=== PATIENT | female | born 1990 | race Caucasian/White ===

== ENCOUNTER 2023-03-16 21:38 | Outpatient (REF) | payer OTHER, SELFPAY ==
[2023-03-22 10:17] LABS: Age Gdln ACOG Testing Note (.); HPV Aptima Negative (Negative); IGP, Aptima HPV, rfx 16/18,45 Note (.)
== END 2023-03-16 21:39 | disposition home or self-care (01) ==
LOC: LAB 21:38
PROVIDERS: Visit Provider Obstetrics & Gynecology
DX: Z01.419 Encounter for gynecological examination (general) (routine) without abnormal findings (principal)
CPT/HCPCS: 87624; G0145

== ENCOUNTER 2023-10-06 14:14 | Outpatient (OUT) | payer OTHER, SELFPAY ==
--- NOTE | 2023-10-06 14:16 | US_ITS ---
[address] [address] Patient Name: SABINE SWAIN MRN: [id number] date: 1990 Sex: F Assigned Patient Location: [facility] Current Patient Location: [facility] Accession/Order Number: [id number] Exam Date: 10/06/2023 14:18 Report Date: 10/06/2023 14:55 At the request of: AGATA FIGUEROA Procedure: US OB transvaginal EXAMINATION: US OB transvaginal HISTORY: Missed menses COMPARISON: No relevant comparison available. FINDINGS: Transvaginal images Brown intrauterine gestation Gestational sac: 1.66 cm, 6 weeks 0 days CRL: 2.8 mm, 5 weeks 6 days Yolk sac: 1.8 mm Heart rate: 101 beats minute Cervix: 4.5 cm, closed Uterus is normal, anteverted The ovaries are normal Clinical age: 9 weeks 6 days Clinical MITCH: 05/04/2024 Ultrasound age: 5 weeks 6 days Ultrasound MITCH: 06/01/2024 US/US OB transvaginal IMPRESSION: Viable brown intrauterine gestation measuring 5 weeks 6 days Electronically authenticated by: BLAS OLIVEIRA Date: 10/06/2023 14:55
== END 2023-10-06 14:15 | disposition home or self-care (01) ==
LOC: NOMS 14:14
PROVIDERS: Visit Provider Obstetrics & Gynecology
DX: Z34.91 Encounter for supervision of normal pregnancy, unspecified, first trimester (principal); Z3A.01 Less than 8 weeks gestation of pregnancy
CPT/HCPCS: 76817

== ENCOUNTER 2023-10-06 15:20 | Outpatient (OUT) | payer OTHER, SELFPAY ==
[2023-10-06 15:56] LABS: Basophils Percent Auto 0.3 % (0.2-2.0); Eosinophils Percent Auto 0.4 % (0.9-7.0); Hematocrit 43.3 % (36.0-48.0); Hemoglobin 14.1 g/dL (12.0-16.0); Immature Granulocytes Abs Auto 0.03 10^3/uL (0.00-0.03); Immature Granulocytes Pct Auto 0.3 % (0.0-0.5); Lymphocytes Absolute Auto 1.2 10^3/uL (1.2-3.8); Lymphocytes Percent Auto 12.2 % (20.5-60.0); Mean Corpuscular HGB Conc 32.6 g/dL (29.9-35.2); Mean Corpuscular Hemoglobin 28.5 pg (26.7-34.0); Mean Corpuscular Volume 87.5 fL (81.0-99.0); Mean Platelet Volume 9.4 fL (9.5-13.5); Monocytes Absolute Auto 0.4 10^3/uL (0.3-0.8); Monocytes Percent Auto 4.2 % (1.7-12.0); Neutrophils Absolute Auto 8.2 10^3/uL (1.4-6.5); Neutrophils Percent Auto 82.6 % (43.0-75.0); Platelet Count 266 10^3/uL (150-450); Red Blood Count 4.95 10^6/uL (4.20-5.40); White Blood Count 9.9 10^3/uL (4.0-11.0)
[2023-10-06 16:05] LABS: Estimated Average Glucose 97 mg/dL
== END 2023-10-06 15:21 | disposition home or self-care (01) ==
LOC: LAB 15:24
PROVIDERS: Visit Provider Obstetrics & Gynecology
DX: Z34.91 Encounter for supervision of normal pregnancy, unspecified, first trimester (principal); Z3A.01 Less than 8 weeks gestation of pregnancy
CPT/HCPCS: 36415; 76817; 83036; 85025; 86592; 86762; 86803; 86850; 86900; 86901; 87086; 87340; 87389

== ENCOUNTER 2024-01-17 13:02 | Outpatient (OUT) | payer OTHER, SELFPAY ==
--- NOTE | 2024-01-17 13:05 | US_ITS ---
[address] [address] Patient Name: SABINE SWAIN MRN: [id number] date: 1990 Sex: F Assigned Patient Location: [facility] Current Patient Location: [facility] Accession/Order Number: [id number] Exam Date: 01/17/2024 13:06 Report Date: 01/17/2024 16:03 At the request of: AGATA FIGUEROA Procedure: US OB cervical length EXAMINATION: US OB anatomy, US OB cervical length HISTORY: ANATOMY COMPARISON: No relevant comparison available. TECHNIQUE: Transabdominal sonographic examination was performed for obstetrical and evaluation. FINDINGS: Number: 1 Heart Rate: 145 bpm H.B. /min Amniotic Fluid Volume: Subjectively normal Placental Location: ANTERIOR with lower margin 3.8 cm from os. Cervix Length: 4.49 cm ; closed. ANATOMY: Normal Structures -cerebellum, choroid plexus, cisterna magna, lateral cerebral ventricles, orbits, midline falx, hard palate, four-chamber heart, RVOT, LVOT, stomach, kidneys, bladder, umbilical cord insertion into abdomen, three-vessel cord, cervical spine, thoracic spine, lumbar spine, sacral spine, right upper extremity, left upper extremity, right lower extremity, left lower extremity. SUBOPTIMALLY SEEN: None ABNORMALITIES: None BIOMETRY: BPD: 4.94 cm; 21 weeks 0 days; 65.20 % HC: 18.33 cm; 20 weeks 5 days; 47.50 % AC: 15.49 cm; 20 weeks 5 days; 46.90 % FL: 3.61 cm; 21 weeks 3 days; 72 % EFW:380.98 g; 68.80 % FL/AC: 23.31 FL/BPD: 73.08 HC/AC: 1.18 GESTATIONAL AGE: Age by EDC: 20 weeks 4 days Age by current US: 21 weeks 0 days MITCH by current US: 2024-05-29 MITCH by EDC: 2024-06-01 US/US OB cervical length IMPRESSION: 1. Single live intrauterine with growth detailed above. Electronically authenticated by: MICKEY GUZMAN Date: 01/17/2024 16:03
--- NOTE | 2024-01-17 13:05 | US_ITS ---
[address] [address] Patient Name: SABINE SWAIN MRN: [id number] date: 1990 Sex: F Assigned Patient Location: [facility] Current Patient Location: [facility] Accession/Order Number: [id number] Exam Date: 01/17/2024 13:06 Report Date: 01/17/2024 16:03 At the request of: AGATA FIGUEROA Procedure: US OB anatomy EXAMINATION: US OB anatomy, US OB cervical length HISTORY: ANATOMY COMPARISON: No relevant comparison available. TECHNIQUE: Transabdominal sonographic examination was performed for obstetrical and evaluation. FINDINGS: Number: 1 Heart Rate: 145 bpm H.B. /min Amniotic Fluid Volume: Subjectively normal Placental Location: ANTERIOR with lower margin 3.8 cm from os. Cervix Length: 4.49 cm ; closed. ANATOMY: Normal Structures -cerebellum, choroid plexus, cisterna magna, lateral cerebral ventricles, orbits, midline falx, hard palate, four-chamber heart, RVOT, LVOT, stomach, kidneys, bladder, umbilical cord insertion into abdomen, three-vessel cord, cervical spine, thoracic spine, lumbar spine, sacral spine, right upper extremity, left upper extremity, right lower extremity, left lower extremity. SUBOPTIMALLY SEEN: None ABNORMALITIES: None BIOMETRY: BPD: 4.94 cm; 21 weeks 0 days; 65.20 % HC: 18.33 cm; 20 weeks 5 days; 47.50 % AC: 15.49 cm; 20 weeks 5 days; 46.90 % FL: 3.61 cm; 21 weeks 3 days; 72 % EFW:380.98 g; 68.80 % FL/AC: 23.31 FL/BPD: 73.08 HC/AC: 1.18 GESTATIONAL AGE: Age by EDC: 20 weeks 4 days Age by current US: 21 weeks 0 days MITCH by current US: 2024-05-29 MITCH by EDC: 2024-06-01 US/US OB anatomy IMPRESSION: 1. Single live intrauterine with growth detailed above. Electronically authenticated by: MICKEY GUZMAN Date: 01/17/2024 16:03
--- OUTSIDE RECORDS SUMMARY | 2024-01-17 13:07 | XMS_ITS | CCD ---
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 Name Role Phone PHYSICIAN, DEFAULT Unavailable Unavailable PHYSICIAN, DEFAULT Unavailable Unavailable MARICRUZ ., DR PARMAR Attending Unavailable MARICRUZ ., DR PARMAR Admitting Unavailable REQUEST, DR NONE LISTED Primary Care Unavaila ble MARICRUZ ., DR PARMAR Consulting Unavailable ZIEBER, DR MICKEY Bueno Consulting Unavailable MARICRUZ ., DR PARMAR Consulting Unavailable MARICRUZ ., DR PARMAR Attending Unavailable MARICRUZ ., DR PARMAR Admitting Unavailable REQUEST, DR NONE LISTED Primary Care Unavaila ble DELLA II, JASMINE Consulting Unavailable MARICRUZ ., DR PARMAR Procedure Practitioner Unavail able WEST, DR BLAS Winkler Consulting Unavailable MARICRUZ ., DR PARMAR Attending Unavailable MARICRUZ ., DR PARMAR Admitting Unavailable REQUEST, DR NONE LISTED Primary Care Unavaila ble MARICRUZ ., DR PARMAR Consulting Unavailable KARASIK ., DR GONZALES Attending Unavailabl e KARASIK ., DR GONZALES Admitting Unavailabl e REQUEST, DR NONE LISTED Primary Care Unavaila ble KARASIK ., DR GONZALES Consulting Unavailabl e MARICRUZ ., DR PARMAR Consulting Unavailable ZIEBER, DR MICKEY Bueno Consulting Unavailable MARICRUZ ., DR PARMAR Admitting Unavailable MARICRUZ ., DR PARMAR Attending Unavailable MARICRUZ ., DR PARMAR Consulting Unavailable JOHNSON ., MEHDI Primary Care Unavailable JOHNSON ., MEHDI Primary Care Unavailable MARICRUZ ., DR PARMAR Admitting Unavailable MARICRUZ ., DR PARMAR Attending Unavailable MARICRUZ ., DR PARMAR Consulting Unavailable MARICRUZ ., DR PARMAR Attending Unavailable MARICRUZ ., DR PARMAR Admitting Unavailable REQUEST, DR NONE LISTED Primary Care Unavaila ble MARICRUZ ., DR PARMAR Consulting Unavailable MARICRUZ ., DR PARMAR Consulting Unavailable MARICRUZ ., DR PARMAR Attending Unavailable MARICRUZ ., DR PARMAR Admitting Unavailable REQUEST, DR NONE LISTED Primary Care Unavaila ble MARICRUZ ., DR PARMAR Admitting Unavailable MARICRUZ ., DR PARMAR Attending Unavailable REQUEST, DR NONE LISTED Primary Care Unavaila ble MARICRUZ ., DR PARMAR Consulting Unavailable ZIEBER, DR MICKEY Bueno Consulting Unavailable MARICRUZ ., DR PARMAR Consulting Unavailable MARICRUZ ., DR PARMAR Attending Unavailable MARICRUZ ., DR PARMAR Admitting Unavailable REQUEST, DR NONE LISTED Primary Care Unavaila ble MARICRUZ ., DR PARMAR Attending Unavailable MARICRUZ ., DR PARMAR Admitting Unavailable REQUEST, NONE LISTED Primary Care Unavaila ble MARICRUZ ., DR PARMAR Consulting Unavailable REQUEST, DR NONE LISTED Primary Care Unavaila ble MARICRUZ ., DR PARMAR Attending Unavailable MARICRUZ ., DR PARMAR Admitting Unavailable WEST, DR BLAS Winkler Consulting Unavailable MARICRUZ ., DR PAMRAR Consulting Unavailable WEST, DR BLAS Winkler Consulting Unavailable MARICRUZ ., DR PARMAR Attending Unavailable MARICRUZ ., DR PARMAR Admitting Unavailable REQUEST, DR NONE LISTED Primary Care Unavaila ble MARICRUZ ., DR PARMAR Consulting Unavailable MARICRUZ ., DR PARMAR Attending Unavailable MARICRUZ ., DR PARMAR Admitting Unavailable REQUEST, DR NONE LISTED Primary Care Unavaila ble MARICRUZ ., DR PARMAR Consulting Unavailable MARICRUZ ., DR PARMAR Attending Unavailable MARICRUZ ., DR PARMAR Admitting Unavailable REQUEST, DR NONE LISTED Primary Care Unavaila ble JOHN CORONADO Attending Unavailable JOHN CORONADO Admitting Unavailable JOHN CORONADO Consulting Unavailable REQUEST, NONE LISTED Primary Care Unavaila ble Ileana Evans Primary Care Provider Agata Alcantara Attending Provider NO FAMILY, PHYSICIAN Primary Care Provider Unava ilable NO FAMILY, PHYSICIAN Primary Care Unavailable Agata Alcantara Attending Unavailable MaricruzAgata milner Admitting Unavailable MARICRUZAGATA MELVIN Attending Unavailable MARICRUZAGATA Milner Attending Unavailable QUENTIN ROGERS Attending Unavailable Problems Active Problems Problem Classification Problem Date Documented Date Episodic/Chronic Conditions associated with dizziness or vertigo (1 source) Dizziness; Translations: [Dizziness and giddiness] 10-19-2022 Episodic Menstrual disorders (4 sources) Irregular menstruation, unspecified; Translations: [IRREGULAR MENSTRUATION UNSPECIFIED] Onset: 02-05-2022 Chronic OB-related trauma to perineum and vulva (1 source) First degree perineal laceration during delivery; Translations: [FIRST DEG PERINEAL LAC DUR DELIV] Onset: 08-24-2022 Episodic Other complications of (4 sources) Supervision of with history of pre-term labor, third trimester; Translations: [SUP PREG W/HX PRE-TERM LABR 3RD TRI] Onset: 07-08-2022 Episodic Other lower respiratory disease (1 source) Dyspnea; Translations: [Shortness of breath] 10-19-2022 Episodic Other and delivery including normal (20 sources) Encounter for routine follow-up; Translations: [Encounter for full-term uncomplicated delivery] Onset: 01-18-2022 Episodic Polyhydramnios and other problems of amniotic cavity (1 source) Polyhydramnios, third trimester, not applicable or unspecified; Translations: [POLYHYDRAMNIOS THIRD TRI NA/UNS] Onset: 08-21-2022 Episodic Prolapse of female genital organs (1 source) Pelvic muscle wasting; Translations: [Pelvic muscle wasting] Onset: 12-16-2022 Chronic Prolonged (4 sources) Post-term ; Translations: [POST-TERM ] Onset: 08-17-2022 Episodic Residual codes; unclassified (1 source) 42 weeks gestation of ; Translations: [42 WEEKS GESTATION OF ] Onset: 08-24-2022 Episodic Residual codes; unclassified (1 source) 40 weeks gestation of ; Translations: [40 WEEKS GESTATION OF ] Onset: 08-21-2022 Episodic Residual codes; unclassified (1 source) 35 weeks gestation of ; Translations: [35 WEEKS GESTATION OF ] Onset: 07-12-2022 Episodic Syncope (1 source) Syncope; Translations: [Syncope and collapse] 10-19-2022 Episodic Past or Other Problems Problem Classification Problem Date Documented Date Episodic/Chronic Abdominal pain (1 source) Right lower quadrant pain; Translations: [RIGHT LOWER QUADRANT PAIN] Onset: 05-04-2022 Episodic Hemorrhage during ; abruptio placenta; placenta previa (1 source) Low lying placenta NOS or without hemorrhage, second trimester; Translations: [LOW LYING PL NOS W/O HEMORR 2ND TRI] Onset: 03-28-2022 Episodic Immunizations and screening for infectious disease (2 sources) Encounter for screening for human papillomavirus (HPV); Translations: [Contact with and (suspected) exposure to infections with a predominantly sexual mode of transmission] Onset: 02-20-2022 Episodic Other complications of (4 sources) Other specified related conditions, second trimester; Translations: [OTH SPEC PREG RELATED COND 2ND TRI] Onset: 04-30-2022 Episodic Other female genital disorders (1 source) Other specified noninflammatory disorders of vagina; Translations: [OTH SPEC NONINFLAMMATORY D/O VAGINA] Onset: 02-20-2022 Episodic Other screening for suspected conditions (not mental disorders or infectious disease) (5 sources) Encounter for screening for malignant neoplasm of cervix; Translations: [Encounter for screening for diabetes mellitus] Onset: 02-10-2022 Episodic Residual codes; unclassified (1 source) 24 weeks gestation of ; Translations: [24 WEEKS GESTATION OF ] Onset: 05-04-2022 Episodic Residual codes; unclassified (1 source) 20 weeks gestation of ; Translations: [20 WEEKS GESTATION OF ] Onset: 03-28-2022 Episodic Spontaneous (4 sources) Complete or unspecified spontaneous without complication; Translations: [COMPLETE/UNS SPONT AB W/O COMP] Onset: 09-03-2021 Episodic Results Test Name Value Interpretation Reference Range Facility [facility] 10-14-2022 BANNER Telephone (BEBETO) SABINE ROUSE ([id number]) 1990 F Date Time Provider Department 10/14/22 SEGUNDO ALBA During your visit today, we recorded the following information about you: Brenda Karimi ADM 10/14/2022 4:21 PM Signed Per Desk F14 from Carmencita Call Contact information: [address] [place] Diagnoses: Syncope, unspecified syncope type Shortness of breath Please schedule first available with Dr. Segundo Alba. Thank you. Carmencita I spoke w the patient Patient has [place] Medicaid. Referrals will have to be created and sent to [facility] Allergies As of Date: 10/14/2022 (Not on File) Date Reviewed: Never Reviewed Reason for Visit: Appointment [[id number]] Problem List As Of Date: 10/14/2022 (None) Encounter Status:Closed by BRENDA MARTINEZ on 10/14/22 Normal [facility] CNPNon 10-07-2022 CNPN Telephone (CARDMN) SABINE ROUSE ([id number]) 1990 F Date Time Provider Department 10/07/22 SEGUNDO ALBAWY During your visit today, we recorded the following information about you: Carmencita Mittal 10/07/2022 11:55 AM Signed Referral and outside medical records scanned into miiCard. Referral routed to scheduling for first available with Dr. Segundo Alba. Allergies As of Date: 10/07/2022 (Not on File) Date Reviewed: Never Reviewed Reason for Visit: Received Referral and Outside Medical Records [Other] Problem List As Of Date: 10/07/2022 (None) Encounter Status:Closed by CARMENCITA MITTAL on 10/07/22 [facility] CBC AUTO DIFFon 08-20-2022 BASO # 0.0 103/ul Normal 0.0-0.[address] [facility] Comment on above: Performed By: #### C BC #### [facility] [address] [address] [address] Alla Peterson Basophils/100 WBC (Bld) 0.2 % Normal 0.2-2.0 [facility] Comment on above: Performed By: #### C BC #### [facility] [address] [place] [address] Dr. Alla Peterson EO # 0.0 103/ul Normal 0.0-0.[address] [facility] Comment on above: Performed By: #### C BC #### [facility] [address] [place] [address] Dr. Alal Peterson Eosinophils/100 WBC (Bld) 0.2 % Critically low 0.9-7.[address] [facility] Comment on above: Performed By: #### C BC #### [facility] [address] [place] [address] Dr. Alla Peterson Erythrocyte distribution width (RBC) [Ratio] 13.2 % Normal 11.0-15.0 [facility] Comment on above: Performed By: #### C BC #### [facility] [address] [place] [address] Dr. Alla Peterson Hematocrit (Bld) [Volume fraction] 36.1 % Normal 36.0-48.0 [facility] Comment on above: Performed By: #### C BC #### [facility] [address] [place] [address] Dr. Alla Peterson Hemoglobin (Bld) [Mass/Vol] 12.4 g/dL Normal 12.0-16.0 [facility] Comment on above: Performed By: #### C BC #### [facility] [address] [place] [address] Dr. Alla Peterson IG # 0.05 10e3/ul Critically high 0.00-0.03 [facility] Comment on above: Performed By: #### C BC #### [facility] [address] [place] [address] Dr. Alla Peterson IG % 0.4 % Normal 0.0-0.[address] [facility] Comment on above: Performed By: #### C BC #### [facility] [address] [place] [address] Dr. Alla Peterson LYMPH # 1.4 103/ul Normal 1.2-3.[address] [facility] Comment on above: Performed By: #### C BC #### [facility] [address] [place] [address] Dr. Alla Peterson Lymphocytes/100 WBC (Bld) 10.9 % Critically low 20.5-60.[address] [facility] Comment on above: Performed By: #### C BC #### [facility] [address] [place] [address] Dr. Alla Peterson MANUAL DIFF REQ NO Normal [facility] Comment on above: Performed By: #### C BC #### [facility] [address] [place] [address] Dr. Alla Peterson MCH (RBC) [Entitic mass] 30.0 pg Normal 26.7-34.[address] [facility] Comment on above: Performed By: #### C BC #### [facility] [address] [place] [address] Dr. Alla Peterson MCHC (RBC) [Mass/Vol] 34.3 g/dL Normal 29.9-35.[address] [facility] Comment on above: Performed By: #### C BC #### [facility] [address] [place] [address] Dr. Alla Peterson MCV (RBC) [Entitic vol] 87.4 fL Normal 81.0-99.[address] [facility] Comment on above: Performed By: #### C BC #### [facility] [address] [place] [address] Dr. Alla Peterson MONO # 0.8 103/ul Normal 0.3-0.[address] [facility] Comment on above: Performed By: #### C BC #### [facility] [address] [place] [address] Dr. Alla Peterson Monocytes/100 WBC (Bld) 6.0 % Normal 1.7-12.[address] [facility] Comment on above: Performed By: #### C BC #### [facility] [address] [place] [address] Dr. Alla Peterson NEUT # 10.8 103/ul Critically high 1.4-6.5 [facility] Comment on above: Performed By: #### C BC #### [facility] [address] [place] [address] Dr. Alla Peterson Neutrophils/100 WBC (Bld) 82.3 % Critically high 43.0-75.0 [facility] Comment on above: Performed By: #### C BC #### [facility] [address] [place] [address] Dr. Alla Peterson Platelet mean volume (Bld) [Entitic vol] 10.2 fL Normal 9.5-13.5 [facility] Comment on above: Performed By: #### C BC #### [facility] [address] [place] [address] Dr. Alla Peterson PLT 177 103/ul Normal 150-[address] [facility] Comment on above: Performed By: #### C BC #### [facility] [address] [place] [address] Dr. Alla Peterson RBC 4.13 106/ul Critically low 4.20-5.40 [facility] Comment on above: Performed By: #### C BC #### [facility] [address] [place] [address] Dr. Alla Peterson WBC 13.1 103/ul Critically high 4.0-11.0 [facility] Comment on above: Performed By: #### C BC #### [facility] [address] [place] [address] Dr. Alla Peterson CBC AUTO DIFFon 08-19-2022 BASO # 0.0 103/ul Normal 0.0-0.1 [facility] Comment on above: Performed By: #### R UBIGG #### [facility] [address] [place] [address] Dr. Alla Peterson Basophils/100 WBC (Bld) 0.2 % Normal 0.2-2.[address] [facility] Comment on above: Performed By: #### R UBIGG #### [facility] [address] [place] [address] Dr. Alla Peterson EO # 0.0 103/ul Normal 0.0-0.[address] [facility] Comment on above: Performed By: #### R UBIGG #### [facility] [address] [place] [address] Dr. Alla Peterson Eosinophils/100 WBC (Bld) 0.4 % Critically low 0.9-7.0 [facility] Comment on above: Performed By: #### R UBIGG #### [facility] [address] [place] [address] Dr. Alla Peterson Erythrocyte distribution width (RBC) [Ratio] 12.9 % Normal 11.0-15.0 [facility] Comment on above: Performed By: #### R UBIGG #### [facility] [address] [place] [address] Dr. Alla Peterson Hematocrit (Bld) [Volume fraction] 38.1 % Normal 36.0-48.0 [facility] Comment on above: Performed By: #### R UBIGG #### [facility] [address] [place] [address] Dr. Alla Peterson Hemoglobin (Bld) [Mass/Vol] 13.3 g/dL Normal 12.0-16.0 [facility] Comment on above: Performed By: #### R UBIGG #### [facility] [address] [place] [address] Dr. Alla Peterson IG # 0.02 10e3/ul Normal 0.00-0.[address] [facility] Comment on above: Performed By: #### R UBIGG #### [facility] [address] [place] [address] Dr. Alla Peterson IG % 0.2 % Normal 0.0-0.[address] [facility] Comment on above: Performed By: #### R UBIGG #### [facility] [address] [place] [address] Dr. Alla Peterson LYMPH # 1.5 103/ul Normal 1.2-3.[address] [facility] Comment on above: Performed By: #### R UBIGG #### [facility] [address] [place] [address] Dr. Alla Peterson Lymphocytes/100 WBC (Bld) 17.6 % Critically low 20.5-60.0 [facility] Comment on above: Performed By: #### R UBIGG #### [facility] [address] [address] [address] Alla Peterson MANUAL DIFF REQ NO Normal [facility] Comment on above: Performed By: #### R UBIGG #### [facility] [address] [place] [address] Dr. Alla Peterson MCH (RBC) [Entitic mass] 30.0 pg Normal 26.7-34.0 [facility] Comment on above: Performed By: #### R UBIGG #### [facility] [address] [place] [address] Dr. Alla Peterson MCHC (RBC) [Mass/Vol] 34.9 g/dL Normal 29.9-35.[address] [facility] Comment on above: Performed By: #### R UBIGG #### [facility] [address] [place] [address] Dr. Alla Peterson MCV (RBC) [Entitic vol] 85.8 fL Normal 81.0-99.[address] [facility] Comment on above: Performed By: #### R UBIGG #### [facility] [address] [place] [address] Dr. Alla Peterson MONO # 0.4 103/ul Normal 0.3-0.[address] [facility] Comment on above: Performed By: #### R UBIGG #### [facility] [address] [place] [address] Dr. Alla Peterson Monocytes/100 WBC (Bld) 5.1 % Normal 1.7-12.[address] [facility] Comment on above: Performed By: #### R UBIGG #### [facility] [address] [place] [address] Dr. Alla Peterson NEUT # 6.5 103/ul Normal 1.4-6.[address] [facility] Comment on above: Performed By: #### R UBIGG #### [facility] [address] [place] [address] Dr. Alla Peterson Neutrophils/100 WBC (Bld) 76.5 % Critically high 43.0-75.[address] [facility] Comment on above: Performed By: #### R UBIGG #### [facility] [address] [address] [address] Alla Peterson Platelet mean volume (Bld) [Entitic vol] 10.2 fL Normal 9.5-13.5 [facility] Comment on above: Performed By: #### R UBIGG #### [facility] [address] [address] [address] Alla Peterson PLT 196 103/ul Normal 150-[address] [facility] Comment on above: Performed By: #### R UBIGG #### [facility] [address] [address] [address] Alla Peterson RBC 4.44 106/ul Normal 4.20-5.[address] [facility] Comment on above: Performed By: #### R UBIGG #### [facility] [address] [place] [address] Dr. Alla Peterson WBC 8.5 103/ul Normal 4.0-11.0 [facility] Comment on above: Performed By: #### R UBIGG #### [facility] [address] [place] [address] Dr. Alla Peterson DRUG SCREEN RAPID (URINE)on 08-19-2022 AMP Negative Normal NEGATIVE [facility] Comment on above: Performed By: #### R UBIGG #### [facility] [address] [place] [address] Dr. Alla Peterson BAR Negative Normal NEGATIVE [facility] Comment on above: Performed By: #### R UBIGG #### [facility] [address] [place] [address] Dr. Alla Peterson BUP Negative Normal NEGATIVE [facility] Comment on above: Performed By: #### R UBIGG #### [facility] [address] [address] [address] Alla Peterson BZO Negative Normal NEGATIVE [facility] Comment on above: Performed By: #### R UBIGG #### [facility] [address] [place] [address] Dr. Alla Peterson TK Negative Normal NEGATIVE [facility] Comment on above: Performed By: #### R UBIGG #### [facility] [address] [place] [address] Dr. Alla Peterson CUT-OFFS SEE BELOW Normal [facility] Comment on above: Result Comment: AMP (Amphetamine): 500ng/mL, BAR (Barbituates): 200 ng/mL, BZO (Benzodiazepines): 150 ng/mL, BUP (Buprenorphine): 10 ng/mL, TK (Cocaine): 150 ng/mL, mAMP (Methamphetamine): 500 ng/mL, MTD (Methadone): 200 ng/mL, OPI (Opiates): 100 ng/mL, OXY (Oxycodone): 100 ng/mL, PCP (Phencyclidine): 25 ng/mL, PPX (Propoxyphene): 300 ng/mL, THC (Cannabinoids): 50 ng/mL, TCA (Trycyclic Antidepressants): 300 ng/mL Performed By: #### R UBIGG #### [facility] [address] [place] [address] Dr. Alla Peterson DRUG CUT HEADER DRUG CLASS TEST SYSTEM CUT-OFF CONCENTRATIONS ARE FOLLOWS: Normal [facility] Comment on above: Performed By: #### R UBIGG #### [facility] [address] [place] [address] Dr. Alla Peterson mAMP Negative Normal NEGATIVE [facility] Comment on above: Performed By: #### R UBIGG #### [facility] [address] [place] [address] Dr. Alla Peterson MTD Negative Normal NEGATIVE [facility] Comment on above: Performed By: #### R UBIGG #### [facility] [address] [place] [address] Dr. Alla Peterson OPI Negative Normal NEGATIVE [facility] Comment on above: Performed By: #### R UBIGG #### [facility] [address] [place] [address] Dr. Alla Peterson OXY Negative Normal NEGATIVE [facility] Comment on above: Performed By: #### R UBIGG #### [facility] [address] [place] [address] Dr. Alla Peterson PCP Negative Normal NEGATIVE [facility] Comment on above: Performed By: #### R UBIGG #### [facility] [address] [address] [address] Alla Peterson PPX Negative Normal NEGATIVE [facility] Comment on above: Performed By: #### R UBIGG #### [facility] [address] [address] [address] Alla Peterson TCA Negative Normal NEGATIVE [facility] Comment on above: Performed By: #### R UBIGG #### [facility] [address] [address] [address] Alla Peterson THC Negative Normal NEGATIVE [facility] Comment on above: Performed By: #### R UBIGG #### [facility] [address] [place] [address] Dr. Alla Peterson TYPE AND SCREENon 08-19-2022 TYPE AND SCREEN Negative Normal [facility] Comment on above: Performed By: #### T NS #### [facility] [address] [address] [address] Alla Peterson US PREG BIOPHY W NON STRESSo n 08-17-2022 US PREG BIOPHY W NON STRESS EXAMINATION: US PREG BIOPHY W NON STRESS HISTORY: Post-term COMPARISON: Ultrasound biophysical 08/16/2022 FINDINGS: BREATHING MOVEMENTS: 2.0 GROSS BODY MOVEMENTS: 2.0 TONE: 2.0 QUALITATIVE AMNIOTIC FLUID VOLUME: 2.0 PRESENTATION: Cephalic HEART RATE: 138.5 bpm bpm. AMNIOTIC FLUID VOLUME: 29.2 cm (normal range 6.3-22.3 cm) GESTATIONAL AGE: 40 weeks 5 days CONCLUSION: 1. Total biophysical profile score 8.0. 2. Polyhydramnios; not significantly changed compared to 08/16/2022 Electronically authenticated by: MICKEY GUZMAN Date: 2022-08-17 15:[address] [facility] US PREG BIOPHY W NON STRESSo n 08-16-2022 US PREG BIOPHY W NON STRESS EXAMINATION: US PREG BIOPHY W NON STRESS HISTORY: Post-term COMPARISON: Ultrasound biophysical 08/12/2022 FINDINGS: BREATHING MOVEMENTS: 0.0 GROSS BODY MOVEMENTS: 2.0 TONE: 2.0 QUALITATIVE AMNIOTIC FLUID VOLUME: 2.0 PRESENTATION: Cephalic HEART RATE: 161.7 bpm bpm. AMNIOTIC FLUID VOLUME: 29.0 cm (95th percentile is 21.4 cm) GESTATIONAL AGE: 40 weeks 4 days CONCLUSION: 1. Total biophysical profile score 6.0. 2. Polyhydramnios, 29.0 cm; which is an increase since prior study (previously 27.0 cm). Findings provided to the [facility] nurse by the soaking pit operator at time of examination. Electronically authenticated by: MICKEY GUZMAN Date: 2022-08-16 15:45 Normal [facility] US PREG BIOPHY W NON STRESSo n 08-12-2022 US PREG BIOPHY W NON STRESS EXAMINATION: US PREG BIOPHY W NON STRESS HISTORY: Post-term COMPARISON: No relevant comparison available. TECHNIQUE: Ultrasound biophysical profile was performed in the radiology department. . FINDINGS: BREATHING MOVEMENTS: 2 GROSS BODY MOVEMENTS: 2 TONE: 2 QUALITATIVE AMNIOTIC FLUID VOLUME: 2 PRESENTATION: CEPHALIC HEART RATE: 154.3 bpm H.B./min AMNIOTIC FLUID VOLUME: 27.0 cm cm GESTATIONAL AGE: 40 weeks 0 days CONCLUSION: Total biophysical profile score: 8 Electronically authenticated by: BLAS OLIVEIRA Date: 2022-08-12 16:[address] [facility] GROUP B STREP CULTUREon S. agalactiae Ag Ql (Unsp spec) Culture Observations: NEGATIVE FOR GROUP B STREPTOCOCCUS. Normal [facility] Comment on above: Performed By: #### P REGQNT #### [facility] [address] [place] [address] Dr. Alla Peterson UA (CLEAN/CATCH) PERSONAL SECURITY SPECIALIST/MICRO I F IND.on 04-30-2022 Bilirubin Ql (U) Negative Normal NEGATIVE [facility] Comment on above: Performed By: #### R UBIGG #### [facility] [address] [place] [address] Dr. Alla Peterson Clarity (U) CLEAR Normal CLEAR [facility] Comment on above: Performed By: #### R UBIGG #### [facility] [address] [place] [address] Dr. Alla Peterson Color (U) LT. YELLOW Normal YELLOW [facility] Comment on above: Performed By: #### R UBIGG #### [facility] [address] [address] [address] Alla Peterson Glucose Ql (U) Negative Normal NEGATIVE [facility] Comment on above: Performed By: #### R UBIGG #### [facility] [address] [address] [address] Alla Peterson Hemoglobin Ql (U) Negative Normal NEGATIVE [facility] Comment on above: Performed By: #### R UBIGG #### [facility] [address] [address] [address] Alla Peterson Ketones Ql (U) Negative Normal NEGATIVE [facility] Comment on above: Performed By: #### R UBIGG #### [facility] [address] [place] [address] Dr. Alla Peterson LEUKOCYTES Negative Normal NEGATIVE [facility] Comment on above: Performed By: #### R UBIGG #### [facility] [address] [place] [address] Dr. Alla Peterson Nitrite Ql (U) Negative Normal NEGATIVE [facility] Comment on above: Performed By: #### R UBIGG #### [facility] [address] [address] [address] Alla Peterson pH (U) 7.0 [pH] Normal 5-9 [facility] Comment on above: Performed By: #### R UBIGG #### [facility] [address] [place] [address] Dr. Alla Peterson SPEC GRAVITY 1.005 Normal 1.005-<=1.025 [facility] Comment on above: Performed By: #### R UBIGG #### [facility] [address] [place] [address] Dr. Alla Peterson UA PROTEIN Negative Normal NEGATIVE/ TRACE [facility] Comment on above: Performed By: #### R UBIGG #### [facility] [address] [place] [address] Dr. Alla Peterson UR MICRO IND NOT INDICATED Normal [facility] Comment on above: Performed By: #### R UBIGG #### [facility] [address] [address] [address] Alla Peterson Urobilinogen Qn (U) 0.2 {José Miguel'U}/dL Normal 0.2 - 1. [address] [facility] Comment on above: Performed By: #### R UBIGG #### [facility] [address] [place] [address] Dr. Alla Peterson CBC AUTO DIFFon 04-29-2022 BASO # 0.0 103/ul Normal 0.0-0.1 [facility] Comment on above: Performed By: #### P REGQNT #### [facility] [address] [place] [address] Dr. Alla Peterson Basophils/100 WBC (Bld) 0.1 % Critically low 0.2-2.0 [facility] Comment on above: Performed By: #### P REGQNT #### [facility] [address] [place] [address] Dr. Alla Peterson EO # 0.0 103/ul Normal 0.0-0.[address] [facility] Comment on above: Performed By: #### P REGQNT #### [facility] [address] [place] [address] Dr. Alla Peterson Eosinophils/100 WBC (Bld) 0.4 % Critically low 0.9-7.0 [facility] Comment on above: Performed By: #### P REGQNT #### [facility] [address] [place] [address] Dr. Alla Peterson Erythrocyte distribution width (RBC) [Ratio] 13.2 % Normal 11.0-15.[address] [facility] Comment on above: Performed By: #### P REGQNT #### [facility] [address] [place] [address] Dr. Alla Peterson Hematocrit (Bld) [Volume fraction] 38.8 % Normal 36.0-48.0 [facility] Comment on above: Performed By: #### P REGQNT #### [facility] [address] [place] [address] Dr. Alla Peterson Hemoglobin (Bld) [Mass/Vol] 13.2 g/dL Normal 12.0-16.0 [facility] Comment on above: Performed By: #### P REGQNT #### [facility] [address] [place] [address] Dr. Alla Peterson IG # 0.05 10e3/ul Critically high 0.00-0.03 [facility] Comment on above: Performed By: #### P REGQNT #### [facility] [address] [place] [address] Dr. Alla Peterson IG % 0.6 % Critically high 0.0-0.5 [facility] Comment on above: Performed By: #### P REGQNT #### [facility] [address] [place] [address] Dr. Alla Peterson LYMPH # 1.2 103/ul Normal 1.2-3.8 [facility] Comment on above: Performed By: #### P REGQNT #### [facility] [address] [place] [address] Dr. Alla Peterson Lymphocytes/100 WBC (Bld) 14.7 % Critically low 20.5-60.0 [facility] Comment on above: Performed By: #### P REGQNT #### [facility] [address] [place] [address] Dr. Alla Peterson MANUAL DIFF REQ NO Normal [facility] Comment on above: Performed By: #### P REGQNT #### [facility] [address] [place] [address] Dr. Alla Peterson MCH (RBC) [Entitic mass] 29.6 pg Normal 26.7-34.0 [facility] Comment on above: Performed By: #### P REGQNT #### [facility] [address] [place] [address] Dr. Alla Peterson MCHC (RBC) [Mass/Vol] 34.0 g/dL Normal 29.9-35.2 [facility] Comment on above: Performed By: #### P REGQNT #### [facility] [address] [place] [address] Dr. Alla Peterson MCV (RBC) [Entitic vol] 87.0 fL Normal 81.0-99.0 [facility] Comment on above: Performed By: #### P REGQNT #### [facility] [address] [place] [address] Dr. Alla Peterson MONO # 0.4 103/ul Normal 0.3-0.8 [facility] Comment on above: Performed By: #### P REGQNT #### [facility] [address] [place] [address] Dr. Alla Peterson Monocytes/100 WBC (Bld) 4.3 % Normal 1.7-12.0 [facility] Comment on above: Performed By: #### P REGQNT #### [facility] [address] [place] [address] Dr. Alla Peterson NEUT # 6.7 103/ul Critically high 1.4-6.5 [facility] Comment on above: Performed By: #### P REGQNT #### [facility] [address] [place] [address] Dr. Alla Peterson Neutrophils/100 WBC (Bld) 79.9 % Critically high 43.0-75.0 [facility] Comment on above: Performed By: #### P REGQNT #### [facility] [address] [place] [address] Dr. Alla Peterson Platelet mean volume (Bld) [Entitic vol] 9.3 fL Critically low 9.5-13.5 [facility] Comment on above: Performed By: #### P REGQNT #### [facility] [address] [place] [address] Dr. Alla Peterson PLT 251 103/ul Normal 150-[address] [facility] Comment on above: Performed By: #### P REGQNT #### [facility] [address] [place] [address] Dr. Alla Peterson RBC 4.46 106/ul Normal 4.20-5.[address] [facility] Comment on above: Performed By: #### P REGQNT #### [facility] [address] [place] [address] Dr. Alla Peterson WBC 8.3 103/ul Normal 4.0-11.0 [facility] Comment on above: Performed By: #### P REGQNT #### [facility] [address] [address] [address] Alla Peterson GLUCOSE - 1HRon 04-29-2022 Glucose [Mass/Vol] 86 mg/dL Normal 74-106 [facility] Comment on above: Performed By: #### R UBIGG #### [facility] [address] [id number] Alla Peterson US PREG PLACENTAon 3 US PREG PLACENTA EXAMINATION: US PREG PLACENTA HISTORY: Low lying placenta COMPARISON: 03/25/2022 FINDINGS: Placenta: Posterior fundal. No intraplacental or retroplacental echogenic abnormality is observed The placental edge is 3.1 cm from the internal os Cervix: Closed, 4 cm Heart rate: 147 bpm IMPRESSION: Placental edge 3.1 cm from the internal os Electronically authenticated by: BLAS OLIVEIRA Date: 2022-04-27 16:[address] [facility] US PREG ANATOMY SINGLEon US PREG ANATOMY SINGLE EXAMINATION: US PREG ANATOMY SINGLE HISTORY: anatomy study COMPARISON: No relevant comparison available. TECHNIQUE: Transabdominal sonographic examination was performed for obstetrical and evaluation. FINDINGS: Number: 1 Heart Rate: 151.0 bpm H.B. /min Amniotic Fluid Volume: Subjectively normal position: Cephalic Placental Location: POSTERIOR , the placental edge is 2.2 cm from the Cervix Length: 5 cm Normally visualized anatomy: Cerebellum, choroid plexus, cisterna magna, lateral cerebral ventricles, orbits, midline falx, hard palate, four-chamber heart, RVOT, LVOT, stomach, kidneys, bladder, umbilical cord insertion into the abdomen, three-vessel cord, cervical spine, thoracic spine, lumbar spine, sacral spine, right upper extremity, left upper extremity, right lower extremity, left lower extremity Suboptimally visualized anatomy: None BIOMETRY: BPD: 4.4 cm 19 weeks 3 days , 24% HC: 16.5 cm 19 weeks 1 days, 12% AC: 14.1 cm 19 weeks 3 days, 20% FL: 3.1 cm 19 weeks 5 days, 32% EFW:299.1 grams; 11 ounces, 22% FL/AC: 22.2 FL/BPD: 70.8 HC/AC: 1.2 GESTATIONAL AGE: Age by EDC: 20 weeks 0 days MITCH by EDC: 08/12/2022 Age by current US: 19 weeks 3 days MITCH by current US: 08/16/2022 IMPRESSION: Low lying placenta, otherwise normal anatomy scan *Reference: [employer] Practice Guideline for the performance of Obstetric Ultrasound Examinations, January 09, 2007. Electronically authenticated by: BLAS OLIVEIRA Date: 2022-03-25 18:45 [facility] PAP ACOG PANEL 2: 21 to 29on 02-24-2022 . . Normal [facility] Comment on above: Performed By: #### R UBIGG #### [facility] [address] [place] [address] Dr. Alla Peterson Age Gdln ACOG Testing 23- [facility] Comment on above: Performed By: #### R UBIGG #### [facility] [address] [place] [address] Dr. Alla Peterson DIAGNOSIS: Comment [facility] Comment on above: Result Comment: NEGA TIVE FOR INTRAEPITHELIAL LESION OR MALIGNANCY. Performed By: #### R UBIGG #### [facility] [address] [place] [address] Dr. Alla Peterson Methodology: Comment [facility] Comment on above: Result Comment: This liquid based ThinPrep(R) pap test was screened with the use of an image guided system. Performed By: #### R UBIGG #### [facility] [address] [place] [address] Dr. Alla Peterson Note: Comment [facility] Comment on above: Result Comment: The Pap smear is a screening test designed to aid in the detection of premalignant and malignant conditions of the uterine cervix. It is not a diagnostic procedure and should not be used as the sole means of detecting cervical cancer. Both false-positive and false-negative reports do occur. . Performed By: #### R UBIGG #### [facility] [address] [place] [address] Dr. Alla Peterson Performed by: Comment Normal [facility] Comment on above: Result Comment: Edgar b Fredeking, Inward Toll Operator (ASCP) Performed By: #### R UBIGG #### [facility] [address] [place] [address] Dr. Alla Peterson Reflex Criteria: Comment Normal [facility] Comment on above: Result Comment: The HPV DNA reflex criteria were not met with this specimen result therefore, no HPV testing was performed. . Performed By: #### R UBIGG #### [facility] [address] [place] [address] Dr. Alla Peterson Specimen adequacy: Comment Normal [facility] Comment on above: Result Comment: Sati sfactory for evaluation. No endocervical component is identified. Performed By: #### R UBIGG #### [facility] [address] [place] [address] Dr. Alla Peterson CHLAMYDIA/GONOCOCCUS GONZÁLEZ (SW AB/URINE/PAPon 02-18-2022 Chlamydia trachomatis, GONZÁLEZ Negative Normal Negative [facility] Comment on above: Performed By: #### C T/NGNA #### [facility] [address] [place] [address] Dr. Alla Peterson Neisseria gonorrhoeae, GONZÁLEZ Negative Normal Negative [facility] Comment on above: Performed By: #### C T/NGNA #### [facility] [address] [place] [address] Dr. Alla Peterson VAGINITIS/VAGINOSIS DNA PROB Marko 02-18-2022 Hilda species Negative Normal Negative [facility] Comment on above: Performed By: #### R UBIGG #### [facility] [address] [place] [address] Dr. Alla Peterson Gardnerella vaginalis Negative Normal Negative [facility] Comment on above: Performed By: #### R UBIGG #### [facility] [address] [place] [address] Dr. Alla Peterson Trichomonas vaginalis Negative Normal Negative [facility] Comment on above: Performed By: #### R UBIGG #### [facility] [address] [place] [address] Dr. Alla Peterson HEP B SURFACE ANTIGEN SCREEN on 02-06-2022 HBsAg Screen Negative Normal Negative [facility] Comment on above: Performed By: #### H BSANS #### [facility] [address] [place] [address] Dr. Alla Peterson HEPATITIS C VIRUS AB W/ REFL EX QUANTon 02-06-2022 HCV AB 0.1 s/co ratio Normal 0.0-0.9 [facility] Comment on above: Performed By: #### H CVPCRR #### [facility] [address] [place] [address] Dr. Alla Peterson Interpretation: Comment Normal [facility] Comment on above: Result Comment: Nega tive Not infected with HCV, unless recent infection is suspected or other evidence exists to indicate HCV infection. Performed By: #### H CVPCRR #### [facility] [address] [place] [address] Dr. Alla Peterson HIV 1 AND 2 WITH REFLEXon HIV Screen 4th Generation wRfx Non-Reactive Normal Non Reactive [facility] Comment on above: Result Comment: HIV Negative HIV-1/HIV-2 antibodies and HIV-1 p24 antigen were NOT detected. There is no laboratory evidence of HIV infection. Performed By: #### H IV12 #### [facility] [address] [place] [address] Dr. Alla Peterson RPR QUANTon 02-06-2022 Rapid Plasma Reagin, Quant Non-Reactive Normal NonRea<1:[address] [facility] Comment on above: Result Comment: Plea se Note: This test does not meet current guidelines for screening and diagnosis of syphilis. This test is intended for following treatment response in patients being treated for syphilis infection. To screen for syphilis infection, a reflex cascade that includes both RPR and a treponema-specific assay should be utilized, such as Treponema pallidum (Syphilis) Screening [place] (810639) or Rapid Plasma Reagin (RPR) Test With Reflex to Quantitative RPR and Confirmatory Treponema pallidum Antibodies (842782). Performed By: #### R UBIGG #### [facility] [address] [place] [address] Dr. Alla Peterson RUBELLA AB IGGon 02-06-2022 Rubella Antibodies, IgG 3.77 index Normal Immune >0.99 [facility] Comment on above: Result Comment: Non- immune <0.90 Equivocal 0.90 - 0.99 Immune >0.99 Performed By: #### R UBIGG #### [facility] [address] [place] [address] Dr. Alla Peterson CBC AUTO DIFFon 02-05-2022 BASO # 0.0 103/ul Normal 0.0-0.1 [facility] Comment on above: Performed By: #### P REGQNT #### [facility] [address] [place] [address] Dr. Alla Peterson Basophils/100 WBC (Bld) 0.3 % Normal 0.2-2.0 [facility] Comment on above: Performed By: #### P REGQNT #### [facility] [address] [place] [address] Dr. Alla Peterson EO # 0.0 103/ul Normal 0.0-0.7 [facility] Comment on above: Performed By: #### P REGQNT #### [facility] [address] [place] [address] Dr. Alla Peterson Eosinophils/100 WBC (Bld) 0.2 % Critically low 0.9-7.0 [facility] Comment on above: Performed By: #### P REGQNT #### [facility] [address] [place] [address] Dr. Alla Peterson Erythrocyte distribution width (RBC) [Ratio] 12.3 % Normal 11.0-15.0 [facility] Comment on above: Performed By: #### P REGQNT #### [facility] [address] [place] [address] Dr. Alla Peterson Hematocrit (Bld) [Volume fraction] 40.1 % Normal 36.0-48.0 [facility] Comment on above: Performed By: #### P REGQNT #### [facility] [address] [place] [address] Dr. Alla Peterson Hemoglobin (Bld) [Mass/Vol] 13.9 g/dL Normal 12.0-16.0 [facility] Comment on above: Performed By: #### P REGQNT #### [facility] [address] [place] [address] Dr. Alla Peterson IG # 0.04 10e3/ul Critically high 0.00-0.03 [facility] Comment on above: Performed By: #### P REGQNT #### [facility] [address] [place] [address] Dr. Alla Peterson IG % 0.4 % Normal 0.0-0.5 [facility] Comment on above: Performed By: #### P REGQNT #### [facility] [address] [place] [address] Dr. Alla Peterson LYMPH # 1.3 103/ul Normal 1.2-3.8 [facility] Comment on above: Performed By: #### P REGQNT #### [facility] [address] [place] [address] Dr. Alla Peterson Lymphocytes/100 WBC (Bld) 13.4 % Critically low 20.5-60.0 [facility] Comment on above: Performed By: #### P REGQNT #### [facility] [address] [place] [address] Dr. Alla Peterson MANUAL DIFF REQ NO Normal [facility] Comment on above: Performed By: #### P REGQNT #### [facility] [address] [place] [address] Dr. Alla Peterson MCH (RBC) [Entitic mass] 29.2 pg Normal 26.7-34.0 [facility] Comment on above: Performed By: #### P REGQNT #### [facility] [address] [place] [address] Dr. Alla Peterson MCHC (RBC) [Mass/Vol] 34.7 g/dL Normal 29.9-35.2 [facility] Comment on above: Performed By: #### P REGQNT #### [facility] [address] [place] [address] Dr. Alla Peterson MCV (RBC) [Entitic vol] 84.2 fL Normal 81.0-99.[address] [facility] Comment on above: Performed By: #### P REGQNT #### [facility] [address] [place] [address] Dr. Alla Peterson MONO # 0.5 103/ul Normal 0.3-0.[address] [facility] Comment on above: Performed By: #### P REGQNT #### [facility] [address] [place] [address] Dr. Alla Peterson Monocytes/100 WBC (Bld) 5.1 % Normal 1.7-12.[address] [facility] Comment on above: Performed By: #### P REGQNT #### [facility] [address] [place] [address] Dr. Alla Peterson NEUT # 8.1 103/ul Critically high 1.4-6.5 [facility] Comment on above: Performed By: #### P REGQNT #### [facility] [address] [place] [address] Dr. Alla Peterson Neutrophils/100 WBC (Bld) 80.6 % Critically high 43.0-75.0 [facility] Comment on above: Performed By: #### P REGQNT #### [facility] [address] [place] [address] Dr. Alla Peterson Platelet mean volume (Bld) [Entitic vol] 9.3 fL Critically low 9.5-13.[address] [facility] Comment on above: Performed By: #### P REGQNT #### [facility] [address] [place] [address] Dr. Alla Peterson PLT 240 103/ul Normal 150-[address] [facility] Comment on above: Performed By: #### P REGQNT #### [facility] [address] [place] [address] Dr. Alla Peterson RBC 4.76 106/ul Normal 4.20-5.[address] [facility] Comment on above: Performed By: #### P REGQNT #### [facility] [address] [place] [address] Dr. Alla Peterson WBC 10.0 103/ul Normal 4.0-11.0 [facility] Comment on above: Performed By: #### P REGQNT #### [facility] [address] [place] [address] Dr. Alla Peterson CULTURE URINEon 02-05-2022 CULTURE URINE Culture Observations : LIGHT GROWTH OF MIXED GENITAL FRANCISCO. NO POTENTIAL PATHOGENS SEEN. Normal [facility] Comment on above: Performed By: #### U RCX #### [facility] [address] [address] [address] Alla Peterson GLYCOHEMOGLOBIN A1Con 2021 ADA RECOMMENDATION SEE BELOW Normal [facility] Comment on above: Result Comment: ADA RECOMMENDED LIMIT 4.0 - 6.0 ADA THERAPEUTIC TARGET < 7.0 ACTION SUGGESTED > 7.0 Performed By: #### A 1C #### [facility] [address] [place] [address] Dr. Alla Peterson Glucose [Mass/Vol] 97 mg/dL Normal [facility] Comment on above: Performed By: #### A 1C #### [facility] [address] [address] [address] Alla Peterson HbA1c (Bld) [Mass fraction] 5.0 % Normal 4.5-6.2 [facility] Comment on above: Performed By: #### A 1C #### [facility] [address] [place] [address] Dr. Alla Peterson TYPE AND SCREENon 02-05-2022 TYPE AND SCREEN Negative Normal [facility] Comment on above: Performed By: #### P REGQNT #### [facility] [address] [place] [address] Dr. Alla Peterson US PREG TVon 01-07-2022 US PREG TV EXAMINATION: US PREG TV HISTORY: Missed period COMPARISON: No relevant comparison available. FINDINGS: GESTATIONAL SAC: Present and normal appearing. POLE: Present and normal appearing. YOLK SAC: Present. CARDIAC: Present. UTERUS: Normal size and appearance. OVARIES: Right: Corpus lutein cysts versus collapsing cyst. Left: Normal. CERVIX: 4.9 cm in length and closed. CUL-DE-SAC: Normal. OTHER: None. AGE BY LMP: 9 weeks 0 days MITCH BY LMP: 08/12/2022 AGE BY US CRL: 8 weeks 3 days MITCH BY US CRL: 08/16/2022 IMPRESSION: 1. Single live intrauterine . Electronically authenticated by: MICKEY GUZMAN Date: 2022-01-07 16:[address] [facility] PREG QUANT HCGon 09-03-2021 HCG QUANT 1 mIU/mL Normal [facility] Comment on above: Performed By: #### P REGQNT #### [facility] [address] [address] [address] Alla Peterson HCG RANGE SEE BELOW Normal [facility] Comment on above: Result Comment: 5-50 0-1 WEEK 40-300 1-2 WEEKS 100-1,000 2-3 WEEKS 500-6,000 3-4 WEEKS 5,000-200,000 1-2 MONTHS 10,000-100,000 2-3 MONTHS 3,000-50,000 2ND TRIMESTER 1,000-50,000 3RD TRIMESTER Performed By: #### P REGQNT #### [facility] [address] [place] [address] Dr. Alla Peterson PREG QUANT HCGon 08-27-2021 HCG QUANT 9 mIU/mL Normal [facility] Comment on above: Performed By: #### R UBIGG #### [facility] [address] [place] [address] Dr. Alla Peterson HCG RANGE SEE BELOW Normal [facility] Comment on above: Result Comment: 5-50 0-1 WEEK 40-300 1-2 WEEKS 100-1,000 2-3 WEEKS 500-6,000 3-4 WEEKS 5,000-200,000 1-2 MONTHS 10,000-100,000 2-3 MONTHS 3,000-50,000 2ND TRIMESTER 1,000-50,000 3RD TRIMESTER Performed By: #### R UBIGG #### [facility] [address] [place] [address] Dr. Alla Peterson Physical Therapy Noteon 10- Physical Therapy Note [id number] .[id number] [facility] Coding Summaryon 09-04-2020 Coding Summary HTMLBase 64 HzbsyegdYBn9aKo+PGhlY WQ+PT6EJUKwO74hoMTnzI 1JB7yGTB2EZYXHYPGAHK0 FSE2lgXM9EMnwC9MnzrSo PvhpjIMnVX54TPo3JZF5i AejSZyesL6xnXKaA2x3Ah MoSA68bG21NVdwFRIcCjL 3LjZpbjsgbWFy R9stVhWagCCmNps+PHRhY mxlIHdpZHRoPScxMDAlJy ByfUabHQ2jVh8qDZUsGQR vbGxhcHNlOiBj v6gjEAYoCMibNI9sbQzpF 6YmfSD1QQXoq0l6Kt72zV I+ITJqJKF9tIcwDFika19 7QfNvw3uqLFS1 lVBwHAnoBOR6R06db6M4Y KXpMCPlUFW5nCM4hP5vpK stdnjeK4SenSFyIkL5YRG 0wQLfyC1idPgw rvvmwZ2yHtw+V25GQP1ZJ YTWSH0CVsk4Q7XeJuoauG I+BO28BWIwUA38dZWnfGC xk5bjbKk8SrDx RRWdSFO6cOlxCAgpz9ZiU WGmK58vxMOnt9M1AQDpbF ahqLJvDpHkdZJ6xL3sLEy kyjwtx0lexrgi Wtbln0xnfw25nK19X17rM XxuNPXaIGV9UKKlZWJwsP nsvq0lpE4tJt4+WCvnn3h ni0rugTt8OyPr KKEovdRzwTnoDDZ7l7EwQ j53F6CzeEylq5DzZeo9sl 24jTJoq5B3hED3QAprUOT vsB5rUDljPuQ7 VRTnXlZnjJ56zXBcWXfbW a3nzMkpdTwvGK3aFNYfpa mrYBKszC8gPRGivXNxfJs tPH0aAZYvqait c066GpAzVRE6LPSdkWYyO 5LmaJ3pZxCvEZCuNWTqC8 GuxJDjGRqvG629ZKcjKoX 4PHQpflIyG2Oq BUTqhQisNxZ4q9E3Vd4Up 5LdkzrwZJP8FXjiBJE8Ju D1SeHgExA5J3LjSqn4VWV zqRebQC5mR0Sg RGEbsbjarhzboON8WBZxV ETvqH92nGRdCQqiLc3ay2 I9d090JZDoLEKlkM40Ml9 udDogMTBwdCBU eX8aohfnj6onsmmoUrJhQ QBlLQw3SBi3CTSmhPhgZo CvLIA5HsQ1OHI0jVFzhZ7 esCmeagrdaI9i Oyc+D24uuR8gECF1TLZ1n fjwUIKfklWxDL85PG95H3 RyPjwvdGFibGU+PGRpdiB zcVfnNP0gPxTy s2omg4QwTRdcV7PlHFNaW PqqEzp8KIPwEMV0zHT9tW 5lRDJuKVvjg9V5sVL4O4V jhcCdwk7ck7cf EBGxGGezT78nsSIzs0V5H VSydKC2BCTnwAzwLcKbeF 93Oyc+RYYwcWbqk1UbOst bc6pwt1aiwYa1 VlJvOOTvsyGgwQpgEZI5i 3ObNs85R59xLNvpBFSsEO JhALJtXIWwlOboyn6vkV2 wIi8+PGNvbCB3 rOG1zW3qIOZlLyG2SOreN 849WcMjlNOeNcete0gds7 yxdMy1TkHjJWSkkzSpnRh xCDR0f6StJd27 B13oTXqsKLQbOHViRUGkA RAesYolps0oeX4gQt3+PC 2id0dskt16mS39jCT+PHR eDEH4hIwgEVam ZJZvfE7eQAhjPrL1ABVwW bSpeX36pDDmMOiiVa8odT luzGlhGJ9lJGSbneliq33 2XxFth7pfENZl pGQyXBciGYO8B58qi8W3S RVwTZUfGML3lUP1bQ2mpL lnbjogbGVmdDsgdmVydGl aMGfcZKngZ752 IHRvcDsnPlBhdGllbnQgT nGuVSl7Y1QaRgs4JYWumE dvGL2iaLNtKOoeOz0rmXf hnIdkWN4aQCVq xvzxa581HhEie8vuMEDdx MNlYYauQUB5X08sb9L6RR NsHGPzCTR8qAP8aJ7ivKr nbjogbGVmdDsg xcNezUqbTSirENhfK041J HRvcDsnPkJpcnRoIERhdG T1HW88PF77zOKjl8X3gIT 8V4JiHPAwkvdx uokuhHU9DREeORKtqO67R m2khCdkWt3aOXAtHXO0MP YhcDUiG2AqmG0qJqZsOBP cDWCsB1OhaUWb LPccW088KGugHcQ8XZQol uIrR9ZuXJAjiOrbRvP6m0 Z0Og3HY9X0UE94MI84yFA zx2Y8aEJ5D0Bg CODeopkstdogsWC0KVBhN IXxjJ05Oj4owFirWy5cHU BjGQH3DSAwuGQbN6SdbO9 yOiAjMDAwMDAw K3WxePFxPApgK630BGtpY iP2BWNulrRpG3KfNAAfpU waNcA9s0P5Gq3QUMk7KU6 9MF21xIEyf3R4 zVU0J9HcZRXznamoufvax UO4QPIsQLYjbR76Sj4egG edNt2rTELoZDW3YMRfkZG nL5PyvC3hVoNq IELdTAGzC0YenNAtDXoaR 022CIybCeA0IPSmiuLhM4 YtGHBrkGqkIiS5b2G0Ig1 GACSdDL20RES6 bPD6JJ73IR39U7MlStjbk GFibGU+PHRhYmxlIHdpZH RoPScxMDAlJyBzdHlsZT0 cLf1hGXCpKROc oGuucGLfOuXwt5ycVOPhF PluUW5ttUytO2WngDI1XA Wwd5a2Ve37Q67qK7UpkLM +IWNwrLJ1oDL1 pP7qGiLtRbD5IOsiL399B rJgkYKnHwhtv9pms3bcpL q1BeO2XNLrmjAfdKppSOH 0q1WkWw89G68o IHdpZHRoPSIxNSUiIHZhb Qetoa0eoT4pVc4+PGNvbC D9tJS2sY1aSaYoYkL0XRe vL001FlMqaKHl Qblgt4ovs0mhjEk6NdQsP TWdvaUukStcVVZ3x9MlAi 54T1ZpfJvxu7NsKoi6hg3 1rGQyz5Z3kEJ0 F6HkMUGpjcuraGNbfWuyK D6eQHJfivukBPDixP7tTW FtS8a4DmIsHfS6IGobU2P qbmC8IJCezOKj SVpvQMH8B35ka4N3JSEjP BDlCST8jDZ6jP0joCtavz ogbGVmdDsgdmVydGljYWw sCFdiX402RXKv aOzxNOMpbS2xWFKluNNbn TneVY5aLYQrraplGbbPFP 3MZ50jOY7VIozWMfPEAIl 8G9TzUfg9EFYh pBwlRI4ekXXeQDmfEw1lj TkzgDtqYG5aAYMhxzbpOJ UevP5iZTCuzALwiXnpPA6 zOUFvptkmw668 VkRfYKX5ZXAbeHSaF0Ybz Y3yPiZpVUDgURGvQ7GeuG FpXYpeK670VDhjQfJ8NBU dckOpI1BsXBLh cXhxNiC7x0C3Hb6rYR6zI X5uZIjaOF76AX32tUNtm9 P5oLC0M9EsGBJmqbwzeoh czTY4XEUfSCZr nQ02oEViNMgsTg0rd5M1b 049BEKbIUNmzO74Sy3nsH iaXNXzfUZLgD6ivxrwp1j vcjogIzAwMDAw KZa3FKu4PKAcjXdoUoFiB TX7YkB7AVX2dTFqbJ7yeC rgijxmcX3wRoz+MjggWWV lkdA6D2MpOcl3 KSMbpEatUV1fjTLeASxdB q5xzCtcjEcdWT1tTTHwvy ynSBKndJ4eZOLjeKHoqVh uMI2vWLQavaon l375OdWjDTR9EUEcsRUxQ 8AutK6eKbLrWSDgSPTuF1 QxxJGoZHpoS855EYltJqU 9FOBqzgObH2Tq CHXlgAhsUfR7u3T3Dm8ZE N5NRDI2U9OgQjg9SUBbmK xzRV9vnHOmRMqrTo2rgKk qwBsiZC9eASGs drwbFYSyfE1lCZGsaQYho JivSV1kSFShrqeqi348Fv GiMFI0DPBnbWIsD0LjoF6 yOiAjMDAwMDAw Z2SzuQPxATknQ283DFngR xU2VRSgbiYyL4UsNGXbdE fgFsC7b5N7Ui3BQAZ7mdF zmaneT9X8kDW3 aWVudDwvdGQ+VS94xp94C 4MeBzbgOkq8WWQoPLM7aQ L1gV4mBWOhMVjzd6S2mPT 8Q6YgcdDymu9t x4crPMMtVCqfM74cuZSht 1D7SMMtdSC7SGVjwBzfSm RnlG00Upr+YVTwnKglw8L cXiwed7lhd2ld bOp3CdEaWRXgsyUwjLlnM SI0v9SlYj13K30wOOabEL RoPSIzMCUiIHZhbGlnbj0 hrV6yNl8+PGNv cHI7tHJ1gF7vYpZyIsI5S MauK421IyKtmPYaKutqd6 hqo6mboAx9BbQiYZMlsgJ nfZhgCKT9n9Al Tf65H6YwuGveb1JwZdp1y q48fACex0W2oSU9U9UdYM AjcvyaoOBnyOrdBB8iFTY ojlbwUBHjmX5t IROpV5q4PhLqWqR2TPjsS 5MlhuG4OUNlwQYxNKMvgT TGtH5ycspcm6gzzdokPmR lXBSeHRo9FFc4 ZWHkxHjoLvWyFII4QdS8Q YZ6pNDwpB5asFqyzixfkG 9wOyc+WNk2q1yvmJPpHE1 uiKD3FT35OU95 nXAfs8S0yKP3L9RwPBHjq dvmwxrrtBH8WBAbAIHtkG 38Fn5vxEbgMk3cOIYhYJR 7PDIovCGcN1Un xQ7pHlYcIRUyRCPwJ1Heh QLuRYlqW780AUtsFkJ1ZU ObewMsV0XdKSLnlXumOfM 5f8V9Hs4UJC72 BR62DA42sKZcz5T2jOI6C 3JpBPKedlakdfazdKY6RM WdSEBlcQ69Kq9fnPjoKt8 lDGJcGBX8HPCp pHWdW4QzkN6dIvUiPXFrZ KNwY7GdvVFnMEreF175IC tfNjU0PWOcalXcT4NyRBK ozLnsVrX2d7U1 Oh1VHs19MD80QN13gYMfi 1Q6cWB6S7FrGRImxihybf ltiBS7USLqLEFtqK74Kd2 tzAchPt5qOSAt XOT6BIFtlIHzB2CjxT6jH qQaIORkZTLwA1RpzBNsOA qcK995UXxxXrA7XTRccaL jG5LiMSRcrGnx TkD1x7P7Qn5FYWrcsuo7U 3RkPjwvdHI+WY14OGOeOF 51bHGwpDXrs9wyqEa5IrU tQWBcBFQ7sKrr PSd (more content not included)... [facility] Consent Formson 09-02-2020 Consent Forms [id number] [facility] Provider Orders [id number] .[facility] Encounter Date Encounter Type Care Provider Facility Start: 12-19-2023 End: 12-19-2023 ambulatory QUENTIN ROGERS Not Available Start: 11-21-2023 End: 11-21-2023 ambulatory AGATA ALCANTARA Not Available Start: 10-06-2023 End: 10-06-2023 ambulatory AGATA ALCANTARA Not Available Start: 03-16-2023 End: 03-16-2023 ambulatory AGATA ALCANTARA Not Available Start: 12-16-2022 End: 12-17-2022 ambulatory PHYSICIAN NO [facility] Work Phone: Start: 12-16-2022 End: 12-16-2022 Discharged Recurring PHYSICIAN NO [facility]-Physical [facility] [address] Start: 10-19-2022 Orders Only Segundo sepulveda DO Work Phone: Cardiology Comment on above: Syncope, unspecified syncope type (Primary Dx); Dizziness; SOB (shortness of breath) Start: 10-14-2022 Telephone encounter Segundo Alba DO Work Phone: Cardiology Comment on above: Appointment Start: 10-07-2022 Telephone encounter Segundo Alba DO Work Phone: Cardiology Comment on above: Received Referral an d Outside Medical Records Start: 08-23-2022 End: 08-23-[address] AGATA ALCANTARA . Facility: Start: 08-19-2022 End: 08-20-2022 Evaluation and management of inpatient DR AGATA ALCANTARA . Facility:[facility] Start: 08-17-2022 End: 08-17-[address] AGATA ALCANTARA . Facility:[facility] Start: 08-16-2022 End: 08-16-[address] JANET BERMAN . Facility:[facility] Start: 08-12-2022 End: 08-12-[address] BLAS OLIVEIRA Facility:[facility] Start: 07-14-2022 End: 07-14-[address] AGATA ALCANTARA . Facility:[facility] Start: 07-08-2022 End: 07-09-[address] AGATA ALCANTARA . Facility:[facility] Start: 04-30-2022 End: 04-30-2022 ambulatory JOHN CORONADO Facility:[facility] Start: 04-29-2022 End: 04-30-[address] AGATA ALCANTARA . Facility:[facility] Start: 04-26-2022 End: 04-27-[address] BLAS OLIVEIRA Facility:[facility] Start: 03-25-2022 End: 03-26-2022 ambulatory NONE LISTED REQUEST Facility:[facility] Start: 02-16-2022 End: 02-16-[address] AGATA ALCANTARA . Facility:[facility] Start: 02-05-2022 End: 02-06-[address] AGATA ALCANTARA . Facility:[facility] Start: 01-07-2022 End: 01-08-[address] AGATA ALCANTARA . Facility:[facility] Start: 09-03-2021 End: 09-04-2021 ambulatory MEHDI JOHNSON . Facility:[facility] Start: 08-27-2021 End: 08-28-[address] AGATA ALCANTARA . Facility:[facility] Start: 07-18-2017 End: 07-19-2017 Ambulatory DEFAULT PHYSICIAN Facility:[facility] Procedures Date Procedure Procedure Detail Performing Clinician Start: 08-19-2022 Delivery of Products of Conception, External Approach DR AGATA ALCANTARA . Start: 08-19-2022 Drainage of Amniotic Fluid, Therapeutic from Products of Conception, Via Natural or Artificial Opening DR AGATA ALCANTARA . Start: 08-19-2022 Introduction of Othe r Hormone into Peripheral Vein, Percutaneous Approach DR AGATA ALCANTARA . Plan of Treatment Date Care Activity Detail Author Start: 10-19-2022 End: 10-20-2023 ECG COMPLETE ECG COMPLETE ECG Routine Syncope, unspecified syncope type Dizziness SOB (shortness of breath) Expected: 10/19/2022, Expires: 10/20/2023 [facility] Work Phone: Comment on above: Expected: 10/19/2022 , Expires: 10/20/2023 Cardiovascular funct ion eval w/tilt table w/mntr TILT TABLE EVALUATION Cardiology Routine Syncope, unspecified syncope type Ordered: 10/19/2022 [facility] Work Phone: Comment on above: Ordered: 10/19/2022 Payers Date Payer Category Payer Self-pay 2022 Medicaid MEDICAID [place] MEDICAID [facility] GENERIC [id number] 2022-Present [phone] [address] [facility] [address] Medicaid [id number] 1992 Unknown [id number] 2.16.840.1.463422.3.579.2.593 1992 Unknown [id number] 2.16.840.1.907054.3.579.2.593 1992 Unknown [id number] 2.16.840.1.529976.3.579.2.593 1992 Unknown [id number] 2.16.840.1.713141.3.579.2.593 1992 Unknown [id number] 2.16.840.1.109418.3.579.2.593 1992 Unknown [id number] 2.16.840.1.703614.3.579.2.593 1992 Unknown [id number] 2.16.840.1.169414.3.579.2.593 1992 Unknown [id number] 2.16.840.1.874274.3.579.2.593 1992 Unknown [id number] 2.16.840.1.101407.3.579.2.593 1992 Unknown [id number] 2.16.840.1.551181.3.579.2.593 1992 Unknown [id number] 2.16.840.1.272710.3.579.2.593 1992 Unknown [id number] 2.16.840.1.428518.3.579.2.593 1992 Unknown [id number] 2.16.840.1.781785.3.579.2.593 1992 Unknown [id number] 2.16.840.1.536695.3.579.2.593 1992 Unknown [id number] 2.16.840.1.433903.3.579.2.593 1992 Unknown [id number] 2.16.840.1.176420.3.579.2.593 1992 Unknown [id number] 2.16.840.1.220080.3.579.2.125 9 1992 Unknown [id number] 2.16.840.1.612336.3.579.2.125 9 1992 Unknown [id number] 2.16.840.1.817217.3.579.2.125 9 1992 Unknown [id number] 2.16.840.1.176557.3.579.2.125 9 1959 Unknown [id number] Unknown Unknown [id number] 2.16.840.1.277630.3.579.2.531 Social History Date Type Detail Facility Tobacco smoking status HIIS Tobacco smoking consumption unknown [facility] Start: 1990 Sex Assigned At Not on file [facility] Gender identity Not on file [facility] in Start: 1990 Sex Assigned At Female F [facility] Note 10-14-2022 Telephone Encounter - Brenda Karimi ADM - 10/14/2022 3:50 PM EDT Note Date & Type Note Facility 10-14-2022 Miscellaneous Notes Formattin g of this note might be different from the original. Per Desk F14 from Carmencita Call Contact information: Sabine Rouse Diagnoses: Syncope, unspecified syncope type Shortness of breath Please schedule first available with Dr. Segundo Alba. Thank you. Carmencita Cali spoke w the patient Patient has Out of State Medicaid. Referrals will have to be created and sent to Brenda documented in this encounter [facility] Note 10-07-2022 Telephone Encounter - Carmencita Mittal - 10/07/2022 11:54 AM EDT Note Date & Type Note Facility 10-07-2022 Miscellaneous Notes Formattin g of this note might be different from the original. Referral and outside medical records scanned into shared [address]. Referral routed to scheduling for first available with Dr. Segundo Alba. documented in this encounter [facility] Medication management note 09-02-2020 Note Date & Type Note Facility 09-02-2020 Note [id number] [facility] Evaluation note Note Date & Type Note Facility Evaluation note Diagnosis Syncope, unspecified syncope type- Primary Dizziness Dizziness and giddiness SOB (shortness of breath) Shortness of breath documented in this encounter [facility] Evaluation note Note Date & Type Note Facility Evaluation note No assessment information availa [facility] Work Phone: Reason for referral (narrative) Outpatient Procedure (Routine) - Pending Review Note Date & Type Note Facility Reason for referral (narrati ve) Specialty Diagnoses / Procedures Referred By Contcrista t Referred [facility] Diagnoses Syncope, unspecified syncope type Dizziness SOB (shortness of breath) Procedures ECG COMPLETE ECG ROUTINE ECG W/LEAST 12 LDS W/I&R Segundo Alba DO [address] [place] [address] [facility] [place] [address] [place] [address] Referral ID Status Reason Start Date Expiration Date Visits Requested Visits Authorized [id number] Pending Review Auto-Generate d Referral Financial Clearance Required - OON Payor 10/19/2022 10/19/2023 1 1 [facility] Summary Purpose Family History No Family History Records FoundNo Family History Records FoundNo Family History Records FoundNo Family History Records FoundNo Family History Records FoundNo Family History Records Found Advance Directives No Advanced Directives Records Found Advance Directive Response Recorded Date/ Time Advance Directives No October 26 7:42am Chief Complaint and Reason for Visit Chief Complaint Lizzette only - N81.84 Additional Source Comments INFORMATION SOURCE (unrecogn ized section and content) DATE CREATED AUTHOR 09/29/2017 [facility] DATE CREATED AUTHOR AUTHOR'S ORGANIZ ATION 01/28/2021 [facility] DATE CREATED AUTHOR AUTHOR'S ORGANIZ ATION 08/25/2022 [facility] DATE CREATED AUTHOR AUTHOR'S ORGANIZ ATION 10/15/2022 [facility] DATE CREATED AUTHOR AUTHOR'S ORGANIZ ATION 01/16/[address] [facility] DATE CREATED AUTHOR AUTHOR'S ORGANIZ ATION 12/20/2023 [facility] EPIC Source Comments (unrecognize d section and content) In the event this informatio n is protected by the Federal Confidentiality of Alcohol and Drug Abuse Patient Records regulations: The Federal rules restrict any use of the information to criminally investigate or prosecute any alcohol or drug abuse patient[facility] the event this information is protected by the Federal Confidentiality of Alcohol and Drug Abuse Patient Records regulations: The Federal rules restrict any use of the information to criminally investigate or prosecute any alcohol or drug abuse patient.[facility] the event this information is protected by the Federal Confidentiality of Alcohol and Drug Abuse Patient Records regulations: The Federal rules restrict any use of the information to criminally investigate or prosecute any alcohol or drug abuse patient.[facility] Reason for Visit (unrecogniz ed section and content) Reason Comments Received Referral and Outside Medical Re cords Reason Comments Appointment Care Teams (unrecognized sec tion and content) 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 Specialty Start Date End Date Ileana Evans [address] [place] [address] PCP - General 07/21/00 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 Specialty Start Date End Date Ileana Evans [address] [place] [address] PCP - General 07/21/00 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 Specialty Start Date End Date Ileana Evans [address] [place] [id number] PCP - General 07/21/00 Team Status: Active Member Role Status Dates PHYSICIAN NO FAMILY Primary Care Provider Active Team Status: Inactive Member Role Status Dates Agata Alcantara Attending Provider Active PHYSICIAN NO FAMILY Primary Care Provider Active Goals (unrecognized section and content) Goals may be documented in a n alternate section FOR RECORDS PERTAINING TO PATIENTS WHO ARE OR HAVE BEEN ENROLLED IN A CHEMICAL DEPENDENCY/SUBSTANCEABUSE PROGRAM, SOME INFORMATION MAY BE OMITTED. This clinical summary was aggregated from multiple sources. Caution should be exercised in using it in the provision of clinical care. This summary normalizes information from multiple sources, and as a consequence, information in this document may materially change the coding, format and clinical context of patient data. In addition, data may be omitted in some cases. CLINICAL DECISIONS SHOULD BE BASED ON THE PRIMARY CLINICAL RECORDS. [facility]. provides no warranty or guarantee of the accuracy or completeness of information in this document.
== END 2024-01-17 13:03 | disposition home or self-care (01) ==
LOC: NOMS 13:03
PROVIDERS: Visit Provider Obstetrics & Gynecology
DX: Z36.89 Encounter for other specified antenatal screening (principal); Z3A.20 20 weeks gestation of pregnancy
CPT/HCPCS: 76805; 76817

== ENCOUNTER 2024-02-17 09:47 | Outpatient (OUT) | payer OTHER, SELFPAY ==
[2024-02-17 11:19] LABS: Basophils Percent Auto 0.3 % (0.2-2.0); Eosinophils Absolute Auto 0.1 10^3/uL (0.0-0.7); Eosinophils Percent Auto 0.5 % (0.9-7.0); Hematocrit 38.6 % (36.0-48.0); Hemoglobin 13.3 g/dL (12.0-16.0); Immature Granulocytes Abs Auto 0.04 10^3/uL (0.00-0.03); Immature Granulocytes Pct Auto 0.4 % (0.0-0.5); Lymphocytes Percent Auto 10.3 % (20.5-60.0); Mean Corpuscular HGB Conc 34.5 g/dL (29.9-35.2); Mean Platelet Volume 9.8 fL (9.5-13.5); Monocytes Absolute Auto 0.5 10^3/uL (0.3-0.8); Neutrophils Absolute Auto 8.4 10^3/uL (1.4-6.5); Neutrophils Percent Auto 83.5 % (43.0-75.0); Platelet Count 228 10^3/uL (150-450); Red Blood Count 4.29 10^6/uL (4.20-5.40); Red Cell Distribution Width 13.4 % (11.0-15.0); White Blood Count 10.1 10^3/uL (4.0-11.0)
[2024-02-17 11:45] LABS: Glucose 1 Hour 82 mg/dL (<130)
== END 2024-02-17 09:48 | disposition home or self-care (01) ==
LOC: LAB 09:48
PROVIDERS: Visit Provider Obstetrics & Gynecology
DX: Z13.1 Encounter for screening for diabetes mellitus (principal)
CPT/HCPCS: 36415; 82950; 85025

== ENCOUNTER 2024-05-02 08:11 | Outpatient (REF) | payer OTHER, SELFPAY ==
--- OUTSIDE RECORDS SUMMARY | 2024-05-03 07:41 | XMS_ITS | CCD ---
Author Organization [facility] Care Team Providers Care Tube Room Supervisor Name Role Phone PHYSICIAN, DEFAULT Unavailable [...] [employer] Unavailable MARICRUZ ., DR PARMAR Consulting Unavailable WEST, DR BLAS [employer] [...] Admitting Unavailable JOHN CORONADO Consulting Unavailable REQUEST, DR NONE LISTED Primary Care Unavaila ble Ileana Evnas Primary Care Provider Agata Alcantara Attending Provider [phone] NO FAMILY, PHYSICIAN Primary Care Provider Unava ilable NO FAMILY, PHYSICIAN Primary Care Unavailable Agata Alcantara Attending Unavailable Agata Alcantara Admitting Unavailable Unavailable Primary Care Provider Unavailabl e AGATA ALCANTARA Attending Unavailable KEN, TIA Attending Unavailable KENTIA CANCHOLA Attending Unavailable AGATA ALCANTARA Attending Unavailable KEN, TIA Attending Unavailable AGATA ALCANTARA Attending Unavailable AGATA ALCANTARA Referring Unavailable KEN, TIA Attending Unavailable Medications Current Medications Medication Drug Class(es) Dates Sig (Normalized) Sig (Original) magnesium oxide 400 mg oral tablet (5 sources) Start: 03-14-2024 End: 04-13-2024 take 1 tablet by mouth once daily magnesium oxide (Mag-Ox) 400 MG tablet Indications: Muscle cramps Take 1 tablet (400 mg) by mouth Daily 30 tablet 3 03/14/2024 04/13/2024 Active MV-Min-Fe Fum-FA-DHA ( 1 PO) (20 sources) MV-Min- Fe Fum-FA-DHA ( 1 PO) Take 1 each by mouth Daily Active Completed/Discontinued Medications Medication Drug Class(es) Dates Sig (Normalized) Sig (Original) pyridoxine hydrochloride 25 mg oral tablet (6 sources) End: 01-17-2024 take 1 tablet by mouth once daily pyridoxine (Vitamin B-6) 25 MG tablet Take 25 mg by mouth Daily 01/17/2024 Discontinued Problems Active Problems Problem Classification Problem Date [...] LABR 3RD TRI] Onset: 07-08-2022 Episodic Other complications of (2 sources) size does not accord with dates; Translations: [Uterine size-date discrepancy, third trimester] 03-29-2024 Episodic Other connective tissue disease (2 sources) Cramp; Translations: [Cramp and spasm] 03-14-2024 Episodic Other lower respiratory disease (1 source) Dyspnea; Translations: [Shortness of breath] 10-19-2022 Episodic Other and delivery including normal (20 sources) Encounter for routine follow-up; Translations: [Encounter for full-term uncomplicated delivery] Onset: 01-18-2022 Episodic Other screening for suspected conditions (not mental disorders or infectious disease) (8 sources) Encounter for screening for malignant neoplasm of cervix; Translations: [Encounter for screening for diabetes mellitus] Onset: 02-10-2022 Episodic Polyhydramnios and other problems of amniotic [...] WEEKS GESTATION OF ] Onset: 07-12-2022 Episodic Residual codes; unclassified (2 sources) Gestation period, 20 weeks; Translations: [20 weeks gestation of ] 01-17-2024 Episodic Residual codes; unclassified (2 sources) Gestation period, 23 weeks; Translations: [23 weeks gestation of ] 02-14-2024 Episodic Residual codes; unclassified (2 sources) Gestation period, 28 weeks; Translations: [28 weeks gestation of ] 03-14-2024 Episodic Residual codes; unclassified (2 sources) Gestation period, 30 weeks; Translations: [30 weeks gestation of ] 03-29-2024 Episodic Residual codes; unclassified (2 sources) Gestation period, 33 weeks; Translations: [33 weeks gestation of ] 04-17-2024 Episodic Syncope (1 source) Syncope; Translations: [Syncope [...] Episodic Immunizations and screening for infectious disease (3 sources) Encounter for screening for human papillomavirus (HPV); Translations: [Contact with and (suspected) exposure to infections with a predominantly sexual mode of transmission] Onset: 02-20-2022 12-19-2023 Episodic Other complications of (4 sources) Other specified related conditions, second trimester; Translations: [OTH SPEC PREG RELATED COND 2ND TRI] Onset: 04-30-2022 Episodic Other female genital disorders (1 source) Other specified noninflammatory disorders of vagina; Translations: [OTH SPEC NONINFLAMMATORY D/O VAGINA] Onset: 02-20-2022 Episodic Other female genital disorders (1 source) Vaginal discharge; Translations: [Other specified noninflammatory disorders of vagina] 12-19-2023 Episodic Residual codes; unclassified (1 source) 24 weeks gestation of ; Translations: [24 WEEKS GESTATION OF ] Onset: 05-04-2022 Episodic Residual codes; unclassified (1 source) 20 weeks gestation of ; Translations: [20 WEEKS GESTATION OF ] Onset: 03-28-2022 Episodic Residual codes; unclassified (1 source) Gestation period, 16 weeks; Translations: [16 weeks gestation of ] 12-19-2023 Episodic Spontaneous (4 sources) Complete or unspecified spontaneous without complication; Translations: [COMPLETE/UNS SPONT AB W/O COMP] Onset: 09-03-2021 Episodic Results Test Name Value Interpretation Reference Range Facility Urinalysis macro (dipstick) panel (U)on 04-17-2024 Bilirubin, UA Negative Negative - 4(70) +++ mg/dL [facility] Blood, UA Negative Negative - 50 Heath/mcL [facility] Clarity, UA Clear [facility] Color, UA Yellow [facility] Glucose, UA Negative Negative - 1999(110) ++++ mg/dL [facility] Interpretation and review of laboratory results Normal [facility] Ketones, UA Negative Negative - 160(16) ++++ mg/dL [facility] Leukocytes, UA Negative Negative - 500+++ Ozzy/mcL [facility] Nitrite, UA Negative Negative - Positive [facility] pH, UA 7.5 5 - 9 [facility] Protein, UA Negative Negative - 1999(20) ++++ mg/dL [facility] Spec Grav, UA 1.015 1 - 1.03 [facility] Urobilinogen, UA 0.2 0.2 - 12 mg/dL [facility] US OB FOLLOW UP TRANSABDOMIN AL APPROACHon 04-12-2024 US OB FOLLOW UP TRANSABDOMINAL APPROACH TITLE OF EXAM: US OB FOLLOW UP TRANSABDOMINAL APPROACH REASON FOR EXAM: Inconsistent size TECHNIQUE: Grayscale, color, and M-mode Doppler evaluation of the pelvis/fetus COMPARISON: None. PATIENT : 1990 PREGNANCIES: : 4, Para: 2, Aborta: 1 LMP: Not provided MITCH by LMP: 06/01/2024 GA by LMP: 32 weeks, 6 days FINDINGS: AUA: 33 weeks, 5 days (+/-16 days) MITCH by US: 05/26/2024 Measurements: Biparietal diameter: 8.5 cm (34 weeks, 2 days, 82%) Head circumference: 32 cm (35 weeks, 6 days, 87%) Heart rate: 170 bpm Abdominal circumference: 28.4 cm (32 weeks, 3 days, 38%) Femur length: 6.3 cm (32 weeks, 3 days, 25%) Amniotic fluid volume 15.0 cm (quadrants 5.3 cm, 4.3 cm, 2.7 cm, and 2.7 cm) Single live intrauterine gestation. No appreciable or maternal abnormality on the few provided images. IMPRESSION: 1. Single live intrauterine gestation sonographically measuring 33 weeks, 5 days (gestational age by LMP 32 weeks, 6 days). 2. No appreciable abnormality of the observed or maternal structures. DICTATED ON: 04/12/2024 1:05 PM This report has been electronically signed and approved by the interpreting radiologist. Normal Not Available Urinalysis macro (dipstick) panel (U)on 03-14-2024 Bilirubin, UA Negative Negative - 4(70) +++ mg/dL [facility] Blood, UA Negative Negative - 50 Heath/mcL [facility] Clarity, UA Clear [facility] Color, UA Yellow [facility] Glucose, UA Negative Negative - 1999(110) ++++ mg/dL [facility] Interpretation and review of laboratory results Abnormal [facility] Ketones, UA Negative Negative - 160(16) ++++ mg/dL [facility] Leukocytes, UA Negative Negative - 500+++ Ozzy/mcL [facility] Nitrite, UA Negative Negative - Positive [facility] pH, UA 6 5 - 9 [facility] Protein, UA Negative Negative - 2000(20) ++++ mg/dL [facility] Spec Grav, UA 1.025 1 - 1.03 [facility] Urobilinogen, UA 1.0 0.2 - 12 mg/dL [facility] ALL CBC WITH AUTO DIFFon BASOPHILS ABSOLUTE AUTO 0 [facility] Basophils/100 WBC (Bld) 0.3 % 0.2 - 2.0 % [facility] Eosinophils/100 WBC (Bld) 0.5 % Low 0.9 - 7.0 % [facility] Erythrocyte distribution width (RBC) [Ratio] 13.4 % 11.0 - 15.0 % [facility] Hematocrit (Bld) [Volume fraction] 38.6 % 36.0 - 48.0 % [facility] Hemoglobin (Bld) [Mass/Vol] 13.3 g/dL 12.0 - 16.0 g/dL [facility] IMMATURE GRANULOCYTES ABS AUTO 0.04 High [facility] Immature granulocytes/100 WBC (Bld) 0.4 % 0.0 - 0.5 % [facility] Interpretation and review of laboratory results Abnormal [facility] LYMPHOCYTES ABSOLUTE AUTO 1 Low [facility] Lymphocytes/100 WBC (Bld) 10.3 % Low 20.5 - 60.0 % [facility] MCH (RBC) [Entitic mass] 31 pg 26.7 - 34.0 pg [facility] MCHC (RBC) [Mass/Vol] 34.5 g/dL 29.9 - 35.2 g/dL [facility] MCV (RBC) [Entitic vol] 90 fL 81.0 - 99.0 fL [facility] MONOCYTES ABSOLUTE AUTO 0.5 [facility] Monocytes/100 WBC (Bld) 5 % 1.7 - 12.0 % [facility] NEUTROPHILS ABSOLUTE AUTO 8.4 High [facility] Neutrophils/100 WBC (Bld) 83.5 % High 43.0 - 75.0 % [facility] Platelet mean volume (Bld) [Entitic vol] 9.8 fL 9.5 - 13.5 fL [facility] TB EO # 0.1 [facility] PLT 228 [facility] RBC 4.29 [facility] WBC 10.1 [facility] Urinalysis macro (dipstick) panel (U)on 02-14-2024 Bilirubin, UA Negative Negative - 4(70) +++ mg/dL [facility] Blood, UA Negative Negative - 50 Heath/mcL [facility] Clarity, UA Clear [facility] Color, UA Yellow [facility] Glucose, UA Negative Negative - 1999(110) ++++ mg/dL [facility] Interpretation and review of laboratory results Normal [facility] Ketones, UA Negative Negative - 160(16) ++++ mg/dL [facility] Leukocytes, UA Negative Negative - 500+++ Ozzy/mcL [facility] Nitrite, UA Negative Negative - Positive [facility] pH, UA 6 5 - 9 [facility] Protein, UA Negative Negative - 1999(20) ++++ mg/dL [facility] Spec Grav, UA 1.02 1 - 1.03 [facility] Urobilinogen, UA 0.2 0.2 - 12 mg/dL [facility] Urinalysis macro (dipstick) panel (U)on 01-17-2024 Bilirubin, UA Negative Negative - 4(70) +++ mg/dL [facility] Blood, UA Negative Negative - 50 Heath/mcL [facility] Clarity, UA Clear [facility] Color, UA Yellow [facility] Glucose, UA Negative Negative - 1999(110) ++++ mg/dL [facility] Interpretation and review of laboratory results Normal [facility] Ketones, UA Negative Negative - 160(16) ++++ mg/dL [facility] Leukocytes, UA Negative Negative - 500+++ Ozzy/mcL [facility] Nitrite, UA Negative Negative - Positive [facility] pH, UA 7.0 5 - 9 [facility] Protein, UA Negative Negative - 1999(20) ++++ mg/dL [facility] Spec Grav, UA 1.020 1 - 1.03 [facility] Urobilinogen, UA 0.2 0.2 - 12 mg/dL [facility] URETHRITIS/DISCHARGE PLUS VA GINITIS (HTRX)on 12-20-2023 ATOPOBIUM VAGINAE 25.657 Abnormal [facility] ATOPOBIUM VAGINAE Detected Abnormal [facility] BVAB 2,3 (BACTERIAL VAGINOSIS ASSOCIATED BACTERIA 2, 3); MOBILUNCUS SPP 24.613 Abnormal [facility] BVAB 2,3 (BACTERIAL VAGINOSIS ASSOCIATED BACTERIA 2, 3); MOBILUNCUS SPP Detected Abnormal [facility] HILDA ALBICANS, PARAPSILOSIS, TROPICALIS 0.000 [facility] HILDA ALBICANS, PARAPSILOSIS, TROPICALIS Not detected [facility] HILDA GLABRATA 0.000 [facility] HILDA GLABRATA Not detected [facility] HILDA KRUSEI 0.000 [facility] HILDA KRUSEI Not detected [facility] CHLAMYDIA TRACHOMATIS 0.000 [facility] CHLAMYDIA TRACHOMATIS Not detected [facility] GARDNERELLA VAGINALIS 26.686 Abnormal [facility] GARDNERELLA VAGINALIS Detected Abnormal [facility] Interpretation and review of laboratory results Abnormal [facility] MEGASPHAERA (TYPES 1, 2) 0.000 [facility] MEGASPHAERA (TYPES 1, 2) Not detected [facility] MYCOPLASMA GENITALIUM 0.000 [facility] MYCOPLASMA GENITALIUM Not detected [facility] NEISSERIA GONORRHOEAE 0.000 [facility] NEISSERIA GONORRHOEAE Not detected [facility] TET B, TET M 20.920 Abnormal [facility] TET B, TET M Detected Abnormal [facility] TRICHOMONAS VAGINALIS 0.000 [facility] TRICHOMONAS VAGINALIS Not detected [facility] Urinalysis macro (dipstick) panel (U)on 12-19-2023 Bilirubin, UA Negative Negative - 4(70) +++ mg/dL [facility] Blood, UA Negative Negative - 50 Heath/mcL [facility] Clarity, UA Clear [facility] Color, UA Yellow [facility] Glucose, UA Negative Negative - 1999(110) ++++ mg/dL [facility] Interpretation and review of laboratory results Abnormal [facility] Ketones, UA Negative Negative - 160(16) ++++ mg/dL [facility] Leukocytes, UA Trace Negative - 500+++ Ozzy/mcL [facility] Nitrite, UA Negative Negative - Positive [facility] pH, UA 7.0 5 - 9 [facility] Protein, UA Negative Negative - 1999(20) ++++ mg/dL [facility] Spec Grav, UA 1.020 1 - 1.03 [facility] Urobilinogen, UA 0.2 0.2 - 12 mg/dL [facility] CNPNon 10-14-2022 CNPN Telephone (CATHMN) SABINE ROUSE ([id number]) 1990 F Date Time Provider Department 10/14/22 SEGUNDO ALBA During your visit today, we recorded the following information about you: Brenda Trev GUARDADO 10/14/2022 4:21 PM Signed Per Desk F14 [...] Encounter Status:Closed by BRENDA MARTINEZ on 10/14/22 [facility] SABINE ROUES ([id number]) 1990 F Date Time Provider Department 10/07/22 SEGUNDO ALBA During your visit today, we recorded the following information about you: Carmencita Mittal 10/07/2022 11:55 AM Signed Referral and outside medical records scanned into [employer]. Referral routed to scheduling for first available with Dr. Segundo Alba. Allergies As of Date: 10/07/2022 (Not on File) Date Reviewed: Never Reviewed Reason for Visit: Received Referral and Outside Medical Records [Other] Problem List As Of Date: 10/07/2022 (None) Encounter Status:Closed by CARMENCITA MITTAL on 10/07/22 Normal [facility] CBC AUTO DIFFon 08-20-2022 BASO # 0.0 103/ul Normal 0.0-0.1 [facility] Comment on above: Performed By: #### C BC #### [facility] [address] [place] [address] Dr. Alla Peterson Basophils/100 WBC (Bld) 0.2 % Normal 0.2-2.0 [facility] Comment on above: Performed By: #### C BC #### [facility] [address] [place] [address] Dr. Alla Peterson EO # 0.0 103/ul Normal 0.0-0.7 [facility] Comment on above: Performed By: #### C BC #### [facility] [address] [place] [address] Dr. Alla Peterson Eosinophils/100 WBC (Bld) 0.2 % Critically low 0.9-7.0 [facility] Comment on above: Performed By: #### C BC #### [facility] [address] [place] [address] Dr. Alla Peterson Erythrocyte distribution width (RBC) [Ratio] 13.2 % Normal 11.0-15.0 [facility] Comment on above: Performed By: #### C BC #### [facility] [address] [place] [address] Dr. Alla Peterson Hematocrit (Bld) [Volume fraction] 36.1 % Normal 36.0-48.0 [facility] Comment on above: Performed By: #### C BC #### [facility] [address] [place] [address] Dr. Alla Peterson Hemoglobin (Bld) [Mass/Vol] 12.4 g/dL Normal 12.0-16.0 [facility] Comment on above: Performed By: #### C BC #### [facility] [address] [place] [address] Dr. Alla Peterson IG # 0.05 10e3/ul Critically high 0.00-0.03 [facility] Comment on above: Performed By: #### C BC #### [facility] [address] [place] [address] Dr. Alla Peterson IG % 0.4 % Normal 0.0-0.5 [facility] Comment on above: Performed By: #### C BC #### [facility] [address] [place] [address] Dr. Alla Peterson LYMPH # 1.4 103/ul Normal 1.2-3.8 [facility] Comment on above: Performed By: #### C BC #### [facility] [address] [place] [address] Dr. Alla Peterson Lymphocytes/100 WBC (Bld) 10.9 % Critically low 20.5-60.0 [facility] Comment on above: Performed By: #### C BC #### [facility] [address] [place] [address] Dr. Alla Peterson MANUAL DIFF REQ NO Normal [facility] Comment on above: Performed By: #### C BC #### [facility] [address] [place] [address] Dr. Alla Peterson MCH (RBC) [Entitic mass] 30.0 pg Normal 26.7-34.0 [facility] Comment on above: Performed By: #### C BC #### [facility] [address] [place] [address] Dr. Alla Peterson MCHC (RBC) [Mass/Vol] 34.3 g/dL Normal 29.9-35.2 [facility] Comment on above: Performed By: #### C BC #### [facility] [address] [place] [address] Dr. Alla Peterson MCV (RBC) [Entitic vol] 87.4 fL Normal 81.0-99.0 [facility] Comment on above: Performed By: #### C BC #### [facility] [address] [place] [address] Dr. Alla Peterson MONO # 0.8 103/ul Normal 0.3-0.8 [facility] Comment on above: Performed By: #### C BC #### [facility] [address] [place] [address] Dr. Alla Peterson Monocytes/100 WBC (Bld) 6.0 % Normal 1.7-12.0 [facility] Comment on above: Performed By: #### C BC #### [facility] [address] [place] [address] Dr. Alla Peterson NEUT # 10.8 103/ul Critically high 1.4-6.5 [facility] Comment on above: Performed By: #### C BC #### [facility] [address] [place] [address] Dr. Alla Peterson Neutrophils/100 WBC (Bld) 82.3 % Critically high 43.0-75.0 [facility] Comment on above: Performed By: #### C BC #### [facility] [address] [place] [address] Dr. Alla Peterson Platelet mean volume (Bld) [Entitic vol] 10.2 fL Normal 9.5-13.5 [facility] Comment on above: Performed By: #### C BC #### [facility] [address] [place] [address] Dr. Alla Peterson PLT 177 103/ul Normal 150-450 [facility] Comment on above: Performed By: #### C BC #### [facility] [address] [place] [address] Dr. Alla Peterson RBC 4.13 106/ul Critically low 4.20-5.40 [facility] Comment on above: Performed By: #### C BC #### [facility] [address] [place] [address] Dr. Alla Peterson WBC 13.1 103/ul Critically high 4.0-11.0 [facility] Comment on above: Performed By: #### C BC #### [facility] [address] [place] [address] Dr. Alla Peterson CBC AUTO DIFFon 05-11-2023 BASO # 0.0 103/ul Normal 0.0-0.1 [facility] Comment on above: Performed By: #### R UBIGG #### [facility] [address] [place] [address] Dr. Alla Peterson Basophils/100 WBC (Bld) 0.2 % Normal 0.2-2.0 [facility] Comment on above: Performed By: #### R UBIGG #### [facility] [address] [place] [address] Dr. Alla Peterson EO # 0.0 103/ul Normal 0.0-0.7 [facility] Comment on above: Performed By: #### R UBIGG #### [facility] [address] [place] [address] Dr. Alla Peterson Eosinophils/100 WBC (Bld) 0.4 % Critically low 0.9-7.0 [facility] Comment on above: Performed By: #### R UBIGG #### [facility] [address] [place] [address] Dr. Alla Peterson Erythrocyte distribution width (RBC) [Ratio] 12.9 % Normal 11.0-15.0 [facility] Comment on above: Performed By: #### R UBIGG #### [facility] [address] [place] [address] Dr. Alla Peterson Hematocrit (Bld) [Volume fraction] 38.1 % Normal 36.0-48.0 [facility] Comment on above: Performed By: #### R UBIGG #### [facility] [address] [place] [address] Dr. Alla Peterson Hemoglobin (Bld) [Mass/Vol] 13.3 g/dL Normal 12.0-16.0 [facility] Comment on above: Performed By: #### R UBIGG #### [facility] [address] [place] [address] Dr. Alla Peterson IG # 0.02 10e3/ul Normal 0.00-0.03 [facility] Comment on above: Performed By: #### R UBIGG #### [facility] [address] [address] [address] Alla Peterson IG % 0.2 % Normal 0.0-0.5 [facility] Comment on above: Performed By: #### R UBIGG #### [facility] [address] [address] [address] Alla Peterson LYMPH # 1.5 103/ul Normal 1.2-3.8 [facility] Comment on above: Performed By: #### R UBIGG #### [facility] [address] [address] [address] Alla Peterson Lymphocytes/100 WBC (Bld) 17.6 % Critically low 20.5-60.0 [facility] Comment on above: Performed By: #### R UBIGG #### [facility] [address] [place] [address] Dr. Alla Peterson MANUAL DIFF REQ NO Normal [facility] Comment on above: Performed By: #### R UBIGG #### [facility] [address] [place] [address] Dr. Alla Peterson MCH (RBC) [Entitic mass] 30.0 pg Normal 26.7-34.0 [facility] Comment on above: Performed By: #### R UBIGG #### [facility] [address] [place] [address] Dr. Alla Peterson MCHC (RBC) [Mass/Vol] 34.9 g/dL Normal 29.9-35.2 [facility] Comment on above: Performed By: #### R UBIGG #### [facility] [address] [place] [address] Dr. Alla Peterson MCV (RBC) [Entitic vol] 85.8 fL Normal 81.0-99.0 [facility] Comment on above: Performed By: #### R UBIGG #### [facility] [address] [place] [address] Dr. Alla Peterson MONO # 0.4 103/ul Normal 0.3-0.8 [facility] Comment on above: Performed By: #### R UBIGG #### [facility] [address] [place] [address] Dr. Alla Peterson Monocytes/100 WBC (Bld) 5.1 % Normal 1.7-12.0 [facility] Comment on above: Performed By: #### R UBIGG #### [facility] [address] [place] [address] Dr. Alla Peterson NEUT # 6.5 103/ul Normal 1.4-6.5 [facility] Comment on above: Performed By: #### R UBIGG #### [facility] [address] [place] [address] Dr. Alla Peterson Neutrophils/100 WBC (Bld) 76.5 % Critically high 43.0-75.0 [facility] [facility] Comment on above: Performed By: #### R UBIGG #### [facility] [address] [place] [address] Dr. Alla Peterson Platelet mean volume (Bld) [Entitic vol] 10.2 fL Normal 9.5-13.5 [facility] Comment on above: Performed By: #### R UBIGG #### [facility] [address] [place] [address] Dr. Alla Peterson PLT 196 103/ul Normal 150-450 [facility] Comment on above: Performed By: #### R UBIGG #### [facility] [address] [place] [address] Dr. Alla Peterson RBC 4.44 106/ul Normal 4.20-5.40 [facility] Comment on above: Performed By: #### R UBIGG #### [facility] [address] [place] [address] Dr. Alla Peterson WBC 8.5 103/ul Normal 4.0-11.0 [facility] Comment on above: Performed By: #### R UBIGG #### [facility] [address] [place] [address] Dr. Alla Peterson DRUG SCREEN RAPID (URINE)on 08-19-2022 AMP Negative Normal NEGATIVE [facility] Comment on above: Performed By: #### R UBIGG #### [facility] [address] [place] [address] Dr. Alla Peterson BAR Negative Normal NEGATIVE [facility] Comment on above: Performed By: #### R UBIGG #### [facility] [address] [address] [address] Alla Peterson BUP Negative Normal NEGATIVE [facility] Comment on above: Performed By: #### R UBIGG #### [facility] [address] [address] [address] Alla Peterson BZO Negative Normal NEGATIVE [facility] Comment on above: Performed By: #### R UBIGG #### [facility] [address] [address] [address] Alla Peterson TK Negative Normal NEGATIVE [facility] Comment on above: Performed By: #### R UBIGG #### [facility] [address] [place] [address] Dr. Alla Peterson CUT-OFFS SEE BELOW Normal [facility] Comment on above: Result Comment: AMP [...] ng/mL Performed By: #### R UBIGG #### [facility] [address] [place] [address] Dr. Alla Peterson DRUG CUT HEADER DRUG CLASS TEST SYSTEM CUT-OFF CONCENTRATIONS ARE FOLLOWS: Normal [facility] Comment on above: Performed By: #### R UBIGG #### [facility] [address] [address] [address] Alla Peterson mAMP Negative Normal NEGATIVE [facility] Comment on above: Performed By: #### R UBIGG #### [facility] [address] [address] [address] Alla Peterson MTD Negative Normal NEGATIVE [facility] Comment on above: Performed By: #### R UBIGG #### [facility] [address] [address] [address] Alla Peterson OPI Negative Normal NEGATIVE [facility] Comment on above: Performed By: #### R UBIGG #### [facility] [address] [place] [address] Dr. Alla Peterson OXY Negative Normal NEGATIVE [facility] Comment on above: Performed By: #### R UBIGG #### [facility] [address] [place] [address] Dr. Alla Peterson PCP Negative Normal NEGATIVE [facility] Comment on above: Performed By: #### R UBIGG #### [facility] [address] [place] [address] Dr. Alla Peterson PPX Negative Normal NEGATIVE [facility] Comment on above: Performed By: #### R UBIGG #### [facility] [address] [place] [address] Dr. Alla Petersno TCA Negative Normal NEGATIVE [facility] Comment on above: Performed By: #### R UBIGG #### [facility] [address] [place] [address] Dr. Alla Peterson THC Negative Normal NEGATIVE [facility] Comment on above: Performed By: #### R UBIGG #### [facility] [address] [place] [address] Dr. Alla Peterson TYPE AND SCREENon 08-19-2022 TYPE AND SCREEN Negative Normal [facility] Comment on above: Performed By: #### T NS #### [facility] [address] [place] [address] Dr. Alla Peterson US PREG BIOPHY W [...] by: MICKEY GUZMAN Date: 2022-08-17 15:35 Normal [facility] US PREG BIOPHY W NON STRESSo [...] (previously 27.0 cm). Findings provided to the [facility] nurse by the abrasive worker at time of examination. Electronically authenticated by: MICKEY GUZMAN Date: 2022-08-16 15:45 Normal [facility] US PREG BIOPHY W NON STRESSo [...] by: BLAS OLIVEIRA Date: 2022-08-12 16:51 Normal [facility] GROUP B STREP CULTUREon 04-0 S. agalactiae Ag Ql (Unsp spec) Culture Observations: NEGATIVE FOR GROUP B STREPTOCOCCUS. Normal [facility] Comment on above: Performed By: #### P REGQNT #### [facility] [address] [address] [address] Alla Peterson UA (CLEAN/CATCH) MANAGER PUBLISHING/MICRO I F IND.on 04-30-2022 Bilirubin Ql (U) Negative Normal NEGATIVE [facility] Comment on above: Performed By: #### R UBIGG #### [facility] [address] [place] [address] Dr. Alla Peterson Clarity (U) CLEAR Normal CLEAR [facility] Comment on above: Performed By: #### R UBIGG #### [facility] [address] [address] [address] Alla Peterson Color (U) LT. YELLOW Normal YELLOW [facility] Comment on above: Performed By: #### R UBIGG #### [facility] [address] [place] [address] Dr. Alla Peterson Glucose Ql (U) Negative Normal NEGATIVE [facility] Comment on above: Performed By: #### R UBIGG #### [facility] [address] [place] [address] Dr. Alla Peterson Hemoglobin Ql (U) Negative Normal NEGATIVE [facility] Comment on above: Performed By: #### R UBIGG #### [facility] [address] [place] [address] Dr. Alla Peterson Ketones Ql (U) Negative Normal NEGATIVE [facility] Comment on above: Performed By: #### R UBIGG #### [facility] [address] [place] [address] Dr. Alla Peterson LEUKOCYTES Negative Normal NEGATIVE [facility] Comment on above: Performed By: #### R UBIGG #### [facility] [address] [address] [address] Alla Peterson Nitrite Ql (U) Negative Normal NEGATIVE [facility] Comment on above: Performed By: #### R UBIGG #### [facility] [address] [place] [address] Dr. Alla Peterson pH (U) 7.0 [pH] Normal 5-9 [facility] Comment on above: Performed By: #### R UBIGG #### [facility] [address] [place] [address] Dr. Alla Peterson SPEC GRAVITY 1.005 Normal 1.005-<=1.025 [facility] Comment on above: Performed By: #### R UBIGG #### [facility] [address] [place] [address] Dr. Alla Peterson UA PROTEIN Negative Normal NEGATIVE/ TRACE [facility] Comment on above: Performed By: #### R UBIGG #### [facility] [address] [place] [address] Dr. Alla Peterson UR MICRO IND NOT INDICATED Normal [facility] Comment on above: Performed By: #### R UBIGG #### [facility] [address] [place] [address] Dr. Alla Peterson Urobilinogen Qn (U) 0.2 {José Miguel'U}/dL Normal 0.2 - 1. 0 [facility] Comment on above: Performed By: #### R UBIGG #### [facility] [address] [place] [address] Dr. Alla Peterson CBC AUTO DIFFon 04-29-2022 BASO # 0.0 103/ul Normal 0.0-0.1 [facility] Comment on above: Performed By: #### P REGQNT #### [facility] [address] [place] [address] Dr. Alla Peterson Basophils/100 WBC (Bld) 0.1 % Critically low 0.2-2.0 [facility] Comment on above: Performed By: #### P REGQNT #### [facility] [address] [place] [address] Dr. Alla Peterson EO # 0.0 103/ul Normal 0.0-0.7 [facility] Comment on above: Performed By: #### P REGQNT #### [facility] [address] [place] [address] Dr. Alla Peterson Eosinophils/100 WBC (Bld) 0.4 % Critically low 0.9-7.0 [facility] Comment on above: Performed By: #### P REGQNT #### [facility] [address] [address] [address] Alla Peterson Erythrocyte distribution width (RBC) [Ratio] 13.2 % Normal 11.0-15.0 [facility] Comment on above: Performed By: #### P REGQNT #### [facility] [address] [place] [address] Dr. Alla Peterson Hematocrit (Bld) [Volume fraction] 38.8 % Normal 36.0-48.0 [facility] Comment on above: Performed By: #### P REGQNT #### [facility] [address] [place] [address] Dr. Alla Peterson Hemoglobin (Bld) [Mass/Vol] 13.2 g/dL Normal 12.0-16.0 [facility] Comment on above: Performed By: #### P REGQNT #### [facility] [address] [place] [address] Dr. Alla Peterson IG # 0.05 10e3/ul Critically high 0.00-0.03 [facility] Comment on above: Performed By: #### P REGQNT #### [facility] [address] [place] [address] Dr. Alla Peterson IG % 0.6 % Critically high 0.0-0.5 [facility] Comment on above: Performed By: #### P REGQNT #### [facility] [address] [place] [address] Dr. Alla Peterson LYMPH # 1.2 103/ul Normal 1.2-3.8 [facility] Comment on above: Performed By: #### P REGQNT #### [facility] [address] [place] [address] Dr. Alla Peterson Lymphocytes/100 WBC (Bld) 14.7 % Critically low 20.5-60.0 [facility] Comment on above: Performed By: #### P REGQNT #### [facility] [address] [place] [address] Dr. Alla Peterson MANUAL DIFF REQ NO Normal [facility] Comment on above: Performed By: #### P REGQNT #### [facility] [address] [address] [address] Alla Peterson MCH (RBC) [Entitic mass] 29.6 pg Normal 26.7-34.0 [facility] Comment on above: Performed By: #### P REGQNT #### [facility] [address] [place] [address] Dr. Alla Peterson MCHC (RBC) [Mass/Vol] 34.0 g/dL Normal 29.9-35.2 [facility] Comment on above: Performed By: #### P REGQNT #### [facility] [address] [place] [address] Dr. Alla Peterson MCV (RBC) [Entitic vol] 87.0 fL Normal 81.0-99.0 [facility] Comment on above: Performed By: #### P REGQNT #### [facility] [address] [place] [address] Dr. Alla Peterson MONO # 0.4 103/ul Normal 0.3-0.8 [facility] Comment on above: Performed By: #### P REGQNT #### [facility] [address] [place] [address] Dr. Alla Peterson Monocytes/100 WBC (Bld) 4.3 % Normal 1.7-12.0 [facility] Comment on above: Performed By: #### P REGQNT #### [facility] [address] [place] [address] Dr. Alla Peterson NEUT # 6.7 103/ul Critically high 1.4-6.5 [facility] Comment on above: Performed By: #### P REGQNT #### [facility] [address] [place] [address] Dr. Alla Peterson Neutrophils/100 WBC (Bld) 79.9 % Critically high 43.0-75.0 [facility] Comment on above: Performed By: #### P REGQNT #### [facility] [address] [place] [address] Dr. Alla Peterson Platelet mean volume (Bld) [Entitic vol] 9.3 fL Critically low 9.5-13.5 [facility] Comment on above: Performed By: #### P REGQNT #### [facility] [address] [place] [address] Dr. Alla Peterson PLT 251 103/ul Normal 150-450 [facility] Comment on above: Performed By: #### P REGQNT #### [facility] [address] [place] [address] Dr. Alla Peterson RBC 4.46 106/ul Normal 4.20-5.40 [facility] Comment on above: Performed By: #### P REGQNT #### [facility] [address] [place] [address] Dr. Alla Peterson WBC 8.3 103/ul Normal 4.0-11.0 [facility] Comment on above: Performed By: #### P REGQNT #### [facility] [address] [place] [address] Dr. Alla Peterson GLUCOSE - 1HRon 04-29-2022 Glucose [Mass/Vol] 86 mg/dL Normal 74-[address] [facility] Comment on above: Performed By: #### R UBIGG #### [facility] [address] [place] [address] Dr. Alla Peterson US PREG PLACENTAon 3 [...] BLAS OLIVEIRA Date: 2022-04-27 16:04 Normal [facility] US PREG ANATOMY SINGLEon US PREG [...] authenticated by: BLAS OLIVEIRA Date: 2022-03-25 18:45 Normal [facility] PAP ACOG PANEL 2: 21 to 29on 02-24-2022 . . Normal [facility] Comment on above: Performed By: #### R UBIGG #### [facility] [address] [address] [address] Alla Peterson Age Gdln ACOG Testing 21-29 Normal [facility] Comment on above: Performed By: #### R UBIGG #### [facility] [address] [address] [address] Alla Peterson DIAGNOSIS: Comment [facility] Comment on above: Result Comment: NEGA TIVE FOR INTRAEPITHELIAL LESION OR MALIGNANCY. Performed By: #### R UBIGG #### [facility] [address] [address] [address] Alla Peterson Methodology: Comment [facility] Comment on above: Result Comment: This liquid based ThinPrep(R) pap test was screened with the use of an image guided system. Performed By: #### R UBIGG #### [facility] [address] [place] [address] Dr. Alla Peterson Note: Comment Normal [facility] Comment on above: Result Comment: The Pap smear is a screening test designed to aid in the detection of premalignant and malignant conditions of the uterine cervix. It is not a diagnostic procedure and should not be used as the sole means of detecting cervical cancer. Both false-positive and false-negative reports do occur. . Performed By: #### R UBIGG #### [facility] [address] [place] [address] Dr. Alla Peterson Performed by: Comment Normal [facility] Comment on above: Result Comment: Edgar Carrillo, Dean Of Student Services (ASCP) Performed By: #### R UBIGG #### [facility] [address] [place] [address] Dr. Alla Peterson Reflex Criteria: Comment Normal [facility] Comment on above: Result Comment: The HPV DNA reflex criteria were not met with this specimen result therefore, no HPV testing was performed. . Performed By: #### R UBIGG #### [facility] [address] [place] [address] Dr. Alla Peterson Specimen adequacy: Comment Normal [facility] Comment on above: Result Comment: Sati sfactory for evaluation. No endocervical component is identified. Performed By: #### R UBIGG #### [facility] [address] [place] [address] Dr. Alla Peterson CHLAMYDIA/GONOCOCCUS GONZÁLEZ (SW AB/URINE/PAPon 02-18-2022 Chlamydia trachomatis, GONZÁLEZ Negative Normal Negative [facility] Comment on above: Performed By: #### C T/NGNA #### [facility] [address] [place] [address] Dr. Alla Peterson Neisseria gonorrhoeae, GONZÁLEZ Negative Normal Negative [facility] Comment on above: Performed By: #### C T/NGNA #### [facility] [address] [place] [address] Dr. Alla Peterson VAGINITIS/VAGINOSIS DNA PROB Marko 02-18-2022 Hilda species Negative Normal Negative [facility] Comment on above: Performed By: #### R UBIGG #### [facility] [address] [place] [address] Dr. Alla Peterson Gardnerella vaginalis Negative Normal Negative [facility] Comment on above: Performed By: #### R UBIGG #### [facility] [address] [place] [address] Dr. Alla Peterson Trichomonas vaginalis Negative Normal Negative [facility] Comment on above: Performed By: #### R UBIGG #### [facility] [address] [place] [address] Dr. Alla Peterson HEP B SURFACE ANTIGEN SCREEN on 02-06-2022 HBsAg Screen Negative Normal Negative [facility] Comment on above: Performed By: #### H BSANS #### [facility] [address] [place] [address] Dr. Alla Peterson HEPATITIS C VIRUS AB W/ REFL EX QUANTon 02-06-2022 HCV AB 0.1 s/co ratio Normal 0.0-0.9 [facility] Comment on above: Performed By: #### H CVPCRR #### [facility] [address] [place] [address] Dr. Alla Peterson Interpretation: Comment Normal [facility] Comment on above: Result Comment: Nega tive Not infected with HCV, unless recent infection is suspected or other evidence exists to indicate HCV infection. Performed By: #### H CVPCRR #### [facility] [address] [place] [address] Dr. Alla Peterson HIV 1 AND 2 WITH REFLEXon HIV Screen 4th Generation wRfx Non-Reactive Normal Non Reactive [facility] Comment on above: Result Comment: HIV Negative HIV-1/HIV-2 antibodies and HIV-1 p24 antigen were NOT detected. There is no laboratory evidence of HIV infection. Performed By: #### H IV12 #### [facility] [address] [place] [address] Dr. Alla Peterson RPR QUANTon 02-06-2022 Rapid Plasma Reagin, Quant Non-Reactive Normal NonRea<1:1 [facility] Comment on above: Result Comment: Kenzie sawyer Note: This test does not meet current guidelines for screening and diagnosis of syphilis. This test is intended for following treatment response in patients being treated for syphilis infection. To screen for syphilis infection, a reflex cascade that includes both RPR and a treponema-specific assay should be utilized, such as Treponema pallidum (Syphilis) Screening [place] (961248) or Rapid Plasma Reagin (RPR) Test With Reflex to Quantitative RPR and Confirmatory Treponema pallidum Antibodies (874644). Performed By: #### R UBIGG #### [facility] [address] [place] [address] Dr. Alla Peterson RUBELLA AB IGGon 02-06-2022 Rubella Antibodies, IgG 3.77 index Normal Immune >0.99 [facility] Comment on above: Result Comment: Non- immune <0.90 Equivocal 0.90 - 0.99 Immune >0.99 Performed By: #### R UBIGG #### [facility] [address] [place] [address] Dr. Alla Peterson CBC AUTO DIFFon 02-05-2022 BASO # 0.0 103/ul Normal 0.0-0.1 [facility] Comment on above: Performed By: #### P REGQNT #### [facility] [address] [place] [address] Dr. Alla Peterson Basophils/100 WBC (Bld) 0.3 % Normal 0.2-2.0 [facility] Comment on above: Performed By: #### P REGQNT #### [facility] [address] [place] [address] Dr. Alla Peterson EO # 0.0 103/ul Normal 0.0-0.7 [facility] Comment on above: Performed By: #### P REGQNT #### [facility] [address] [place] [address] Dr. Alla Peterson Eosinophils/100 WBC (Bld) 0.2 % Critically low 0.9-7.0 [facility] Comment on above: Performed By: #### P REGQNT #### [facility] [address] [address] [address] Alla Peterson Erythrocyte distribution width (RBC) [Ratio] 12.3 % Normal 11.0-15.0 [facility] Comment on above: Performed By: #### P REGQNT #### [facility] [address] [place] [address] Dr. Alla Peterson Hematocrit (Bld) [Volume fraction] 40.1 % Normal 36.0-48.0 [facility] Comment on above: Performed By: #### P REGQNT #### [facility] [address] [place] [address] Dr. Alla Peterson Hemoglobin (Bld) [Mass/Vol] 13.9 g/dL Normal 12.0-16.0 [facility] Comment on above: Performed By: #### P REGQNT #### [facility] [address] [place] [address] Dr. Alla Peterson IG # 0.04 10e3/ul Critically high 0.00-0.03 [facility] Comment on above: Performed By: #### P REGQNT #### [facility] [address] [place] [address] Dr. Alla Peterson IG % 0.4 % Normal 0.0-0.5 [facility] Comment on above: Performed By: #### P REGQNT #### [facility] [address] [place] [address] Dr. Alla Peterson LYMPH # 1.3 103/ul Normal 1.2-3.8 [facility] Comment on above: Performed By: #### P REGQNT #### [facility] [address] [place] [address] Dr. Alla Peterson Lymphocytes/100 WBC (Bld) 13.4 % Critically low 20.5-60.0 [facility] Comment on above: Performed By: #### P REGQNT #### [facility] [address] [place] [address] Dr. Alal Peterson MANUAL DIFF REQ NO Normal [facility] Comment on above: Performed By: #### P REGQNT #### [facility] [address] [place] [address] Dr. Alla Peterson MCH (RBC) [Entitic mass] 29.2 pg Normal 26.7-34.0 [facility] Comment on above: Performed By: #### P REGQNT #### [facility] [address] [place] [address] Dr. Alla Peterson MCHC (RBC) [Mass/Vol] 34.7 g/dL Normal 29.9-35.2 [facility] Comment on above: Performed By: #### P REGQNT #### [facility] [address] [place] [address] Dr. Alla Peterson MCV (RBC) [Entitic vol] 84.2 fL Normal 81.0-99.0 [facility] Comment on above: Performed By: #### P REGQNT #### [facility] [address] [place] [address] Dr. Alla Peterson MONO # 0.5 103/ul Normal 0.3-0.8 [facility] Comment on above: Performed By: #### P REGQNT #### [facility] [address] [place] [address] Dr. Alla Peterson Monocytes/100 WBC (Bld) 5.1 % Normal 1.7-12.0 [facility] Comment on above: Performed By: #### P REGQNT #### [facility] [address] [place] [address] Dr. Alla Peterson NEUT # 8.1 103/ul Critically high 1.4-6.5 [facility] Comment on above: Performed By: #### P REGQNT #### [facility] [address] [place] [address] Dr. Alla Peterson Neutrophils/100 WBC (Bld) 80.6 % Critically high 43.0-75.0 [facility] Comment on above: Performed By: #### P REGQNT #### [facility] [address] [place] [address] Dr. Alla Peterson Platelet mean volume (Bld) [Entitic vol] 9.3 fL Critically low 9.5-13.5 [facility] Comment on above: Performed By: #### P REGQNT #### [facility] [facility] [address] [place] [address] Dr. Alla Peterson PLT 240 103/ul Normal 150-450 [facility] Comment on above: Performed By: #### P REGQNT #### [facility] [address] [place] [address] Dr. Alla Peterson RBC 4.76 106/ul Normal 4.20-5.40 [facility] Comment on above: Performed By: #### P REGQNT #### [facility] [address] [place] [address] Dr. Alla Peterson WBC 10.0 103/ul Normal 4.0-11.0 [facility] Comment on above: Performed By: #### P REGQNT #### [facility] [address] [place] [address] Dr. Alla Peterson CULTURE URINEon 02-05-2022 CULTURE URINE Culture Observations : LIGHT GROWTH OF MIXED GENITAL FRANCISCO. NO POTENTIAL PATHOGENS SEEN. Normal [facility] Comment on above: Performed By: #### U RCX #### [facility] [address] [place] [address] Dr. Alla Peterson GLYCOHEMOGLOBIN A1Con 2021 ADA RECOMMENDATION SEE BELOW Normal [facility] Comment on above: Result Comment: ADA RECOMMENDED LIMIT 4.0 - 6.0 ADA THERAPEUTIC TARGET < 7.0 ACTION SUGGESTED > 7.0 Performed By: #### A 1C #### [facility] [address] [place] [address] Dr. Alla Peterson Glucose [Mass/Vol] 97 mg/dL Normal [facility] Comment on above: Performed By: #### A 1C #### [facility] [address] [place] [address] Dr. Alla Peterson HbA1c (Bld) [Mass fraction] 5.0 % Normal 4.5-6.2 [facility] Comment on above: Performed By: #### A 1C #### [facility] [address] [address] [address] Alla Peterson TYPE AND SCREENon 02-05-2022 TYPE AND SCREEN Negative Normal [facility] Comment on above: Performed By: #### P REGQNT #### [facility] [address] [place] [address] Dr. Alla Peterson US PREG TVon 01-07-2022 [...] AGE BY LMP: 9 weeks 0 days MICTH BY LMP: 08/12/2022 AGE BY US CRL: 8 weeks 3 days MITCH BY US CRL: 08/16/2022 IMPRESSION: 1. Single live intrauterine . Electronically authenticated by: MICKEY GUZMAN Date: 2022-01-07 16:17 Normal [facility] PREG QUANT HCGon 09-03-2021 HCG QUANT 1 mIU/mL Normal [facility] Comment on above: Performed By: #### P REGQNT #### [facility] [address] [place] [address] Dr. Alla Peterson HCG RANGE SEE BELOW Normal [facility] Comment on above: Result Comment: 5-50 0-1 WEEK 40-300 1-2 WEEKS 100-1,000 2-3 WEEKS 500-6,000 3-4 WEEKS 5,000-200,000 1-2 MONTHS 10,000-100,000 2-3 MONTHS 3,000-50,000 2ND TRIMESTER 1,000-50,000 3RD TRIMESTER Performed By: #### P REGQNT #### [facility] [address] [place] [address] Dr. Alla Peterson PREG QUANT HCGon 08-27-2021 HCG QUANT 9 mIU/mL Normal [facility] Comment on above: Performed By: #### R UBIGG #### [facility] [id number] Alla Peterson HCG RANGE SEE BELOW [facility] Comment on above: Result Comment: 5-50 0-1 WEEK 40-300 1-2 WEEKS 100-1,000 2-3 WEEKS 500-6,000 3-4 WEEKS 5,000-200,000 1-2 MONTHS 10,000-100,000 2-3 MONTHS 3,000-50,000 2ND TRIMESTER 1,000-50,000 3RD TRIMESTER Performed By: #### R UBIGG #### [facility] [address] [address] [address] Alla Peterson Physical Therapy Noteon 01-09 Physical Therapy Note [id number] .00OTGTIFF [facility] Coding Summaryon 09-04-2020 Coding Summary HTMLBase 64 ClfrkrzvDOf6qUa+PGhlY WQ+UZ7QTJHoK21wiSQytX 7GR3qIHH4NGBEGROKXML6 NYU1ddVT8BNpfR2ItliYl PbssfPBsLZ44NZr4NMD0s WoiXDirbL2ruMEtJ2z8Gw MrTO32fJ02IMvcNGAlCgT 3LjZpbjsgbWFy B4ffWtAfrDBiWqx+PHRhY mxlIHdpZHRoPScxMDAlJy YrlVtbJC1mZo2wNSWxBOB vbGxhcHNlOiBj l3xyCVIeKBzhPY2toIhgR 7UnxVH3YSTqt8x2Xd13vX I+XYYgGKP1xTsgZEsjr44 4UhJto1oaHZV8 eOJoJAxjXDP0Y29sx5X3I FWdQMQjOQG8bMD4nH8wvX dqcbdcE7TkdFOsViH0HLP 1zGSbfK2xwOkd pwiioI6nQrm+E02NSL5TL FYGTX6SHed5S0VhPlareZ I+BS70LDAmKZ16uFDtzYJ lp0zqaDf5ApOk IZWqJIZ6dFflRCbdr0IhA UGnV29gbAKke7M0NOSnhO vfoDXlMfPauPX2bM5iNCm sgsgao9qiatit Ntkeh4vggq57cL51S11nI QwtMYIcNBV3XUZdTERowO mtrv1vyV7rVh1+UYlyw4b ut4vrmLw0MpIl QTYhtpDdhYwdIGF6c8ZnD p77F9NmrYflq5MmLij9kp 96nAFul6Z8dNV7IKbsFVX mvI4dOZsrAsY3 KITjSmHurA09sXBuYMplX o0oqNjmnUlzFZ5yYSUefj lnCEFxgE3zSPLliVHwlVn aIP2tKQVwfevm u423MzZiWKU3JKSlgDOzI 5ZqrF3aRiZzJVGwKBMlU0 FrcEJwBJlbV942HIwgMbE 3UOCjftGuA0Fd FPZtyDocUzR5c1H5Lc3Hk 1QgztqbOOW8FYffEZT1Bb M4CrXzVjP7T1HdHgz0LHZ rfMswPX2cZ6Pk HHIyzjdbiacetOT2BFNzD LGfiY17lAPdKFbzNe2dq4 V8f060FUWySBSbyF82Zc7 udDogMTBwdCBU wO3zsesau1bjqibgYwTiC HThVFs0TAe7NYCyvBfjLy NfBXX3ZwT5WUH4hYApmJ9 ifYcqainbmF7h Oyc+V47ywQ6lBNP1KSR7u xgkNDJevwLoHK25ZU05V3 RyPjwvdGFibGU+PGRpdiB hmBfaDD2iKtSl g0lcf8LkNZrhG7TeLBStY LtqBaz1JLHsOKZ2mAF3xN 7jSZHyAZksp8R8aBZ9A8H dblUgyv8yy6gu VIUlMTozH46gqNTvp5W1M WYzyQX5AFXxmAcnCfJpdD 93Oyc+BMLhyBywc9NtHzp rt0pud8rhcEd6 CaFmIXSqexJruRooIGQ3v 6CkUu35B30oAGmwCOWwSG JhLUGoTGEanHpdfs0sxW1 wIi8+PGNvbCB3 uMD8oG6xXQLhQxL3BYjqM 408FpKfuJWkCtjid4vhb8 treOc5BjNsPILnzyIxuVv tYPX6m3HtVa12 F22lAYktCPFeBEOjKRExN GFdgApyzy3frP5mCn4+PC 5cm8dujp21vY31jIF+PHR bNEM7gSfnNBhy VUZaaI9gNFgeDtS0FKRlN hPfqT71eYRmPEbdSv2igM drnLnuCB4uYDXscujin53 7FqKfh2diOFXf jZAzZDcjVKI3S02vt5W8L SQsASZlRUK6bHA8iY6cgM lnbjogbGVmdDsgdmVydGl hXFzrKZkyL404 IHRvcDsnPlBhdGllbnQgT vGcFKg0L0IoCty2GCRwjL xrRV7xdXVuPWriAg2foRr jaLulCV2oBYNv xdsoo296RsLmb5snVWPdi HDnZRhnERM2L18vc5H2UH KdBQPkDXW4vRF5uS1pwXt nbjogbGVmdDsg lkIssRspBPjgTHorZ040I HRvcDsnPkJpcnRoIERhdG X5CN70DN94tCVku4S4oIV 9D7PvHWGrnnkp qfsinDF3ADZwJYOfcR92I x9qmPyqBb5xQIKkHLN2VI GphEDbU7KotV2vOfHdUGE dRTHvE1PgwSTm OZedE758ORwcVxJ5AZQas qBsB0DyOVAtqSxcNrZ6s9 X8Tk3BO5S2JV33IZ60zZA ry6K6oIE0S3Mt PMLzgwtbplfziFH2HRZkU ZDugU81Eq0yxBziUi3zXI XsGCT2AJKliJIzB6ZckF8 yOiAjMDAwMDAw O3DhwTYaAZmfK124NOojA nX5QQHvdkTgZ6FcZEEapD wdGzE0p8J7Mr8SIFb5PV8 3SN62sMZnh7P4 qBO3J7AoBEQaexicjklda TA3QANwQWUbpH65Uh0dsO cbXl3rKGMaTSJ0DYCctYJ cH5XwiF7yNcSa SVCbYJDvO3ZyaHTxRGetV 113LUjlIpA4RFUrgkKnY7 RuPKSdiZvbAzD1h8X2Bx1 QASUaCG28YPT0 zMR7DC81DW02D5CxPfsti GFibGU+PHRhYmxlIHdpZH RoPScxMDAlJyBzdHlsZT0 xGb4tEYShYEJn lQmbtZNuFiUam7xvONGnG RefAV7ehPzoD8RxsEU6BZ Sgs7w9Gg81P24dD7KneGZ +GHIfcPF8gWS8 pD3lSsGdBsH7QCkbK556D iZjdCLwTdzss7acf6zhjR u3BwE2MRShwjYrwZbaNBD 9q5GbKg27C35j IHdpZHRoPSIxNSUiIHZhb Qsffj3itG3bWh3+PGNvbC M0wCX9bQ4hDfUlVxS1FNk jK535ZtIgaMVa Nfhax0msc9xbrKr0JcBkW YExgnDqtDgwODK1x7FaVx 54D4KpwXkso8ZzZzs6lc1 6yZFru0P9pYN6 P9KbYQBhkaxwwODpjRayB N4yMIZvttcfJGTxxY6eQV DeR9h7BkExYvX8PNrrY0L ibxF3KDWvrWJo HBwlIDA6T87il0D3SKQbB RRnASB9wFR1cE4jbDtqpb ogbGVmdDsgdmVydGljYWw rTSnyD671IYNi dQfdANUhxH4iQQVhgXDrc VrnMK0hRNPixynzAtqUJE 2JA45fLW5CDehIQnTQXQw 7Q1WlUfl9QANc yIjjJZ4uvHKcCGjgCf2yg NopcJjsGH1qYUGjtnupLD UiwJ9pJZOycHKkqJxoFA5 lWUWmaucdj748 HfFwKPS8VRHpyQZuT6Mpr M3rJdQsDRNaRGSxJ8HufO SzDPsgS834QAtdKyM9CVI udnEyJ7CoGEHj vCgkInH9s3G4Pd8wHF8tI U4tJKrlDO22XS57hPVfm9 V4uOW9C6SfNUJlilglivb juSO6ZOVjFFAd gZ91fXBaGGiuEk7hs1C6v 879WUVdBKDysT93Pg6wcW guLGYwhCVZjJ1vztpyh7w vcjogIzAwMDAw FIz3QRk8MLBdjLqyZuRvP EJ3MuE9OPK6yFJzyX9irD acxlptkB8aRbk+MjggWWV hhsI4H1RaGdw3 RBMvtVsyPS7xiQSdUBobK u4etHsyaUnyXB0yZZQncn byUTDljV1kHWHnuOAbcIr rCB3fWAIkreug m684WvOpQVO0CCKtsVHjA 4FghR8ePxHkMBTgFFGaH5 GviKLnKJrmB728QDitUnD 8PJJzucFmU1Ry CZKuyNybBhU0y0F7Zt3EC N1XFOG2V9AfSis1MOAgcQ fvPI2ygWPdRSafEz2byKs jhKypEU4uRDRl eyzyFVRchP6aDYGanTSvz OlpLG4rQRLtrqnkp261Fs YdXFR6AEBdaEKbK9YbwZ1 yOiAjMDAwMDAw P1EfiYRsUWlvL228SAraY yY1PAHaxsSdC8ElAYItlZ ipDmU0k7D1Ig5QBZL5zsY xpwzaX6P0bFT3 aWVudDwvdGQ+FI29ux92O 5PgGtywHjy7UXPsBGZ5xD V5kD0zTCHjVIxng4V5yIX 0Y0KndhTglt0w e0eaWULtJKenN04fwLGqg 6J1ZIFdqSO3ADKnfYogKm SvzK16Tfq+TYFdxOmvc0F hNeahs0cmd7yx wRf0PmDjNTTsaaRubNdpO OF3r7UdIq00C11qPCbcPP RoPSIzMCUiIHZhbGlnbj0 geD7dEk8+PGNv oKZ2cGL4rT9zSzImKnK1M ZwwH101IuTeyHPnUnrna9 wwx0ocmEi8TvBzXLAaqyL lvBxfOFZ2e9Gc Is17I9FekGpim8LrRjq4k o86cBGvx1K2jJA8Z4QpMT IfcuufqQJokJhqMT8xLXE hdqtrVQRnzL6j BLQnP5c5ZiAyXeJ4AYgkC 9JhryT5AHYrlRDxWQAzeI ZEzZ3ylnuvu7lglwboAfF nZLXnENc5CNh0 GUMweFqrGjRnDJC4TnR5K YB8yTPfmX5orKcxlfllzU 9wOyc+GPl3z7aptZQvFF3 vvKH2UA72HB59 uLHdv8U9qFY8I5RdLMBcf qtmzexenTS6GSAzOWPegI 96Me0kkThfKe8vCWVmGSR 3LPBbmLEkR2Fz wQ5oUvWnVMYoEVZjV8Pit KRyWWkrT625EOjcQsF1TZ CekxAxZ9NcNMCacKrtBlC 1j3L5Iq2EPO16 ZF44EN66tIGoz2J0yRS6U 4BpTMOftrcxmebcoAU7LI PuTIHkrO76Wt8cqLrlHq0 mOAZmQMH4XOEm jWWmI9XeeN0aDrBqOJAgC TKsR7ZnpMNlGNlmC325HH zuJzE8GCWsdoSnZ2SpQCV nmTmuHnS7z2H1 Nz5LCe02MV06ZY14tKXtw 2B7nCI8U8FhOZXopqxhti cdgFN3FJKdMERiyX71Oa3 ulDsrRf9lDEIl ZWN5PHAifFIgM4WhcT8vD vCvYCYjBMUhH3IimTLfBA seH864TNwtJfW7NUHhiuW bY6WsLQPieBui TpC9o5H5Jg3PLTgnjba9U 3RkPjwvdHI+RZ88NRRdPP 68oQIztYHxy7qvzZj6HlK qRBNjHNX9xIkm PSd (more content not included)... [facility] Consent Formson 09-02-2020 Consent Forms [id number] .[facility]2020 Provider Orders [id number] .[facility] Vital Signs Date Time Vital Sign Value Performing Clinician Guillei lity 04-17-2024 09:50-0500 Body mass index (BMI) [Ratio] 34.92 kg/m2 Tia SÁNCHEZ Work Phone: [facility] 04-17-2024 09:50-0500 Body weight 88 kg Tia SÁNCHEZ Work Phone: [facility] 04-17-2024 09:50-0500 Diastolic blood pressure 74 mm[Hg] Tia SÁNCHEZ Work Phone: [facility] 04-17-2024 09:50-0500 Systolic blood pressure 118 mm[Hg] Tia SÁNCHEZ Work Phone: [facility] 03-29-2024 10:32-0500 Body mass index (BMI) [Ratio] 34.4 kg/m2 Agata Maricruz DO Work Phone: [facility] 03-29-2024 10:32-0500 Body weight 86.68 kg Agata Maricruz DO Work Phone: [facility] 03-29-2024 10:32-0500 Diastolic blood pressure 72 mm[Hg] Agata Maricruz DO Work Phone: [facility] 03-29-2024 10:32-0500 Systolic blood pressure 112 mm[Hg] Agata Maricruz DO Work Phone: [facility] 03-14-2024 14:03-0500 Body mass index (BMI) [Ratio] 34.38 kg/m2 Tia SÁNCHEZ Work Phone: [facility] 03-14-2024 14:03-0500 Body weight 86.64 kg Tia SÁNCHEZ Work Phone: [facility] 03-14-2024 14:03-0500 Diastolic blood pressure 68 mm[Hg] Tia SÁNCHEZ Work Phone: [facility] 03-14-2024 14:03-0500 Systolic blood pressure 110 mm[Hg] Tia Rogers PA Work Phone: [facility] 02-14-2024 14:02-0500 Body mass index (BMI) [Ratio] 34.02 kg/m2 Agata Maricruz DO Work Phone: [facility] 02-14-2024 14:02-0500 Body weight 85.73 kg Agata Maricruz DO Work Phone: [facility] 02-14-2024 14:02-0500 Diastolic blood pressure 70 mm[Hg] Agata Maricruz DO Work Phone: [facility] 02-14-2024 14:02-0500 Systolic blood pressure 112 mm[Hg] Agata Maricruz DO Work Phone: [facility] 01-17-2024 14:24-0400 Body mass index (BMI) [Ratio] 32.94 kg/m2 Tia Ken PA Work Phone: [facility] 01-17-2024 14:24-0400 Body weight 83.01 kg Tia Silverthorne PA Work Phone: [facility] 01-17-2024 14:24-0400 Diastolic blood pressure 78 mm[Hg] Tia Silverthorne PA Work Phone: [facility] 01-17-2024 14:24-0400 Systolic blood pressure 118 mm[Hg] Tia Ken PA Work Phone: [facility] 12-19-2023 11:53-0400 Body mass index (BMI) [Ratio] 32.36 kg/m2 Tia Ken PA Work Phone: [facility] 12-19-2023 11:53-0400 Body weight 81.56 kg Tia Ken PA Work Phone: [facility] 12-19-2023 11:53-0400 Diastolic blood pressure 60 mm[Hg] Tia Silverthorne PA Work Phone: [facility] 12-19-2023 11:53-0400 Systolic blood pressure 100 mm[Hg] Tia Ken PA Work Phone: [facility] Healthcare Encounters Encounter Date Encounter Type Care Provider Facility Start: 05-02-2024 End: 05-02-2024 Bamboo flowsheet Agata Maricruz DO Work Phone: [facility] Start: 05-02-2024 End: 05-02-2024 Bamboo flowsheet Agata Maricruz DO Work Phone: [facility] Start: 04-17-2024 End: 04-17-2024 Bamboo flowsheet Tia Ken PA Work Phone: [facility] Start: 04-17-2024 End: 04-17-2024 Bamboo flowsheet Tia Ken PA Work Phone: [facility] Start: 04-17-2024 End: 04-17-2024 ambulatory TIA ROGERS Not Available Start: 04-17-2024 End: 04-17-2024 flow sheet Tia SÁNCHEZ Work Phone: [facility] Comment on above: Third trimester preg carmen; 33 weeks gestation of Start: 04-12-2024 End: 04-12-2024 ambulatory AGATA MARICRUZ Not Available Start: 03-29-2024 End: 03-29-2024 Bamboo flowsheet Agata Maricruz DO Work Phone: [facility] Start: 03-29-2024 End: 03-29-2024 Bamboo flowsheet Agata Maricruz DO Work Phone: [facility] Start: 03-29-2024 End: 03-29-2024 ambulatory AGATA MARICRUZ Not Available Start: 03-29-2024 End: 03-29-2024 flow sheet Agata Maricruz DO Work Phone: [facility] Comment on above: Third trimester preg carmen; 30 weeks gestation of ; Size of fetus inconsistent with dates in third trimester Start: 03-14-2024 End: 03-14-2024 Bamboo flowsheet Tia SÁNCHEZ Work Phone: [facility] Start: 03-14-2024 End: 03-14-2024 Bamboo flowsheet Tia SÁNCHEZ Work Phone: [facility] Start: 03-14-2024 End: 03-14-2024 ambulatory TIA ROGERS Not Available Start: 03-14-2024 End: 03-14-2024 flow sheet Tia SÁNCHEZ Work Phone: [facility] Comment on above: Muscle cramps (Prima ry Dx); Third trimester ; 28 weeks gestation of Start: 02-17-2024 End: 02-17-2024 Clinisync Result Encounter Agata Maricruz DO Work Phone: [facility] External Department Unsolicited Start: 02-17-2024 End: 02-17-2024 Clinisync Result Encounter Agata Maricruz DO Work Phone: [facility] External Department Unsolicited Start: 02-14-2024 End: 02-14-2024 Bamboo flowsheet Agata Maricruz DO Work Phone: [facility] Start: 02-14-2024 End: 02-14-2024 Bamboo flowsheet Agata Maricruz DO Work Phone: [facility] Start: 02-14-2024 End: 02-14-2024 ambulatory AGATA MARICRUZ Not Available Start: 02-14-2024 End: 02-14-2024 flow sheet Agata Maricruz DO Work Phone: [facility] Comment on above: Second trimester pre gnancy; 23 weeks gestation of ; Diabetes mellitus screening Start: 01-17-2024 End: 01-17-2024 flow sheet iTa SÁNCHEZ Work Phone: [facility] Comment on above: Second trimester pre gnancy; 20 weeks gestation of Start: 01-17-2024 End: 01-17-2024 ambulatory TIA ROGERS Not Available Start: 01-17-2024 End: 01-17-2024 Bamboo flowsheet Tia SÁNCHEZ Work Phone: [facility] Start: 01-17-2024 End: 01-17-2024 Bamboo flowsheet Tia SÁNCHEZ Work Phone: [facility] Start: 12-19-2023 End: 12-19-2023 Bamboo flowsheet Tia SÁNCHEZ Work Phone: [facility] Start: 12-19-2023 End: 12-20-2023 Bamboo flowsheet Tia SÁNCHEZ Work Phone: [facility] Start: 12-19-2023 End: 12-20-2023 External Result Encounter Tia SÁNCHEZ Work Phone: [facility] External Department Unsolicited Start: 12-19-2023 End: 12-19-2023 ambulatory TIA ROGERS Not Available Start: 12-19-2023 End: 12-19-2023 flow sheet Tia SÁNCHEZ Work Phone: [facility] Comment on above: 16 weeks gestation o f ; Screening, , for anatomic survey; Exposure to STD; Vaginal discharge Start: 11-21-2023 End: 11-21-2023 ambulatory AGATA ALCANTARA Not Available Start: 10-06-2023 End: 10-06-2023 ambulatory AGATA ALCANTARA Not Available Start: 12-16-2022 End: 12-17-2022 ambulatory PHYSICIAN NO [facility] Work Phone: Start: 12-16-2022 End: 12-16-2022 Discharged Recurring PHYSICIAN NO [facility]Physical [facility] Start: 10-19-2022 Orders Only Segundo sepulveda DO [...] AGATA ALCANTARA . Facility:[facility] Start: 04-30-2022 End: 01-20-2023 ambulatory JOHN CORONADO Facility:[facility] Start: 04-29-2022 End: [...] End: 08-28-[address] AGATA ALCANTARA . Facility: Start: 07-18-2017 End: 07-19-2017 Ambulatory DEFAULT PHYSICIAN Facility:[facility] Procedures Date Procedure Procedure Detail Performing Clinician Start: 04-17-2024 Urnls dip stick/tabl et rgnt non-auto w/o micrscp Tia SÁNCHEZ Work Phone: Start: 03-14-2024 Urnls dip stick/tabl et rgnt non-auto w/o micrscp Tia SÁNCHEZ Work Phone: Start: 02-17-2024 ALL CBC WITH AUTO DIFF Agata Maricruz DO Work Phone: Start: 02-14-2024 Urnls dip stick/tabl et rgnt non-auto w/o micrscp Agata Maricruz DO Work Phone: Start: 01-17-2024 Urnls dip stick/tabl et rgnt non-auto w/o micrscp Tia SÁNCHEZ Work Phone: Start: 12-19-2023 Urnls dip stick/tabl et rgnt non-auto w/o micrscp Tia SÁNCHEZ Work Phone: Start: 12-19-2023 URETHRITIS/DISCHARGE PLUS VAGINITIS (HTRX) Tia SÁNCHEZ Work Phone: Start: 08-19-2022 Delivery of Products of Conception, External Approach DR AGATA ALCANTARA . Start: 08-19-2022 Drainage of Amniotic Fluid, Therapeutic from Products of Conception, Via Natural or Artificial Opening DR AGATA ALCANTARA . Start: 08-19-2022 Introduction of Othe r Hormone into Peripheral Vein, Percutaneous Approach DR AGATA ALCANTARA . Plan of Treatment Date Care Activity Detail Author Start: 04-17-2024 End: 04-17-2024 Patient encounter procedure 04/17/2024 9:20 AM EST Routine [facility] [address] [place] [id number] Tia Rogers PA [address] [place] [address] [facility] Start: 03-29-2024 End: 03-29-2025 US for US OB SCAN FOR GROWTH Imaging Routine Size of fetus inconsistent with dates in third trimester Expected: 03/29/2024 (Approximate), Expires: 03/29/2025 [facility] Work Phone: Comment on above: Expected: 03/29/2024 (Approximate), Expires: 03/29/2025 Start: 03-29-2024 End: 03-29-2024 Patient encounter procedure 03/29/2024 10:00 AM EST Routine [facility] [address] [phone] Agata Alcantara DO [address] [place] [address] [facility] Start: 03-14-2024 End: 03-14-2024 Patient encounter procedure 03/14/2024 1:30 PM EST Routine [facility] [address] [place] [phone] Tia Rogers PA [address] [place], [place] [phone] [facility] Start: 02-14-2024 End: 02-13-2025 CBC panel - Blood by Automated count CBC Lab Routine Diabetes mellitus screening Expected: 02/14/2024 (Approximate), Expires: 02/13/2025 [facility] Work Phone: Comment on above: Expected: 02/14/2024 (Approximate), Expires: 02/13/2025 Start: 02-14-2024 End: 02-13-2025 Measurement of glucose 1 hour after glucose challenge for glucose tolerance test Glucose tolerance, 1 hour Lab Routine Diabetes mellitus screening Expected: 02/14/2024 (Approximate), Expires: 02/13/2025 [facility] Comment on above: Expected: 02/14/2024 (Approximate), Expires: 02/13/2025 Start: 02-14-2024 End: 02-14-2024 Patient encounter procedure 02/14/2024 1:20 PM EST Routine [facility] [address] [facility] [facility] [place] [phone] Agata Alcantara, DO [address] [place] [address] [facility] Start: 01-17-2024 End: 01-17-2024 Patient encounter procedure [facility] Comment on above: Arrived Start: 01-17-2024 End: 01-17-2024 Professional / ancillary services management 01/17/2024 1:00 PM EDT Ancillary Procedure [facility] [address] [facility] [place] [id number] [facility] Start: 12-19-2023 End: 02-18-2024 Alpha fetoprotein, maternal Alpha fetoprotein, maternal Lab Routine 16 weeks gestation of Expected: 12/19/2023 (Approximate), Expires: 02/18/2024 [facility] Comment on above: Expected: 12/19/2023 (Approximate), Expires: 02/18/2024 Start: 12-19-2023 End: 12-18-2024 US for US OB ANATOMY SINGLE W US OB CERVICAL LENGTH Imaging Routine Screening, , for anatomic survey Expected: 12/19/2023 (Approximate), Expires: 12/18/2024 [facility] Comment on above: Expected: 12/19/2023 (Approximate), Expires: 12/18/2024 Start: 10-19-2022 End: 10-20-2023 ECG COMPLETE ECG COMPLETE ECG Routine Syncope, unspecified syncope type Dizziness SOB (shortness of breath) Expected: 10/19/2022, Expires: 10/20/2023 [facility] Work Phone: Comment on above: Expected: 10/19/2022 , Expires: 10/20/2023 Cardiovascular funct ion eval w/tilt table w/mntr TILT TABLE EVALUATION Cardiology Routine Syncope, unspecified syncope type Ordered: 10/19/2022 [facility] Work Phone: Comment on above: Ordered: 10/19/2022 CHLAMYDIA TRACHOMATI S (GENITO/STI) CHLAMYDIA TRACHOMATIS (GENITO/STI) Lab Routine Exposure to STD Ordered: 12/19/2023 [facility] Comment on above: Ordered: 12/19/2023 Neisseria gonorrhoea e DNA [Presence] in Unspecified specimen by GONZÁLEZ with probe detection Neisseria gonorrhea DNA probe, direct Lab Routine Exposure to STD Ordered: 12/19/2023 [facility] Comment on above: Ordered: 12/19/2023 SURESWAB(R) ADVANCED VAGINITIS PLUS, TMA SURESWAB(R) ADVANCED VAGINITIS PLUS, TMA Pathology and Cytology Routine Vaginal discharge Ordered: 12/19/2023 [facility] Work Phone: Comment on above: Ordered: 12/19/2023 Payers Date Payer Category Payer Self-pay 2022 Private Health Insurance [employer] [id number] 2022 Unknown 2022 Medicaid MEDICAID MCP GEN [place] MEDICAID MCP GENERIC [id number] 2022-Present [phone] [address] [place] [address] Medicaid [id number] 1992 Unknown [id number] 2.16.840.1.801664.3.579 .2.593 1992 Unknown [id number] 2.16.840.1.932342.3.579 .2.593 1992 Unknown [id number] 2.16.840.1.336208.3.579 .2.593 1992 Unknown [id number] 2.16.840.1.264356.3.579 .2.593 1992 Unknown [id number] 2.16.840.1.317503.3.579 .2.593 1992 Unknown [id number] 2.16.840.1.665213.3.579 .2.593 1992 Unknown [id number] 2.16.840.1.400483.3.579 .2.593 1992 Unknown [id number] 2.16.840.1.761125.3.579 .2.593 1992 Unknown [id number] 2.16.840.1.640174.3.579 .2.593 1992 Unknown [id number] 2.16.840.1.483576.3.579 .2.593 1992 Unknown [id number] 2.16.840.1.024475.3.579 .2.593 1992 Unknown [id number] 2.16.840.1.213302.3.579 .2.593 1992 Unknown [id number] 2.16.840.1.001562.3.579 .2.593 1992 Unknown [id number] 2.16.840.1.417476.3.579 .2.593 1992 Unknown [id number] 2.16.840.1.388637.3.579 .2.593 1992 Unknown [id number] 2.16.840.1.154720.3.579 .2.593 1992 Unknown [id number] 2.16.840.1.606835.3.579 .2.1259 1992 Unknown [id number] 2.16.840.1.980596.3.579 .2.9 1992 Unknown [id number] 2.16840.1.961044.3.579 .2.1259 1992 Unknown [id number] 2.16840.1.706696.3.579 .2.1259 1992 Unknown [id number] 2.16840.1.391039.3.579 .2.9 1992 Unknown [id number] 2.16.840.1.410401.3.579 .2.9 1992 Unknown [id number] 2.16840.1.899781.3.579 .2.1258 1992 Unknown [id number] 2.16840.1.427669.3.579 .2.1258 1992 Unknown [id number] 2.16840.1.794540.3.579 .2.1259 1959 Unknown [id number] 2.16840.1.669368.3.579 .2.531 Social History Date Type [facility] Start: 1990 Sex Assigned At Not on file [facility] Start: 03-02-2023 End: 01-17-2024 Gender identity Not on file [facility] Start: 1990 Sex Assigned At Female F [facility] Start: 03-02-2023 End: 01-17-2024 Tobacco smoking status NHIS Never smoked tobacco [facility] Start: 11-21-2023 End: 12-19-2023 Alcoholic beverage intake Current drinker of alcohol (finding) [facility] Start: 03-02-2023 End: 01-17-2024 History of Social function [facility] How often to you hav e a drink containing alcohol? Monthly or less [facility] How many standard drinks containing alcohol do you have on a typical day? 1 or 2 [facility] How often do you hav e 6 or more drinks on 1 occasion? Never [facility] Start: 03-02-2023 Alcohol Comment Caffeine: none [facility] Start: 09-09-2023 [facility] Start: 09-29-2022 Gender identity Identifies as female gender (finding) [facility] Start: 01-17-2024 Tobacco use and exposure Smokeless tobacco non-user [facility] Start: 01-17-2024 End: 03-29-2024 Alcoholic beverage intake Ex-drinker (finding) [facility] Clinical Notes 09-02-2020 to 04-17-2024 PRINCESS Reddy - 04/17/2024 9:20 AM All Keating LPN - 03/29/2024 10:00 AM PRINCESS Quinonez - 03/14/2024 1:30 PM Devang Crystal LPN - 02/14/2024 1:20 PM PRINCESS Quinonez - 01/17/2024 2:20 PM EDT Note Date & Type Note Facility 04-17-2024 History of Presen t illness Narrative Reason for Appointment: Patient ID: Sabine Pardo is a 33 y.o. female who presents for Routine Visit Patient presents today for Return OB appointment. MEDICATIONS Current Outpatient Medications Medication Instructions MV-Min-Fe Fum-FA-DHA ( 1 PO) 1 each, Oral, Daily ALLERGIES No Known Allergies PROBLEMS Active Ambulatory Problems Diagnosis Date Noted No Active Ambulatory Problems Resolved Ambulatory Problems Diagnosis Date Noted No Resolved Ambulatory Problems Past Medical History: Diagnosis Date 35 weeks gestation of Asthma (CMS/HCC) Exercise-induced asthma (CMS/HCC) History of medical problems History of pre-term labor HISTORY PAST MEDICAL HISTORY SOCIAL HISTORY Past Medical History: Diagnosis Date 35 weeks gestation of Asthma (CMS/HCC) Exercise-induced asthma (CMS/HCC) History of medical problems Blocked Saliva Gland History of pre-term labor Social History Tobacco Use Smoking status: Never Smokeless tobacco: Never Substance Use Topics Alcohol use: Not Currently Comment: Caffeine: none Drug use: Never FAMILY HISTORY Family History Problem Relation Name Age of Onset Endometriosis Mother Hysterectomy Atrial fibrillation Father No Known Problems Sister Hypertension Maternal Grandfather Kem SURGICAL HISTORY Past Surgical History: Procedure Laterality Date SALIVARY GLAND SURGERY blocked saliva gland WISDOM TOOTH EXTRACTION wisdom teeth REVIEW OF SYSTEMS Review of Systems: Review of Systems Constitutional: Negative. HENT: Negative. Eyes: Negative. Respiratory: Negative. Cardiovascular: Negative. Gastrointestinal: Negative. Genitourinary: Negative. Musculoskeletal: Negative. Skin: Negative. Neurological: Negative. All other systems reviewed and are negative. Hematological: Negative. Endocrine: Negative. Allergic/Immunologic: Negative. OBJECTIVE Objective: Physical Exam Constitutional: Appearance: Normal appearance. She is normal weight. HENT: Head: Normocephalic. Cardiovascular: Rate and Rhythm: Normal rate. Pulses: Normal pulses. Pulmonary: Effort: Pulmonary effort is normal. Breath sounds: Normal breath sounds. Abdominal: Palpations: Abdomen is soft. Musculoskeletal: General: Normal range of motion. Neurological: General: No focal deficit present. Mental Status: She is alert and oriented to person, place, and time. Psychiatric: Mood and Affect: Mood normal. Behavior: Behavior normal. Thought Content: Thought content normal. Judgment: Judgment normal. Vitals and nursing note reviewed. Vitals: Estimated body mass index is 34.4 kg/m as calculated from the following: Height as of 09/30/22: 5' 2.5 . Weight as of 03/29/24: 191 lb 1.6 oz. BP: Patient's last menstrual period was 07/29/2023. ASSESSMENT & PLAN ICD-10-CM 1. Third trimester Z34.93 POCT urinalysis dipstick manually resulted 2. 33 weeks gestation of Z3A.33 Return OB: Patient presents today for a routine obstetrics appointment. Patient is currently 33w4d . Patient states she is doing well but has complaints of being tired due to current . Patient has verbalizes frequent movement. labor precautions was discussed/given and patient was instructed to perform kick counts three times a day. Orders Placed This Encounter Procedures POCT urinalysis dipstick manually resulted Follow Up: Patient is to return to office in 2 week for routine OB appointment. Documented by Mary Johnson MA on behalf of: PRINCESS Reddy documented in this encounter [facility] 03-29-2024 History of Presen t illness Narrative Reason for Appointment: Patient ID: Sabine Pardo is a 33 y.o. female who presents for Routine Visit Patient presents today for Return OB appointment. MEDICATIONS Current Outpatient Medications Medication Instructions magnesium oxide (MAG-OX) 400 mg, Oral, Daily MV-Min-Fe Fum-FA-DHA ( 1 PO) 1 each, Oral, Daily ALLERGIES No Known Allergies PROBLEMS Active Ambulatory Problems Diagnosis Date Noted No Active Ambulatory Problems Resolved Ambulatory Problems Diagnosis Date Noted No Resolved Ambulatory Problems Past Medical History: Diagnosis Date 35 weeks gestation of Asthma (CMS/HCC) Exercise-induced asthma (CMS/HCC) History of medical problems History of pre-term labor HISTORY PAST MEDICAL HISTORY SOCIAL HISTORY Past Medical History: Diagnosis Date 35 weeks gestation of Asthma (CMS/HCC) Exercise-induced asthma (CMS/HCC) History of medical problems Blocked Saliva Gland History of pre-term labor Social History Tobacco Use Smoking status: Never Smokeless tobacco: Never Substance Use Topics Alcohol use: Not Currently Comment: Caffeine: none Drug use: Never FAMILY HISTORY Family History Problem Relation Name Age of Onset Endometriosis Mother Hysterectomy Atrial fibrillation Father No Known Problems Sister Hypertension Maternal Grandfather Kem SURGICAL HISTORY Past Surgical History: Procedure Laterality Date SALIVARY GLAND SURGERY blocked saliva gland WISDOM TOOTH EXTRACTION wisdom teeth REVIEW OF SYSTEMS Review of Systems: Review of Systems All other systems reviewed and are negative. OBJECTIVE Objective: Physical Exam Constitutional: Appearance: Normal appearance. She is well-developed. Cardiovascular: Rate and Rhythm: Normal rate and regular rhythm. Pulmonary: Effort: Pulmonary effort is normal. Breath sounds: Normal breath sounds. Abdominal: General: Bowel sounds are normal. There is no distension. Palpations: Abdomen is soft. Tenderness: There is no abdominal tenderness. There is no guarding or rebound. Musculoskeletal: General: No swelling. Normal range of motion. Right lower leg: No edema. Left lower leg: No edema. Neurological: Mental Status: She is alert and oriented to person, place, and time. Skin: General: Skin is warm and dry. Psychiatric: Mood and Affect: Mood normal. Behavior: Behavior normal. Vitals and nursing note reviewed. Exam conducted with a ship scaler present. Vitals: Estimated body mass index is 34.4 kg/m as calculated from the following: Height as of 09/30/22: 5' 2.5 . Weight as of this encounter: 191 lb 1.6 oz. BP: 112/72 Patient's last menstrual period was 07/29/2023. ASSESSMENT & PLAN ICD-10-CM 1. Third trimester Z34.93 POCT urinalysis dipstick manually resulted 2. 30 weeks gestation of Z3A.30 POCT urinalysis dipstick manually resulted Patient presents today for a routine obstetrics appointment. Patient is currently 30w6d with a Estimated Date of Delivery: 06/01/24. Discussed magnesium and Tums with Calcium. Patient given order for growth scan as well. Documented by Katelyn Keating LPN on behalf of: Agata Alcantara DO documented in this encounter [facility] 03-14-2024 History of Presen t illness Narrative Reason for Appointment: Patient ID: Sabine Pardo is a 33 y.o. female who presents for Routine Visit Patient presents today for Return OB appointment. MEDICATIONS Current Outpatient Medications Medication Instructions MV-Min-Fe Fum-FA-DHA ( 1 PO) 1 each, Oral, Daily ALLERGIES No Known Allergies PROBLEMS Active Ambulatory Problems Diagnosis Date Noted No Active Ambulatory Problems Resolved Ambulatory Problems Diagnosis Date Noted No Resolved Ambulatory Problems Past Medical History: Diagnosis Date 35 weeks gestation of Asthma (CMS/HCC) Exercise-induced asthma (CMS/HCC) History of medical problems History of pre-term labor HISTORY PAST MEDICAL HISTORY SOCIAL HISTORY Past Medical History: Diagnosis Date 35 weeks gestation of Asthma (CMS/HCC) Exercise-induced asthma (CMS/HCC) History of medical problems Blocked Saliva Gland History of pre-term labor Social History Tobacco Use Smoking status: Never Smokeless tobacco: Never Substance Use Topics Alcohol use: Not Currently Comment: Caffeine: none Drug use: Never FAMILY HISTORY Family History Problem Relation Name Age of Onset Endometriosis Mother Hysterectomy Atrial fibrillation Father No Known Problems Sister Hypertension Maternal Grandfather Kem SURGICAL HISTORY Past Surgical History: Procedure Laterality Date SALIVARY GLAND SURGERY blocked saliva gland WISDOM TOOTH EXTRACTION wisdom teeth REVIEW OF SYSTEMS Review of Systems: Review of Systems Constitutional: Negative. HENT: Negative. Eyes: Negative. Respiratory: Negative. Cardiovascular: Negative. Gastrointestinal: Negative. Genitourinary: Negative. Musculoskeletal: Negative. Skin: Negative. Neurological: Negative. All other systems reviewed and are negative. Hematological: Negative. Endocrine: Negative. Allergic/Immunologic: Negative. OBJECTIVE Objective: Physical Exam Constitutional: Appearance: Normal appearance. She is normal weight. HENT: Head: Normocephalic. Cardiovascular: Rate and Rhythm: Normal rate. Pulses: Normal pulses. Pulmonary: Effort: Pulmonary effort is normal. Breath sounds: Normal breath sounds. Abdominal: Palpations: Abdomen is soft. Musculoskeletal: General: Normal range of motion. Neurological: General: No focal deficit present. Mental Status: She is alert and oriented to person, place, and time. Psychiatric: Mood and Affect: Mood normal. Behavior: Behavior normal. Thought Content: Thought content normal. Judgment: Judgment normal. Vitals and nursing note reviewed. Vitals: Estimated body mass index is 34.38 kg/m as calculated from the following: Height as of 09/30/22: 5' 2.5 . Weight as of this encounter: 191 lb. BP: 110/68 Patient's last menstrual period was 07/29/2023. ASSESSMENT & PLAN ICD-10-CM 1. Third trimester Z34.93 POCT urinalysis dipstick manually resulted 2. 28 weeks gestation of Z3A.28 POCT urinalysis dipstick manually resulted Return OB: Patient presents today for a routine obstetrics appointment. Patient is currently 28w5d . Patient states she is doing well but has complaints of being tired due to current . Patient has verbalizes frequent movement. labor precautions was discussed/given and patient was instructed to perform kick counts three times a day. Orders Placed This Encounter Procedures POCT urinalysis dipstick manually resulted Follow Up: Patient is to return to office in 2 week for routine OB appointment. Documented by PRINCESS Reddy on behalf of: PRINCESS Reddy documented in this encounter [facility] 02-14-2024 History of Presen t illness Narrative Reason for Appointment: Patient ID: Sabine Pardo is a 33 y.o. female who presents for Routine Visit Patient presents today for Return OB appointment. MEDICATIONS Current Outpatient Medications Medication Instructions MV-Min-Fe Fum-FA-DHA ( 1 PO) 1 each, Oral, Daily ALLERGIES No Known Allergies PROBLEMS Active Ambulatory Problems Diagnosis Date Noted No Active Ambulatory Problems Resolved Ambulatory Problems Diagnosis Date Noted No Resolved Ambulatory Problems Past Medical History: Diagnosis Date 35 weeks gestation of Asthma (CMS/HCC) Exercise-induced asthma (CMS/HCC) History of medical problems History of pre-term labor HISTORY PAST MEDICAL HISTORY SOCIAL HISTORY Past Medical History: Diagnosis Date 35 weeks gestation of Asthma (CMS/HCC) Exercise-induced asthma (CMS/HCC) History of medical problems Blocked Saliva Gland History of pre-term labor Social History Tobacco Use Smoking status: Never Smokeless tobacco: Never Substance Use Topics Alcohol use: Not Currently Comment: Caffeine: none Drug use: Never FAMILY HISTORY Family History Problem Relation Name Age of Onset Endometriosis Mother Hysterectomy Atrial fibrillation Father No Known Problems Sister Hypertension Maternal Grandfather Kem SURGICAL HISTORY Past Surgical History: Procedure Laterality Date SALIVARY GLAND SURGERY blocked saliva gland WISDOM TOOTH EXTRACTION wisdom teeth REVIEW OF SYSTEMS Review of Systems: Review of Systems Constitutional: Negative. HENT: Negative. Eyes: Negative. Respiratory: Negative. Cardiovascular: Negative. Gastrointestinal: Negative. Genitourinary: Negative. Musculoskeletal: Negative. Skin: Negative. Neurological: Negative. All other systems reviewed and are negative. Hematological: Negative. Endocrine: Negative. Allergic/Immunologic: Negative. OBJECTIVE Objective: Physical Exam Constitutional: Appearance: Normal appearance. She is well-developed. Cardiovascular: Rate and Rhythm: Normal rate and regular rhythm. Pulmonary: Effort: Pulmonary effort is normal. Breath sounds: Normal breath sounds. Abdominal: General: Bowel sounds are normal. There is no distension. Palpations: Abdomen is soft. Tenderness: There is no abdominal tenderness. There is no guarding or rebound. Musculoskeletal: General: No swelling. Normal range of motion. Right lower leg: No edema. Left lower leg: No edema. Neurological: Mental Status: She is alert and oriented to person, place, and time. Skin: General: Skin is warm and dry. Psychiatric: Mood and Affect: Mood normal. Behavior: Behavior normal. Vitals and nursing note reviewed. Exam conducted with a ship scaler present. Vitals: Estimated body mass index is 34.02 kg/m as calculated from the following: Height as of 09/30/22: 5' 2.5 . Weight as of this encounter: 189 lb. BP: 112/70 Patient's last menstrual period was 07/29/2023. ASSESSMENT & PLAN ICD-10-CM 1. Second trimester Z34.92 POCT urinalysis dipstick manually resulted 2. 23 weeks gestation of Z3A.23 3. Diabetes mellitus screening Z13.1 CBC Glucose tolerance, 1 hour Patient presents today for a routine obstetrics appointment. Patient is currently 24w4d with a Estimated Date of Delivery: 06/01/24. Pt given glucola order with instructions. Pt to return in 4 weeks for scheduled OB appt. Documented by Pennie Crystal LPN on behalf of: Agata Alcantara DO documented in this encounter [facility] 01-17-2024 History of Presen t illness Narrative Reason for Appointment: Patient ID: Sabine Pardo is a 33 y.o. female who presents for Routine Visit Patient presents today for Return OB appointment. MEDICATIONS Current Outpatient Medications Medication Instructions MV-Min-Fe Fum-FA-DHA ( 1 PO) 1 each, Oral, Daily ALLERGIES No Known Allergies PROBLEMS Active Ambulatory Problems Diagnosis Date Noted No Active Ambulatory Problems Resolved Ambulatory Problems Diagnosis Date Noted No Resolved Ambulatory Problems Past Medical History: Diagnosis Date 35 weeks gestation of Asthma (CMS/HCC) Exercise-induced asthma (CMS/HCC) History of medical problems History of pre-term labor HISTORY PAST MEDICAL HISTORY SOCIAL HISTORY Past Medical History: Diagnosis Date 35 weeks gestation of Asthma (CMS/HCC) Exercise-induced asthma (CMS/HCC) History of medical problems Blocked Saliva Gland History of pre-term labor Social History Tobacco Use Smoking status: Never Smokeless tobacco: Never Substance Use Topics Alcohol use: Not Currently Comment: Caffeine: none Drug use: Never FAMILY HISTORY Family History Problem Relation Name Age of Onset Endometriosis Mother Hysterectomy Atrial fibrillation Father No Known Problems Sister Hypertension Maternal Grandfather Kem SURGICAL HISTORY Past Surgical History: Procedure Laterality Date SALIVARY GLAND SURGERY blocked saliva gland WISDOM TOOTH EXTRACTION wisdom teeth REVIEW OF SYSTEMS Review of Systems: Review of Systems Constitutional: Negative. HENT: Negative. Eyes: Negative. Respiratory: Negative. Cardiovascular: Negative. Gastrointestinal: Negative. Genitourinary: Negative. Musculoskeletal: Negative. Skin: Negative. Neurological: Negative. All other systems reviewed and are negative. Hematological: Negative. Endocrine: Negative. Allergic/Immunologic: Negative. OBJECTIVE Objective: Physical Exam Constitutional: Appearance: Normal appearance. She is normal weight. HENT: Head: Normocephalic. Cardiovascular: Rate and Rhythm: Normal rate. Pulses: Normal pulses. Pulmonary: Effort: Pulmonary effort is normal. Breath sounds: Normal breath sounds. Abdominal: Palpations: Abdomen is soft. Musculoskeletal: General: Normal range of motion. Neurological: General: No focal deficit present. Mental Status: She is alert and oriented to person, place, and time. Psychiatric: Mood and Affect: Mood normal. Behavior: Behavior normal. Thought Content: Thought content normal. Judgment: Judgment normal. Vitals and nursing note reviewed. Vitals: Estimated body mass index is 32.94 kg/m as calculated from the following: Height as of 09/30/22: 5' 2.5 . Weight as of this encounter: 183 lb. BP: 118/78 Patient's last menstrual period was 07/29/2023. ASSESSMENT & PLAN ICD-10-CM 1. Second trimester Z34.92 POCT urinalysis dipstick manually resulted 2. 20 weeks gestation of Z3A.20 POCT urinalysis dipstick manually resulted Return OB: Patient presents today for a routine obstetrics appointment. Patient is currently 20w4d . Patient states she is doing well but has complaints of being tired due to current . Orders Placed This Encounter Procedures POCT urinalysis dipstick manually resulted Follow Up: Patient is to return to office in 4 weeks for routine OB appointment. Documented by Payal Ware on behalf of: PRINCESS Reddy documented in this encounter [facility] 12-19-2023 History of Presen t illness Narrative Reason for Appointment: Patient ID: Sabine Pardo is a 33 y.o. female who presents for Routine Visit Patient presents today for Return OB appointment. MEDICATIONS Current Outpatient Medications Medication Instructions MV-Min-Fe Fum-FA-DHA ( 1 PO) 1 each, Oral, Daily pyridoxine (VITAMIN B-6) 25 mg, Oral, Daily ALLERGIES No Known Allergies PROBLEMS Active Ambulatory Problems Diagnosis Date Noted No Active Ambulatory Problems Resolved Ambulatory Problems Diagnosis Date Noted No Resolved Ambulatory Problems Past Medical History: Diagnosis Date 35 weeks gestation of Asthma (CMS/HCC) Exercise-induced asthma (CMS/HCC) History of medical problems History of pre-term labor HISTORY PAST MEDICAL HISTORY SOCIAL HISTORY Past Medical History: Diagnosis Date 35 weeks gestation of Asthma (CMS/HCC) Exercise-induced asthma (CMS/HCC) History of medical problems Blocked Saliva Gland History of pre-term labor Social History Tobacco Use Smoking status: Never Smokeless tobacco: Not on file Substance Use Topics Alcohol use: Yes Comment: Caffeine: none Drug use: Never FAMILY HISTORY Family History Problem Relation Name Age of Onset Endometriosis Mother Hysterectomy Atrial fibrillation Father No Known Problems Sister Hypertension Maternal Grandfather SURGICAL HISTORY Past Surgical History: Procedure Laterality Date SALIVARY GLAND SURGERY blocked saliva gland WISDOM TOOTH EXTRACTION wisdom teeth REVIEW OF SYSTEMS Review of Systems: Review of Systems Constitutional: Negative. HENT: Negative. Eyes: Negative. Respiratory: Negative. Cardiovascular: Negative. Gastrointestinal: Negative. Genitourinary: Negative. Musculoskeletal: Negative. Skin: Negative. Neurological: Negative. All other systems reviewed and are negative. Hematological: Negative. Endocrine: Negative. Allergic/Immunologic: Negative. OBJECTIVE Objective: Physical Exam Constitutional: Appearance: Normal appearance. She is well-developed. Cardiovascular: Rate and Rhythm: Normal rate and regular rhythm. Pulmonary: Effort: Pulmonary effort is normal. Breath sounds: Normal breath sounds. Abdominal: General: Bowel sounds are normal. There is no distension. Palpations: Abdomen is soft. Tenderness: There is no abdominal tenderness. There is no guarding or rebound. Musculoskeletal: General: No swelling. Normal range of motion. Right lower leg: No edema. Left lower leg: No edema. Neurological: Mental Status: She is alert and oriented to person, place, and time. Skin: General: Skin is warm and dry. Psychiatric: Mood and Affect: Mood normal. Behavior: Behavior normal. Vitals and nursing note reviewed. Exam conducted with a ship scaler present. Vitals: Estimated body mass index is 32.36 kg/m as calculated from the following: Height as of 09/30/22: 5' 2.5 . Weight as of this encounter: 179 lb 12.8 oz. BP: 100/60 Patient's last menstrual period was 07/29/2023. ASSESSMENT & PLAN ICD-10-CM 1. 16 weeks gestation of Z3A.16 POCT urinalysis dipstick manually resulted Alpha fetoprotein, maternal Alpha fetoprotein, maternal 2. Screening, , for anatomic survey Z36.89 US OB ANATOMY SINGLE W US OB CERVICAL LENGTH 3. Exposure to STD Z20.2 CHLAMYDIA TRACHOMATIS (GENITO/STI) Neisseria gonorrhea DNA probe, direct 4. Vaginal discharge N89.8 SURESWAB(R) ADVANCED VAGINITIS PLUS, TMA Return OB: Patient presents today for a routine obstetrics appointment. Patient is currently 16w3d . Patient states she is doing well but has complaints of being tired due to current . Patient had cultures obtained today without difficulty and was given MSAFP and Anatomy scan order today. Orders Placed This Encounter Procedures US OB ANATOMY SINGLE W US OB CERVICAL LENGTH CHLAMYDIA TRACHOMATIS (GENITO/STI) Neisseria gonorrhea DNA probe, direct Alpha fetoprotein, maternal POCT urinalysis dipstick manually resulted Follow Up: Patient is to return to office in 4 week for routine OB appointment. Documented by Zully Vazquez LPN on behalf of: PRINCESS Reddy documented in this encounter [facility] 10-14-2022 Miscellaneous Notes Formattin g of this [...] be created and sent to CHAITANYA Woodruff documented in this encounter [facility] 10-07-2022 Miscellaneous Notes Formattin g of this note might be different from the original. Referral and outside medical records scanned into [employer]. Referral routed to scheduling for first available with Dr. Segundo Alba. documented in this encounter [facility] 09-02-2020 Note [id number] Evaluation note Diagnosis Syncope, unspecified syncope type- Primary Dizziness Dizziness and giddiness SOB (shortness of breath) Shortness of breath [facility]No [facility] Work Phone: Evaluation note* Diagnosis Second trimester state, incidental 20 weeks gestation of documented in this encounter [facility]* Diagnosis Second trimester state, incidental 23 weeks gestation of Diabetes mellitus screening Screening for diabetes mellitus documented in this encounter [facility]* Diagnosis Muscle cramps- Primary Third trimester state, incidental 28 weeks gestation of documented in this encounter [facility]* Diagnosis 16 weeks gestation of Screening, , for anatomic survey Encounter for anatomic survey Exposure to STD Vaginal discharge Leukorrhea, not specified as infective documented in this encounter [facility]* Diagnosis Third trimester state, incidental 30 weeks gestation of Size of fetus inconsistent with dates in third trimester documented in this encounter [facility]* Diagnosis Third trimester state, incidental 33 weeks gestation of documented [facility] HealthcareReason for referral (narrative)* Outpatient Procedure (Routine) - Pending Review Specialty Diagnoses / Procedures Referred By Robert t Referred To [facility] Diagnoses Syncope, unspecified syncope type Dizziness SOB (shortness of breath) Procedures ECG COMPLETE ECG ROUTINE ECG W/LEAST 12 LDS W/I&R Segundo Alba DO [address] [place] [address] [facility] [address] [place] [address] Referral ID Status Reason Start Date Expiration Date Visits Requested Visits Authorized [id number] Pending Review Auto-Generate d Referral Financial Clearance Required - [facility] 10/19/2022 10/19/2023 1 1 [facility] Summary Purpose Family History No Family History Records FoundNo Family History Records FoundNo Family History Records FoundNo Family History Records FoundNo Family History Records FoundNo Family History Records Found Advance Directives Advance Directive Response Recorded Date/ Time Advance Directives No October 26 7:42am Chief Complaint and Reason for Visit Chief Complaint Lizzette only - N81.84 Additional Source Comments INFORMATION SOURCE (unrecogn ized section and content) DATE CREATED AUTHOR 09/29/2017 [facility] DATE CREATED AUTHOR AUTHOR'S ORGANIZ ATION 01/28/2021 [facility] DATE CREATED AUTHOR AUTHOR'S ORGANIZ ATION 08/25/2022 [facility] DATE CREATED AUTHOR AUTHOR'S ORGANIZ ATION 10/15/2022 [facility] DATE CREATED AUTHOR AUTHOR'S ORGANIZ ATION 01/16/2023 [facility] DATE CREATED AUTHOR AUTHOR'S ORGANIZ ATION 04/19/2024 [facility] EPIC Source Comments (unrecognize d section and content) In the event this informatio n is protected by the Federal Confidentiality of Alcohol and Drug Abuse Patient Records regulations: The Federal rules restrict any use of the information to criminally investigate or prosecute any alcohol or drug abuse patient.[facility] Hospital[facility] the event this information is protected by the Federal Confidentiality of Alcohol and Drug Abuse Patient Records regulations: The Federal rules restrict any use of the information to criminally investigate or prosecute any alcohol or drug abuse patient.[facility] Hospital[facility] the event this information is protected by the Federal Confidentiality of Alcohol and Drug Abuse Patient Records regulations: The Federal rules restrict any use of the information to criminally investigate or prosecute any alcohol or drug abuse patient.[facility] Reason for Visit (unrecogniz ed section and content) Reason Comments Received Referral and Outside Medical Re cords Reason Comments Appointment Reason Comments Routine Visit Care Teams (unrecognized sec tion and content) Tube Room Supervisor Relationship Specialty Start Date End Date Ileana Evans [address] [place] [address] PCP - General 07/21/00 Tube Room Supervisor Relationship Specialty Start Date [place] [phone] PCP - General 07/21/00 Tube Room Supervisor Relationship Specialty Start Date End Date Ileana Evans [address] [place] [phone] PCP - General 07/21/00 Team Status: Active [...] BE BASED ON THE PRIMARY CLINICAL RECORDS. [facility] provides no warranty or guarantee of the accuracy or completeness of information in this document.
--- OUTSIDE RECORDS SUMMARY | 2024-05-03 08:24 | XMS_ITS | CCD ---
Author Organization [facility] Care Team Providers Care Script Supervisor Name Role Phone PHYSICIAN, DEFAULT Unavailable [...] Unavailable MARICRUZ ., DR PARMAR Attending Unavailable MARIRCUZ ., DR PARMAR Admitting Unavailable REQUEST, DR [...] Unavailabl e AGATA ALCANTARA Attending Unavailable KEN, TAI Attending Unavailable KENTIA CANCHOLA Attending Unavailable AGATA ALACNTARA Attending Unavailable KEN, TIA Attending Unavailable AGATA [...] UA Negative Negative - 4(70) +++ mg/dL [facility] Blood, UA Negative Negative - 50 Heath/mcL [facility] Clarity, UA Clear [facility] Color, UA Yellow [facility] Glucose, UA Negative Negative - 1999(110) ++++ mg/dL [facility] Interpretation and review of laboratory results Normal [facility] Ketones, UA Negative Negative - 160(16) ++++ mg/dL [facility] Leukocytes, UA Negative Negative - 500+++ Ozzy/mcL [facility] Nitrite, UA Negative Negative - Positive [facility] pH, UA 7.5 5 - 9 [facility] Protein, UA Negative Negative - 1999(20) ++++ mg/dL [facility] Spec Grav, UA 1.015 1 - 1.03 [facility] Urobilinogen, UA 0.2 0.2 - 12 mg/dL [facility] US OB FOLLOW UP TRANSABDOMIN AL APPROACHon [...] UA Negative Negative - 4(70) +++ mg/dL [facility] Blood, UA Negative Negative - 50 Heath/mcL [facility] Clarity, UA Clear [facility] Color, UA Yellow [facility] Glucose, UA Negative Negative - 1999(110) ++++ mg/dL [facility] Interpretation and review of laboratory results Abnormal [facility] Ketones, UA Negative Negative - 160(16) ++++ mg/dL [facility] Leukocytes, UA Negative Negative - 500+++ Ozzy/mcL [facility] Nitrite, UA Negative Negative - Positive [facility] pH, UA 6 5 - 9 [facility] Protein, UA Negative Negative - 2000(20) ++++ mg/dL [facility] Spec Grav, UA 1.025 1 - 1.03 [facility] Urobilinogen, UA 1.0 0.2 - 12 mg/dL [facility] ALL CBC WITH AUTO DIFFon BASOPHILS ABSOLUTE AUTO 0 [facility] Basophils/100 WBC (Bld) 0.3 % 0.2 - 2.0 % [facility] Eosinophils/100 WBC (Bld) 0.5 % Low 0.9 - 7.0 % [facility] Erythrocyte distribution width (RBC) [Ratio] 13.4 % 11.0 - 15.0 % [facility] Hematocrit (Bld) [Volume fraction] 38.6 % 36.0 - 48.0 % [facility] Hemoglobin (Bld) [Mass/Vol] 13.3 g/dL 12.0 - 16.0 g/dL [facility] IMMATURE GRANULOCYTES ABS AUTO 0.04 High [facility] Immature granulocytes/100 WBC (Bld) 0.4 % 0.0 - 0.5 % [facility] Interpretation and review of laboratory results Abnormal [facility] LYMPHOCYTES ABSOLUTE AUTO 1 Low [facility] Lymphocytes/100 WBC (Bld) 10.3 % Low 20.5 - 60.0 % [facility] MCH (RBC) [Entitic mass] 31 pg 26.7 - 34.0 pg [facility] MCHC (RBC) [Mass/Vol] 34.5 g/dL 29.9 - 35.2 g/dL [facility] MCV (RBC) [Entitic vol] 90 fL 81.0 - 99.0 fL [facility] MONOCYTES ABSOLUTE AUTO 0.5 [facility] Monocytes/100 WBC (Bld) 5 % 1.7 - 12.0 % [facility] NEUTROPHILS ABSOLUTE AUTO 8.4 High [facility] Neutrophils/100 WBC (Bld) 83.5 % High 43.0 - 75.0 % [facility] Platelet mean volume (Bld) [Entitic vol] 9.8 fL 9.5 - 13.5 fL [facility] TB EO # 0.1 [facility] PLT 228 [facility] RBC 4.29 [facility] WBC 10.1 [facility] Urinalysis macro (dipstick) panel (U)on 02-14-2024 Bilirubin, UA Negative Negative - 4(70) +++ mg/dL [facility] Blood, UA Negative Negative - 50 Heath/mcL [facility] Clarity, UA Clear [facility] Color, UA Yellow [facility] Glucose, UA Negative Negative - 1999(110) ++++ mg/dL [facility] Interpretation and review of laboratory results Normal [facility] Ketones, UA Negative Negative - 160(16) ++++ mg/dL [facility] Leukocytes, UA Negative Negative - 500+++ Ozzy/mcL [facility] Nitrite, UA Negative Negative - Positive [facility] pH, UA 6 5 - 9 [facility] Protein, UA Negative Negative - 1999(20) ++++ mg/dL [facility] Spec Grav, UA 1.02 1 - 1.03 [facility] Urobilinogen, UA 0.2 0.2 - 12 mg/dL [facility] Urinalysis macro (dipstick) panel (U)on 01-17-2024 Bilirubin, UA Negative Negative - 4(70) +++ mg/dL [facility] Blood, UA Negative Negative - 50 Heath/mcL [facility] Clarity, UA Clear [facility] Color, UA Yellow [facility] Glucose, UA Negative Negative - 1999(110) ++++ mg/dL [facility] Interpretation and review of laboratory results Normal [facility] Ketones, UA Negative Negative - 160(16) ++++ mg/dL [facility] Leukocytes, UA Negative Negative - 500+++ Ozzy/mcL [facility] Nitrite, UA Negative Negative - Positive [facility] pH, UA 7.0 5 - 9 [facility] Protein, UA Negative Negative - 1999(20) ++++ mg/dL [facility] Spec Grav, UA 1.020 1 - 1.03 [facility] Urobilinogen, UA 0.2 0.2 - 12 mg/dL [facility] URETHRITIS/DISCHARGE PLUS VA GINITIS (HTRX)on 12-20-2023 ATOPOBIUM VAGINAE 25.657 Abnormal [facility] ATOPOBIUM VAGINAE Detected Abnormal [facility] BVAB 2,3 (BACTERIAL VAGINOSIS ASSOCIATED BACTERIA 2, 3); MOBILUNCUS SPP 24.613 Abnormal [facility] BVAB 2,3 (BACTERIAL VAGINOSIS ASSOCIATED BACTERIA 2, 3); MOBILUNCUS SPP Detected Abnormal [facility] HILDA ALBICANS, PARAPSILOSIS, TROPICALIS 0.000 [facility] HILDA ALBICANS, PARAPSILOSIS, TROPICALIS Not detected [facility] HILDA GLABRATA 0.000 [facility] HILDA GLABRATA Not detected [facility] HILDA KRUSEI 0.000 [facility] HILDA KRUSEI Not detected [facility] CHLAMYDIA TRACHOMATIS 0.000 [facility] CHLAMYDIA TRACHOMATIS Not detected [facility] GARDNERELLA VAGINALIS 26.686 Abnormal [facility] GARDNERELLA VAGINALIS Detected Abnormal [facility] Interpretation and review of laboratory results Abnormal [facility] MEGASPHAERA (TYPES 1, 2) 0.000 [facility] MEGASPHAERA (TYPES 1, 2) Not detected [facility] MYCOPLASMA GENITALIUM 0.000 [facility] MYCOPLASMA GENITALIUM Not detected [facility] NEISSERIA GONORRHOEAE 0.000 [facility] NEISSERIA GONORRHOEAE Not detected [facility] TET B, TET M 20.920 Abnormal [facility] TET B, TET M Detected Abnormal [facility] TRICHOMONAS VAGINALIS 0.000 [facility] TRICHOMONAS VAGINALIS Not detected [facility] Urinalysis macro (dipstick) panel (U)on 12-19-2023 Bilirubin, UA Negative Negative - 4(70) +++ mg/dL [facility] Blood, UA Negative Negative - 50 Heath/mcL [facility] Clarity, UA Clear [facility] Color, UA Yellow [facility] Glucose, UA Negative Negative - 1999(110) ++++ mg/dL [facility] Interpretation and review of laboratory results Abnormal [facility] Ketones, UA Negative Negative - 160(16) ++++ mg/dL [facility] Leukocytes, UA Trace Negative - 500+++ Ozzy/mcL [facility] Nitrite, UA Negative Negative - Positive [facility] pH, UA 7.0 5 - 9 [facility] Protein, UA Negative Negative - 1999(20) ++++ mg/dL [facility] Spec Grav, UA 1.020 1 - 1.03 [facility] Urobilinogen, UA 0.2 0.2 - 12 mg/dL [facility] CNPNon 10-14-2022 CNPN Telephone (CATHMN) SABINE ROUSE ([id number]) 1990 F Date Time Provider Department 10/14/22 [...] Encounter Status:Closed by BRENDA MARTINEZ on 10/14/22 [facility] SABINE ROUSE ([id number]) 1990 F Date Time Provider Department 10/07/22 SEGUNDO ALBA During your visit today, we recorded the following information about you: Carmencita Mittal 10/07/2022 11:55 AM Signed Referral and outside medical records scanned into [employer]. Referral routed to scheduling for first available with Dr. Segundo Alba. Allergies As of Date: 10/07/2022 (Not on File) Date Reviewed: Never Reviewed Reason for Visit: Received Referral and Outside Medical Records [Other] Problem List As Of Date: 10/07/2022 (None) Encounter Status:Closed by CARMENCITA MITTAL on 10/07/22 Normal [facility] CBC AUTO DIFFon 08-20-2022 BASO # 0.0 103/ul Normal 0.0-0.1 [facility] Comment on above: Performed By: #### C BC #### [facility] [address] [place] [address] Dr. Alla Peterson Basophils/100 WBC (Bld) 0.2 % Normal 0.2-2.0 [facility] Comment on above: Performed By: #### C BC #### [facility] [address] [place] [address] Dr. Alla Pteerson EO # 0.0 103/ul Normal 0.0-0.7 [facility] Comment on above: Performed By: #### C BC #### [facility] [address] [place] [address] Dr. Alla Peterson Eosinophils/100 WBC (Bld) 0.2 % Critically low 0.9-7.0 [facility] Comment on above: Performed By: #### C BC #### [facility] [address] [place] [address] Dr. Alla Peterson Erythrocyte distribution width (RBC) [Ratio] 13.2 % Normal 11.0-15.0 [facility] Comment on above: Performed By: #### C BC #### [facility] [address] [place] [address] Dr. Alla Peterson Hematocrit (Bld) [Volume fraction] 36.1 % Normal 36.0-48.0 [facility] Comment on above: Performed By: #### C BC #### [facility] [address] [place] [address] Dr. Alla Peterson Hemoglobin (Bld) [Mass/Vol] 12.4 g/dL Normal 12.0-16.0 [facility] Comment on above: Performed By: #### C BC #### [facility] [address] [place] [address] Dr. Alla Peterson IG # 0.05 10e3/ul Critically high 0.00-0.03 [facility] Comment on above: Performed By: #### C BC #### [facility] [address] [place] [address] Dr. Alla Peterson IG % 0.4 % Normal 0.0-0.5 [facility] Comment on above: Performed By: #### C BC #### [facility] [address] [place] [address] Dr. Alla Peterson LYMPH # 1.4 103/ul Normal 1.2-3.8 [facility] Comment on above: Performed By: #### C BC #### [facility] [address] [place] [address] Dr. Alla Peterson Lymphocytes/100 WBC (Bld) 10.9 % Critically low 20.5-60.0 [facility] Comment on above: Performed By: #### C BC #### [facility] [address] [place] [address] Dr. Alla Peterson MANUAL DIFF REQ NO Normal [facility] Comment on above: Performed By: #### C BC #### [facility] [address] [place] [address] Dr. Alla Peterson MCH (RBC) [Entitic mass] 30.0 pg Normal 26.7-34.0 [facility] Comment on above: Performed By: #### C BC #### [facility] [address] [place] [address] Dr. Alla Peterson MCHC (RBC) [Mass/Vol] 34.3 g/dL Normal 29.9-35.2 [facility] Comment on above: Performed By: #### C BC #### [facility] [address] [place] [address] Dr. Alla Peterson MCV (RBC) [Entitic vol] 87.4 fL Normal 81.0-99.0 [facility] Comment on above: Performed By: #### C BC #### [facility] [address] [place] [address] Dr. Alla Peterson MONO # 0.8 103/ul Normal 0.3-0.8 [facility] Comment on above: Performed By: #### C BC #### [facility] [address] [place] [address] Dr. Alla Peterson Monocytes/100 WBC (Bld) 6.0 % Normal 1.7-12.0 [facility] Comment on above: Performed By: #### C BC #### [facility] [address] [place] [address] Dr. Alla Peterson NEUT # 10.8 103/ul Critically high 1.4-6.5 [facility] Comment on above: Performed By: #### C BC #### [facility] [address] [place] [address] Dr. Alla Peterson Neutrophils/100 WBC (Bld) 82.3 % Critically high 43.0-75.0 [facility] Comment on above: Performed By: #### C BC #### [facility] [address] [place] [address] Dr. Alla Peterson Platelet mean volume (Bld) [Entitic vol] 10.2 fL Normal 9.5-13.5 [facility] Comment on above: Performed By: #### C BC #### [facility] [address] [place] [address] Dr. Alla Peterson PLT 177 103/ul Normal 150-450 [facility] Comment on above: Performed By: #### C BC #### [facility] [address] [place] [address] Dr. Alla Peterson RBC 4.13 106/ul Critically low 4.20-5.40 [facility] Comment on above: Performed By: #### C BC #### [facility] [address] [place] [address] Dr. Alla Peterson WBC 13.1 103/ul Critically high 4.0-11.0 [facility] Comment on above: Performed By: #### C BC #### [facility] [address] [place] [address] Dr. Alla Peterson CBC AUTO DIFFon 05-11-2023 BASO # 0.0 103/ul Normal 0.0-0.1 [facility] Comment on above: Performed By: #### R UBIGG #### [facility] [address] [place] [address] Dr. Alla Peterson Basophils/100 WBC (Bld) 0.2 % Normal 0.2-2.0 [facility] Comment on above: Performed By: #### R UBIGG #### [facility] [address] [place] [address] Dr. Alla Peterson EO # 0.0 103/ul Normal 0.0-0.7 [facility] Comment on above: Performed By: #### R UBIGG #### [facility] [address] [place] [address] Dr. Alla Peterson Eosinophils/100 WBC (Bld) 0.4 % Critically low 0.9-7.0 [facility] Comment on above: Performed By: #### R UBIGG #### [facility] [address] [place] [address] Dr. Alla Peterson Erythrocyte distribution width (RBC) [Ratio] 12.9 % Normal 11.0-15.0 [facility] Comment on above: Performed By: #### R UBIGG #### [facility] [address] [place] [address] Dr. Alla Peterson Hematocrit (Bld) [Volume fraction] 38.1 % Normal 36.0-48.0 [facility] Comment on above: Performed By: #### R UBIGG #### [facility] [address] [place] [address] Dr. Alla Peterson Hemoglobin (Bld) [Mass/Vol] 13.3 g/dL Normal 12.0-16.0 [facility] Comment on above: Performed By: #### R UBIGG #### [facility] [address] [place] [address] Dr. Alla Peterson IG # 0.02 10e3/ul Normal 0.00-0.03 [facility] Comment on above: Performed By: #### R UBIGG #### [facility] [address] [address] [address] Alla Peterson IG % 0.2 % Normal 0.0-0.5 [facility] Comment on above: Performed By: #### R UBIGG #### [facility] [address] [address] [address] Alla Peterson LYMPH # 1.5 103/ul Normal 1.2-3.8 [facility] Comment on above: Performed By: #### R UBIGG #### [facility] [address] [address] [address] Alla Peterson Lymphocytes/100 WBC (Bld) 17.6 % Critically low 20.5-60.0 [facility] Comment on above: Performed By: #### R UBIGG #### [facility] [address] [place] [address] Dr. Alla Peterson MANUAL DIFF REQ NO Normal [facility] Comment on above: Performed By: #### R UBIGG #### [facility] [address] [place] [address] Dr. Alla Peterson MCH (RBC) [Entitic mass] 30.0 pg Normal 26.7-34.0 [facility] Comment on above: Performed By: #### R UBIGG #### [facility] [address] [place] [address] Dr. Alla Peterson MCHC (RBC) [Mass/Vol] 34.9 g/dL Normal 29.9-35.2 [facility] Comment on above: Performed By: #### R UBIGG #### [facility] [address] [place] [address] Dr. Alla Peterson MCV (RBC) [Entitic vol] 85.8 fL Normal 81.0-99.0 [facility] Comment on above: Performed By: #### R UBIGG #### [facility] [address] [place] [address] Dr. Alla Peterson MONO # 0.4 103/ul Normal 0.3-0.8 [facility] Comment on above: Performed By: #### R UBIGG #### [facility] [address] [place] [address] Dr. Alla Peterson Monocytes/100 WBC (Bld) 5.1 % Normal 1.7-12.0 [facility] Comment on above: Performed By: #### R UBIGG #### [facility] [address] [place] [address] Dr. Alla Peterson NEUT # 6.5 103/ul Normal 1.4-6.5 [facility] Comment on above: Performed By: #### R UBIGG #### [facility] [address] [place] [address] Dr. Alla Peterson Neutrophils/100 WBC (Bld) 76.5 % Critically high 43.0-75.0 [facility] Comment on above: Performed By: #### R UBIGG #### [facility] [address] [place] [address] Dr. Alla Peterson Platelet mean volume (Bld) [Entitic vol] 10.2 fL Normal 9.5-13.5 [facility] Comment on above: Performed By: #### R UBIGG #### [facility] [address] [place] [address] Dr. Alla Peterson PLT 196 103/ul Normal 150-450 [facility] Comment on above: Performed By: #### R UBIGG #### [facility] [address] [place] [address] Dr. Alla Peterson RBC 4.44 106/ul Normal 4.20-5.40 [facility] Comment on above: Performed By: #### R UBIGG #### [facility] [address] [place] [address] Dr. Alla Peterson WBC 8.5 103/ul Normal 4.0-11.0 [facility] Comment on above: Performed By: #### R UBIGG #### [facility] [address] [place] [address] Dr. Alla Peterson DRUG SCREEN RAPID (URINE)on 08-19-2022 AMP Negative Normal NEGATIVE [facility] Comment on above: Performed By: #### R UBIGG #### [facility] [address] [place] [address] Dr. Alla Peterson BAR Negative Normal NEGATIVE [facility] Comment on above: Performed By: #### R UBIGG #### [facility] [address] [address] [address] Alla Peterson BUP Negative Normal NEGATIVE [facility] Comment on above: Performed By: #### R UBIGG #### [facility] [address] [address] [address] Alla Peterson BZO Negative Normal NEGATIVE [facility] Comment on above: Performed By: #### R UBIGG #### [facility] [address] [address] [address] Alla Peterson TK Negative Normal NEGATIVE [facility] Comment on above: Performed By: #### R UBIGG #### [facility] [address] [place] [address] Dr. Alla Peterson CUT-OFFS SEE BELOW Normal [facility] Comment on above: Result Comment: AMP (Amphetamine): 500ng/mL, BAR (Barbituates): 200 ng/mL, BZO (Benzodiazepines): 150 ng/mL, BUP (Buprenorphine): 10 ng/mL, TK (Cocaine): 150 ng/mL, mAMP (Methamphetamine): 500 ng/mL, MTD (Methadone): 200 ng/mL, OPI (Opiates): 100 ng/mL, OXY (Oxycodone): 100 ng/mL, PCP (Phencyclidine): 25 ng/mL, PPX (Propoxyphene): 300 ng/mL, THC (Cannabinoids): 50 ng/mL, TCA (Trycyclic Antidepressants): 300 ng/mL Performed By: #### R UBIGG #### [facility] [address] [place] [address] Dr. Alla Peterson DRUG CUT HEADER DRUG CLASS TEST SYSTEM CUT-OFF CONCENTRATIONS ARE FOLLOWS: Normal [facility] Comment on above: Performed By: #### R UBIGG #### [facility] [address] [address] [address] Alla Peterson mAMP Negative Normal NEGATIVE [facility] Comment on above: Performed By: #### R UBIGG #### [facility] [address] [address] [address] Alla Peterson MTD Negative Normal NEGATIVE [facility] Comment on above: Performed By: #### R UBIGG #### [facility] [address] [address] [address] Alla Peterson OPI Negative Normal NEGATIVE [facility] Comment on above: Performed By: #### R UBIGG #### [facility] [address] [place] [address] Dr. Alla Peterson OXY Negative Normal NEGATIVE [facility] Comment on above: Performed By: #### R UBIGG #### [facility] [address] [place] [address] Dr. Alla Peterson PCP Negative Normal NEGATIVE [facility] Comment on above: Performed By: #### R UBIGG #### [facility] [address] [place] [address] Dr. Alla Peterson PPX Negative Normal NEGATIVE [facility] Comment on above: Performed By: #### R UBIGG #### [facility] [address] [place] [address] Dr. Alla Peterson TCA Negative Normal NEGATIVE [facility] Comment on above: Performed By: #### R UBIGG #### [facility] [address] [place] [address] Dr. Alla Peterson THC Negative Normal NEGATIVE [facility] Comment on above: Performed By: #### R UBIGG #### [facility] [address] [place] [address] Dr. Alla Peterson TYPE AND SCREENon 08-19-2022 TYPE AND SCREEN Negative Normal [facility] Comment on above: Performed By: #### T NS #### [facility] [address] [place] [address] Dr. Alla Peterson US PREG BIOPHY W [...] MICKEY GUZMAN Date: 2022-08-17 15:35 Normal [facility] US PREG BIOPHY W NON STRESSo n [...] (previously 27.0 cm). 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 Electronically authenticated by: MICKEY GUZMAN Date: 2022-08-16 15:45 Normal [facility] US PREG BIOPHY W NON STRESSo n [...] BLAS OLIVEIRA Date: 2022-08-12 16:51 Normal [facility] GROUP B STREP CULTUREon 04-0 S. agalactiae Ag Ql (Unsp spec) Culture Observations: NEGATIVE FOR GROUP B STREPTOCOCCUS. Normal [facility] Comment on above: Performed By: #### P REGQNT #### [facility] [address] [address] [address] Alla Peterson UA (CLEAN/CATCH) ONSHORE DIVER/MICRO I F IND.on 04-30-2022 Bilirubin Ql (U) Negative Normal NEGATIVE [facility] Comment on above: Performed By: #### R UBIGG #### [facility] [address] [place] [address] Dr. Alla Peterson Clarity (U) CLEAR Normal CLEAR [facility] Comment on above: Performed By: #### R UBIGG #### [facility] [address] [address] [address] Alla Peterson Color (U) LT. YELLOW Normal YELLOW [facility] Comment on above: Performed By: #### R UBIGG #### [facility] [address] [place] [address] Dr. Alla Peterson Glucose Ql (U) Negative Normal NEGATIVE [facility] Comment on above: Performed By: #### R UBIGG #### [facility] [address] [place] [address] Dr. Alla Peterson Hemoglobin Ql (U) Negative Normal NEGATIVE [facility] Comment on above: Performed By: #### R UBIGG #### [facility] [address] [place] [address] Dr. Alla Peterson Ketones Ql (U) Negative Normal NEGATIVE [facility] Comment on above: Performed By: #### R UBIGG #### [facility] [address] [place] [address] Dr. Alla Peterson LEUKOCYTES Negative Normal NEGATIVE [facility] Comment on above: Performed By: #### R UBIGG #### [facility] [address] [address] [address] Alla Peterson Nitrite Ql (U) Negative Normal NEGATIVE [facility] Comment on above: Performed By: #### R UBIGG #### [facility] [address] [place] [address] Dr. Alla Peterson pH (U) 7.0 [pH] Normal 5-9 [facility] Comment on above: Performed By: #### R UBIGG #### [facility] [address] [place] [address] Dr. Alla Peterson SPEC GRAVITY 1.005 Normal 1.005-<=1.025 [facility] Comment on above: Performed By: #### R UBIGG #### [facility] [address] [place] [address] Dr. Alla Peterson UA PROTEIN Negative Normal NEGATIVE/ TRACE [facility] Comment on above: Performed By: #### R UBIGG #### [facility] [address] [place] [address] Dr. Alla Peterson UR MICRO IND NOT INDICATED Normal [facility] Comment on above: Performed By: #### R UBIGG #### [facility] [address] [place] [address] Dr. Alla Peterson Urobilinogen Qn (U) 0.2 {José Miguel'U}/dL Normal 0.2 - 1. 0 [facility] Comment on above: Performed By: #### R UBIGG #### [facility] [address] [place] [address] Dr. Alla Peterson CBC AUTO DIFFon 04-29-2022 BASO # 0.0 103/ul Normal 0.0-0.1 [facility] Comment on above: Performed By: #### P REGQNT #### [facility] [address] [place] [address] Dr. Alla Peterson Basophils/100 WBC (Bld) 0.1 % Critically low 0.2-2.0 [facility] Comment on above: Performed By: #### P REGQNT #### [facility] [address] [place] [address] Dr. Alla Peterson EO # 0.0 103/ul Normal 0.0-0.7 [facility] Comment on above: Performed By: #### P REGQNT #### [facility] [address] [place] [address] Dr. Alla Peterson Eosinophils/100 WBC (Bld) 0.4 % Critically low 0.9-7.0 [facility] Comment on above: Performed By: #### P REGQNT #### [facility] [address] [address] [address] Alla Peterson Erythrocyte distribution width (RBC) [Ratio] 13.2 % Normal 11.0-15.0 [facility] Comment on above: Performed By: #### P REGQNT #### [facility] [address] [place] [address] Dr. Alla Peterson Hematocrit (Bld) [Volume fraction] 38.8 % Normal 36.0-48.0 [facility] Comment on above: Performed By: #### P REGQNT #### [facility] [address] [place] [address] Dr. Alla Peterson Hemoglobin (Bld) [Mass/Vol] 13.2 g/dL Normal 12.0-16.0 [facility] Comment on above: Performed By: #### P REGQNT #### [facility] [address] [place] [address] Dr. Alla Peterson IG # 0.05 10e3/ul Critically high 0.00-0.03 [facility] Comment on above: Performed By: #### P REGQNT #### [facility] [address] [place] [address] Dr. Alla Peterson IG % 0.6 % Critically high 0.0-0.5 [facility] Comment on above: Performed By: #### P REGQNT #### [facility] [address] [place] [address] Dr. Alla Peterson LYMPH # 1.2 103/ul Normal 1.2-3.8 [facility] Comment on above: Performed By: #### P REGQNT #### [facility] [address] [place] [address] Dr. Alla Peterson Lymphocytes/100 WBC (Bld) 14.7 % Critically low 20.5-60.0 [facility] Comment on above: Performed By: #### P REGQNT #### [facility] [address] [place] [address] Dr. Alla Peterson MANUAL DIFF REQ NO Normal [facility] Comment on above: Performed By: #### P REGQNT #### [facility] [address] [address] [address] Alla Peterson MCH (RBC) [Entitic mass] 29.6 pg Normal 26.7-34.0 [facility] Comment on above: Performed By: #### P REGQNT #### [facility] [address] [place] [address] Dr. Alla Peterson MCHC (RBC) [Mass/Vol] 34.0 g/dL Normal 29.9-35.2 [facility] Comment on above: Performed By: #### P REGQNT #### [facility] [address] [place] [address] Dr. Alla Peterson MCV (RBC) [Entitic vol] 87.0 fL Normal 81.0-99.0 [facility] Comment on above: Performed By: #### P REGQNT #### [facility] [address] [place] [address] Dr. Alla Peterson MONO # 0.4 103/ul Normal 0.3-0.8 [facility] Comment on above: Performed By: #### P REGQNT #### [facility] [address] [place] [address] Dr. Alla Peterson Monocytes/100 WBC (Bld) 4.3 % Normal 1.7-12.0 [facility] Comment on above: Performed By: #### P REGQNT #### [facility] [address] [place] [address] Dr. Alla Peterson NEUT # 6.7 103/ul Critically high 1.4-6.5 [facility] Comment on above: Performed By: #### P REGQNT #### [facility] [address] [place] [address] Dr. Alla Peterson Neutrophils/100 WBC (Bld) 79.9 % Critically high 43.0-75.0 [facility] Comment on above: Performed By: #### P REGQNT #### [facility] [address] [place] [address] Dr. Alla Peterson Platelet mean volume (Bld) [Entitic vol] 9.3 fL Critically low 9.5-13.5 [facility] Comment on above: Performed By: #### P REGQNT #### [facility] [address] [place] [address] Dr. Alla Peterson PLT 251 103/ul Normal 150-450 [facility] Comment on above: Performed By: #### P REGQNT #### [facility] [address] [place] [address] Dr. Alla Peterson RBC 4.46 106/ul Normal 4.20-5.40 [facility] Comment on above: Performed By: #### P REGQNT #### [facility] [address] [place] [address] Dr. Alla Peterson WBC 8.3 103/ul Normal 4.0-11.0 [facility] Comment on above: Performed By: #### P REGQNT #### [facility] [address] [place] [address] Dr. Alla Peterson GLUCOSE - 1HRon 04-29-2022 Glucose [Mass/Vol] 86 mg/dL Normal 74-106 [facility] Comment on above: Performed By: #### R UBIGG #### [facility] [address] [place] [address] Dr. Alla Peterson US PREG PLACENTAon 3 [...] BLAS OLIVEIRA Date: 2022-04-27 16:04 Normal [facility] US PREG ANATOMY SINGLEon US PREG ANATOMY [...] by: BLAS OLIVEIRA Date: 2022-03-25 18:45 Normal [facility] PAP ACOG PANEL 2: 21 to 29on 02-24-2022 . . Normal [facility] Comment on above: Performed By: #### R UBIGG #### [facility] [address] [address] [address] Alla Peterson Age Gdln ACOG Testing 21-29 Normal [facility] Comment on above: Performed By: #### R UBIGG #### [facility] [address] [address] [address] Alla Peterson DIAGNOSIS: Comment [facility] Comment on above: Result Comment: NEGA TIVE FOR INTRAEPITHELIAL LESION OR MALIGNANCY. Performed By: #### R UBIGG #### [facility] [address] [address] [address] Alla Peterson Methodology: Comment [facility] Comment on above: Result Comment: This liquid based ThinPrep(R) pap test was screened with the use of an image guided system. Performed By: #### R UBIGG #### [facility] [address] [place] [address] Dr. Alla Peterson Note: Comment Normal [facility] Comment on above: Result Comment: The Pap smear is a screening test designed to aid in the detection of premalignant and malignant conditions of the uterine cervix. It is not a diagnostic procedure and should not be used as the sole means of detecting cervical cancer. Both false-positive and false-negative reports do occur. . Performed By: #### R UBIGG #### [facility] [address] [place] [address] Dr. Alla Peterson Performed by: Comment Normal [facility] Comment on above: Result Comment: Edgar Carrillo, Adjunct Art History Instructor (ASCP) Performed By: #### R UBIGG #### [facility] [address] [place] [address] Dr. Alla Peterson Reflex Criteria: Comment Normal [facility] Comment on above: Result Comment: The HPV DNA reflex criteria were not met with this specimen result therefore, no HPV testing was performed. . Performed By: #### R UBIGG #### [facility] [address] [place] [address] Dr. Alla Peterson Specimen adequacy: Comment Normal [facility] Comment on above: Result Comment: Sati sfactory for evaluation. No endocervical component is identified. Performed By: #### R UBIGG #### [facility] [address] [place] [address] Dr. Alla Peterson CHLAMYDIA/GONOCOCCUS GONZÁLEZ (SW AB/URINE/PAPon 02-18-2022 Chlamydia trachomatis, GONZÁLEZ Negative Normal Negative [facility] Comment on above: Performed By: #### C T/NGNA #### [facility] [address] [place] [address] Dr. Alla Peterson Neisseria gonorrhoeae, GONZÁLEZ Negative Normal Negative [facility] Comment on above: Performed By: #### C T/NGNA #### [facility] [address] [place] [address] Dr. Alla Peterson VAGINITIS/VAGINOSIS DNA PROB Marko 02-18-2022 Hilda species Negative Normal Negative [facility] Comment on above: Performed By: #### R UBIGG #### [facility] [address] [place] [address] Dr. Alla Peterson Gardnerella vaginalis Negative Normal Negative [facility] Comment on above: Performed By: #### R UBIGG #### [facility] [address] [place] [address] Dr. Alla Peterson Trichomonas vaginalis Negative Normal Negative [facility] Comment on above: Performed By: #### R UBIGG #### [facility] [address] [place] [address] Dr. Alla Peterson HEP B SURFACE ANTIGEN SCREEN on 02-06-2022 HBsAg Screen Negative Normal Negative [facility] Comment on above: Performed By: #### H BSANS #### [facility] [address] [place] [address] Dr. Alla Peterson HEPATITIS C VIRUS AB W/ REFL EX QUANTon 02-06-2022 HCV AB 0.1 s/co ratio Normal 0.0-0.9 [facility] Comment on above: Performed By: #### H CVPCRR #### [facility] [address] [place] [address] Dr. Alla Peterson Interpretation: Comment Normal [facility] Comment on above: Result Comment: Nega tive Not infected with HCV, unless recent infection is suspected or other evidence exists to indicate HCV infection. Performed By: #### H CVPCRR #### [facility] [address] [place] [address] Dr. Alla Peterson HIV 1 AND 2 WITH REFLEXon HIV Screen 4th Generation wRfx Non-Reactive Normal Non Reactive [facility] Comment on above: Result Comment: HIV Negative HIV-1/HIV-2 antibodies and HIV-1 p24 antigen were NOT detected. There is no laboratory evidence of HIV infection. Performed By: #### H IV12 #### [facility] [address] [place] [address] Dr. Alla Peterson RPR QUANTon 02-06-2022 Rapid Plasma Reagin, Quant Non-Reactive Normal NonRea<1:1 [facility] Comment on above: Result Comment: Kenzie sawyer Note: This test does not meet current guidelines for screening and diagnosis of syphilis. This test is intended for following treatment response in patients being treated for syphilis infection. To screen for syphilis infection, a reflex cascade that includes both RPR and a treponema-specific assay should be utilized, such as Treponema pallidum (Syphilis) Screening [facility] (254154) or Rapid Plasma Reagin (RPR) Test With Reflex to Quantitative RPR and Confirmatory Treponema pallidum Antibodies (253400). Performed By: #### R UBIGG #### [facility] [address] [place] [address] Dr. Alla Peterson RUBELLA AB IGGon 02-06-2022 Rubella Antibodies, IgG 3.77 index Normal Immune >0.99 [facility] Comment on above: Result Comment: Non- immune <0.90 Equivocal 0.90 - 0.99 Immune >0.99 Performed By: #### R UBIGG #### [facility] [address] [place] [address] Dr. Alla Peterson CBC AUTO DIFFon 02-05-2022 BASO # 0.0 103/ul Normal 0.0-0.1 [facility] Comment on above: Performed By: #### P REGQNT #### [facility] [address] [place] [address] Dr. Alla Peterson Basophils/100 WBC (Bld) 0.3 % Normal 0.2-2.0 [facility] Comment on above: Performed By: #### P REGQNT #### [facility] [address] [place] [address] Dr. Alla Peterson EO # 0.0 103/ul Normal 0.0-0.7 [facility] Comment on above: Performed By: #### P REGQNT #### [facility] [address] [place] [address] Dr. Alla Peterson Eosinophils/100 WBC (Bld) 0.2 % Critically low 0.9-7.0 [facility] Comment on above: Performed By: #### P REGQNT #### [facility] [address] [address] [address] Alla Peterson Erythrocyte distribution width (RBC) [Ratio] 12.3 % Normal 11.0-15.0 [facility] Comment on above: Performed By: #### P REGQNT #### [facility] [address] [place] [address] Dr. Alla Peterson Hematocrit (Bld) [Volume fraction] 40.1 % Normal 36.0-48.0 [facility] Comment on above: Performed By: #### P REGQNT #### [facility] [address] [place] [address] Dr. Alla Peterson Hemoglobin (Bld) [Mass/Vol] 13.9 g/dL Normal 12.0-16.0 [facility] Comment on above: Performed By: #### P REGQNT #### [facility] [address] [place] [address] Dr. Alla Peterson IG # 0.04 10e3/ul Critically high 0.00-0.03 [facility] Comment on above: Performed By: #### P REGQNT #### [facility] [address] [place] [address] Dr. Alla Peterson IG % 0.4 % Normal 0.0-0.5 [facility] Comment on above: Performed By: #### P REGQNT #### [facility] [address] [place] [address] Dr. Alla Peterson LYMPH # 1.3 103/ul Normal 1.2-3.8 [facility] Comment on above: Performed By: #### P REGQNT #### [facility] [address] [place] [address] Dr. Alla Peterson Lymphocytes/100 WBC (Bld) 13.4 % Critically low 20.5-60.0 [facility] Comment on above: Performed By: #### P REGQNT #### [facility] [address] [place] [address] Dr. Alla Peterson MANUAL DIFF REQ NO Normal [facility] Comment on above: Performed By: #### P REGQNT #### [facility] [address] [place] [address] Dr. Alla Peterson MCH (RBC) [Entitic mass] 29.2 pg Normal 26.7-34.0 [facility] Comment on above: Performed By: #### P REGQNT #### [facility] [address] [place] [address] Dr. Alla Peterson MCHC (RBC) [Mass/Vol] 34.7 g/dL Normal 29.9-35.2 [facility] Comment on above: Performed By: #### P REGQNT #### [facility] [address] [place] [address] Dr. Alla Peterson MCV (RBC) [Entitic vol] 84.2 fL Normal 81.0-99.0 [facility] Comment on above: Performed By: #### P REGQNT #### [facility] [address] [place] [address] Dr. Alla Peterson MONO # 0.5 103/ul Normal 0.3-0.8 [facility] Comment on above: Performed By: #### P REGQNT #### [facility] [address] [place] [address] Dr. Alla Peterson Monocytes/100 WBC (Bld) 5.1 % Normal 1.7-12.0 [facility] Comment on above: Performed By: #### P REGQNT #### [facility] [address] [place] [address] Dr. Alla Peterson NEUT # 8.1 103/ul Critically high 1.4-6.5 [facility] Comment on above: Performed By: #### P REGQNT #### [facility] [address] [place] [address] Dr. Alla Peterson Neutrophils/100 WBC (Bld) 80.6 % Critically high 43.0-75.0 [facility] Comment on above: Performed By: #### P REGQNT #### [facility] [address] [place] [address] Dr. Alla Peterson Platelet mean volume (Bld) [Entitic vol] 9.3 fL Critically low 9.5-13.5 [facility] Comment on above: Performed By: #### P REGQNT #### [facility] [address] [place] [address] Dr. Alla Peterson PLT 240 103/ul Normal 150-450 [facility] Comment on above: Performed By: #### P REGQNT #### [facility] [address] [place] [address] Dr. Alla Peterson RBC 4.76 106/ul Normal 4.20-5.40 [facility] Comment on above: Performed By: #### P REGQNT #### [facility] [address] [place] [address] Dr. Alla Peterson WBC 10.0 103/ul Normal 4.0-11.0 [facility] Comment on above: Performed By: #### P REGQNT #### [facility] [address] [place] [address] Dr. Alla Peterson CULTURE URINEon 02-05-2022 CULTURE URINE Culture Observations : LIGHT GROWTH OF MIXED GENITAL FRANCISCO. NO POTENTIAL PATHOGENS SEEN. Normal [facility] Comment on above: Performed By: #### U RCX #### [facility] [address] [place] [address] Dr. Alla Peterson GLYCOHEMOGLOBIN A1Con 2021 ADA RECOMMENDATION SEE BELOW Normal [facility] Comment on above: Result Comment: ADA RECOMMENDED LIMIT 4.0 - 6.0 ADA THERAPEUTIC TARGET < 7.0 ACTION SUGGESTED > 7.0 Performed By: #### A 1C #### [facility] [address] [place] [address] Dr. Alla Peterson Glucose [Mass/Vol] 97 mg/dL Normal [facility] Comment on above: Performed By: #### A 1C #### [facility] [address] [place] [address] Dr. Alla Peterson HbA1c (Bld) [Mass fraction] 5.0 % Normal 4.5-6.2 [facility] Comment on above: Performed By: #### A 1C #### [facility] [address] [address] [address] Alla Peterson TYPE AND SCREENon 02-05-2022 TYPE AND SCREEN Negative Normal [facility] Comment on above: Performed By: #### P REGQNT #### [facility] [address] [place] [address] Dr. Alla Peterson US PREG TVon 01-07-2022 [...] MICKEY GUZMAN Date: 2022-01-07 16:17 Normal [facility] PREG QUANT HCGon 09-03-2021 HCG QUANT 1 mIU/mL Normal [facility] Comment on above: Performed By: #### P REGQNT #### [facility] [address] [place] [address] Dr. Alla Peterson HCG RANGE SEE BELOW Normal [facility] Comment on above: Result Comment: 5-50 0-1 WEEK 40-300 1-2 WEEKS 100-1,000 2-3 WEEKS 500-6,000 3-4 WEEKS 5,000-200,000 1-2 MONTHS 10,000-100,000 2-3 MONTHS 3,000-50,000 2ND TRIMESTER 1,000-50,000 3RD TRIMESTER Performed By: #### P REGQNT #### [facility] [address] [place] [address] Dr. Alla Peterson PREG QUANT HCGon 08-27-2021 HCG QUANT 9 mIU/mL Normal [facility] Comment on above: Performed By: #### R UBIGG #### [facility] [id number] Alla Peterson HCG RANGE SEE BELOW [facility] Comment on above: Result Comment: 5-50 0-1 WEEK 40-300 1-2 WEEKS 100-1,000 2-3 WEEKS 500-6,000 3-4 WEEKS 5,000-200,000 1-2 MONTHS 10,000-100,000 2-3 MONTHS 3,000-50,000 2ND TRIMESTER 1,000-50,000 3RD TRIMESTER Performed By: #### R UBIGG #### [facility] [address] [address] [address] Alla Peterson Physical Therapy Noteon 01-09 Physical Therapy Note [id number] .[id number] [facility] Coding Summaryon 09-04-2020 Coding Summary HTMLBase 64 NqclilhoNXa6yJc+PGhlY WQ+PS4XUMEiQ56xgIUnnV 9OZ9zXXB8XAJWYHTLYEC3 UEY4jkPK0SCunT6AzwzJq LvwywPJlVY55XTr6CXV4p TjoPOwfcJ7kbGZlC5v4Uu OcTE48aS55AZnmZLTaNwD 3LjZpbjsgbWFy M0iqVhJbqUGoBte+PHRhY mxlIHdpZHRoPScxMDAlJy CgbNyeEJ3pPn3aCHMrUXN vbGxhcHNlOiBj s4voXABwKNbnUH5cjVvlN 0UpcKV9ZGMwj3l5Er19gC I+TCUkWMQ5rDvjEKbli41 9ErWrj7nnWUR7 iERrANxxHDC3P09bn4S3M BDyAPWcVFM8kWT0mA0maK uvwldlW8CsfKHqIsE8ECL 1oVWviU8itVzh rsswvA0aKzs+V29QBS8HG BLDGN0DHgb1R8NmLcciqF I+LI19QZCiIT76hVUvsKF wy5uapSu0UlGd QDRgKMQ8pTroGJiok2KtP IWxZ18rfIBre6Z2TJTjaU oncXZtDrIofKT2zS5uDMx tuwyld0ofdtub Uubkf9lygj35nB60U30pW WsiQOUbATE5AVWsUADdoW puel9ajD8jDj0+TTfpa3b lf7igqWr9ByQf NYQytdLvaOxxONI2v6ZiK l52G0NnzBjbx7IsNta5qo 77fRKvr2D6pQL0JZrvMVE maX5jQXagZeW3 AGHaIfRvmK08wLVrHGyvQ m4mzYxbfAjfZO6sKLPwou wsFRWucC8mIOFvqTFntAy xPF6nMQLshmfr v474GpLcLUE4VODjiMOvB 7SltT9hQkEiPPZfJVJhC5 MtiRNnKHowI359ZXiuShH 0LEGhhkGcQ5Kg PMXkrEfxHkZ6e5I1Gt2Ck 2XwevanAZN4PUaeSNB5Dw Z5BmTqVxQ0J7AnNzb6WOO etNugYT3iE2Cq QFPrgsvykokjkZJ8YXNdF CHaqQ90oCGpLXrxHe1ai3 A7l048HCOfVYXfuZ91Mb8 udDogMTBwdCBU hU3ngvgnu1magkkcNkThZ DBhSRy7IGn5EUQdcPkuPk TsHPD4UaP3GQH3hGGazU8 bwLstxtlcvP7m Oyc+Z98exE1rXZO9HAZ5q oosHIFskjNyKP06DI44J0 RyPjwvdGFibGU+PGRpdiB oyZlkAA7yFuMj j9soi0PdTIomF6XhXKFsI SqaZyd8EKFwKSG6zJN0yP 0pYCKlYDlso7W3iPO8S7X iipKuze0mc7ki NHYqTNraV68bvEAbn9O3T OLabLQ7OUIhoHlvEvNcuM 93Oyc+GRJpbWlmn1YaDiq ed8rsr5fghZj1 JtYfLCLbhbYavYxqBNV4p 3NgCa98D31dCQluNRGrDC JsOZAqXXNatHjniv8weQ6 wIi8+PGNvbCB3 mQK6hY1pEOTaAkK4YJglW 283IkQexBTuQbtrn6qvb6 scfNw1DlTqIMDjvuSudJo pSCW1z1QnHp15 Z07jYFnjJQTuTUOcYZHfE UIwrIxwou1vmW3nPj0+PC 6fl1gtmd72mC05oOL+PHR vDLW3gAvqNBix LINacQ4yMHggIfB3VWXoR rTlsM16hWXcEPocHm2luI uniSgfVS0qSJSqfylqp44 5FhVnd5dtBFHh wVLdDBtlFVO8B53tg7Q9H YXoZMXgQCT9aDE9hX8rpI lnbjogbGVmdDsgdmVydGl dINblBRtmF412 IHRvcDsnPlBhdGllbnQgT bPyZTd4P9EuHaz8IFNivT ekPG9qvKIzZTawSz2xcOa tiWhcZY7nJADm gijff725TuOui2tcLSKis TNpPWhsGUA4G61th6I8GV IwFQGgPEI1oQG1fX1eqAt nbjogbGVmdDsg rkCxeQhjDTawNKnpN752N HRvcDsnPkJpcnRoIERhdG P8KW51RU67gLQej8R0kSF 7C1UlEJYzeyml yqkzsVP4CUFzQJLbcB64L h6nsMnkCx2uZDWjUWP7NJ NgwFNuZ0JquK6vWyQdTOD rAQVfT4KbdASx UPsrS166HMryNaF9CYHnc mZzM8YbSXRnmWpeFnA6e1 L2Fg7OP5L9AT00LY24aFZ yt3M1rBQ4T6Mc JYKtvlpkcvvgbKO2OBRqH LUiwI84Da8dqPhrLh8kPX BqEPA3TUDhyAQtC7GhbB7 yOiAjMDAwMDAw J0NsfKRrMZquB478IOgmR hF0SEZfmfPdV9PkPQXbdT pdHqX0v6J7Kg1FAPj1DA2 6DS44vWJmm2S0 qFH9X0IpNZPmebauqheda IL9MODtHXPnlE08Bb6hlN whBl6sXXHgSTI7XGCsyYN dK8OfjG8xMwYe ZHBuGESeT4DprDUkUJfrW 901SCldGhS9HUViegWqX7 MkFSThuIftHhY6g4W7Ci2 XUEChRF99NIL9 hWC3NE04TV72M1QdPkbos GFibGU+PHRhYmxlIHdpZH RoPScxMDAlJyBzdHlsZT0 gGb2zHJTeEFRw bQjapFNnEmQdk6ztBAIjN TuzEJ6taCweR6UanDQ6EY Awk7n7Fg91T39dY6HhiWT +XGKvzMZ3pFX8 uD9fEhYtDiX8HTisT170O hWtxNItYwxpr0ogz9pqeA h0YtE2DEUgeqKgqBpoIXR 6f5JhVz39C28q IHdpZHRoPSIxNSUiIHZhb Agmxa3puK8dYx7+PGNvbC H9sCW9uF9gOiEoUuQ4MSe vX805WtPzbANr Igovq9gyl0gtkFr4WxReZ QTlgfHasYqeLHG6b2PlCu 14Y0XhsQjdh0JkFxd9xa2 1zQQiz7J0fKA5 O4UqZWVuclfuuNDitCkeB K5sVVXhaggmHTDegX1uPI MaH0i8PfCiSaF2XIruU3S dheT5RHJqdEPa GYfbTLV3P19we4P3XJVdH ZQtVFS7lNP6tU4asVgsgr ogbGVmdDsgdmVydGljYWw rWXbnO627AQEu qJyeMITulQ3eIMBqvARbk TbsKV7rCSFwmjmnYwpIMO 6AV72pKE9YAexOPpSDLLt 6P8QwDqf6EYSo sZrfVM7oaDLxGRpeWt1mb UvnnAegGN4pIGBazhwgUT RqqI1vXPOcsNYswBobEA1 hQBYvwkcgy629 BkBpUHJ0CSKwuTNeT7Ahk B3pVeTaBIKhMPUkX7DmrD CtSPnfB800FMwkVnJ3TOQ lvyRxD0TfJBXd vSskBbB1k4V0Ot4hHI5nT Z3pMXwtZB93MI07cSVln8 T2hDI2X3EyUBOtebswxzx ozXX1HBJkCVFu tT01fYKdKJcyQh7og1X3d 771RDQtYMTvjA85Ed1otD ucGKRteVOQmX9iulrmo1b vcjogIzAwMDAw JWo3AWn4IEFvdTuoJoSgC XI9TdI5GFD1aTMphK0slM nmpcamnV3fAam+MjggWWV zzwP6I2LbSay5 DCGwtFxvBL5wvWLwVQhyV z7rtQqhqOoyWJ3eTARdrr hhXPMsdW5bJHSjnANomRk yTE5rMSLqovqm x534YcPoRRN4ACWldSRbQ 7LgkQ2zKhTnJJBhIALtV7 UhfOYcFVjvA586MOtuEpG 3IBGktxUtD8Mp UDOkkGqoBhX4w2Q6Jw0NP H0KWBS4A6SkKad3WRInlZ fhFL9yfBSxRXyjDc3xeKs hvTpkNI4lIUCa mlzlSASslA2kGZDugEIhx UsnZX7rVZUhwyanm479Xk CvFZF2XZTrvTUgH8LlmG4 yOiAjMDAwMDAw E6BykGVoDGcfV375CAhxM vO7WTHgccUbN9AkWILvrO nzVjE0u4N2Ho4XJES5lvW xyyduH8Z2rVI2 aWVudDwvdGQ+CN06hq92Q 3HtJmlgSdq0VZYtTVW7eE T8rR3cJWAuRLnhq8A1qSU 6V1SgszBdbh5b h9znHJFhDBswT00kdCEoq 4Z8ZZXjuZI1WIApeMgfDi PscE85Xlw+SMLecPvfj8A cIrogx7gce2dm wGk1ZzQuCLFgjmAudRyaZ UX6t8PfKk16B06jGZevGR RoPSIzMCUiIHZhbGlnbj0 noA6jDe8+PGNv zTP6wPS7kC5aEbQpPrS5W KhbS402QpHsvIHuAoewq3 mhh6aakWj2CsAeBUCgjsU qkUezQCQ4e3Au Ep52A2PnfPtrx0PvYfn2o o81aSQvy5P9gQV8H7OvVD NeacqobXZceKkcME9jLCG bmkypOAWnvX7l LAHoG1s5WmPsQaZ2BEidY 7AyysY5WLIwnXQvEDRrvN DQyT0akvqvz3gazkfkQvA gQXUmZMu8EEv3 ZSIygOsiNdOjSRW4GqQ3N CM0jUPiqL9tuPmsbkeypH 9wOyc+NUf0o0vpfWXmKY8 tpOV3UP35FU58 kZSgn7Z7zYY9C1HeILHtn wauissppDK7BPKhWCKqeK 45Pc3ouSnxEm6hCORhQHO 0LFKdaNMqX8Xz sX0iWuTgEHOiEROyR3Ych IEtJXayM941UTmdTpZ6SS VmriCaX4HpLCFgtCmjEeG 3s7S3Qh4GPM82 IX48OR88tKCkv8U5zFE2L 2KqHAGpzfxghfgwhYS9IS TmGSWqzV13He6poNpcNn2 aCRQcRWZ2JXKh aUVeG1HqgE3yBqBaCMLwY JFgD8UezSCxVWmzN866XM qiAcH0NVKrzuTbL4TyAFY kbTokHwA0k5V8 Ds7NNs60BI79BK74lBMym 3R5hNU6G2ObIDPvuxuebx nccHQ9IKXkSRJamX15Om1 ppFuhDl1hHZWi NPF5BEMcsPDzG5QevU6wG nQeCVFgOISoI4LtiKCoBR mxC914JXvlYxW0DGBaueV eK3KjURPcoJkb XgJ1u6F5Hf5WAPhmckj9Q 3RkPjwvdHI+KK76SKToMD 79dWOrwNLup8kcmYx9UpM aWSZaATH1vXqm PSd (more content not included)... [facility] Consent Formson 09-02-2020 Consent Forms [id number] [facility]2020 Provider Orders [id number] .[facility] Vital Signs Date Time Vital Sign Value Performing Clinician Guillei lity 04-17-2024 09:50-0500 Body mass index (BMI) [Ratio] 34.92 kg/m2 Tia SÁNCHEZ Work Phone: [facility] 04-17-2024 09:50-0500 Body weight 88 kg Tia SÁNCHEZ Work Phone: [facility] 04-17-2024 09:50-0500 Diastolic blood pressure 74 mm[Hg] Tia SÁNCHEZ Work Phone: [facility] 04-17-2024 09:50-0500 Systolic blood pressure 118 mm[Hg] Tia SÁNCHEZ Work Phone: [facility] 03-29-2024 10:32-0500 Body mass index (BMI) [Ratio] 34.4 kg/m2 Agata Maricruz DO Work Phone: [facility] 03-29-2024 10:32-0500 Body weight 86.68 kg Agata Maricruz DO Work Phone: [facility] 03-29-2024 10:32-0500 Diastolic blood pressure 72 mm[Hg] Agata Maricruz DO Work Phone: [facility] 03-29-2024 10:32-0500 Systolic blood pressure 112 mm[Hg] Agata Maricruz DO Work Phone: [facility] 03-14-2024 14:03-0500 Body mass index (BMI) [Ratio] 34.38 kg/m2 Tia SÁNCHEZ Work Phone: [facility] 03-14-2024 14:03-0500 Body weight 86.64 kg Tia SÁNCHEZ Work Phone: [facility] 03-14-2024 14:03-0500 Diastolic blood pressure 68 mm[Hg] Tia SÁNCHEZ Work Phone: [facility] 03-14-2024 14:03-0500 Systolic blood pressure 110 mm[Hg] Tia Rogers PA Work Phone: [facility] 02-14-2024 14:02-0500 Body mass index (BMI) [Ratio] 34.02 kg/m2 Agata Maricruz DO Work Phone: [facility] 02-14-2024 14:02-0500 Body weight 85.73 kg Agata Maricruz DO Work Phone: [facility] 02-14-2024 14:02-0500 Diastolic blood pressure 70 mm[Hg] Agata Maricruz DO Work Phone: [facility] 02-14-2024 14:02-0500 Systolic blood pressure 112 mm[Hg] Agata Maricruz DO Work Phone: [facility] 01-17-2024 14:24-0400 Body mass index (BMI) [Ratio] 32.94 kg/m2 Tia Ken PA Work Phone: [facility] 01-17-2024 14:24-0400 Body weight 83.01 kg Tia Flatgap PA Work Phone: [facility] 01-17-2024 14:24-0400 Diastolic blood pressure 78 mm[Hg] Tia Flatgap PA Work Phone: [facility] 01-17-2024 14:24-0400 Systolic blood pressure 118 mm[Hg] Tia Ken PA Work Phone: [facility] 12-19-2023 11:53-0400 Body mass index (BMI) [Ratio] 32.36 kg/m2 Tia Ken PA Work Phone: [facility] 12-19-2023 11:53-0400 Body weight 81.56 kg Tia Ken PA Work Phone: [facility] 12-19-2023 11:53-0400 Diastolic blood pressure 60 mm[Hg] Tia Flatgap PA Work Phone: [facility] 12-19-2023 11:53-0400 Systolic blood pressure 100 mm[Hg] Tia Ken PA Work Phone: [facility] Encounters Encounter Date Encounter Type Care Provider Facility Start: 05-02-2024 End: 05-02-2024 Bamboo flowsheet Agata Maricruz DO Work Phone: [facility] Start: 05-02-2024 End: 05-02-2024 Bamboo flowsheet Agata Maricruz DO Work Phone: [facility] Start: 04-17-2024 End: 04-17-2024 Bamboo flowsheet Tia Ken PA Work Phone: [facility] Start: 04-17-2024 End: 04-17-2024 Bamboo flowsheet Tia Ken PA Work Phone: [facility] Start: 04-17-2024 End: 04-17-2024 ambulatory TIA ROGERS Not Available Start: 04-17-2024 End: 04-17-2024 flow sheet Tia SÁNCHEZ Work Phone: [facility] Comment on above: Third trimester preg carmen; 33 weeks gestation of Start: 04-12-2024 End: 04-12-2024 ambulatory AGATA MARICRUZ Not Available Start: 03-29-2024 End: 03-29-2024 Bamboo flowsheet Agata Maricruz DO Work Phone: [facility] Start: 03-29-2024 End: 03-29-2024 Bamboo flowsheet Agata Maricruz DO Work Phone: [facility] Start: 03-29-2024 End: 03-29-2024 ambulatory AGATA MARICRUZ Not Available Start: 03-29-2024 End: 03-29-2024 flow sheet Agata Maricruz DO Work Phone: [facility] Comment on above: Third trimester preg carmen; 30 weeks gestation of ; Size of fetus inconsistent with dates in third trimester Start: 03-14-2024 End: 03-14-2024 Bamboo flowsheet Tia SÁNCHEZ Work Phone: [facility] Start: 03-14-2024 End: 03-14-2024 Bamboo flowsheet Tia SÁNCHEZ Work Phone: [facility] Start: 03-14-2024 End: 03-14-2024 ambulatory TIA ROGERS Not Available Start: 03-14-2024 End: 03-14-2024 flow sheet Tia SÁNCHEZ Work Phone: [facility] Comment on above: Muscle cramps (Prima ry Dx); Third trimester ; 28 weeks gestation of Start: 02-17-2024 End: 02-17-2024 Clinisync Result Encounter Agata Maricruz DO Work Phone: [facility] External Department Unsolicited Start: 02-17-2024 End: [...] screening Start: 01-17-2024 End: 01-17-2024 flow sheet Tia SÁNCHEZ Work Phone: [facility] [...] Start: 12-16-2022 End: 12-17-2022 ambulatory PHYSICIAN NO [facility] Work Phone: Start: 12-16-2022 End: 12-16-2022 Discharged Recurring PHYSICIAN NO [facility] Start: 10-19-2022 Orders Only Segundo sepulveda DO [...] 07-18-2017 End: 07-19-2017 Ambulatory DEFAULT PHYSICIAN Facility:[facility] Procedures Date Procedure Procedure Detail Performing Clinician [...] AM EST Routine [facility] [address] [place] [id number] Tia Rogers PA [address] [place] [address] [facility] Start: 03-29-2024 End: 03-29-2025 US for US OB SCAN FOR GROWTH Imaging Routine Size of fetus inconsistent with dates in third trimester Expected: 03/29/2024 (Approximate), Expires: 03/29/2025 [facility] Work Phone: Comment on above: Expected: 03/29/2024 (Approximate), Expires: 03/29/2025 Start: 03-29-2024 End: 03-29-2024 Patient encounter procedure 03/29/2024 10:00 AM EST Routine [facility] [address] [phone] Agata Alcantara DO [address] [place] [address] [facility] Start: 03-14-2024 End: 03-14-2024 Patient encounter procedure 03/14/2024 1:30 PM EST Routine [facility] [address] [place] [id number] Tia Rogers PA [address] [place], [place] [id number] [facility] Start: 02-14-2024 End: 02-13-2025 CBC panel - Blood by Automated count CBC Lab Routine Diabetes mellitus screening Expected: 02/14/2024 (Approximate), Expires: 02/13/2025 [facility] Work Phone: Comment on above: Expected: 02/14/2024 (Approximate), Expires: 02/13/2025 Start: 02-14-2024 End: 02-13-2025 Measurement of glucose 1 hour after glucose challenge for glucose tolerance test Glucose tolerance, 1 hour Lab Routine Diabetes mellitus screening Expected: 02/14/2024 (Approximate), Expires: 02/13/2025 [facility] Healthcare Comment on above: Expected: 02/14/2024 (Approximate), Expires: 02/13/2025 Start: 02-14-2024 End: 02-14-2024 Patient encounter procedure 02/14/2024 1:20 PM EST Routine [facility] [address] [place] [address] Agata Alcantara, DO [address] [place] [address] [facility] Start: 01-17-2024 End: 01-17-2024 Patient encounter procedure [facility] Comment on above: Arrived Start: 01-17-2024 End: 01-17-2024 Professional / ancillary services management 01/17/2024 1:00 PM EDT Ancillary Procedure [facility] [address] [place] [phone] [facility] Start: 12-19-2023 End: 02-18-2024 Alpha fetoprotein, maternal Alpha fetoprotein, maternal Lab Routine 16 weeks gestation of Expected: 12/19/2023 (Approximate), Expires: 02/18/2024 [facility] Healthcare Comment on above: Expected: 12/19/2023 (Approximate), Expires: 02/18/2024 Start: 12-19-2023 End: 12-18-2024 US for US OB ANATOMY SINGLE W US OB CERVICAL LENGTH Imaging Routine Screening, , for anatomic survey Expected: 12/19/2023 (Approximate), Expires: 12/18/2024 [facility] Comment on above: Expected: 12/19/2023 (Approximate), Expires: 12/18/2024 Start: 10-19-2022 End: 10-20-2023 ECG COMPLETE ECG COMPLETE ECG Routine Syncope, unspecified syncope type Dizziness SOB (shortness of breath) Expected: 10/19/2022, Expires: 10/20/2023 [facility] Work Phone: Comment on above: Expected: 10/19/2022 , Expires: 10/20/2023 Cardiovascular funct ion eval w/tilt table w/mntr TILT TABLE EVALUATION Cardiology Routine Syncope, unspecified syncope type Ordered: 10/19/2022 [facility] Work Phone: Comment on above: Ordered: 10/19/2022 CHLAMYDIA TRACHOMATI S (GENITO/STI) CHLAMYDIA TRACHOMATIS (GENITO/STI) Lab Routine Exposure to STD Ordered: 12/19/2023 [facility] Comment on above: Ordered: 12/19/2023 Neisseria gonorrhoea e DNA [Presence] in Unspecified specimen by GONZÁLEZ with probe detection Neisseria gonorrhea DNA probe, direct Lab Routine Exposure to STD Ordered: 12/19/2023 [facility] Comment on above: Ordered: 12/19/2023 SURESWAB(R) ADVANCED VAGINITIS PLUS, TMA SURESWAB(R) ADVANCED VAGINITIS PLUS, TMA Pathology and Cytology Routine Vaginal discharge Ordered: 12/19/2023 [facility] Work Phone: Comment on above: Ordered: 12/19/2023 Payers Date Payer Category Payer Self-pay 2022 Private Health Insurance [employer] [id number] 2022 Unknown 2022 Medicaid MEDICAID MCP GEN [place] MEDICAID MCP GENERIC [id number] 2022-Present [phone] [address] [place] [address] Medicaid [id number] 1992 Unknown [id number] 2.16.840.1.384647.3.579 .2.593 1992 Unknown [id number] 2.16.840.1.744544.3.579 .2.593 1992 Unknown [id number] 2.16.840.1.245829.3.579 .2.593 1992 Unknown [id number] 2.16.840.1.293117.3.579 .2.593 1992 Unknown [id number] 2.16.840.1.107946.3.579 .2.593 1992 Unknown [id number] 2.16.840.1.301315.3.579 .2.593 1992 Unknown [id number] 2.16.840.1.857286.3.579 .2.593 1992 Unknown [id number] 2.16.840.1.050049.3.579 .2.593 1992 Unknown [id number] 2.16.840.1.517182.3.579 .2.593 1992 Unknown [id number] 2.16.840.1.066533.3.579 .2.593 1992 Unknown [id number] 2.16.840.1.637505.3.579 .2.593 1992 Unknown [id number] 2.16.840.1.862746.3.579 .2.593 1992 Unknown [id number] 2.16.840.1.350298.3.579 .2.593 1992 Unknown [id number] 2.16.840.1.180319.3.579 .2.593 1992 Unknown [id number] 2.16.840.1.387498.3.579 .2.593 1992 Unknown [id number] 2.16.840.1.198627.3.579 .2.593 1992 Unknown [id number] 2.16.840.1.993119.3.579 .2.1259 1992 Unknown [id number] 2.16.840.1.384754.3.579 .2.9 1992 Unknown [id number] 2.16840.1.718819.3.579 .2.1259 1992 Unknown [id number] 2.16840.1.225124.3.579 .2.1259 1992 Unknown [id number] 2.16840.1.869104.3.579 .2.9 1992 Unknown [id number] 2.16.840.1.828829.3.579 .2.9 1992 Unknown [id number] 2.16840.1.378486.3.579 .2.1258 1992 Unknown [id number] 2.16840.1.083557.3.579 .2.1258 1992 Unknown [id number] 2.16840.1.263886.3.579 .2.1259 1959 Unknown [id number] Unknown [id number] 2.16840.1.281697.3.579 .2.531 Social History Date Type Detail [facility] Start: 1990 Sex Assigned At Not on file [facility] Start: 03-02-2023 End: 01-17-2024 Gender identity Not on file [facility] Start: 1990 Sex Assigned At Female F [facility] Start: 03-02-2023 End: 01-17-2024 Tobacco smoking status [...] of: PRINCESS Reddy documented in this encounter [facility] 03-29-2024 History of Presen t illness Narrative [...] nursing note reviewed. Exam conducted with a motor lodge clerk present. Vitals: Estimated body mass index is [...] Katelyn Keating LPN on behalf of: Agata Alacntara DO documented in this encounter [facility] 03-14-2024 History of Presen t illness Narrative [...] of: PRINCESS Reddy documented in this encounter [facility] 02-14-2024 History of Presen t illness Narrative [...] nursing note reviewed. Exam conducted with a motor lodge clerk present. Vitals: Estimated body mass index is [...] Agata Alcantara DO documented in this encounter [facility] 01-17-2024 History of Presen t illness Narrative [...] of: PRINCESS Reddy documented in this encounter [facility] 12-19-2023 History of Presen t illness Narrative [...] nursing note reviewed. Exam conducted with a motor lodge clerk present. Vitals: Estimated body mass index is [...] of: PRINCESS Reddy documented in this encounter [facility] 10-14-2022 Miscellaneous Notes Formattin g of this [...] to CHAITANYA Woodruff documented in this encounter [facility] 10-07-2022 Miscellaneous Notes Formattin g of this note might be different from the original. Referral and outside medical records scanned into [employer]. Referral routed to scheduling for first available with Dr. Segundo Alba. documented in this encounter [facility] 09-02-2020 Note [id number] Evaluation note Diagnosis Syncope, unspecified syncope type- Primary Dizziness Dizziness and giddiness SOB (shortness of breath) Shortness of breath [facility] noteNo assessment information availableAccess [facility] Work Phone: Evaluation note* Diagnosis Second trimester state, incidental 20 weeks gestation of documented in this encounter [facility]* Diagnosis Second trimester state, incidental 23 weeks gestation of Diabetes mellitus screening Screening for diabetes mellitus documented in this encounter [facility] note* Diagnosis Muscle cramps- Primary Third trimester state, incidental 28 weeks gestation of documented in this encounter [facility] note* Diagnosis 16 weeks gestation of Screening, , for anatomic survey Encounter for anatomic survey Exposure to STD Vaginal discharge Leukorrhea, not specified as infective documented in this encounter [facility] note* Diagnosis Third trimester state, incidental 30 weeks gestation of Size of fetus inconsistent with dates in third trimester documented in this encounter [facility] note* Diagnosis Third trimester state, incidental 33 weeks gestation of documented in this encounter [facility] HealthcareReason for referral (narrative)* Outpatient Procedure (Routine) - Pending Review Specialty Diagnoses / Procedures Referred By Robert t Referred To [facility] Diagnoses Syncope, unspecified syncope type Dizziness SOB (shortness of breath) Procedures ECG COMPLETE ECG ROUTINE ECG W/LEAST 12 LDS W/I&R Segundo Alba DO [address] [place] [address] [facility] [address] [place] [address] Referral ID Status Reason Start Date Expiration Date Visits Requested Visits Authorized [id number] Pending Review Auto-Generate d Referral Financial Clearance Required - [facility] 10/19/2022 10/19/2023 1 1 [facility] Summary Purpose Family History No Family [...] section and content) DATE CREATED AUTHOR 09/29/2017 [facility] DATE CREATED AUTHOR AUTHOR'S ORGANIZ ATION 01/28/2021 [facility] DATE CREATED AUTHOR AUTHOR'S ORGANIZ ATION 08/25/2022 [facility] DATE CREATED AUTHOR AUTHOR'S ORGANIZ ATION 10/15/2022 [facility] DATE CREATED AUTHOR AUTHOR'S ORGANIZ ATION 01/16/2023 [facility] DATE CREATED AUTHOR AUTHOR'S ORGANIZ ATION 04/19/2024 [facility] EPIC Source Comments (unrecognize d section and content) In the event this informatio n is protected by the Federal Confidentiality of Alcohol and Drug Abuse Patient Records regulations: The Federal rules restrict any use of the information to criminally investigate or prosecute any alcohol or drug abuse patient.[facility] the event this information is protected by the Federal Confidentiality of Alcohol and Drug Abuse Patient Records regulations: The Federal rules restrict any use of the information to criminally investigate or prosecute any alcohol or drug abuse patient.[facility] the event this information is protected by the Federal Confidentiality of Alcohol and Drug Abuse Patient Records regulations: The Federal rules restrict any use of the information to criminally investigate or prosecute any alcohol or drug abuse patient.[facility] Reason for Visit (unrecogniz ed section and content) Reason Comments Received Referral and Outside Medical Re cords Reason Comments Appointment Reason Comments Routine Visit Care Teams (unrecognized sec tion and content) Script Supervisor Relationship Specialty Start Date End Date Ileana Evans [address] [place] [address] PCP - General 07/21/00 Script Supervisor Relationship Specialty Start Date [place] [phone] PCP - General 07/21/00 Script Supervisor Relationship Specialty Start Date End Date Ileana Evans [address] [place] [phone] PCP - General 07/21/00 Team Status: Active [...] BE BASED ON THE PRIMARY CLINICAL RECORDS. [facility] [employer] [facility]. provides no warranty or guarantee of the accuracy or completeness of information in this document.
== END 2024-05-02 08:12 | disposition home or self-care (01) ==
LOC: LAB 08:11
PROVIDERS: Visit Provider Obstetrics & Gynecology
DX: Z34.93 Encounter for supervision of normal pregnancy, unspecified, third trimester (principal)
CPT/HCPCS: 36415; 87081

== ENCOUNTER 2024-05-31 23:07 | Inpatient (IN) | payer OTHER, SELFPAY ==
--- OUTSIDE RECORDS SUMMARY | 2024-05-31 23:11 | XMS_ITS | CCD ---
Author Organization [facility] Care Team Providers Care [facility] Author Name Role Phone PHYSICIAN, DEFAULT Unavailable Unavailable [...] Unavailable Unavailable Primary Care Provider Unavailabl e MARICRUZ, AGATA Attending Unavailable KEN, TIA Attending Unavailable MARICRUZ, AGATA Attending Unavailable MARICRUZ, AGATA Attending Unavailable MARICRUZ, AGATA Attending Unavailable KEN, TIA Attending Unavailable KEN, TIA Attending Unavailable MARICRUZ, AGATA Attending Unavailable KEN, TIA Attending Unavailable MARICRUZ, AGATA Attending Unavailable AGATA ALCANTARA Referring Unavailable TIA ROGERS Attending Unavailable Medications Current Medications Medication Drug Class(es) Dates Sig (Normalized) Sig (Original) azithromycin 250 mg oral tablet (2 sources) Macrolide Antimicrobial Start: 05-24-2024 azithromycin (Zithromax Z-Matt) 250 MG tablet Indications: Other chronic sinusitis As directed 6 tablet 05/24/2024 Active magnesium oxide 400 mg oral tablet (12 sources) Start: 04-18-2024 take 1 tablet by mouth once daily MAGnesium-Oxide 400 (240 Mg) MG tablet Take 400 mg by mouth Daily 04/18/2024 Active Start: 03-14-2024 End: 04-13-2024 take 1 tablet by mouth once daily magnesium oxide (Mag-Ox) 400 MG tablet Indications: Muscle cramps Take 1 tablet (400 mg) by mouth Daily 30 tablet 3 03/14/2024 04/13/2024 Active MV-Min-Fe Fum-FA-DH A ( 1 PO) (20 sources) MV-Min- Fe [...] screening for diabetes mellitus] Onset: 02-10-2022 Episodic Other upper respiratory infections (2 sources) Chronic sinusitis; Translations: [Other chronic sinusitis] 05-24-2024 Chronic Polyhydramnios and other problems of amniotic cavity [...] [33 weeks gestation of ] 04-17-2024 Episodic Residual codes; unclassified (2 sources) Gestation period, 35 weeks; Translations: [35 weeks gestation of ] 05-02-2024 Episodic Residual codes; unclassified (2 sources) Gestation period, 36 weeks; Translations: [36 weeks gestation of ] 05-09-2024 Episodic Residual codes; unclassified (2 sources) Gestation period, 37 weeks; Translations: [37 weeks gestation of ] 05-17-2024 Episodic Residual codes; unclassified (2 sources) Gestation period, 38 weeks; Translations: [38 weeks gestation of ] 05-24-2024 Episodic Syncope (1 source) Syncope; Translations: [Syncope [...] Range Facility Urinalysis macro (dipstick) panel (U)on 05-09-2024 Bilirubin, UA Negative Negative - 4(70) +++ mg/dL [facility] Blood, UA Negative Negative - 50 Heath/mcL [facility] Clarity, UA Clear [facility] Color, UA Yellow [facility] Glucose, UA Negative Negative - 1999(110) ++++ mg/dL [facility] Interpretation and review of laboratory results Abnormal [facility] Ketones, UA Negative Negative - 160(16) ++++ mg/dL [facility] Leukocytes, UA Negative Negative - 500+++ Ozzy/mcL [facility] Nitrite, UA Negative Negative - Positive [facility] pH, UA 7 5 - 9 [facility] Protein, UA Negative Negative - 2000(20) ++++ mg/dL [facility] Spec Grav, UA 1.02 1 - 1.03 [facility] Urobilinogen, UA 0.2 0.2 - 12 mg/dL Critical [facility] hospital ALL MISCELLANEOUS TESTon MISCELLANEOUS TEST COMMENT . [facility] Comment on above: Test Ordered: [id number] Strep Gp B Culture+Rflx Strep Gp B Culture+Rflx Negative CB Reference Range: Negative Centers for Disease Control and Prevention (CDC) and [place] [employer] Gynec[employer] (ACOG) guidelines for prevention of group B streptococcal (GBS) disease specify co-collection of a vaginal and rectal swab specimen to maximize sensitivity of GBS detection. Per the CDC and ACOG, swabbing both the lower vagina and rectum substantially increases the yield of detection compared with sampling the vagina alone. Penicillin G, ampicillin, or cefazolin are indicated for intrapartum prophylaxis of GBS colonization. Reflex susceptibility testing should be performed prior to use of clindamycin only on GBS isolates from penicillin- allergic women who are considered a high risk for anaphylaxis. Treatment with vancomycin without additional testing is warranted if resistance to clindamycin is noted. Performed at: [address] [id number] Edger Runner: Geraldo Le PhD, Phone: [phone] GROUP B STREP [id number] Group B Streptococcus Colonization Detection [facility] (dipstick) panel (U)on 04-17-2024 Bilirubin, UA Negative Negative - 4(70) +++ mg/dL [facility] Blood, UA Negative Negative - 50 Heath/mcL [facility] Clarity, UA Clear [facility] Color, UA Yellow [facility] Glucose, UA Negative Negative - 2000(110) ++++ mg/dL [facility] Interpretation and review of laboratory results Normal [facility] Ketones, UA Negative Negative - 160(16) ++++ mg/dL [facility] Leukocytes, UA Negative Negative - 500+++ Ozzy/mcL [facility] Nitrite, UA Negative Negative - Positive [facility] pH, UA 7.5 5 - 9 [facility] Protein, UA Negative Negative - 2000(20) ++++ mg/dL [facility] Spec Grav, UA 1.015 1 - 1.03 [facility] Urobilinogen, UA 0.2 0.2 - 12 mg/dL Critical [facility] hospital US OB FOLLOW UP TRANSABDOMIN AL APPROACHon [...] UA Negative Negative - 4(70) +++ mg/dL [facility] Blood, UA Negative Negative - 50 Heath/mcL [facility] Clarity, UA Clear [facility] Color, UA Yellow [facility] Glucose, UA Negative Negative - 2000(110) ++++ mg/dL [facility] Interpretation and review of laboratory results Abnormal [facility] Ketones, UA Negative Negative - 160(16) ++++ mg/dL [facility] Leukocytes, UA Negative Negative - 500+++ Ozzy/mcL [facility] Nitrite, UA Negative Negative - Positive [facility] pH, UA 6 5 - 9 [facility] Protein, UA Negative Negative - 2000(20) ++++ mg/dL [facility] Spec Grav, UA 1.025 1 - 1.03 [facility] Urobilinogen, UA 1.0 0.2 - 12 mg/dL Critical [facility] hospital ALL CBC WITH AUTO DIFFon BASOPHILS ABSOLUTE AUTO 0 [facility] Basophils/100 WBC (Bld) 0.3 % 0.2 - 2.0 % [facility] Eosinophils/100 WBC (Bld) 0.5 % Low 0.9 - 7.0 % [facility] Erythrocyte distribution width (RBC) [Ratio] 13.4 % 11.0 - 15.0 % [facility] Hematocrit (Bld) [Volume fraction] 38.6 % 36.0 - 48.0 % [facility] Hemoglobin (Bld) [Mass/Vol] 13.3 g/dL 12.0 - 16.0 g/dL [facility] IMMATURE GRANULOCYTES ABS AUTO 0.04 High [facility] Immature granulocytes/100 WBC (Bld) 0.4 % 0.0 - 0.5 % [facility] Interpretation and review of laboratory results Abnormal [facility] LYMPHOCYTES ABSOLUTE AUTO 1 Low [facility] Lymphocytes/100 WBC (Bld) 10.3 % Low 20.5 - 60.0 % [facility] MCH (RBC) [Entitic mass] 31 pg 26.7 - 34.0 pg [facility] MCHC (RBC) [Mass/Vol] 34.5 g/dL 29.9 - 35.2 g/dL [facility] MCV (RBC) [Entitic vol] 90 fL 81.0 - 99.0 fL [facility] MONOCYTES ABSOLUTE AUTO 0.5 [facility] Monocytes/100 WBC (Bld) 5 % 1.7 - 12.0 % [facility] NEUTROPHILS ABSOLUTE AUTO 8.4 High [facility] Neutrophils/100 WBC (Bld) 83.5 % High 43.0 - 75.0 % [facility] Platelet mean volume (Bld) [Entitic vol] 9.8 fL 9.5 - 13.5 fL [facility] TBH EO # 0.1 [facility] PLT 228 [facility] RBC 4.29 [facility] WBC 10.1 [facility] Urinalysis macro (dipstick) panel (U)on 02-14-2024 Bilirubin, UA Negative Negative - 4(70) +++ mg/dL [facility] Blood, UA Negative Negative - 50 Heath/mcL [facility] Clarity, UA Clear [facility] Color, UA Yellow [facility] Glucose, UA Negative Negative - 1999(110) ++++ mg/dL [facility] Interpretation and review of laboratory results Normal [facility] Ketones, UA Negative Negative - 160(16) ++++ mg/dL [facility] Leukocytes, UA Negative Negative - 500+++ Ozzy/mcL [facility] Nitrite, UA Negative Negative - Positive [facility] pH, UA 6 5 - 9 [facility] Protein, UA Negative Negative - 2000(20) ++++ mg/dL [facility] Spec Grav, UA 1.02 1 - 1.03 [facility] Urobilinogen, UA 0.2 0.2 - 12 mg/dL [facility] Urinalysis macro (dipstick) panel (U)on 01-17-2024 Bilirubin, UA Negative Negative - 4(70) +++ mg/dL [facility] Blood, UA Negative Negative - 50 Heath/mcL [facility] Clarity, UA Clear [facility] Color, UA Yellow [facility] Glucose, UA Negative Negative - 1999(110) ++++ mg/dL [facility] Interpretation and review of laboratory results Normal [facility] Ketones, UA Negative Negative - 160(16) ++++ mg/dL [facility] Leukocytes, UA Negative Negative - 500+++ Ozzy/mcL [facility] Nitrite, UA Negative Negative - Positive [facility] pH, UA 7.0 5 - 9 [facility] Protein, UA Negative Negative - 1999(20) ++++ mg/dL [facility] Spec Grav, UA 1.020 1 - 1.03 [facility] Urobilinogen, UA 0.2 0.2 - 12 mg/dL Critical [facility] hospital URETHRITIS/DISCHARGE PLUS VA GINITIS (HTRX)on 12-20-2023 ATOPOBIUM VAGINAE 25.657 Abnormal [facility] ATOPOBIUM VAGINAE Detected Abnormal [facility] BVAB 2,3 (BACTERIAL VAGINOSIS ASSOCIATED BACTERIA 2, 3); MOBILUNCUS SPP 24.613 Abnormal [facility] BVAB 2,3 (BACTERIAL VAGINOSIS ASSOCIATED BACTERIA 2, 3); MOBILUNCUS SPP Detected Abnormal [facility] HILDA ALBICANS, PARAPSILOSIS, TROPICALIS 0.000 [facility] HILDA ALBICANS, PARAPSILOSIS, TROPICALIS Not detected [facility] HILDA GLABRATA 0.000 [facility] HILDA GLABRATA Not detected [facility] HILDA KRUSEI 0.000 [facility] HILDA KRUSEI Not detected [facility] CHLAMYDIA TRACHOMATIS 0.000 [facility] CHLAMYDIA TRACHOMATIS Not detected [facility] GARDNERELLA VAGINALIS 26.686 Abnormal [facility] GARDNERELLA VAGINALIS Detected Abnormal [facility] Interpretation and review of laboratory results Abnormal [facility] MEGASPHAERA (TYPES 1, 2) 0.000 [facility] MEGASPHAERA (TYPES 1, 2) Not detected [facility] MYCOPLASMA GENITALIUM 0.000 [facility] MYCOPLASMA GENITALIUM Not detected [facility] NEISSERIA GONORRHOEAE 0.000 [facility] NEISSERIA GONORRHOEAE Not detected [facility] TET B, TET M 20.920 Abnormal [facility] TET B, TET M Detected Abnormal [facility] TRICHOMONAS VAGINALIS 0.000 [facility] TRICHOMONAS VAGINALIS Not detected [facility] Urinalysis macro (dipstick) panel (U)on 12-19-2023 Bilirubin, UA Negative Negative - 4(70) +++ mg/dL [facility] Blood, UA Negative Negative - 50 Heath/mcL [facility] Clarity, UA Clear [facility] Color, UA Yellow [facility] Glucose, UA Negative Negative - 1999(110) ++++ mg/dL [facility] Interpretation and review of laboratory results Abnormal [facility] Ketones, UA Negative Negative - 160(16) ++++ mg/dL [facility] Leukocytes, UA Trace Negative - 500+++ Ozzy/mcL [facility] Nitrite, UA Negative Negative - Positive [facility] pH, UA 7.0 5 - 9 [facility] Protein, UA Negative Negative - 1999(20) ++++ mg/dL [facility] Spec Grav, UA 1.020 1 - 1.03 [facility] Urobilinogen, UA 0.2 0.2 - 12 mg/dL Critical access hospital CNPNon 10-14-2022 [facility] Telephone (BEBETO) SABINE ROUSE ([id number]) 1990 F Date Time Provider Department 10/14/22 SEGUNDO ALBAOH During your visit today, we recorded the following information about you: Brenda Trev ADM 10/14/2022 4:21 PM Signed Per Desk F14 from [facility] Call Contact information: [place] Diagnoses: Syncope, unspecified syncope type Shortness of breath Please schedule first available with Dr. Sgeundo Alba. Thank you. [facility] Cali spoke w the patient Patient has Out of State Medicaid. Referrals will have to be created and sent to Brenda Pimentel As of Date: 10/14/2022 (Not on File) Date Reviewed: Never Reviewed Reason for Visit: Appointment [[id number]] Problem List As Of Date: 10/14/2022 (None) Encounter Status:Closed by BRENDA MARTINEZ on 10/14/22 [facility] Jose 10-07-2022 CNPN Telephone (CARDMN) SABINE ROUSE ([id number]) 1990 F Date Time Provider Department 10/07/22 SEGUNDO ALBA During your visit today, we recorded the following information about you: Carmencita Mittal 10/07/2022 11:55 AM Signed Referral and outside medical records scanned into [facility] drive. Referral routed to scheduling for first available with Dr. Segundo Alba. Allergies As of Date: 10/07/2022 (Not on File) Date Reviewed: Never Reviewed Reason for Visit: Received Referral and Outside Medical Records [Other] Problem List As Of Date: 10/07/2022 (None) Encounter Status:Closed by CARMENCITA MITTAL on 10/07/22 [facility] CBC AUTO DIFFon 08-20-2022 BASO # 0.0 103/ul Normal 0.0-0.1 [facility] Comment on above: Performed By: #### C BC #### [facility] [address] [place] [address] Dr. Alla Peterson Basophils/100 WBC (Bld) 0.2 % Normal 0.2-2.0 [facility] Comment on above: Performed By: #### C BC #### [facility] [address] [place] [address] Dr. Alla Peterson EO # 0.0 103/ul Normal 0.0-0.7 [facility] Comment on above: Performed By: #### C BC #### [facility] [address] [place] [address] Dr. Alla Peterson Eosinophils/100 WBC (Bld) 0.2 % Critically low 0.9-7.0 [facility] Comment on above: Performed By: #### C BC #### [facility] [address] [place] [address] Dr. Alla Peterson Erythrocyte distribution width (RBC) [Ratio] 13.2 % Normal 11.0-15.0 [facility] Comment on above: Performed By: #### C BC #### [facility] [address] [place] [address] Dr. Alla Peterson Hematocrit (Bld) [Volume fraction] 36.1 % Normal 36.0-48.0 [facility] Comment on above: Performed By: #### C BC #### [facility] [address] [place] [address] Dr. Alla Peterson Hemoglobin (Bld) [Mass/Vol] 12.4 g/dL Normal 12.0-16.0 [facility] Comment on above: Performed By: #### C BC #### [facility] [address] [place] [address] Dr. Alla Peterson IG # 0.05 10e3/ul Critically high 0.00-0.[address] [facility] Comment on above: Performed By: #### C BC #### [facility] [address] [place] [address] Dr. Alla Peterson IG % 0.4 % Normal 0.0-0.5 [facility] Comment on above: Performed By: #### C BC #### [facility] [address] [place] [address] Dr. Alla Peterson LYMPH # 1.4 103/ul Normal 1.2-3.8 [facility] Comment on above: Performed By: #### C BC #### [facility] [address] [place] [address] Dr. Alla Peterson Lymphocytes/100 WBC (Bld) 10.9 % Critically low 20.5-60.0 [facility] Comment on above: Performed By: #### C BC #### [facility] [address] [place] [address] Dr. Alla Peterson MANUAL DIFF REQ NO Normal [facility] Comment on above: Performed By: #### C BC #### [facility] [address] [place] [address] Dr. Alla Peterson MCH (RBC) [Entitic mass] 30.0 pg Normal 26.7-34.0 [facility] Comment on above: Performed By: #### C BC #### [facility] [address] [place] [address] Dr. Alla Peterson MCHC (RBC) [Mass/Vol] 34.3 g/dL Normal 29.9-35.2 [facility] Comment on above: Performed By: #### C BC #### [facility] [address] [place] [address] Dr. Alla Peterson MCV (RBC) [Entitic vol] 87.4 fL Normal 81.0-99.0 [facility] Comment on above: Performed By: #### C BC #### [facility] [address] [place] [address] Dr. Alla Peterson MONO # 0.8 103/ul Normal 0.3-0.8 [facility] Comment on above: Performed By: #### C BC #### [facility] [address] [place] [address] Dr. Alla Peterson Monocytes/100 WBC (Bld) 6.0 % Normal 1.7-12.0 [facility] Comment on above: Performed By: #### C BC #### [facility] [address] [place] [address] Dr. Alla Peterson NEUT # 10.8 103/ul Critically high 1.4-6.[address] [facility] Comment on above: Performed By: #### C BC #### [facility] [address] [place] [address] Dr. Alla Peterson Neutrophils/100 WBC (Bld) 82.3 % Critically high 43.0-75.0 [facility] Comment on above: Performed By: #### C BC #### [facility] [address] [place] [address] Dr. Alla Peterson Platelet mean volume (Bld) [Entitic vol] 10.2 fL Normal 9.5-13.5 [facility] Comment on above: Performed By: #### C BC #### [facility] [address] [place] [address] Dr. Alla Peterson PLT 177 103/ul Normal 150-450 [facility] Comment on above: Performed By: #### C BC #### [facility] [address] [place] [address] Dr. Alla Peterson RBC 4.13 106/ul Critically low 4.20-5.40 [facility] Comment on above: Performed By: #### C BC #### [facility] [address] [place] [address] Dr. Alla Peterson WBC 13.1 103/ul Critically high 4.0-11.0 [facility] Comment on above: Performed By: #### C BC #### [facility] [address] [place] [address] Dr. Alla Peterson CBC AUTO DIFFon 08-19-2022 BASO # 0.0 103/ul Normal 0.0-0.1 [facility] Comment on above: Performed By: #### R UBIGG #### [facility] [address] [place] [address] Dr. Alla Peterson Basophils/100 WBC (Bld) 0.2 % Normal 0.2-2.0 [facility] Comment on above: Performed By: #### R UBIGG #### [facility] [address] [place] [address] Dr. Alla Peterson EO # 0.0 103/ul Normal 0.0-0.7 [facility] Comment on above: Performed By: #### R UBIGG #### [facility] [address] [place] [address] Dr. Alla Peterson Eosinophils/100 WBC (Bld) 0.4 % Critically low 0.9-7.0 [facility] Comment on above: Performed By: #### R UBIGG #### [facility] [address] [place] [address] Dr. Alla Peterson Erythrocyte distribution width (RBC) [Ratio] 12.9 % Normal 11.0-15.0 [facility] Comment on above: Performed By: #### R UBIGG #### [facility] [address] [place] [address] Dr. Alla Peterson Hematocrit (Bld) [Volume fraction] 38.1 % Normal 36.0-48.0 [facility] Comment on above: Performed By: #### R UBIGG #### [facility] [address] [place] [address] Dr. Alla Peterson Hemoglobin (Bld) [Mass/Vol] 13.3 g/dL Normal 12.0-16.0 [facility] Comment on above: Performed By: #### R UBIGG #### [facility] [address] [place] [address] Dr. Alla Peterson IG # 0.02 10e3/ul Normal 0.00-0.03 [facility] Comment on above: Performed By: #### R UBIGG #### [facility] [address] [place] [address] Dr. Alla Peterson IG % 0.2 % Normal 0.0-0.5 [facility] Comment on above: Performed By: #### R UBIGG #### [facility] [address] [place] [address] Dr. Alla Peterson LYMPH # 1.5 103/ul Normal 1.2-3.8 [facility] Comment on above: Performed By: #### R UBIGG #### [facility] [address] [place] [address] Dr. Alla Peterson Lymphocytes/100 WBC (Bld) 17.6 % Critically low 20.5-60.0 [facility] Comment on above: Performed By: #### R UBIGG #### [facility] [address] [place] [address] Dr. Alla Peterson MANUAL DIFF REQ NO Normal [facility] Comment on above: Performed By: #### R UBIGG #### [facility] [address] [place] [address] Dr. Alla Peterson MCH (RBC) [Entitic mass] 30.0 pg Normal 26.7-34.0 [facility] Comment on above: Performed By: #### R UBIGG #### [facility] [address] [place] [address] Dr. Alla Peterson MCHC (RBC) [Mass/Vol] 34.9 g/dL Normal 29.9-35.2 [facility] Comment on above: Performed By: #### R UBIGG #### [facility] [address] [address] [address] Alla Peterson MCV (RBC) [Entitic vol] 85.8 fL Normal 81.0-99.0 [facility] Comment on above: Performed By: #### R UBIGG #### [facility] [address] [place] [address] Dr. Alla Peterson MONO # 0.4 103/ul Normal 0.3-0.8 [facility] Comment on above: Performed By: #### R UBIGG #### [facility] [address] [place] [address] Dr. Alla Peterson Monocytes/100 WBC (Bld) 5.1 % Normal 1.7-12.0 [facility] Comment on above: Performed By: #### R UBIGG #### [facility] [address] [place] [address] Dr. Alla Peterson NEUT # 6.5 103/ul Normal 1.4-6.5 [facility] Comment on above: Performed By: #### R UBIGG #### [facility] [address] [place] [address] Dr. Alla Peterson Neutrophils/100 WBC (Bld) 76.5 % Critically high 43.0-75.0 [facility] Comment on above: Performed By: #### R UBIGG #### [facility] [address] [place] [address] Dr. Alla Peterson Platelet mean volume (Bld) [Entitic vol] 10.2 fL Normal 9.5-13.5 [facility] Comment on above: Performed By: #### R UBIGG #### [facility] [address] [address] [address] Alla Peterson PLT 196 103/ul Normal 150-450 [facility] Comment on above: Performed By: #### R UBIGG #### [facility] [address] [place] [address] Dr. Alla Peterson RBC 4.44 106/ul Normal 4.20-5.40 [facility] Comment on above: Performed By: #### R UBIGG #### [facility] [address] [address] [address] Alla Peterson WBC 8.5 103/ul Normal 4.0-11.0 [facility] Comment on above: Performed By: #### R UBIGG #### [facility] [address] [place] [address] Dr. Alla Peterson DRUG SCREEN RAPID (URINE)on 08-19-2022 AMP Negative Normal NEGATIVE [facility] Comment on above: Performed By: #### R UBIGG #### [facility] [address] [place] [place] [address] Dr. Alla Peterson BAR Negative Normal NEGATIVE [facility] Comment on above: Performed By: #### R UBIGG #### [facility] [address] [place] [address] Dr. Alla Peterson BUP Negative Normal NEGATIVE [facility] Comment on above: Performed By: #### R UBIGG #### [facility] [address] [place] [address] Dr. Alla Peterson BZO Negative Normal NEGATIVE [facility] Comment on above: Performed By: #### R UBIGG #### [facility] [address] [place] [address] Dr. Alla Peterson TK Negative Normal NEGATIVE [facility] Comment on above: Performed By: #### R UBIGG #### [facility] [address] [place] [address] Dr. Alla Peterson CUT-OFFS SEE BELOW Normal [facility] Comment on above: Result Comment: AMP [...] ng/mL Performed By: #### R UBIGG #### [facility] [address] [place] [address] Dr. Alla Peterson DRUG CUT HEADER DRUG CLASS TEST SYSTEM CUT-OFF CONCENTRATIONS ARE FOLLOWS: Normal [facility] Comment on above: Performed By: #### R UBIGG #### [facility] [address] [place] [address] Dr. Alla Peterson mAMP Negative Normal NEGATIVE [facility] Comment on above: Performed By: #### R UBIGG #### [facility] [address] [place] [address] Dr. Alla Peterson MTD Negative Normal NEGATIVE [facility] Comment on above: Performed By: #### R UBIGG #### [facility] [address] [place] [address] Dr. Alla Peterson OPI Negative Normal NEGATIVE [facility] Comment on above: Performed By: #### R UBIGG #### [facility] [address] [place] [address] Dr. Alla Peterson OXY Negative Normal NEGATIVE [facility] Comment on above: Performed By: #### R UBIGG #### [facility] [address] [place] [address] Dr. Alla Peterson PCP Negative Normal NEGATIVE [facility] Comment on above: Performed By: #### R UBIGG #### [facility] [address] [place] [address] Dr. Alla Peterson PPX Negative Normal NEGATIVE [facility] Comment on above: Performed By: #### R UBIGG #### [facility] [address] [address] [address] Alla Peterson TCA Negative Normal NEGATIVE [facility] Comment on above: Performed By: #### R UBIGG #### [facility] [address] [address] [address] Alla Peterson THC Negative Normal NEGATIVE [facility] Comment on above: Performed By: #### R UBIGG #### [facility] [address] [address] [address] Alla Peterson TYPE AND SCREENon 08-19-2022 TYPE AND SCREEN Negative Normal [facility] Comment on above: Performed By: #### T NS #### [facility] [address] [address] [address] Alla Peterson US PREG BIOPHY W [...] MICKEY GUZMAN Date: 2022-08-17 15:35 Normal [facility] US PREG BIOPHY W NON STRESSo [...] (previously 27.0 cm). Findings provided to the [facility] nurse by the paper winder at time of examination. Electronically authenticated by: MICKEY GUZMAN Date: 2022-08-16 15:45 Normal [facility] US PREG BIOPHY W NON STRESSo [...] by: BLAS OLIVEIRA Date: 2022-08-12 16:51 Normal [facility] GROUP B STREP CULTUREon S. agalactiae Ag Ql (Unsp spec) Culture Observations: NEGATIVE FOR GROUP B STREPTOCOCCUS. Normal [facility] Comment on above: Performed By: #### P REGQNT #### [facility] [address] [place] [address] Dr. 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 Alla Peterson Clarity (U) CLEAR Normal CLEAR [facility] Comment on above: Performed By: #### R UBIGG #### [facility] [address] [place] [address] Dr. Alla Peterson Color (U) LT. YELLOW Normal YELLOW [facility] Comment on above: Performed By: #### R UBIGG #### [facility] [address] [place] [address] Dr. Alla Peterson Glucose Ql (U) Negative Normal NEGATIVE [facility] Comment on above: Performed By: #### R UBIGG #### [facility] [address] [place] [address] Dr. Alla Peterson Hemoglobin Ql (U) Negative Normal NEGATIVE [facility] Comment on above: Performed By: #### R UBIGG #### [facility] [address] [place] [address] Dr. Alla Peterson Ketones Ql (U) Negative Normal NEGATIVE [facility] Comment on above: Performed By: #### R UBIGG #### [facility] [address] [place] [address] Dr. Alla Peterson LEUKOCYTES Negative Normal NEGATIVE [facility] Comment on above: Performed By: #### R UBIGG #### [facility] [address] [place] [address] Dr. Alla Peterson Nitrite Ql (U) Negative Normal NEGATIVE [facility] Comment on above: Performed By: #### R UBIGG #### [facility] [address] [place] [address] Dr. Alla Peterson pH (U) 7.0 [pH] Normal 5-9 [facility] Comment on above: Performed By: #### R UBIGG #### [facility] [address] [place] [address] Dr. Alla Peterson SPEC GRAVITY 1.005 Normal 1.005-<=1.025 [facility] Comment on above: Performed By: #### R UBIGG #### [facility] [address] [place] [address] Dr. Alla Peterson UA PROTEIN Negative Normal NEGATIVE/ TRACE [facility] Comment on above: Performed By: #### R UBIGG #### [facility] [address] [place] [address] Dr. Alla Peterson UR MICRO IND NOT INDICATED Normal [facility] Comment on above: Performed By: #### R UBIGG #### [facility] [address] [place] [address] Dr. Alla Peterson Urobilinogen Qn (U) 0.2 {José Miguel'U}/dL Normal 0.2 - 1. 0 [facility] Comment on above: Performed By: #### R UBIGG #### [facility] [address] [address] [address] Alla Peterson CBC AUTO DIFFon 04-29-2022 BASO # 0.0 103/ul Normal 0.0-0.1 [facility] Comment on above: Performed By: #### P REGQNT #### [facility] [address] [place] [address] Dr. Alla Peterson Basophils/100 WBC (Bld) 0.1 % Critically low 0.2-2.0 [facility] Comment on above: Performed By: #### P REGQNT #### [facility] [address] [place] [address] Dr. Alla Peterson EO # 0.0 103/ul Normal 0.0-0.7 [facility] Comment on above: Performed By: #### P REGQNT #### [facility] [address] [place] [address] Dr. Alla Peterson Eosinophils/100 WBC (Bld) 0.4 % Critically low 0.9-7.0 [facility] Comment on above: Performed By: #### P REGQNT #### [facility] [address] [place] [address] Dr. Alla Peterson Erythrocyte distribution width (RBC) [Ratio] 13.2 % Normal 11.0-15.0 [facility] Comment on above: Performed By: #### P REGQNT #### [facility] [address] [place] [address] Dr. Alla Pteerson Hematocrit (Bld) [Volume fraction] 38.8 % Normal 36.0-48.0 [facility] Comment on above: Performed By: #### P REGQNT #### [facility] [address] [place] [address] Dr. Alla Peterson Hemoglobin (Bld) [Mass/Vol] 13.2 g/dL Normal 12.0-16.0 [facility] Comment on above: Performed By: #### P REGQNT #### [facility] [address] [place] [address] Dr. Alla Peterson IG # 0.05 10e3/ul Critically high 0.00-0.[address] [facility] Comment on above: Performed By: #### P REGQNT #### [facility] [address] [address] [address] Alla Peterson IG % 0.6 % Critically high 0.0-0.5 [facility] Comment on above: Performed By: #### P REGQNT #### [facility] [address] [address] [address] Alla Peterson LYMPH # 1.2 103/ul Normal 1.2-3.8 [facility] Comment on above: Performed By: #### P REGQNT #### [facility] [address] [address] [address] Alla Peterson Lymphocytes/100 WBC (Bld) 14.7 % Critically low 20.5-60.0 [facility] Comment on above: Performed By: #### P REGQNT #### [facility] [address] [address] [address] Alla Peterson MANUAL DIFF REQ NO Normal [facility] Comment on above: Performed By: #### P REGQNT #### [facility] [address] [address] [address] Alla Peterson MCH (RBC) [Entitic mass] 29.6 pg Normal 26.7-34.0 [facility] Comment on above: Performed By: #### P REGQNT #### [facility] [address] [address] [address] Alla Peterson MCHC (RBC) [Mass/Vol] 34.0 g/dL Normal 29.9-35.2 [facility] Comment on above: Performed By: #### P REGQNT #### [facility] [address] [address] [address] Alla Peterson MCV (RBC) [Entitic vol] 87.0 fL Normal 81.0-99.0 [facility] Comment on above: Performed By: #### P REGQNT #### [facility] [address] [address] [address] Alla Peterson MONO # 0.4 103/ul Normal 0.3-0.8 [facility] Comment on above: Performed By: #### P REGQNT #### [facility] [address] [address] [address] Alla Peterson Monocytes/100 WBC (Bld) 4.3 % Normal 1.7-12.0 [facility] Comment on above: Performed By: #### P REGQNT #### [facility] [address] [address] [address] Alla Peterson NEUT # 6.7 103/ul Critically high 1.4-6.5 [facility] Comment on above: Performed By: #### P REGQNT #### [facility] [address] [place] [address] Dr. Alla Peterson Neutrophils/100 WBC (Bld) 79.9 % Critically high 43.0-75.0 [facility] Comment on above: Performed By: #### P REGQNT #### [facility] [address] [place] [address] Dr. Alla Peterson Platelet mean volume (Bld) [Entitic vol] 9.3 fL Critically low 9.5-13.5 [facility] Comment on above: Performed By: #### P REGQNT #### [facility] [address] [place] [address] Dr. Alla Peterson PLT 251 103/ul Normal 150-450 [facility] Comment on above: Performed By: #### P REGQNT #### [facility] [address] [place] [address] Dr. Alla Peterson RBC 4.46 106/ul Normal 4.20-5.40 [facility] Comment on above: Performed By: #### P REGQNT #### [facility] [address] [address] [address] Alla Peterson WBC 8.3 103/ul Normal 4.0-11.0 [facility] Comment on above: Performed By: #### P REGQNT #### [facility] [address] [place] [address] Dr. Alla Peterson GLUCOSE - 1HRon 04-29-2022 Glucose [Mass/Vol] 86 mg/dL Normal 74-106 [facility] Comment on above: Performed By: #### R UBIGG #### [facility] [address] [place] [address] Dr. Alla Peterson US PREG PLACENTAon US PREG PLACENTA EXAMINATION: US PREG PLACENTA HISTORY: Low lying placenta COMPARISON: 03/25/2022 FINDINGS: Placenta: Posterior fundal. No intraplacental or retroplacental echogenic abnormality is observed The placental edge is 3.1 cm from the internal os Cervix: Closed, 4 cm Heart rate: 147 bpm IMPRESSION: Placental edge 3.1 cm from the internal os Electronically authenticated by: BLAS OLIVEIRA Date: 2022-04-27 16:04 Normal [facility] US PREG ANATOMY SINGLEon US PREG [...] by: BLAS OLIVEIRA Date: 2022-03-25 18:45 Normal [facility] PAP ACOG PANEL 2: 23 to 31on 02-24-2022 . . Normal [facility] Comment on above: Performed By: #### R UBIGG #### [facility] [address] [place] [address] Dr. Alla Peterson Age Gdln ACOG Testing 23- [facility] Comment on above: Performed By: #### R UBIGG #### [facility] [address] [address] [address] Alla Peterson DIAGNOSIS: Comment [facility] Comment on above: Result Comment: NEGA TIVE FOR INTRAEPITHELIAL LESION OR MALIGNANCY. Performed By: #### R UBIGG #### [facility] [address] [place] [address] Dr. Alla Peterson Methodology: Comment Normal [facility] Comment on above: Result Comment: This liquid based ThinPrep(R) pap test was screened with the use of an image guided system. Performed By: #### R UBIGG #### [facility] [address] [place] [address] Dr. Alla Peterson Note: Comment [facility] Comment on above: Result Comment: The Pap smear is a screening test designed to aid in the detection of premalignant and malignant conditions of the uterine cervix. It is not a diagnostic procedure and should not be used as the sole means of detecting cervical cancer. Both false-positive and false-negative reports do occur. . Performed By: #### R UBIGG #### [facility] [address] [address] [address] Alla Peterson Performed by: Comment Normal [facility] Comment on above: Result Comment: Edgar Carrillo, Dehairing Machine Tender (ASCP) Performed By: #### R UBIGG #### [facility] [address] [place] [address] Dr. Alla Peterson Reflex Criteria: Comment [facility] Comment on above: Result Comment: The HPV DNA reflex criteria were not met with this specimen result therefore, no HPV testing was performed. . Performed By: #### R UBIGG #### [facility] [address] [place] [address] Dr. Alla Peterson Specimen adequacy: Comment Normal [facility] Comment on above: Result Comment: Sati sfactory for evaluation. No endocervical component is identified. Performed By: #### R UBIGG #### [facility] [address] [place] [address] Dr. Alla Peterson CHLAMYDIA/GONOCOCCUS GONZÁLEZ (SW AB/URINE/PAPon 02-18-2022 Chlamydia trachomatis, GONZÁLEZ Negative Normal Negative [facility] Comment on above: Performed By: #### C T/NGNA #### [facility] [address] [place] [address] Dr. Alla Peterson Neisseria gonorrhoeae, GONZÁLEZ Negative Normal Negative [facility] Comment on above: Performed By: #### C T/NGNA #### [facility] [address] [place] [address] Dr. Alla Peterson VAGINITIS/VAGINOSIS DNA PROB Marko 02-18-2022 Hilda species Negative Normal Negative [facility] Comment on above: Performed By: #### R UBIGG #### [facility] [address] [place] [address] Dr. Alla Peterson Gardnerella vaginalis Negative Normal Negative [facility] Comment on above: Performed By: #### R UBIGG #### [facility] [address] [place] [address] Dr. Alla Peterson Trichomonas vaginalis Negative Normal Negative [facility] Comment on above: Performed By: #### R UBIGG #### [facility] [address] [place] [address] Dr. Alla Peterson HEP B SURFACE ANTIGEN SCREEN on 02-06-2022 HBsAg Screen Negative Normal Negative [facility] Comment on above: Performed By: #### H BSANS #### [facility] [address] [place] [address] Dr. Alla Peterson HEPATITIS C VIRUS AB W/ REFL EX QUANTon 02-06-2022 HCV AB 0.1 s/co ratio Normal 0.0-0.9 [facility] Comment on above: Performed By: #### H CVPCRR #### [facility] [address] [place] [address] Dr. Alla Peterson Interpretation: Comment Normal [facility] Comment on above: Result Comment: Nega tive Not infected with HCV, unless recent infection is suspected or other evidence exists to indicate HCV infection. Performed By: #### H CVPCRR #### [facility] [address] [place] [address] Dr. Alla Peterson HIV 1 AND 2 WITH REFLEXon HIV Screen 4th Generation wRfx Non-Reactive Normal Non Reactive [facility] Comment on above: Result Comment: HIV Negative HIV-1/HIV-2 antibodies and HIV-1 p24 antigen were NOT detected. There is no laboratory evidence of HIV infection. Performed By: #### H IV12 #### [facility] [address] [place] [address] Dr. Alla Peterson RPR QUANTon 02-06-2022 Rapid Plasma Reagin, Quant Non-Reactive Normal NonRea<1:1 [facility] Comment on above: Result Comment: Kenzie sawyer Note: This test does not meet current guidelines for screening and diagnosis of syphilis. This test is intended for following treatment response in patients being treated for syphilis infection. To screen for syphilis infection, a reflex cascade that includes both RPR and a treponema-specific assay should be utilized, such as Treponema pallidum (Syphilis) Screening [place] (705065) or Rapid Plasma Reagin (RPR) Test With Reflex to Quantitative RPR and Confirmatory Treponema pallidum Antibodies (244576). Performed By: #### R UBIGG #### [facility] [address] [place] [address] Dr. Alla Peterson RUBELLA AB IGGon 02-06-2022 Rubella Antibodies, IgG 3.77 index Normal Immune >0.99 [facility] Comment on above: Result Comment: Non- immune <0.90 Equivocal 0.90 - 0.99 Immune >0.99 Performed By: #### R UBIGG #### [facility] [address] [address] [address] Alla Peterson CBC AUTO DIFFon 02-05-2022 BASO # 0.0 103/ul Normal 0.0-0.1 [facility] Comment on above: Performed By: #### P REGQNT #### [facility] [address] [place] [address] Dr. Alla Peterson Basophils/100 WBC (Bld) 0.3 % Normal 0.2-2.0 [facility] Comment on above: Performed By: #### P REGQNT #### [facility] [address] [place] [address] Dr. Alla Peterson EO # 0.0 103/ul Normal 0.0-0.7 [facility] Comment on above: Performed By: #### P REGQNT #### [facility] [address] [place] [address] Dr. Alla Peterson Eosinophils/100 WBC (Bld) 0.2 % Critically low 0.9-7.0 [facility] Comment on above: Performed By: #### P REGQNT #### [facility] [address] [place] [address] Dr. Alla Peterson Erythrocyte distribution width (RBC) [Ratio] 12.3 % Normal 11.0-15.0 [facility] Comment on above: Performed By: #### P REGQNT #### [facility] [address] [place] [address] Dr. Alla Peterson Hematocrit (Bld) [Volume fraction] 40.1 % Normal 36.0-48.0 [facility] Comment on above: Performed By: #### P REGQNT #### [facility] [address] [place] [address] Dr. Alla Peterson Hemoglobin (Bld) [Mass/Vol] 13.9 g/dL Normal 12.0-16.0 [facility] Comment on above: Performed By: #### P REGQNT #### [facility] [address] [place] [address] Dr. Alla Peterson IG # 0.04 10e3/ul Critically high 0.00-0.[address] [facility] Comment on above: Performed By: #### P REGQNT #### [facility] [address] [place] [address] Dr. Alla Peterson IG % 0.4 % Normal 0.0-0.5 [facility] Comment on above: Performed By: #### P REGQNT #### [facility] [address] [address] [address] Alla Peterson LYMPH # 1.3 103/ul Normal 1.2-3.8 [facility] Comment on above: Performed By: #### P REGQNT #### [facility] [address] [place] [address] Dr. Alla Peterson Lymphocytes/100 WBC (Bld) 13.4 % Critically low 20.5-60.0 [facility] Comment on above: Performed By: #### P REGQNT #### [facility] [address] [place] [address] Dr. Alla Peterson MANUAL DIFF REQ NO Normal [facility] Comment on above: Performed By: #### P REGQNT #### [facility] [address] [place] [address] Dr. Alla Peterson MCH (RBC) [Entitic mass] 29.2 pg Normal 26.7-34.0 [facility] Comment on above: Performed By: #### P REGQNT #### [facility] [address] [place] [address] Dr. Alla Peterson MCHC (RBC) [Mass/Vol] 34.7 g/dL Normal 29.9-35.2 [facility] Comment on above: Performed By: #### P REGQNT #### [facility] [address] [place] [address] Dr. Alla Peterson MCV (RBC) [Entitic vol] 84.2 fL Normal 81.0-99.0 [facility] Comment on above: Performed By: #### P REGQNT #### [facility] [address] [place] [address] Dr. Alla Peterson MONO # 0.5 103/ul Normal 0.3-0.8 [facility] Comment on above: Performed By: #### P REGQNT #### [facility] [address] [place] [address] Dr. Alla Peterson Monocytes/100 WBC (Bld) 5.1 % Normal 1.7-12.0 [facility] Comment on above: Performed By: #### P REGQNT #### [facility] [address] [place] [address] Dr. Alla Peterson NEUT # 8.1 103/ul Critically high 1.4-6.5 [facility] Comment on above: Performed By: #### P REGQNT #### [facility] [address] [place] [address] Dr. Alla Peterson Neutrophils/100 WBC (Bld) 80.6 % Critically high 43.0-75.0 [facility] Comment on above: Performed By: #### P REGQNT #### [facility] [address] [place] [address] Dr. Alla Peterson Platelet mean volume (Bld) [Entitic vol] 9.3 fL Critically low 9.5-13.5 [facility] Comment on above: Performed By: #### P REGQNT #### [facility] [address] [place] [address] Dr. Alla Peterson PLT 240 103/ul Normal 150-450 [facility] Comment on above: Performed By: #### P REGQNT #### [facility] [address] [place] [address] Dr. Alla Peterson RBC 4.76 106/ul Normal 4.20-5.40 [facility] Comment on above: Performed By: #### P REGQNT #### [facility] [address] [place] [address] Dr. Alla Peterson WBC 10.0 103/ul Normal 4.0-11.0 [facility] Comment on above: Performed By: #### P REGQNT #### [facility] [address] [place] [address] Dr. Alla Peterson CULTURE URINEon 02-05-2022 CULTURE URINE Culture Observations : LIGHT GROWTH OF MIXED GENITAL FRANCISCO. NO POTENTIAL PATHOGENS SEEN. Normal [facility] Comment on above: Performed By: #### U RCX #### [facility] [address] [place], [place] [address] Dr. Alla Peterson GLYCOHEMOGLOBIN A1Con 2021 ADA RECOMMENDATION SEE BELOW Normal [facility] Comment on above: Result Comment: ADA RECOMMENDED LIMIT 4.0 - 6.0 ADA THERAPEUTIC TARGET < 7.0 ACTION SUGGESTED > 7.0 Performed By: #### A 1C #### [facility] [address] [place], [place] [address] Dr. Alla Peterson Glucose [Mass/Vol] 97 mg/dL Normal [facility] Comment on above: Performed By: #### A 1C #### [facility] [address] [place], [place] [address] Dr. Alla Peterson HbA1c (Bld) [Mass fraction] 5.0 % Normal 4.5-6.2 [facility] Comment on above: Performed By: #### A 1C #### [facility] [address] [place], [place] [address] Dr. Alla Peterson TYPE AND SCREENon 02-05-2022 TYPE AND SCREEN Negative Normal [facility] Comment on above: Performed By: #### P REGQNT #### [facility] [address] [place], [place] [address] Dr. Alla Peterson US PREG TVon 01-07-2022 [...] MICKEY GUZMAN Date: 2022-01-07 16:17 Normal [facility] PREG QUANT HCGon 09-03-2021 HCG QUANT 1 mIU/mL Normal [facility] Comment on above: Performed By: #### P REGQNT #### [facility] [address] [place] [address] Dr. Alla Peterson HCG RANGE SEE BELOW Normal [facility] Comment on above: Result Comment: 5-50 0-1 WEEK 40-300 1-2 WEEKS 100-1,000 2-3 WEEKS 500-6,000 3-4 WEEKS 5,000-200,000 1-2 MONTHS 10,000-100,000 2-3 MONTHS 3,000-50,000 2ND TRIMESTER 1,000-50,000 3RD TRIMESTER Performed By: #### P REGQNT #### [facility] Laboratory [address] [place] [address] Dr. Alla Peterson PREG QUANT HCGon 08-27-2021 HCG QUANT 9 mIU/mL Normal [facility] Comment on above: Performed By: #### R UBIGG #### [facility] [address] [place] [address] Dr. Alla Peterson HCG RANGE SEE BELOW Normal [facility] Comment on above: Result Comment: 5-50 0-1 WEEK 40-300 1-2 WEEKS 100-1,000 2-3 WEEKS 500-6,000 3-4 WEEKS 5,000-200,000 1-2 MONTHS 10,000-100,000 2-3 MONTHS 3,000-50,000 2ND TRIMESTER 1,000-50,000 3RD TRIMESTER Performed By: #### R UBIGG #### [facility] [address] [place] [address] Dr. Alla Peterson Physical Therapy Noteon 01-09 Physical Therapy Note [id number] Coding Summaryon 09-04-2020 [facility] UhrajthvLFt9fSk+PGhlY WQ+WT4PDDUoW42ljPSucW 6LO4uGMB8TCOGESCYGJZ2 ONZ7khIL6YXeqB4JdfaMg BsidyLLmEY99VIu7CWH7p CbuPDihvM4yuRJzU5v3Oh KvQX53gL64ENkaCJVxDgS 3LjZpbjsgbWFy X6dmEgGcsYPaXka+PHRhY mxlIHdpZHRoPScxMDAlJy SosHmnLH0nZz5dEATjNTK vbGxhcHNlOiBj t1poYXByBKzaJK5uxMfnO 1EpmZL9MMMuk3u5Oe85tV I+HRNyJXH7jSbiLNtol95 1CmPyg6jpBJU4 oIQiSRvaPCH4Z65vr7W7S MCkTZBqSKS6bUU3xA6apW hlresmW7XzpPVpGhD2UJU 4wKFhdQ6icGkj ubbkpV2bAqe+M94QJP9QP BZXKE2HYgj8X5VlNluliW I+BG82VEArIN85zBBcpHA qs1epuRs5GoUf AACjZFE1uYblXZodl2XoK ENkJ38ecZKrz9K3XJKrhY vqoKKxHvKisYU6uC6xOVo xgrvzo7rkiiiy Yoclj0brut78bE10G97cY EjzMBZbSKD3NONrBAFlgI djxo8zyC3lTu8+GPkeu8c qc3lurLl4UgLy YFBekqIrmTwaXGD9g1KnK n72E7AwoAror7DwVrt2uq 23cPHhx1W3qZL1NPspDYB xxO1kMAyjPjM4 UPOrJoPhrC68mHCsUHvpV k5jxHozySzsTC0tPWEydp sgFIYtsC3sTPTfkYAbhKm ePS6qUIDxqflb u191ObPiBIP4QSNjgUVdL 7LpkZ5xSdAaQCGfZCGxL7 TsmBVgWFwiE346WMopOtV 6QMDhbzXwP0Pv CLVcoMyjUsQ0u8T0Ng0Wx 7ZugdsyRMZ7JKciWZK8Ha E8IhFuWjD1I4NhSos2NUM inNffDO2aS5Zc QVAootophwartND9WICaH GMioD95aTNmQXafBv9bb5 P8n059XNHyGXMejM16Vr6 udDogMTBwdCBU xF0kyiymw7ptuygzKzNxE FKwJNg3JLw0BVNgvZprBg OeSTT7WlP8EAD1rSLtsC6 qyFaeraigeR1t Oyc+Z08grO4rGNQ3DGD1j beiHSYkruLeUI80TX29W9 RyPjwvdGFibGU+PGRpdiB wsJeoCQ4qZrWz b5xnj4KeKIatD5QcLSSaT PchLcw8EDZlKFP1vZN6cT 2vMAHmBFnop5K3kWV6Z9O bneQbcp0or1kh PWUxJXvbC88knQVmi3F6O OJdwHA4LXPewXntOiQixQ 93Oyc+BRDgdRkog9LdKhv vw7ufc0baiYf5 GaBdODSjghKuxTsnDPO6t 9XfCl08S85dQKbcIKErDF BtXOBiPCFyrFawcg5sfD0 wIi8+PGNvbCB3 oTY5xV3vOUHrBcU5VPpdZ 681OhWoqRUcWyusk7lmw5 azfYe0GqRgRPTlopWzzIs kJNN0a7VeWh05 W82nPZcrOMAjGPMjDIBsZ CMdmHqamo3avP5wXi8+PC 0kd0zngm89kU05tRP+PHR jCBH0bYfmECgl AGQozR5bTYsxSjY6QOMaY xZsfT07zDYcHJgnWy6dpJ fkwEeuSR0jCDJmxdtlh27 2DcDqi9vlUKPv ySAkJWnsMPA8S44tv5R5R BSmMMRyCTQ1kVZ7jA7nnT lnbjogbGVmdDsgdmVydGl dWShiIPfhC793 IHRvcDsnPlBhdGllbnQgT xSdOTg7Y4FlYfh5ZJXrmH ioEZ2gdUVhOYafSv9fsPf tkBmkFC5xDVJl zeuyj544KuQbz4qrTYFjr CTxIWnkAUG6Q22hi9L3BN McCHMgWSK9sAC6lJ0sdAn nbjogbGVmdDsg qxEdbPovEUcxHGtdP375F HRvcDsnPkJpcnRoIERhdG G9VC04QL60zLXui1G8xAR 4C9WvGDGsqhcx bdtztWW5XCTkQTRwdE73P n2gzMsiDj1oYPPoSYL6ED RvaESyM8ZdvO7bWyJkAVW mQKKwG8NryCFa BDlkF158WSgoLsW0CENis zUhE1MiBLVcjGnyRvD0w1 G4Ws7KF2J2SH08AK61nLG go9F3xPQ8C1Lc ZETnnllffhhmxLC9LGIkQ KMedO80Dr9qwMnuGb0vXC NcHKR6REJspRSgZ8DrnQ4 yOiAjMDAwMDAw S7EhcWSaUEltV156ZJbfX uJ2EMRdkrYlR4OnCOXyxT akKwO5y2V6Cf8ZWDn3NG2 9OD84jPMtp4A1 dHJ9O4ZdNTTmgtuyfkeve UI6KKUhIWPijV52Cw0xtW ykQe5zAFKjZGX7XOFszZT vU5GpkJ4sJbQf ITRdTQWkP6ZuzJSxSQsiX 194NToxKxG5EMWbnmNrX5 FmNXFthLbtSbW6u2Q3Aa6 AKGTlJH02GKB2 uQO6QO71FK19J6EiLfmuk GFibGU+PHRhYmxlIHdpZH RoPScxMDAlJyBzdHlsZT0 yYf0bAUGkMLMr sWszbOVxSfMjz9vySUZfQ CovOM6rfQefC9DntEB6RQ Gqj1i7Yi46A83uA7XvrVV +ROWvgVC9dPF0 gP9hJiUeEjC2JKbkR611P vZckPYjDcuuw1gsr3wrnL h3TnT9AJTkxvKqsYumPOP 1d8JvUw98X10v IHdpZHRoPSIxNSUiIHZhb Wmbup7lnR1iRo2+PGNvbC T4lDH3jQ5lEeLmXnE0JJh wT571JkYtgPPx Aatvd8iva4rqaHp1JuHxR CRkbkYpaLkjGHX1s9TtWv 35U8EkhBloc9XwNks1sb5 7wISzx7N4iMT8 N2BiGYHrgdzeiNGfiAadL W9sWIAefrqwKHKmqJ5dPO HuT5q3HnHuCcG1GOnnS1Q hjpX0HKTyrDHf XFugMSI1Y13oo5W6OQZnV FJaRKU2bHK5oN2muJqagc ogbGVmdDsgdmVydGljYWw nBXobB042QSFy qOwrXGTfiT2yZNIcbSHam TriCO0rTTIyquevUsoGKX 2YE81nTD1JHkaEWeMCJEk 7S8IdTsl1OJBo eBvlXL7jwBDrKGuwYp0at NvyfUcoLU7vQJWetohdQZ RymA5oLCFaaQUtmCjdOY9 dVNMguabbk417 EoBnJIT2HKNqnQUgU7Kmn A6hGzYtEXZqDMGyP2RzsZ VeKNdkA242SCbwZkJ6QJN ceeLjR8MdUQXf wWbyCtB1a9L4Wp8fYK3dV Y3sAZemCB98VU69rUEmb0 T4qVM0X4RxMLGmtggmeik crJX6UYChOIIf gX78hRYzOCzoSp3av9H9l 245WNQtDXDmcB87Hw8crM jtRMVmuSGTbP3ujrfza9y vcjogIzAwMDAw JMu7PEu7PYVxfZrvKnBqD TD3InE4WAK2dIYxaF4zyQ tfdorhfW6zHfg+MjggWWV ddxV1O8EwHwh6 UPBnoZnwZR1ejNJsRPguG v9dzJidvSodLO5mPGTurc fvXCYrsD5nCNNzkQRjuNj aAO9cBVHveudz q633AaTgKEQ2XUQurSKzZ 6NfnP1aLaAjKVDxLZKtS7 KsqJKwLLpfO483XFomOgK 4PATiueStX0Ji WJLjqDhyWnE7w4K0Lb5PL R3DYAC1B0GiKci3JFCynQ vmQE2ucSAeNYhyEt0fbCt chOanTR4aEGMu itlhNQEegX0sONNtyHMkv GzhQJ9tHKSzmsstn146Hm RqJNT8IKManVWzY1BmlT7 yOiAjMDAwMDAw R9OtaJRtKXkeS103RHxuL cG7KVUmwgUqZ0SsMXEgqH hiAeF7o6Y2Zp4IBAB5zgJ xrmnvL5Z4wLL5 aWVudDwvdGQ+FK96on82M 3WfQygqHfu6LQMrHQQ6pR G7iM0xBHYnMVsau1P3oOE 0C1OudnXglr0j d0vwCBNkUYgfM13puILyd 5S9CMShvTH6NOIaxRbeKs RciF54Wpj+AMQjuWmqc8I gSagyr1zmf9wk mGq4AzZkXMGvfrSbbKeqE OH5h5IoVh32H59lGAypJH RoPSIzMCUiIHZhbGlnbj0 dwH8rQk8+PGNv lOS3xJA1tH3aEaDsXyQ4P EkrC068FwGqwEOiLwqhx1 ger9lrwLh3WpNzFLXxsmG odFqnCTF9o5Ly Zm17Q3QrlSsfh0StDhq8o w24iKNok4J5qHN7K5BcWH NxqljxxUDigSnjWW8oVHS cuaieZFDhbS3d MEUwV0g3QrPzDjP2IEdpQ 3JyslY6UKUziHYfDXHdtA IZpO3drvcne3zmqcrpYjK fXZYyTTv3QFw2 RLItyDukQjOeMWD1YvP3I JI1vLYadG6fxGjyitukuX 9wOyc+EAg3d4gfnUCyEM0 dyNO0HI56LS71 iFBgy3X1cPR8L8GfIITxi bmtyqoidJK0UBMnZEZebR 70Kc4dlLimOr3sRZZfJTN 4WAWtsQHjN6Hy eL3nAvHrOLPkEGGnO2Dce PGyHLzwI814UPoyWpD3GO HgbuZnY9YbLUQmaEryBvQ 6d5D1Kk2ZJA73 ZX67YI76hEQxv9L5fNJ0U 8HgVVKwpbegplersNR6JH IkAEZzsN95Ot7vrFzoIj3 nIHXdWLU0ERXu iFIrD4AjhU7pVlRmWNHpJ OWzH2YdfZJqHRbqY902AN gzVnB7NODmxdUaK2OrCNP hyJxfDuF2c5T5 Pr4AGp70PI48SA46hUNgu 3W7wHP7O0NgVLFylnmlkr fjaNW8CMUsGESlbA18Yc8 plTihSr0wCNAc FLF2MTBkvUYaD0UgeJ6uY kDbWNLuWXWyM1QtzIAeFX qkG928OZodAyP9YQBjdoJ oP0KpTWZmkKzf JdV7k8X3Pt5IJPctrof5K 3RkPjwvdHI+HU24IBTuXG 74sJFueRXct3nmmDg5BvX qYWKkMUN6pRto PSd (more content not included)... Normal [facility] Consent Formson 09-02-2020 Consent Forms [id number] [facility]-2020 Provider Orders [id number] .[facility] Vital Signs Date Time Vital Sign Value Performing Clinician Faci lity 05-24-2024 14:03-0500 Body mass index (BMI) [Ratio] 35.48 kg/m2 Agata Maricruz DO Work Phone: [facility] 05-24-2024 14:03-0500 Body weight 89.41 kg Agata Maricruz DO Work Phone: [facility] 05-24-2024 14:03-0500 Diastolic blood pressure 72 mm[Hg] Agata Maricruz DO Work Phone: [facility] 05-24-2024 14:03-0500 Systolic blood pressure 116 mm[Hg] Agata Maricruz DO Work Phone: [facility] 05-17-2024 11:23-0500 Body mass index (BMI) [Ratio] 35.24 kg/m2 Agata Maricruz DO Work Phone: [facility] 05-17-2024 11:23-0500 Body weight 88.81 kg Agata Maricruz DO Work Phone: [facility] 05-17-2024 11:23-0500 Diastolic blood pressure 76 mm[Hg] Agata Maricruz DO Work Phone: [facility] 05-17-2024 11:23-0500 Systolic blood pressure 118 mm[Hg] Agata Maricruz DO Work Phone: [facility] 05-09-2024 13:53-0500 Body mass index (BMI) [Ratio] 35.42 kg/m2 Tia SÁNCHEZ Work Phone: [facility] 05-09-2024 13:53-0500 Body weight 89.27 kg Tia Ken PA Work Phone: [facility] 05-09-2024 13:53-0500 Diastolic blood pressure 68 mm[Hg] Tia Bowie PA Work Phone: [facility] 05-09-2024 13:53-0500 Systolic blood pressure 120 mm[Hg] Tia Ken PA Work Phone: [facility] 05-02-2024 12:00-0500 Body mass index (BMI) [Ratio] 34.92 kg/m2 Agata Maricruz DO Work Phone: [facility] 05-02-2024 12:00-0500 Body weight 88 kg Agata Maricruz DO Work Phone: [facility] 05-02-2024 12:00-0500 Diastolic blood pressure 70 mm[Hg] Agata Maricruz DO Work Phone: [facility] 05-02-2024 12:00-0500 Systolic blood pressure 116 mm[Hg] Agata Maricruz DO Work Phone: [facility] 04-17-2024 09:50-0500 Body mass index (BMI) [Ratio] 34.92 kg/m2 Tia Ken PA Work Phone: [facility] 04-17-2024 09:50-0500 Body weight 88 kg Tia Ken PA Work Phone: [facility] 04-17-2024 09:50-0500 Diastolic blood pressure 74 mm[Hg] Tia Bowie PA Work Phone: [facility] 04-17-2024 09:50-0500 Systolic blood pressure 118 mm[Hg] Tia Bowie PA Work Phone: [facility] 03-29-2024 10:32-0500 Body mass index (BMI) [Ratio] 34.4 kg/m2 Agata Maricruz DO Work Phone: [facility] 03-29-2024 10:32-0500 Body weight 86.68 kg Agata Maricruz DO Work Phone: [facility] 03-29-2024 10:32-0500 Diastolic blood pressure 72 mm[Hg] Agata Maricruz DO Work Phone: [facility] 03-29-2024 10:32-0500 Systolic blood pressure 112 mm[Hg] Agata Maricruz DO Work Phone: [facility] 03-14-2024 14:03-0500 Body mass index (BMI) [Ratio] 34.38 kg/m2 Tia Ken PA Work Phone: [facility] 03-14-2024 14:03-0500 Body weight 86.64 kg Tia Ken PA Work Phone: [facility] 03-14-2024 14:03-0500 Diastolic blood pressure 68 mm[Hg] Tia Ken PA Work Phone: [facility] 03-14-2024 14:03-0500 Systolic blood pressure 110 mm[Hg] Tia Rogers PA Work Phone: [facility] 02-14-2024 14:02-0500 Body mass index (BMI) [Ratio] 34.02 kg/m2 Agata Maricruz DO Work Phone: [facility] 02-14-2024 14:02-0500 Body weight 85.73 kg Agata Maricruz DO Work Phone: [facility] 02-14-2024 14:02-0500 Diastolic blood pressure 70 mm[Hg] Agata Maricruz DO Work Phone: [facility] 02-14-2024 14:02-0500 Systolic blood pressure 112 mm[Hg] Agata Maricruz DO Work Phone: [facility] 01-17-2024 14:24-0400 Body mass index (BMI) [Ratio] 32.94 kg/m2 Tia Ken PA Work Phone: [facility] 01-17-2024 14:24-0400 Body weight 83.01 kg Tia Ken PA Work Phone: [facility] 01-17-2024 14:24-0400 Diastolic blood pressure 78 mm[Hg] Tia SÁNCHEZ Work Phone: [facility] 01-17-2024 14:24-0400 Systolic blood pressure 118 mm[Hg] Tia SÁNCHEZ Work Phone: [facility] 12-19-2023 11:53-0400 Body mass index (BMI) [Ratio] 32.36 kg/m2 Tia SÁNCHEZ Work Phone: [facility] 12-19-2023 11:53-0400 Body weight 81.56 kg Tia SÁNCHEZ Work Phone: [facility] 12-19-2023 11:53-0400 Diastolic blood pressure 60 mm[Hg] Tia SÁNCHEZ Work Phone: [facility] 12-19-2023 11:53-0400 Systolic blood pressure 100 mm[Hg] Tia SÁNCHEZ Work Phone: [facility] Healthcare Encounters Encounter Date Encounter Type Care Provider Facility Start: 05-24-2024 End: 05-24-2024 flow sheet Agata Maricruz DO Work Phone: [facility] Comment on above: Third trimester preg carmen; 38 weeks gestation of ; Other chronic sinusitis Start: 05-24-2024 End: 05-24-2024 ambulatory AGATA MARICRUZ Not Available Start: 05-17-2024 End: 05-17-2024 Bamboo flowsheet Agata Maricruz DO Work Phone: [facility] Start: 05-17-2024 End: 05-17-2024 Bamboo flowsheet Agata Maricruz DO Work Phone: [facility] Start: 05-17-2024 End: 05-17-2024 ambulatory AGATA MARICRUZ Not Available Start: 05-17-2024 End: 05-17-2024 flow sheet Agata Maricruz DO Work Phone: [facility] Comment on above: Third trimester preg carmen; 37 weeks gestation of Start: 05-09-2024 End: 05-09-2024 Bamboo flowsheet Tia SÁNCHEZ Work Phone: [facility] Start: 05-09-2024 End: 05-09-2024 Bamboo flowsheet Tia SÁNCHEZ Work Phone: [facility] Start: 05-09-2024 End: 05-09-2024 ambulatory TIA ROGERS Not Available Start: 05-09-2024 End: 05-09-2024 flow sheet Tia SÁNCHEZ Work Phone: [facility] Comment on above: 36 weeks gestation o f ; Third trimester Start: 05-02-2024 End: 05-02-2024 Bamboo flowsheet Agata Maricruz DO Work Phone: [facility] Start: 05-02-2024 End: 05-07-2024 Bamboo flowsheet Agata Maricruz DO Work Phone: [facility] Start: 05-02-2024 End: 05-07-2024 Clinisync Result Encounter Agata Maricruz DO Work Phone: [facility] External Department Unsolicited Start: 05-02-2024 End: 05-02-2024 ambulatory AGATA MARICRUZ Not Available Start: 05-02-2024 End: 05-02-2024 flow sheet Agata Maricruz DO Work Phone: [facility] Comment on above: Third trimester preg cramen; 35 weeks gestation of Start: 04-17-2024 End: 04-17-2024 Bamboo flowsheet Tia SÁNCHEZ Work Phone: [facility] Start: 04-17-2024 End: 04-17-2024 Bamboo flowsheet Tia SÁNCHEZ Work Phone: [facility] Start: 04-17-2024 End: 04-17-2024 ambulatory TIA ROGERS Not Available Start: 04-17-2024 End: 04-17-2024 flow sheet Tia SÁNCHEZ Work Phone: [facility] Comment on above: Third trimester preg carmen; 33 weeks gestation of Start: 04-12-2024 End: 04-12-2024 ambulatory AGATA MARICRUZ Not Available Start: 03-29-2024 End: 03-29-2024 Bamboo flowsheet Agata Maricruz DO Work Phone: [facility] Start: 03-29-2024 End: 03-29-2024 Bamboo flowsheet Agata Maricruz DO Work Phone: [facility] Start: 03-29-2024 End: 03-29-2024 ambulatory AGATA MARICRUZ Not Available Start: 03-29-2024 End: 03-29-2024 flow sheet Agata Maricruz DO Work Phone: [facility] Comment on above: Third trimester preg carmen; 30 weeks gestation of ; Size of fetus inconsistent with dates in third trimester Start: 03-14-2024 End: 03-14-2024 Bamboo flowsheet Tia SÁNCHEZ Work Phone: [facility] Start: 03-14-2024 End: 03-14-2024 Bamboo flowsheet Tia SÁNCHEZ Work Phone: [facility] Start: 03-14-2024 End: 03-14-2024 ambulatory TIA ROGERS Not Available Start: 03-14-2024 End: 03-14-2024 flow sheet Tia SÁNCHEZ Work Phone: [facility] Comment on above: Muscle cramps (Prima ry Dx); Third trimester ; 28 weeks gestation of Start: 02-17-2024 End: 02-17-2024 Clinisync Result Encounter Agata Maricruz DO Work Phone: [facility] External Department Unsolicited Start: 02-17-2024 End: 02-17-2024 [...] flow sheet Agata Maricruz DO Work Phone: [facility] Comment on above: Second trimester pre gnancy; 23 weeks gestation of ; Diabetes mellitus screening Start: 01-17-2024 End: 01-17-2024 flow sheet Tia SÁNCHEZ Work Phone: [facility] Comment on above: Second trimester pre gnancy; 20 weeks gestation of Start: 01-17-2024 End: 01-17-2024 ambulatory TIA ROGERS Not Available Start: 01-17-2024 End: 01-17-2024 Bamboo flowsheet Tia SÁNCHEZ Work Phone: [facility] Start: 01-17-2024 End: 01-17-2024 Bamboo flowsheet Tia SÁNCHEZ Work Phone: [facility] Start: 12-19-2023 End: 12-19-2023 Bamboo flowsheet Tia SÁNCHEZ Work Phone: [facility] Start: 12-19-2023 End: 12-20-2023 Bamboo flowsheet Tia SÁNCHEZ Work Phone: [facility] Start: 12-19-2023 End: 12-20-2023 External Result Encounter Tia SÁNCHEZ Work Phone: [facility] External Department Unsolicited Start: 12-19-2023 End: 12-19-2023 ambulatory TIA ROGERS Not Available Start: 12-19-2023 End: 12-19-2023 flow sheet Tia SÁNCHEZ Work Phone: [facility] Comment on above: 16 weeks gestation o f ; Screening, , for anatomic survey; Exposure to STD; Vaginal discharge Start: 11-21-2023 End: 11-21-2023 ambulatory AGATA MARICRUZ Not Available Start: 10-06-2023 End: 10-06-2023 ambulatory AGATA ALCANTARA Not Available Start: 12-16-2022 End: 12-17-2022 ambulatory PHYSICIAN NO [facility] Work Phone: Start: 12-16-2022 End: 12-16-2022 Discharged Recurring PHYSICIAN NO [facility] [address] Start: 10-19-2022 Orders Only Segundo sepulveda DO Work Phone: Cardiology Comment on above: Syncope, unspecified syncope type (Primary Dx); Dizziness; SOB (shortness of breath) Start: 10-14-2022 Telephone encounter Segundo Alba DO Work Phone: Cardiology Comment on above: Appointment Start: 10-07-2022 Telephone encounter Segundo Hubbardcarol DO Work Phone: Cardiology Comment on above: Received Referral an d Outside Medical Records Start: 08-23-2022 End: 08-23-[address] AGATA ALCANTARA . Facility: Start: 08-19-2022 End: 08-20-2022 Evaluation and management of inpatient DR AGATA ALCANTARA . Facility:[facility] Start: 08-17-2022 End: 08-17-[address] AGATA ALCANTARA . Facility:[facility] Start: 08-16-2022 End: 08-16-[address] JANET BERMAN . Facility: Start: 08-12-2022 End: 08-12-[address] BLAS OLIVEIRA Facility:[facility] Start: 07-14-2022 End: 07-14-[address] AGATA ALCANTARA . Facility:[facility] Start: 07-08-2022 End: 07-09-[address] AGATA ALCANTARA . Facility:[facility] Start: 04-30-2022 End: 04-30-2022 ambulatory JOHN CORONADO Facility:[facility] Start: 04-29-2022 End: 04-30-[address] AGATA ALCANTARA . Facility:[facility] Start: 04-26-2022 End: 04-27-[address] BLAS OLIVEIRA Facility:[facility] Start: 03-25-2022 End: 03-26-[address] NONE LISTED REQUEST Facility:[facility] Start: 02-16-2022 End: 02-16-[address] AGATA ALCANTARA . Facility:[facility] Start: 02-05-2022 End: 02-06-[address] AGATA ALCANTARA . Facility:[facility] Start: 01-07-2022 End: 01-08-[address] AGATA ALCANTARA . Facility:[facility] Start: 09-03-2021 End: 09-04-2021 ambulatory MEHDI ALEX . Facility:[facility] Start: 08-27-2021 End: 08-28-[address] AGATA ALCANTARA . Facility:[facility] Start: 07-18-2017 End: 07-19-2017 Ambulatory DEFAULT PHYSICIAN Facility:[facility] Procedures Date Procedure Procedure Detail Performing Clinician Start: 05-09-2024 Urnls dip stick/tabl et rgnt non-auto w/o micrscp Tia SÁNCHEZ Work Phone: Start: 05-02-2024 ALL MISCELLANEOUS TEST Agata Maricruz DO Work Phone: Start: 04-17-2024 Urnls dip stick/tabl et rgnt [...] Treatment Date Care Activity Detail Author Start: 05-31-2024 End: 05-31-2024 Patient encounter procedure 05/31/2024 10:30 AM EST Routine [facility] [address] [facility] [place] [id number] Agata Alcantara, DO [address] [place] [address] [facility] Start: 05-24-2024 End: 05-24-2024 Patient encounter procedure 05/24/2024 11:00 AM EST Routine [facility] [address] [place] [id number] Agata Alcantara, DO [address] [place] [address] [facility] Start: 05-17-2024 End: 05-17-2024 Patient encounter procedure 05/17/2024 11:00 AM EST Routine [facility] [address] [facility] [place] [phone] Agata Alcantara DO [address] [place] [address] [facility] Start: 05-09-2024 End: 05-09-2024 Patient encounter procedure 05/09/2024 1:40 PM EST Routine [facility] [address] [facility] [place] [phone] Tia Rogers PA [address] [facility] [place] [address] [facility] Start: 05-02-2024 End: 05-02-2025 CULTURE, GROUP B STREP WITH SUSCEPTIBLITY CULTURE, GROUP B STREP WITH SUSCEPTIBLITY Lab Routine Third trimester Expected: 05/02/2024, Expires: 05/02/2025 [facility] Work Phone: Comment on above: Expected: 05/02/2024 , Expires: 05/02/2025 Start: 04-17-2024 End: 04-17-2024 Patient encounter procedure 04/17/2024 9:20 AM EST Routine [facility] [address] [facility] [place] [phone] Tia Rogers PA [address] [place] [address] [place] [address] [facility] Start: 03-29-2024 End: 03-29-2025 US for US OB SCAN FOR GROWTH Imaging Routine Size of fetus inconsistent with dates in third trimester Expected: 03/29/2024 (Approximate), Expires: 03/29/2025 [facility] Work Phone: Comment on above: Expected: 03/29/2024 (Approximate), Expires: 03/29/2025 Start: 03-29-2024 End: 03-29-2024 Patient encounter procedure 03/29/2024 10:00 AM EST Routine [facility] [address] [facility] [place] [phone] Agata Alcantara DO [address] [facility] [place] [place] [address] [facility] Start: 03-14-2024 End: 03-14-2024 Patient encounter procedure 03/14/2024 1:30 PM EST Routine [facility] [address] [facility] [place] [phone] Tia Rogers PA [address] [facility] [address] [place], [place] [id number] [facility] Start: 02-14-2024 End: 02-13-2025 CBC panel - Blood by Automated count CBC Lab Routine Diabetes mellitus screening Expected: 02/14/2024 (Approximate), Expires: 02/13/2025 [facility] Work Phone: Comment on above: Expected: 02/14/2024 (Approximate), Expires: 02/13/2025 Start: 02-14-2024 End: 02-13-2025 Measurement of glucose 1 hour after glucose challenge for glucose tolerance test Glucose tolerance, 1 hour Lab Routine Diabetes mellitus screening Expected: 02/14/2024 (Approximate), Expires: 02/13/2025 [facility] Comment on above: Expected: 02/14/2024 (Approximate), Expires: 02/13/2025 Start: 02-14-2024 End: 02-14-2024 Patient encounter procedure 02/14/2024 1:20 PM EST Routine [facility] [address] [facility] [place] [phone] Agata Alcantara, DO [address] [place] [address] [facility] Start: 01-17-2024 End: 01-17-2024 Patient encounter procedure [facility] Comment on above: Arrived Start: 01-17-2024 End: 01-17-2024 Professional / ancillary services management 01/17/2024 1:00 PM EDT Ancillary Procedure [facility] [address] [facility] [place] [phone] [facility] Start: 12-19-2023 End: 02-18-2024 Alpha fetoprotein, maternal Alpha fetoprotein, maternal Lab Routine 16 weeks gestation of Expected: 12/19/2023 (Approximate), Expires: 02/18/2024 [facility] Comment on above: Expected: 12/19/2023 (Approximate), Expires: 02/18/2024 Start: 12-19-2023 End: 09-09-2025 US for US OB ANATOMY SINGLE W US OB CERVICAL LENGTH Imaging Routine Screening, , for anatomic survey Expected: 12/19/2023 (Approximate), Expires: 12/18/2024 [facility] Comment on above: Expected: 12/19/2023 (Approximate), Expires: 12/18/2024 Start: 10-19-2022 End: 10-20-2023 ECG COMPLETE ECG COMPLETE ECG Routine Syncope, unspecified syncope type Dizziness SOB (shortness of breath) Expected: 10/19/2022, Expires: 10/20/2023 [facility] Work Phone: Comment on above: Expected: 10/19/2022 , Expires: 10/20/2023 Cardiovascular funct ion eval w/tilt table w/mntr TILT TABLE EVALUATION Cardiology Routine Syncope, unspecified syncope type Ordered: 10/19/2022 [facility] Work Phone: Comment on above: Ordered: 10/19/2022 CHLAMYDIA TRACHOMATI S (GENITO/STI) CHLAMYDIA TRACHOMATIS (GENITO/STI) Lab Routine Exposure to STD Ordered: 12/19/2023 [facility] Comment on above: Ordered: 12/19/2023 Neisseria gonorrhoea e DNA [Presence] in Unspecified specimen by GONZÁLEZ with probe detection Neisseria gonorrhea DNA probe, direct Lab Routine Exposure to STD Ordered: 12/19/2023 [facility] Comment on above: Ordered: 12/19/2023 SURESWAB(R) ADVANCED VAGINITIS PLUS, TMA SURESWAB(R) ADVANCED VAGINITIS PLUS, TMA Pathology and Cytology Routine Vaginal discharge Ordered: 12/19/2023 [facility] Work Phone: Comment on above: Ordered: 12/19/2023 Payers Date Payer Category Payer Self-pay 2022 Private Health Insurance [employer] [id number] 2022 Unknown 2022 Medicaid MEDICAID MCP GEN [place] MEDICAID MCP GENERIC [id number] 2022-Present [phone] [address] [place] [address] Medicaid [id number] 1992 Unknown [id number] 1992 Unknown [id number] .[id number] 1992 Unknown [id number] .[id number] 1992 Unknown [id number] .[id number] 1992 Unknown [id number] .[id number] 1992 Unknown [id number] .2.593 1992 Unknown [id number] .[id number] 1992 Unknown [id number] 2.16.840.1.073117.3.579 .2.593 1992 Unknown [id number] 2.16.840.1.178894.3.579 .2.593 1992 Unknown [id number] 2.16.840.1.924127.3.579 .2.593 1992 Unknown [id number] 2.16.840.1.398656.3.579 .2.593 1992 Unknown [id number] 2.16.840.1.185654.3.579 .2.59 1992 Unknown [id number] 2.16.840.1.876629.3.579 .2.59 1992 Unknown [id number] 2.16.840.1.762800.3.579 .2.59 1992 Unknown [id number] 2.16.840.1.463959.3.579 .2.59 1992 Unknown [id number] 2.16840.1.425691.3.579 .2.59 1992 Unknown [id number] 2.16840.1.085105.3.579 .2.1258 1992 Unknown [id number] 2.16840.1.858273.3.579 .2.1258 1992 Unknown [id number] 2.840.1.201294.3.579 .2.1258 1992 Unknown [id number] 2.840.1.972793.3.579 .2.1258 1992 Unknown [id number] 2.840.1.325548.3.579 .2.1258 1992 Unknown [id number] 2.16840.1.599825.3.579 .2.1258 1992 Unknown [id number] 2.840.1.477161.3.579 .2.1258 1992 Unknown [id number] 2.16840.1.666890.3.579 .2.1258 1992 Unknown [id number] 2.16840.1.548749.3.579 .2.1258 1992 Unknown [id number] 2.16840.1.378805.3.579 .2.1258 1992 Unknown [id number] 2.16840.1.995835.3.579 .2.1258 1992 Unknown [id number] 2.16840.1.688074.3.579 .2.1259 1992 Unknown [id number] 2.16.840.1.070675.3.579 .2.1259 1959 Unknown [id number] Unknown [id number] 2.16.840.1.443641.3.579 .2.531 Social History Date Type Detail [facility] Start: 1990 Sex Assigned At Not on file [facility] Start: 03-02-2023 End: 01-17-2024 Gender identity Not on file [facility] Start: 1990 Sex Assigned At Female F [facility] Start: 03-02-2023 End: 01-17-2024 Tobacco smoking status [facility] Never smoked tobacco [facility] Start: 11-21-2023 [...] tobacco non-user [facility] Start: 01-17-2024 End: 05-09-2024 Alcoholic beverage intake Ex-drinker (finding) [facility] Clinical Notes 09-02-2020 to 05-24-2024 Katelyn Keating LPN - 05/24/2024 1:50 PM All Keating LPN - 05/17/2024 11:00 AM PRINCESS Quinonez - 05/09/2024 1:40 PM Devang Crystal LPN - 05/02/2024 11:30 AM EST Note Date & Type Note Facility 05-24-2024 History of Presen t illness Narrative Reason for Appointment: Patient ID: Sabine Pardo is a 33 y.o. female who presents for Routine Visit Patient presents today for Return OB appointment. MEDICATIONS Current Outpatient Medications Medication Instructions azithromycin (Zithromax Z-Matt) 250 MG tablet As directed MAGnesium-Oxide 400 mg, Daily MV-Min-Fe Fum-FA-DHA ( 1 PO) 1 each, Daily ALLERGIES No Known Allergies PROBLEMS Active [...] Constitutional: Appearance: Normal appearance. She is well-developed. Genitourinary: Vulva normal. Cardiovascular: Rate and Rhythm: Normal rate and [...] nursing note reviewed. Exam conducted with a driller brake lining present. Vitals: Estimated body mass index is 35.48 kg/m as calculated from the following: Height as of 6/22/23: 5' 2.5 . Weight as of this encounter: 197 lb 1.9 oz. BP: 116/72 Patient's last menstrual period was 07/29/2023. ASSESSMENT & PLAN ICD-10-CM 1. Third trimester Z34.93 2. 38 weeks gestation of Z3A.38 3. Other chronic sinusitis J32.8 azithromycin (Zithromax Z-Matt) 250 MG tablet Patient presents today for a routine obstetrics appointment. Patient is currently 38w6d with a Estimated Date of Delivery: 06/01/24. Patient aware z-matt sent to pharmacy for sinus infection if needed. Patient to return to clinic in 1 week for routine OB appointment. Discussed what IOL would look like if/when patient decides. Documented by Katelyn Keating LPN on behalf of: Agata Alcantara DO documented in this encounter [facility] 05-17-2024 History of Presen t illness Narrative Reason for Appointment: Patient ID: Sabine Pardo is a 33 y.o. female who presents for Routine Visit Patient presents today for Return OB appointment. MEDICATIONS Current Outpatient Medications Medication Instructions MAGnesium-Oxide 400 mg, Daily MV-Min-Fe Fum-FA-DHA ( 1 PO) 1 each, Daily ALLERGIES No Known Allergies PROBLEMS Active [...] Constitutional: Appearance: Normal appearance. She is well-developed. Genitourinary: Vulva normal. Cardiovascular: Rate and Rhythm: Normal rate and [...] nursing note reviewed. Exam conducted with a driller brake lining present. Vitals: Estimated body mass index is 35.24 kg/m as calculated from the following: Height as of 09/30/22: 5' 2.5 . Weight as of this encounter: 195 lb 12.8 oz. BP: 118/76 Patient's last menstrual period was 07/29/2023. ASSESSMENT & PLAN ICD-10-CM 1. Third trimester Z34.93 2. 37 weeks gestation of Z3A.37 Patient presents today for a routine obstetrics appointment. Patient is currently 37w6d with a Estimated Date of Delivery: 06/01/24. Patient to have IOL on 06/08/24 unless she goes in to labor sooner. Pelvic exam performed and patient is currently 1-2cm and still 50%. Patient to return to clinic in 1 week for return OB appointment. Documented by Katelyn Keating LPN on behalf of: Agata Alcantara DO documented in this encounter [facility] 05-09-2024 History of Presen t illness Narrative Reason for Appointment: Patient ID: Sabine Pardo is a 33 y.o. female who presents for Routine Visit Patient presents today for Return OB appointment. MEDICATIONS Current Outpatient Medications Medication Instructions MAGnesium-Oxide 400 mg, Daily MV-Min-Fe Fum-FA-DHA ( 1 PO) 1 each, Daily ALLERGIES No Known Allergies PROBLEMS Active [...] reviewed. Vitals: Estimated body mass index is 35.42 kg/m as calculated from the following: Height as of 09/30/22: 5' 2.5 . Weight as of this encounter: 196 lb 12.8 oz. BP: 120/68 Patient's last menstrual period was 07/29/2023. ASSESSMENT & PLAN ICD-10-CM 1. 36 weeks gestation of Z3A.36 POCT urinalysis dipstick manually resulted 2. Third trimester Z34.93 POCT urinalysis dipstick manually resulted Return OB: Patient presents today for a routine obstetrics appointment. Patient is currently 36w5d . Patient states she is doing well but has complaints of being tired due to current . Patient has verbalizes frequent movement. labor precautions was discussed/given and patient was instructed to perform kick counts three times a day. Orders Placed This Encounter Procedures POCT urinalysis dipstick manually resulted Follow Up: Patient is to return to office in 1 week for routine OB appointment. Documented by PRINCESS Reddy on behalf of: PRINCESS Reddy documented in this encounter [facility] 05-02-2024 History of Presen t illness Narrative Reason [...] Constitutional: Appearance: Normal appearance. She is well-developed. Genitourinary: Vulva normal. Cardiovascular: Rate and Rhythm: Normal rate and [...] nursing note reviewed. Exam conducted with a driller brake lining present. Vitals: Estimated body mass index is 34.92 kg/m as calculated from the following: Height as of 09/30/22: 5' 2.5 . Weight as of this encounter: 194 lb. BP: 116/70 Patient's last menstrual period was 07/29/2023. ASSESSMENT & PLAN ICD-10-CM 1. Third trimester Z34.93 CULTURE, GROUP B STREP WITH SUSCEPTIBLITY CULTURE, GROUP B STREP WITH SUSCEPTIBLITY 2. 35 weeks gestation of Z3A.35 Patient is doing well but has complaints of being tired and having maternal discomfort due to . Patient verbalized frequent movement and was instructed to perform kick counts three times per day. labor precautions were given, LARC consent was signed/declined, and GBS was obtained. Cervical check was performed and patient is 1cm dilated. Orders Placed This Encounter Procedures CULTURE, GROUP B STREP WITH SUSCEPTIBLITY Follow Up: Patient is to return to office in 1 week for routine OB appointment Documented by Pennie Crystal LPN on behalf of: Agata Alcantara DO documented in this encounter [facility] 04-17-2024 History of Presen t illness Narrative [...] of: PRINCESS Reddy documented in this encounter [facility] 03-29-2024 History of Presen t illness Narrative [...] nursing note reviewed. Exam conducted with a driller brake lining present. Vitals: Estimated body mass index is [...] Agata Alcantara DO documented in this encounter [facility] 03-14-2024 History of Presen t illness Narrative [...] of: PRINCESS Reddy documented in this encounter [facility] 02-14-2024 History of Presen t illness Narrative [...] nursing note reviewed. Exam conducted with a driller brake lining present. Vitals: Estimated body mass index is [...] Agata Alcantara DO documented in this encounter [facility] 01-17-2024 History of Presen t illness Narrative [...] of: PRINCESS Reddy documented in this encounter [facility] 12-19-2023 History of Presen t illness Narrative [...] nursing note reviewed. Exam conducted with a driller brake lining present. Vitals: Estimated body mass index is [...] of: PRINCESS Reddy documented in this encounter [facility] 10-14-2022 Miscellaneous Notes Formattin g of this [...] to CHAITANYA Woodruff documented in this encounter [facility] 10-07-2022 Miscellaneous Notes Formattin g of this note might be different from the original. Referral and outside medical records scanned into shared [facility] drive. Referral routed to scheduling for first available with Dr. Segundo Alba. documented in this encounter [facility] 09-02-2020 Note [id number] Evaluation note Diagnosis Syncope, unspecified syncope type- Primary Dizziness Dizziness and giddiness SOB (shortness of breath) Shortness of breath documented [facility] noteNo assessment information [facility] Work Phone: Evaluation note* Diagnosis Second trimester state, incidental 20 weeks gestation of [facility] Diagnosis Second trimester state, incidental 23 weeks gestation of Diabetes mellitus screening Screening for diabetes mellitus [facility]* Diagnosis Muscle cramps- Primary Third trimester state, incidental 28 weeks gestation of [facility]* Diagnosis 16 weeks gestation of Screening, , for anatomic survey Encounter for anatomic survey Exposure to STD Vaginal discharge Leukorrhea, not specified as infective [facility]* Diagnosis Third trimester state, incidental 30 weeks gestation of Size of fetus inconsistent with dates in third trimester [facility] Diagnosis Third trimester state, incidental 33 weeks gestation of [facility]* Diagnosis Third trimester state, incidental 35 weeks gestation of [facility]* Diagnosis 36 weeks gestation of Third trimester state, incidental [facility]* Diagnosis Third trimester state, incidental 37 weeks gestation of [facility] Diagnosis Third trimester state, incidental 38 weeks gestation of Other chronic sinusitis [facility]ative)* Outpatient Procedure (Routine) - Pending Review Specialty Diagnoses / Procedures Referred By Contac t Referred To [facility] Diagnoses Syncope, unspecified syncope type Dizziness SOB (shortness of breath) Procedures ECG COMPLETE ECG ROUTINE ECG W/LEAST 12 LDS W/I&R Segundo Alba DO [address] [place] [address] [facility] [address] [place] [address] Referral ID Status Reason Start Date Expiration Date Visits Requested Visits Authorized [id number] Pending Review Auto-Generate d Referral Financial Clearance Required - OON Payor 10/19/2022 10/19/2023 1 1 [facility] Summary Purpose Family History No Family History [...] section and content) DATE CREATED AUTHOR 09/29/2017 [facility] DATE CREATED AUTHOR AUTHOR'S ORGANIZ ATION 01/28/2021 [facility] DATE CREATED AUTHOR AUTHOR'S ORGANIZ ATION 08/25/2022 [facility] DATE CREATED AUTHOR AUTHOR'S ORGANIZ ATION 10/15/2022 [facility] DATE CREATED AUTHOR AUTHOR'S ORGANIZ ATION 01/16/2023 [facility] DATE CREATED AUTHOR AUTHOR'S ORGANIZ ATION 05/26/2024 [facility] EPIC Source Comments (unrecognize d section and content) In the event this informatio n is protected by the Federal Confidentiality of Alcohol and Drug Abuse Patient Records regulations: The Federal rules restrict any use of the information to criminally investigate or prosecute any alcohol or drug abuse patient.[facility] System[facility] the event this information is protected by the [facility] Confidentiality of Alcohol and Drug Abuse Patient Records regulations: The Federal rules restrict any use of the information to criminally investigate or prosecute any alcohol or drug abuse patient.[facility] System[facility] the event this information is protected by the Federal Confidentiality of Alcohol and Drug Abuse Patient Records regulations: The Federal rules restrict any use of the information to criminally investigate or prosecute any alcohol or drug abuse patient.[facility] Reason for Visit (unrecogniz ed section and content) Reason Comments Received Referral and Outside Medical Re cords Reason Comments Appointment Reason Comments Routine Visit Care Teams (unrecognized sec tion and content) Children'S Book Author Relationship Specialty Start Date End Date Ileana Evans Burton [address] [place] [address] PCP - General 07/21/00 Children'S Book Author Relationship Specialty Start Date End Date Ileana Evans Burton [address] [place] [address] PCP - General 07/21/00 Children'S Book Author Relationship Specialty Start Date End Date Ileana Evans Burton [address] [place] [address] PCP - General 07/21/00 Team Status: Active [...] BE BASED ON THE PRIMARY CLINICAL RECORDS. [facility]. provides no warranty or guarantee of the accuracy or completeness of information in this document.
[2024-06-01] VITALS (16 sets, daily range): BP systolic 104–137; BP diastolic 50–80; PULSE 72–128; TEMP 35.7–37.1
[2024-06-01 00:47] LABS: Hematocrit 34.8 % (36.0-48.0); Hemoglobin 12.7 g/dL (12.0-16.0); Mean Corpuscular HGB Conc 36.5 g/dL (29.9-35.2); Mean Corpuscular Hemoglobin 31.3 pg (26.7-34.0); Mean Corpuscular Volume 85.7 fL (81.0-99.0); Mean Platelet Volume 10.7 fL (9.5-13.5); Platelet Count 153 10^3/uL (150-450); Red Blood Count 4.06 10^6/uL (4.20-5.40); Red Cell Distribution Width 12.7 % (11.0-15.0); White Blood Count 6.6 10^3/uL (4.0-11.0)
[2024-06-01 00:57] LABS: Amphetamine Screen Urine NEGATIVE (NEGATIVE); Barbiturates Screen Urine NEGATIVE (NEGATIVE); Benzodiazepines Screen Urine NEGATIVE (NEGATIVE); Buprenorphine Screen Urine NEGATIVE (NEGATIVE); Cannabinoid Screen Urine NEGATIVE (NEGATIVE); Cocaine Screen Urine NEGATIVE (NEGATIVE); Methadone Screen Urine NEGATIVE (NEGATIVE); Methamphetamines Screen Urine NEGATIVE (NEGATIVE); Opiate Screen Urine NEGATIVE (NEGATIVE); Oxycodone Screen Urine NEGATIVE (NEGATIVE); Phencyclidine Screen Urine NEGATIVE (NEGATIVE); Tricyclic Antidepressant Urine NEGATIVE (NEGATIVE)
[2024-06-01] MEDS: 0.9 % SODIUM CHLORIDE 1,000 ML 125 ML IV (03:00)
[2024-06-01] MEDS: OXYTOCIN/0.9 % SODIUM CHLORIDE 20 UNITS/1,000 ML PLAST..BAG 125 UNIT IV (06:02)
--- NOTE | 2024-06-01 06:09 | PM.OBPRCVD ---
Procedure Intrapartal events: None Induction method: none Delivery monitor: none Route of delivery: L&D Laceration Description: perineal - 1st degree Delivery repair: Vicryl Estimated blood loss (mL): 250 Anesthesia type: None Delivery date: 06/01/24 Gender: female presentation: vertex Placental delivery description: Spontaneous cord description: 3 Vessels
[2024-06-01] MEDS: IBUPROFEN 600 MG TABLET PO ×3 (06:41→20:39)
[2024-06-02 06:20] LABS: Basophils Percent Auto 0.2 % (0.2-2.0); Eosinophils Percent Auto 0.2 % (0.9-7.0); Hematocrit 33.3 % (36.0-48.0); Hemoglobin 11.6 g/dL (12.0-16.0); Immature Granulocytes Abs Auto 0.03 10^3/uL (0.00-0.03); Immature Granulocytes Pct Auto 0.3 % (0.0-0.5); Lymphocytes Absolute Auto 1.9 10^3/uL (1.2-3.8); Lymphocytes Percent Auto 20.1 % (20.5-60.0); Mean Corpuscular HGB Conc 34.8 g/dL (29.9-35.2); Mean Corpuscular Hemoglobin 30.8 pg (26.7-34.0); Mean Corpuscular Volume 88.3 fL (81.0-99.0); Mean Platelet Volume 10.1 fL (9.5-13.5); Monocytes Absolute Auto 0.7 10^3/uL (0.3-0.8); Monocytes Percent Auto 7.8 % (1.7-12.0); Neutrophils Absolute Auto 6.8 10^3/uL (1.4-6.5); Neutrophils Percent Auto 71.4 % (43.0-75.0); Platelet Count 146 10^3/uL (150-450); Red Blood Count 3.77 10^6/uL (4.20-5.40); White Blood Count 9.5 10^3/uL (4.0-11.0)
[2024-06-02 08:06] VITALS: BP 123/77; PULSE 77
[2024-06-02] MEDS: DOCUSATE SODIUM 100 MG CAPSULE PO (08:09)
[2024-06-02] MEDS: IBUPROFEN 600 MG TABLET PO (08:09)
[2024-06-02 08:18] VITALS: BP 123/77; PULSE 77; TEMP 36.8
--- NOTE | 2024-06-02 08:18 | PM.OBPN ---
OB - PN: Subj Subjective Patient comments: no complaints, pain well controlled and tolerating diet Exam Constitutional Vital Signs, click to edit/add: Last Vital Signs Temp 98.4 F 06/01/24 23:20 Pulse 77 06/02/24 08:06 Resp 16 06/01/24 23:20 BP 123/77 06/02/24 08:06 O2 Del Method Room Air 06/01/24 23:20 Common normals: no apparent distress and oriented x3 GI Common normals: soft to palpation Inspection: normal to inspection Other: Fundus - firm below umbilicus Other: perineum - minimal bleeding Neuro Common normals: oriented x3 Psych Common normals: mental status grossly normal Results Labs Labs: Short CBC 06/02/24 Range/Units 06:12 WBC 9.5 (4.0-11.0) 10^3/uL Hgb 11.6 L (12.0-16.0) g/dL Hct 33.3 L (36.0-48.0) % Plt Count 146 L (150-450) 10^3/uL OB - PN: A/P Assessment and Plan (1) Term : Plan OK for discharge follow up with Dr Alcantara in 6 weeks Plan - Vaginal Delivery day: 1 Plan: discharge home Time Spent with Patient Time: Total time spent is greater than 50% in coordination of care (as documented) at patient's floor/unit and/or counseling patient: Total time spent with greater than 50% in coordination of care (as documented) at patient's floor/unit and/or counseling patient: less than 15 minutes
--- NOTE | 2024-06-02 08:21 | P.DS_ITS ---
DS: Providers Provider Date of admission: 05/31/24 23:07 Primary care physician: Non-Staff Physician, Admitting clinician: Prince Alcantara Attending physician on admission: Prince Alcantara Attending physician on discharge: Prince Alcantara Discharging clinician: Roseanna Samuel Anticipated date of discharge: 06/02/24 DS: Diagnosis Discharge Diagnosis (1) Term : Plan Home OB - DS: Summary Hospital Course Hospital Course: Normal course Complications complications: none Infant Delivery method: spontaneous vaginal delivery Gender: female Status at Discharge Functional status at discharge: independent ambulation Overall status at discharge: patient is progressing back to baseline Time Spent with Patient Time attestation: Total time spent providing and/or coordinating discharge services: Time spent: less than 30 minutes Exam Constitutional Vital Signs, click to edit/add: Last Vital Signs Temp 98.4 F 06/01/24 23:20 Pulse 77 06/02/24 08:06 Resp 16 06/01/24 23:20 BP 123/77 06/02/24 08:06 O2 Del Method Room Air 06/01/24 23:20 DS: Data Data Completed and Pending Labs on day of discharge: Labs from last 24 hours 06/02/24 06:12 WBC 9.5 RBC 3.77 L Hgb 11.6 L Hct 33.3 L MCV 88.3 MCH 30.8 MCHC 34.8 RDW 13.0 Plt Count 146 L MPV 10.1 Neut % (Auto) 71.4 Lymph % (Auto) 20.1 L [place] % (Auto) 7.8 Eos % (Auto) 0.2 L Baso % (Auto) 0.2 Neut # (Auto) 6.8 H Lymph # (Auto) 1.9 [place] # (Auto) 0.7 Eos # (Auto) 0.0 Baso # (Auto) 0.0 Abs Immat Gran (auto) 0.03 Imm/Tot Granulo (auto) 0.3 Discharge Plan Discharge Disposition: Home, Self-Care Discharge Medications: Continued magnesium oxide 400 mg (241.3 mg magnesium) tablet 400 mg PO DAILY Print Language: Mohawk Forms: Portal Instructions Follow Up Appointments: 6 weeks
== END 2024-06-02 12:00 | disposition home or self-care (01) | DRG 807 ==
PROVIDERS: Admitting Provider Obstetrics & Gynecology; Visit Provider Obstetrics & Gynecology
DX: O70.0 First degree perineal laceration during delivery (principal); Z37.0 Single live birth; Z3A.40 40 weeks gestation of pregnancy
CPT/HCPCS: 36415; 59050; 59410; 80307; 85025; 85027; 86850; 86900; 86901

== ENCOUNTER 2024-06-06 08:07 | Outpatient (OUT) | payer OTHER, SELFPAY ==
[2024-06-06 17:24] VITALS: BP 127/87; PULSE 75; TEMP 36.5; O2SAT 96
== END 2024-06-06 17:31 | disposition home or self-care (01) ==
LOC: FBCO 08:08
PROVIDERS: Visit Provider Obstetrics & Gynecology
DX: Z39.2 Encounter for routine postpartum follow-up (principal)

== ENCOUNTER 2024-09-04 19:12 | Outpatient (REF) | payer OTHER, SELFPAY ==
--- OUTSIDE RECORDS SUMMARY | 2024-09-04 11:20 | XMS_ITS | Encounter Summary ---
Author Organization [facility] Address [address] [place] [address] Care Team Providers Care Surface Supervisor Name Role Phone Unavailable Primary Care Provider Unavailabl e Reason for Visit * Reason Comments Well Women Visit Encounter Details Date Type Department Care Team (Late st Contact Info) Description 09/04/2024 11:20 AM EDT Office Visit [facility] [address] [place] [address] Prince Alcantara, DO [address] [place] [address] Well woman exam with routine gynecological exam Social History Tobacco Use Types Packs/Day Years Used Date Smoking Tobacco: Never Smokeless Tobacco: Never Alcohol Use Standard Drinks/Week Comments Not Currently 0 (1 standard drink = 0.6 oz pur e alcohol) Caffeine: none AUDIT-C Answer Date Recorded Q1: How often do you have a drink containing alc ohol? Monthly or less 03/02/2023 Q2: How many drinks containi ng alcohol do you have on a typical day when you are drinking? 1 or 2 03/02/2023 Q3: How often do you have si x or more drinks on one occasion? Never 03/02/2023 Comments No Sex and Gender Information Value Date Recorded Sex Assigned at Not on file Legal Sex Female 8:00 PM EDT Gender Identity Female 09/29/2022 4:02 PM EDT Sexual Orientation Not on file documented as of this encounter Last Filed Vital Signs Vital Sign Reading Time Taken Comments Blood Pressure 116/76 09/04/2024 11:31 AM EDT Pulse - - Temperature - - Respiratory Rate - - Oxygen Saturation - - Inhaled Oxygen Concentration - - Weight 81.1 kg (178 lb 12.8 oz) 025 11:31 AM EDT Height - - Body Mass Index 32.18 09/30/2022 11:28 AM EDT documented in this encounter Progress Notes * Pennie Crystal, SUBEDITOR - 09/04/2024 11:20 AM EDT Reason for Appointment: Patient ID: Sonido Pardo is a 34 y.o. female who presents for Well Women Visit Patient presents today for Annual Exam. MEDICATIONS Current Outpatient Medications Medication Instructions MAGnesium-Oxide 400 mg, Daily MV-Min-Fe Fum-FA-DHA ( 1 PO) 1 each, Daily ALLERGIES No Known Allergies PROBLEMS Active Ambulatory Problems Diagnosis Date Noted No Active Ambulatory Problems Resolved Ambulatory Problems Diagnosis Date Noted No Resolved Ambulatory Problems Past Medical History: Diagnosis Date 35 weeks gestation of Asthma Exercise-induced asthma History of medical problems History of pre-term labor HISTORY PAST MEDICAL HISTORY SOCIAL HISTORY Past Medical History: Diagnosis Date 35 weeks gestation of Asthma Exercise-induced asthma History of medical problems Blocked Saliva Gland [...] nursing note reviewed. Exam conducted with a application manager present. Vitals: Estimated body mass index is 32.18 kg/m?? as calculated from the following: Height as of 09/30/22: 5' 2.5 . Weight as of this encounter: 178 lb 12.8 oz. BP: 116/76 No LMP recorded. ASSESSMENT & PLAN ICD-10-CM 1. Well woman exam with routine gynecological exam Z01.419 Pap Smear HPV DNA probe, amplified Annual Exam: Patient presents today for an annual exam. Patient states she is doing well and has no complaints. Pap was obtained without difficulty. Discussed tubal with pt in detail. Pt considering, will call toget on schedule. Orders Placed This Encounter Procedures HPV DNA probe, amplified Follow Up: Patient is to return in one year for annual unless needed otherwise. Documented by Pennie Crystal LPN on behalf of: Prince Alcantara DO documented in this encounter Plan of Treatment Upcoming Encounters Date Type Department Care Team (Late st Contact Info) Description 09/11/2025 4:00 PM EDT [facility] [address] [facility] [place] [place] [id number] Prince Alcantara DO [address] [place] [address] Scheduled Orders Name Type Priority Associated Diagnoses Orde r Schedule Pap Smear Pathology and Cytology Routine Well woman exam with routine gynecological exam Ordered: 09/04/2024 HPV DNA probe, amplified Microbiology Routine Well woman exam with routine gynecological exam Ordered: 09/04/2024 documented as of this encounter Visit Diagnoses Diagnosis Well woman exam with routine gynecological exam Routine gynecological examination documented in this encounter
--- OUTSIDE RECORDS SUMMARY | 2024-09-04 19:17 | XMS_ITS | Clinical Summary ---
Author Organization [facility] Address [id number] [place] [address] Care Team Providers Care Lime Kiln Operator Name Role Phone Unavailable Primary Care Provider Unavailabl e Social History Tobacco Use Types Packs/Day Years Used Date Smoking Tobacco: Never Assessed Childcare Answer Date Recorded Childcare Unknown 09/20/2018 Employment Answer Date Recorded Employment Unknown 09/20/2018 Comments Unknown Sex and Gender Information Value Date Recorded Sex Assigned at Not on file Legal Sex Female 11:47 AM EDT Gender Identity Not on file Sexual Orientation Not on file Plan of Treatment Health Maintenance Due Date Last Done Comments Depression Screening 2004 Tobacco Screening 2004 Adult BMI Screening 2010 DTaP,Tdap and Td Vaccines (1 - Tdap) 07/11/2011 Pap Smear 2013 Influenza Vaccine 12/10/2024 Medical Devices Not on file
--- OUTSIDE RECORDS SUMMARY | 2024-09-04 19:17 | XMS_ITS | Clinical Summary ---
Author Organization [facility] Address [address] [place] [address] Care Team Providers Care Production Manufacturing Worker Name Role Phone Unavailable Primary Care Provider Unavailabl e Allergies No known active allergies Medications MV-Min-Fe Fum-FA-DHA ( 1 PO) Take 1 each by mouth Daily Active MAGnesium-Oxide 400 (240 Mg) MG tablet Take 400 mg by mouth Daily 04/18/2024 Active Encounters Date Type Department Care Team Description 09/04/2024 11:20 AM EDT Office Visit [facility] [address] [place] [address] Prince Alcantara DO Well woman exam with routine gynecological exam 09/04/2024 Bamboo flowsheet [facility] [address] [place] [address] Prince Alcantara DO 09/01/2024 Travel 07/16/2024 11:30 AM EDT Visit [facility] [address] [place] [address] Prince Alcantara DO 6 weeks follow-up 07/09/2024 Travel 06/22/2024 Abstract [facility] [address] [place] [id number] Prince Alcantara DO from Last 3 Months Family History Medical History Relation Name Comments Atrial fibrillation Father Hypertension Maternal Grandfather Kem Endometriosis Mother Hysterectomy No Known Problems Sister Relation Name Status Comments Father Alive Maternal Grandfather Kem Mother Alive Sister Alive Social History Tobacco Use Types Packs/Day Years Used Date Smoking Tobacco: Never Smokeless Tobacco: Never Tobacco Cessation:Counseling Given: Not Answered Alcohol Use Standard Drinks/Week Comments Not Currently [...] PM EDT Sexual Orientation Not on file Last Filed Vital Signs Vital Sign Reading Time Taken Comments Blood Pressure 116/76 09/04/2024 11:31 AM EDT Pulse - - Temperature - - Respiratory Rate - - Oxygen Saturation - - Inhaled Oxygen Concentration - - Weight 81.1 kg (178 lb 12.8 oz) 025 11:31 AM EDT Height 158.8 cm (5' 2.5 ) 09/30/2022 11 :28 AM EDT Body Mass Index 32.18 09/30/2022 11:28 AM EDT Plan of Treatment Upcoming Encounters Date Type Department Care Team (Late st Contact Info) Description 09/11/2025 4:00 PM EDT Office Visit [facility] [address] [facility] [place] [address] Prince Alcantara DO [address] [place] [address] Insurance [employer]
--- OUTSIDE RECORDS SUMMARY | 2024-09-04 19:17 | XMS_ITS | Encounter Summary ---
Author Organization [facility] Address [address] [place] [address] Care Team Providers Care Wood Coater Name Role Phone Unavailable Primary Care Provider Unavailabl e Encounter Details Date Type Department Care Team (Late st Contact Info) Description 01/17/2024 Clinisync Result Encounter [facility] External Department Unsolicited Agata Alcantara, DO [address] [place] [address] Social History Tobacco Use Types Packs/Day Years [...] drinks on one occasion? Never 03/02/2023 Comments Yes Sex and Gender Information Value Date Recorded Sex Assigned at Not on file Legal Sex Female 8:00 PM EDT Gender Identity Female 09/29/2022 4:02 PM EDT Sexual Orientation Not on file documented as of this encounter Plan of Treatment Upcoming Encounters Date Type Department Care Team (Late st Contact Info) Description 09/11/2025 4:00 PM EDT Office Visit [facility] [address] [place] [address] Agata Alcantara DO [address] [place] [address] [place] [address] documented as of this encounter Procedures Procedure Name Priority Date/Time Associated Diagnosis Comments US OB ANATOMY 01/17/2024 4:03 PM EDT documented in this encounter Results * US OB ANATOMY (01/17/2024 4:03 PM EDT) Anatomical Region Laterality Modality Other 01/17/2024 4:03 PM EDT Narrative 01/17/2024 4:05 PM EDT [address] [address] Ultrasound Report Signed Patient: SABINE PARDO MR#: [id number] : 1990 Acct:[id number] Age/Sex: 33 / F ADM Date: 01/17/24 Loc: [facility] Attending Dr: Agata Alcantara D.O. Ordering Physician: Agata Alcantara D.O. Date of Service: 01/17/24 Procedure(s): US OB anatomy Accession Number(s): [id number] cc: Agata Alcantara D.O.; Physician,Non-Staff M.José Luis [address] [address] Patient Name: SABINE PARDO MRN: [id number] date: 1990 Sex: F Assigned [facility] Current [facility]: [facility] Accession/Order Number: [id number] Exam Date: 01/17/2024 13:06 Report Date: 01/17/2024 16:03 At the request of: AGATA ALCANTARA Procedure: US OB anatomy EXAMINATION: US OB anatomy, US OB cervical length HISTORY: ANATOMY COMPARISON: No relevant comparison available. TECHNIQUE: Transabdominal sonographic examination was performed for obstetrical and evaluation. FINDINGS: Number: 1 Heart Rate: 145 bpm H.B. /min Amniotic Fluid Volume: Subjectively normal Placental Location: ANTERIOR with lower margin 3.8 cm from os. Cervix Length: 4.49 cm ; closed. ANATOMY: Normal Structures -cerebellum, choroid plexus, cisterna magna, lateral cerebral ventricles, orbits, midline falx, hard palate, four-chamber heart, RVOT, LVOT, stomach, kidneys, bladder, umbilical cord insertion into abdomen, three-vessel cord, cervical spine, thoracic spine, lumbar spine, sacral spine, right upper extremity, left upper extremity, right lower extremity, left lower extremity. SUBOPTIMALLY SEEN: None ABNORMALITIES: None BIOMETRY: BPD: 4.94 cm; 21 weeks 0 days; 65.20 % HC: 18.33 cm; 20 weeks 5 days; 47.50 % AC: 15.49 cm; 20 weeks 5 days; 46.90 % FL: 3.61 cm; 21 weeks 3 days; 72 % EFW:380.98 g; 68.80 % FL/AC: 23.31 FL/BPD: 73.08 HC/AC: 1.18 GESTATIONAL AGE: Age by EDC: 20 weeks 4 days Age by current US: 21 weeks 0 days MITCH by current US: 2024-05-29 MITCH by EDC: 2024-06-01 US/US OB anatomy IMPRESSION: 1. Single live intrauterine with growth detailed above. Electronically authenticated by: AKHIL VERNON Date: 01/17/2024 16:03 Dictated By: Akhil Vernon M.D. Signed By: 01/17/24 1605 DD/ 02 TD/TT: Contract Technical Writer: Procedure Note Radiology, Radiologist, MD - 01/17/2024 [place] [address] Ultrasound Report Signed Patient: SABINE PARDO KMR#: [id number] : 1990Acct:[id number] Age/Sex: FAD Date: 01/17/24 Loc: [facility] Attending Dr: Agata Alcantara D.O. Ordering Physician: Agata Alcantara D.O. Date of Service: 01/17/24 Procedure(s): US OB anatomy Accession Number(s): [id number] cc: Agata Alcantara D.O.; Physician,Non-Staff Elaine [address] [place] [address] Patient Name: SABINE PARDO MRN: [id number] date: 1990 Sex: F Assigned Patient Location: [facility] Current Patient Location: [facility] Accession/Order Number: [id number] Exam Date: 01/17/2024 13:06 Report Date: 01/17/2024 16:03 At the request of: AGATA ALCANTARA Procedure: US OB anatomy EXAMINATION: US OB anatomy, US OB cervical length HISTORY: ANATOMY COMPARISON: No relevant comparison available. TECHNIQUE: Transabdominal sonographic examination was performed for obstetrical and evaluation. FINDINGS: Number: 1 Heart Rate: 145 bpm H.B. /min Amniotic Fluid Volume: Subjectively normal Placental Location: ANTERIOR with lower margin 3.8 cm from os. Cervix Length: 4.49 cm ; closed. ANATOMY: Normal Structures -cerebellum, choroid plexus, cisterna magna, lateral cerebral ventricles, orbits, midline falx, hard palate, four-chamberheart, RVOT, LVOT, stomach, kidneys, bladder, umbilical cord insertion intoabdomen, three-vessel cord, cervical spine, thoracic spine, lumbar spine, sacralspine, right upper extremity, left upper extremity, right lower extremity, leftlower extremity. SUBOPTIMALLY SEEN: None ABNORMALITIES: None BIOMETRY: BPD: 4.94 cm; 21 weeks 0 days; 65.20 % HC: 18.33 cm; 20 weeks 5 days; 47.50 % AC: 15.49 cm; 20 weeks 5 days; 46.90 % FL: 3.61 cm; 21 weeks 3 days; 72 % EFW:380.98 g; 68.80 % FL/AC: 23.31 FL/BPD: 73.08 HC/AC: 1.18 GESTATIONAL AGE: Age by EDC: 20 weeks 4 days Age by current US: 21 weeks 0 days MITCH by current US: 2024-05-29 MITCH by EDC: 2024-06-01 US/US OB anatomy IMPRESSION: 1. Single live intrauterine with growth detailed above. Electronically authenticated by: AKHIL VERNON Date: 01/17/2024 16:03 Dictated By: Akhil Vernon M.D. Signed By:01/17/24 1605 DD/ 1603 TD/TT: Contract Technical Writer: us Agata Alcantara DO [facility] Final Result documented in this encounter Visit Diagnoses Not on filedocumented in this encounter
--- OUTSIDE RECORDS SUMMARY | 2024-09-04 19:17 | XMS_ITS | Encounter Summary ---
Author Organization [facility] Address [address] [place] [address] Care Team Providers Care Maintenance Mechanic Technician Name Role Phone Unavailable Primary Care Provider Unavailabl e Encounter Details Date Type Department Care Team (Late Contact Info) Description 06/01/2024 Abstract [facility] [address] [place] [phone] Prince Alcantara, [address], [place] [address] Social History Tobacco Use Types Packs/Day Years [...] Encounters Date Type Department Care Team (Late Contact Info) Description 09/11/2025 4:00 PM EDT Office Visit [facility] [address] [place] [address] Prince Alcantara, [address] [place] [address] documented as of this encounter Visit Diagnoses Not on filedocumented in this encounter
--- OUTSIDE RECORDS SUMMARY | 2024-09-04 19:17 | XMS_ITS | Encounter Summary ---
Author Organization [facility] Address [address] [place] [address] Care Team Providers Care Implement Mechanic Name Role Phone Unavailable Primary Care Provider Unavailabl e Encounter Details Date Type Department Care Team (Late st Contact Info) Description 09/16/2022 Abstract [facility] [address] [place] [address] Prince Alcantara, [address], [facility] Social History Tobacco Use Types Packs/Day Years Used Date Smoking Tobacco: Never Assessed Comments Unknown Sex and Gender Information Value Date Recorded Sex Assigned at Not on file Legal Sex Female 8:00 PM EDT Gender Identity Female 09/29/2022 4:02 PM EDT Sexual Orientation Not on file documented as of this encounter Plan of Treatment Upcoming Encounters Date Type Department Care Team (Late st Contact Info) Description 09/11/2025 4:00 PM EDT Office Visit [facility] [address] [place] [address] Prince Alcantara DO [address], [facility] documented as of this encounter Visit Diagnoses Not on filedocumented in this encounter
--- OUTSIDE RECORDS SUMMARY | 2024-09-04 19:17 | XMS_ITS | Encounter Summary ---
Author Organization [facility] Address [address] [place] [address] Care Team Providers Care Reconciliation Coordinator Name Role Phone Unavailable Primary Care Provider Unavailabl e Encounter Details Date Type Department Care Team (Late st Contact Info) Description 01/17/2024 Clinisync Result Encounter [facility] External Department Unsolicited Agata Alcantara, DO [address] [place] [address] Social History Tobacco Use Types Packs/Day Years [...] Visit [facility] [address] [place] [phone] Agata Alcantara DO [address] [place] [address] [place] [address] documented as of this encounter Procedures Procedure Name Priority Date/Time Associated Diagnosis Comments US OB CERVICAL LENGTH 01/17/2024 4:03 PM EDT documented in this encounter Results * US OB CERVICAL LENGTH (01/17/2024 4:03 PM EDT) Anatomical Region Laterality Modality Other 01/17/2024 4:03 PM EDT Narrative 01/17/2024 4:05 [place] [address] Ultrasound Report Signed Patient: SABINE PARDO MR#: [id number] : 1990 Acct:[id number] Age/Sex: 33 / F ADM Date: 01/17/24 Loc: [facility] Attending Dr: Agata Alcantara D.O. Ordering Physician: Agata Alcantara D.O. Date of Service: 01/17/24 Procedure(s): US OB cervical length Accession Number(s): [id number] cc: Agata Alcantara D.O.; Physician,Non-Staff MLuis Angel [address] [address] Patient Name: SABINE PARDO MRN: [id number] date: 1990 Sex: F Assigned Patient [facility] Current [facility] Accession/Order Number: [id number] Exam Date: 01/17/2024 13:06 Report Date: 01/17/2024 16:03 At the request of: AGATA ALCANTARA Procedure: US OB cervical length EXAMINATION: US OB anatomy, US OB cervical [...] 2024-05-29 MITCH by EDC: 2024-06-01 US/US OB cervical length IMPRESSION: 1. Single live intrauterine with growth detailed above. Electronically authenticated by: AKHIL VERNON Date: 01/17/2024 16:03 Dictated By: Akhil Vernon M.D. Signed By: 01/17/24 1605 DD/ 1603 TD/TT: Dance Entertainer: Procedure Note Radiology, Radiologist, MD - 01/17/2024 [place] [address] Ultrasound Report Signed Patient: SABINE PARDO KMR#: [id number] : 1990Acct:[id number] Age/Sex: Date: 01/17/24 Loc: [facility] Attending Dr: Agata Alcantara D.O. Ordering Physician: Agata Alcantara D.O. Date of Service: 01/17/24 Procedure(s): US OB cervical length Accession Number(s): [id number] cc: Agata Alcantara D.O.; Physician,Non-Staff MLuis Angel [place] [id number] Patient Name: SABINE PARDO MRN: [id number] date: 1990 Sex: F Assigned Patient Location: [facility] Current Patient Location: [facility] Accession/Order Number: [id number] Exam Date: 01/17/2024 13:06 Report Date: 01/17/2024 16:03 At the request of: AGATA ALCANTARA Procedure: US OB cervical length EXAMINATION: US OB anatomy, US OB cervical [...] 2024-05-29 MITCH by EDC: 2024-06-01 US/US OB cervical length IMPRESSION: 1. Single live intrauterine with growth detailed above. Electronically authenticated by: AKHIL VERNON Date: 01/17/2024 16:03 Dictated By: Akhil Vernon M.D. Signed By:01/17/24 1605 DD/ 1603 TD/TT: Dance Entertainer: us Agata Alcantara DO [facility] Final Result documented in this encounter Visit Diagnoses Not on filedocumented in this encounter
--- OUTSIDE RECORDS SUMMARY | 2024-09-04 19:17 | XMS_ITS | Encounter Summary ---
Author Organization [facility] Address [address] [place] [address] Care Team Providers Care Lean Manufacturing Leader Name Role Phone Unavailable Primary Care Provider Unavailabl e Encounter Details Date Type Department Care Team (Late Contact Info) Description 06/22/2024 Abstract [facility] [address] [place] [phone] Prince Alcantara, [address], [place] [address] Social History Tobacco Use Types Packs/Day Years [...] 09/11/2025 4:00 PM EDT Office Visit [facility] [address] [place] [address] Prince Alcantara, [address] [place] [address] documented as of this encounter Visit Diagnoses Not on filedocumented in this encounter
--- OUTSIDE RECORDS SUMMARY | 2024-09-04 19:17 | XMS_ITS | Encounter Summary ---
Author Organization [facility] Address [address] [place] [address] Care Team Providers Care News Cameraman Name Role Phone Unavailable Primary Care Provider Unavailabl e Encounter Details Date Type Department Care Team (Late Contact Info) Description 10/06/2023 Abstract [facility] [address] [place] [address] Prince Alcantara, [address], [place] [address] Social History Tobacco Use Types Packs/Day Years Used Date Smoking Tobacco: Never Alcohol Use Standard Drinks/Week Comments Yes 0 (1 standard drink = 0.6 oz [...] 09/11/2025 4:00 PM EDT Office Visit [facility] [address] [place] [address] Prince Alcantara, [address] [place] [address] documented as of this encounter Visit Diagnoses Not on filedocumented in this encounter
--- OUTSIDE RECORDS SUMMARY | 2024-09-04 19:17 | XMS_ITS | Encounter Summary ---
Author Organization [facility] Address [address] [place] [address] Care Team Providers Care Tailings Dam Pumper Name Role Phone Unavailable Primary Care Provider Unavailabl e Encounter Details Date Type Department Care Team (Latest Contact Info) Description 09/01/2024 Travel Social History Tobacco Use Types Packs/Day Years [...] EDT Office Visit [facility] [address] [facility] [address] Prince Alcantara DO [address] [place] [address] documented as of this encounter Visit Diagnoses Not on filedocumented in this encounter
--- OUTSIDE RECORDS SUMMARY | 2024-09-04 19:17 | XMS_ITS | Encounter Summary ---
Author Organization [facility] Address [address] [place] [address] Care Team Providers Care Law Researcher Name Role Phone Unavailable Primary Care Provider Unavailabl e Encounter Details Date Type Department Care Team (Late Contact Info) Description 05/02/2024 Abstract [facility] [address] [place] [phone] Prince Alcantara, [address], [place] [address] Social History Tobacco Use Types Packs/Day Years [...] 09/11/2025 4:00 PM EDT Office Visit [facility] [address] [place] [address] Prince Alcantara, [address] [place] [address] documented as of this encounter Visit Diagnoses Not on filedocumented in this encounter
--- OUTSIDE RECORDS SUMMARY | 2024-09-04 19:17 | XMS_ITS | Encounter Summary ---
Author Organization [facility] Address [address] [place] [address] Care Team Providers Care Ceramic Chemist Name Role Phone Unavailable Primary Care Provider Unavailabl e Encounter Details Date Type Department Care Team (Late Contact Info) Description 12/19/2023 Abstract [facility] [address] [place] [address] Prince Alcantara, [address], [place] [address] Social History Tobacco Use Types Packs/Day Years [...] 09/11/2025 4:00 PM EDT Office Visit [facility] [address] [place] [address] Prince Alcantara, [address] [place] [address] documented as of this encounter Visit Diagnoses Not on filedocumented in this encounter
--- OUTSIDE RECORDS SUMMARY | 2024-09-04 19:17 | XMS_ITS | Encounter Summary ---
Author Organization [facility] Address [address] [place] [address] Care Team Providers Care Attendance Officer Name Role Phone Unavailable Primary Care Provider Unavailabl e Encounter Details Date Type Department Care Team (Late st Contact Info) Description 05/31/2024 Abstract [facility] [address] [place] [address] Katelyn Keating LPN Social History Tobacco Use Types Packs/Day Years [...] Visit [facility] [address] [place] [address] Prince Alcantara, DO [address] [place] [address] documented as of this encounter Visit Diagnoses Not on filedocumented in this encounter
--- OUTSIDE RECORDS SUMMARY | 2024-09-04 19:17 | XMS_ITS | Encounter Summary ---
Author Organization [facility] Address [address] [place] [address] Care Team Providers Care Motor Express Clerk Name Role Phone Unavailable Primary Care Provider Unavailabl e Encounter Details Date Type Department Care Team (Late Contact Info) Description 10/06/2023 Clinisync Result Encounter [facility] External Department Unsolicited Agata Alcantara DO [address] [place], [place] [id number] Social History Tobacco Use Types Packs/Day Years [...] Visit [facility] [address] [place] [address] Agata Alcantara DO [address] [place] [address] Dr Kahlil Jean Venkat, [facility]11 documented as of this encounter Procedures Procedure Name Priority Date/Time Associated Diagnosis Comments HBSAG SCREEN Routine 10/06/2023 3:45 PM EDT RAPID PLASMA REAGIN, QUANT Routine 10/06/2023 3:45 PM EDT HIV AB/P24 AG WITH REFLEX Routine 10/06/2023 3:45 PM EDT HCV ANTIBODY RFX TO QUANT PCR Routine 10/06/2023 3:45 PM EDT MLR HEMOGLOBIN A1C Routine 10/06/2023 3: 45 PM EDT ALL TYPE AND SCREEN Routine 10/06/2023 3 :45 PM EDT ALL RUBELLA IGG AB Routine 10/06/2023 3: 45 PM EDT ALL CBC WITH AUTO DIFF Routine 10/06/2023 3:45 PM EDT US OB TRANSVAGINAL 10/06/2023 2: 55 PM EDT documented in this encounter Results * HBSAG SCREEN (10/06/2023 3:45 PM EDT) HBSAG SCREEN Negative Negative [facility] Comment: Performed at: - Lab[address] [id number] Bed Worker: Geraldo Le PhD, Phone: [phone] 10/06/2023 3:45 PM EDT 10/06/2023 3:48 PM EDT Narrative [facility] - 10/08/2023 10:09 AM EDT us Agata Alcantara DO LAB BLOOD ORDERABLES Final Resul t [facility] * RAPID PLASMA REAGIN, QUANT (10/06/2023 3:45 PM EDT) Pathologist [facility] RAPID PLASMA REAGIN, QUANT Non Reactive NonRea<1: 1 titer [facility] Comment: Please Note: This test does not meet current guidelines for screening and diagnosis of syphilis. This test is intended for following treatment response in patients being treated for syphilis infection. To screen for syphilis infection, a reflex cascade that includes both RPR and a treponema-specific assay should be utilized, such as Treponema pallidum (Syphilis) Screening [place] (095226) or Rapid Plasma Reagin (RPR) Test With Reflex to Quantitative RPR and Confirmatory Treponema pallidum Antibodies (664568). Performed at: [address] [id number] Bed Worker: Geraldo Le PhD, Phone: [phone] 10/06/2023 3:45 PM EDT 10/06/2023 3:48 PM EDT Narrative [facility] - 10/08/2023 10:09 AM EDT [facility] LAB BLOOD ORDERABLES Final Resul t Performing Organization Address [facility] Co de Phone Number [facility] * HCV ANTIBODY RFX TO QUANT PCR (10/06/2023 3:45 PM EDT) [facility] HCV AB Non Reactive Non Reactive [facility] INTERPRETATION: Comment . [facility] Comment: Not infected with HCV unless early or acute infection is suspected (which may be delayed in an immunocompromised individual), or other evidence exists to indicate HCV infection. 10/06/2023 3:45 PM EDT 10/06/2023 3:48 PM EDT Narrative [facility] - 10/08/2023 7:11 AM EDT [facility] LAB BLOOD ORDERABLES Final Resul t Performing Organization Address City/[facility] Co de Phone Number [facility] * HIV AB/P24 AG WITH REFLEX (10/06/2023 3:45 PM EDT) HIV AB/P24 AG SCREEN Non Reactive Non Reactive [facility] Comment: HIV Negative HIV-1/HIV-2 antibodies and HIV-1 p24 antigen were NOT detected. There is no laboratory evidence of HIV infection. Performed at: [address] [id number] Bed Worker: Geraldo Le PhD, Phone: [phone] 10/06/2023 3:45 PM EDT 10/06/2023 3:48 PM EDT Narrative [facility] - 10/08/2023 7:11 AM EDT us Agata Maricruz DO LAB BLOOD ORDERABLES Final Resul t Performing Organization Address City/[facility]/ZIP Co de Phone Number [facility] * ALL RUBELLA IGG AB (10/06/2023 3:45 PM EDT) RUBELLA ANTIBODIES, IGG 3.62 Immune >0.99 index [facility] Comment: Non-immune <0.90 Equivocal 0.90 - 0.99 Immune >0.99 Performed at: [address] [id number] Bed Worker: Geraldo Le PhD, Phone: [phone] 10/06/2023 3:45 PM EDT 10/06/2023 3:48 PM EDT Narrative [facility] - 10/08/2023 7:11 AM EDT us Agata Maricruz DO [facility] Final Result [facility] * ALL TYPE AND SCREEN (10/06/2023 3:45 PM EDT) BLOOD TYPE O Positive [facility] ANTIBODY SCREEN NEGATIVE [facility] 10/06/2023 3:45 PM EDT 10/06/2023 3:48 PM EDT Narrative [facility] - 10/06/2023 4:41 PM EDT [facility] , us Agata Maricruz DO [facility] Final Result [facility] * (ABNORMAL) ALL CBC WITH AUTO DIFF (10/06/2023 3:45 PM EDT) [facility] WBC 9.9 4.0 - 11.0 10 3/uL [facility] RBC 4.95 4.20 - 5.40 10 6/uL [facility] HGB 14.1 12.0 - 16.0 g/dL [facility] HCT 43.3 36.0 - 48.0 % [facility] MCV 87.5 81.0 - 99.0 fL [facility] MCH 28.5 26.7 - 34.0 pg [facility] MCHC 32.6 29.9 - 35.2 g/dL [facility] RDW 12.0 11.0 - 15.0 % [facility] PLT 266 150 - 450 10 3/uL [facility] MPV 9.4(L) 9.5 - 13.5 fL [facility] NEUTROPHILS PERCENT AUTO 82.6(H) 43.0 - 75.0 % [facility] LYMPHOCYTES PERCENT AUTO 12.2(L) 20.5 - 60.0 % [facility] MONOCYTES PERCENT AUTO 4.2 1.7 - 12.0 % [facility] EO % 0.4(L) 0.9 - 7.0 % [facility] BASOPHILS PERCENT AUTO 0.3 0.2 - 2.0 % [facility] IMMATURE GRANULOCYTES PCT AUTO 0.3 0.0 - 0.5 % [facility] NEUTROPHILS ABSOLUTE AUTO 8.2(H) 1.4 - 6.5 10 3/uL [facility] LYMPHOCYTES ABSOLUTE AUTO 1.2 1.2 - 3.8 10 3/uL [facility] MONOCYTES ABSOLUTE AUTO 0.4 0.3 - 0.8 10 3/uL [facility] EO # 0.0 0.0 - 0.7 10 3/uL [facility] BASOPHILS ABSOLUTE AUTO 0.0 0.0 - 0.1 10 3/uL [facility] IMMATURE GRANULOCYTES ABS AUTO 0.03 0.00 - 0.03 10 3/uL [facility] 10/06/2023 3:45 PM EDT 10/06/2023 3:48 PM EDT Narrative [facility] - 10/06/2023 4:16 PM EDT us Agata Maricruz DO [facility] Final Result [facility] * MLR HEMOGLOBIN A1C (10/06/2023 3:45 PM EDT) GLYCOHEMOGLOBIN A1C 5.0 4.5 - 6.2 % [facility] Comment: ADA RECOMMENDED LIMIT 4.0 - 6.0 ADA THERAPEUTIC TARGET < 7.0 ACTION SUGGESTED > 7.0 ESTIMATED AVERAGE GLUCOSE 97 mg/dL [facility] 10/06/2023 3:45 PM EDT 10/06/2023 3:48 PM EDT Narrative [facility] - 10/06/2023 4:07 PM EDT Agata Maricruz DO [facility] Final Result Performing Organization Address [facility] Co de Phone Number [facility] * US OB TRANSVAGINAL (10/06/2023 2:55 PM EDT) Anatomical Region Laterality Modality Other 10/06/2023 2:55 PM EDT Narrative 10/06/2023 2:57 [place] [address] Ultrasound Report Signed Patient: SABINE PARDO MR#: [id number] : 1990 Acct:[id number] Age/Sex: 33 / F ADM Date: 10/06/23 Loc: [facility] Attending Dr: Agata Alcantara D.O. Ordering Physician: Agata Alcantara D.O. Date of Service: 10/06/23 Procedure(s): US OB transvaginal Accession Number(s): [id number] cc: Agata Alcantara D.O.; Physician,Non-Staff Elaine [address] [address] Patient Name: SABINE PARDO MRN: [id number] date: 1990 Sex: F Assigned Patient Location: [facility] Current Patient Location: [facility] Accession/Order Number: [id number] Exam Date: 10/06/2023 14:18 Report Date: 10/06/2023 14:55 At the request of: AGATA ALCANTARA Procedure: US OB transvaginal EXAMINATION: US OB transvaginal HISTORY: Missed menses COMPARISON: No relevant comparison available. FINDINGS: Transvaginal images Brown intrauterine gestation Gestational sac: 1.66 cm, 6 weeks 0 days CRL: 2.8 mm, 5 weeks 6 days Yolk sac: 1.8 mm Heart rate: 101 beats minute Cervix: 4.5 cm, closed Uterus is normal, anteverted The ovaries are normal Clinical age: 9 weeks 6 days Clinical MITCH: 05/04/2024 Ultrasound age: 5 weeks 6 days Ultrasound MITCH: 06/01/2024 US/US OB transvaginal IMPRESSION: Viable brown intrauterine gestation measuring 5 weeks 6 days Electronically authenticated by: BLAS OLIVEIRA Date: 10/06/2023 14:55 Dictated By: Blas Oliveira M.D. Signed By: 10/06/23 1457 DD/ 1455 TD/TT: Shoe Reconditioner: Procedure Note Radiology, Radiologist, MD - 10/06/2023 [place] [address] Ultrasound Report Signed Patient: SABINE PARDO KMR#: [id number] : 1990Acct:[id number] Age/Sex: 33 / FADM Date: 10/06/23 Loc: [facility] Attending Dr: Agata Alcantara D.O. Ordering Physician: Agata Alcantara D.O. Date of Service: 10/06/23 Procedure(s): US OB transvaginal Accession Number(s): [id number] cc: Agata Alcantara D.O.; Physician,Non-Staff Elaine [facility] [place] [id number] Patient Name: SABINE PARDO MRN: [id number] date: 1990 Sex: F Assigned Patient Location: [facility] Current Patient Location: [facility] Accession/Order Number: [id number] Exam Date: 10/06/2023 14:18 Report Date: 10/06/2023 14:55 At the request of: AGATA ALCANTARA Procedure: US OB transvaginal EXAMINATION: US OB transvaginal HISTORY: Missed menses COMPARISON: No relevant comparison available. FINDINGS: Transvaginal images Brown intrauterine gestation Gestational sac: 1.66 cm, 6 weeks 0 days CRL: 2.8 mm, 5 weeks 6 days Yolk sac: 1.8 mm Heart rate: 101 beats minute Cervix: 4.5 cm, closed Uterus is normal, anteverted The ovaries are normal Clinical age: 9 weeks 6 days Clinical MITCH: 05/04/2024 Ultrasound age: 5 weeks 6 days Ultrasound MITCH: 06/01/2024 US/US OB transvaginal IMPRESSION: Viable brown intrauterine gestation measuring 5 weeks 6 days Electronically authenticated by: BLAS OLIVEIRA Date: 10/06/2023 14:55 Dictated By: Blas Oliveira M.D. Signed By:10/06/23 1457 DD/ 1455 TD/TT: Shoe Reconditioner: us Agata Alcantara DO [facility] Final Result documented in this encounter Visit Diagnoses Not on filedocumented in this encounter
--- OUTSIDE RECORDS SUMMARY | 2024-09-04 19:17 | XMS_ITS | Encounter Summary ---
Author Organization [facility] Address [address] [place] [address] Care Team Providers Care Sleeper Cutter Name Role Phone Unavailable Primary Care Provider Unavailabl e Encounter Details Date Type Department Care Team (Late Contact Info) Description 05/02/2024 Abstract [facility] [address] [place] [phone] Prince Alcantara, [address] [place], [place] [address] Social History Tobacco Use Types Packs/Day Years [...] 09/11/2025 4:00 PM EDT Office Visit [facility] [address] [place] [phone] Prince Alcantara, [address] [place] [address] documented as of this encounter Visit Diagnoses Not on filedocumented in this encounter
--- OUTSIDE RECORDS SUMMARY | 2024-09-04 19:17 | XMS_ITS | Encounter Summary ---
Author Organization [facility] Address [address] [place] [address] Care Team Providers Care Kiln Puller Name Role Phone Unavailable Primary Care Provider Unavailabl e Encounter Details Date Type Department Care Team (Late st Contact Info) Description 09/04/2024 Bamboo flowsheet [facility] [address] [place] [address] Prince Alcantara, [address], [place] [address] Social History Tobacco Use Types Packs/Day Years [...] Visit [facility] [address] [place] [address] Prince Alcantara, [address] [facility] [place] [address] documented as of this encounter Visit Diagnoses Not on filedocumented in this encounter
--- OUTSIDE RECORDS SUMMARY | 2024-09-04 19:37 | XMS_ITS | CCD ---
Author Organization [facility] Care Team Providers Care [employer] Name Role Phone PHYSICIAN, DEFAULT Unavailable Unavailable [...] ALCANTARA Attending Unavailable KEN, TIA Attending Unavailable KEN, TIA Attending Unavailable MARICRUZAGATA Attending Unavailable KEN, TIA Attending Unavailable AGATA ALCANTARA Attending Unavailable AGATA ALCANTARA Referring Unavailable KEN, TIA Attending Unavailable MARICRUZAGATA Attending Unavailable KEN, TIA Attending Unavailable MARICRUZ, AGATA Attending Unavailable AGATA ALCANTARA Attending Unavailable AGATA ALCANTARA Attending Unavailable AGATA ALCANTARA Attending Unavailable Medications Current Medications Medication Drug Class(es) Dates Sig (Normalized) Sig (Original) magnesium oxide 400 mg oral tablet (20 sources) Start: 04-18-2024 take 1 tablet by [...] Sig (Original) azithromycin 250 mg oral tablet (9 sources) Macrolide Antimicrobial Start: 05-24-2024 End: 07-16-2024 azithromycin (Zithromax Z-Matt) 250 MG tablet Indications: Other chronic sinusitis As directed 6 tablet 05/24/2024 07/16/2024 Discontinued pyridoxine hydrochloride 25 mg oral tablet (6 [...] [38 weeks gestation of ] 05-24-2024 Episodic Residual codes; unclassified (2 sources) Gestation period, 39 weeks; Translations: [39 weeks gestation of ] 05-31-2024 Episodic Syncope (1 source) Syncope; Translations: [Syncope [...] Test Name Value Interpretation Reference Range Facility ALL CBC WITH AUTO DIFFon BASOPHILS ABSOLUTE AUTO 0 [facility] Basophils/100 WBC (Bld) 0.2 % 0.2 - 2.0 % [facility] Eosinophils/100 WBC (Bld) 0.2 % Low 0.9 - 7.0 % [facility] Erythrocyte distribution width (RBC) [Ratio] 13 % 11.0 - 15.0 % [facility] Hematocrit (Bld) [Volume fraction] 33.3 % Low 36.0 - 48.0 % [facility] Hemoglobin (Bld) [Mass/Vol] 11.6 g/dL Low 12.0 - 16.0 g/dL [facility] IMMATURE GRANULOCYTES ABS AUTO 0.03 [facility] Immature granulocytes/100 WBC (Bld) 0.3 % 0.0 - 0.5 % [facility] Interpretation and review of laboratory results Abnormal [facility] LYMPHOCYTES ABSOLUTE AUTO 1.9 [facility] Lymphocytes/100 WBC (Bld) 20.1 % Low 20.5 - 60.0 % [facility] MCH (RBC) [Entitic mass] 30.8 pg 26.7 - 34.0 pg [facility] MCHC (RBC) [Mass/Vol] 34.8 g/dL 29.9 - 35.2 g/dL [facility] MCV (RBC) [Entitic vol] 88.3 fL 81.0 - 99.0 fL [facility] MONOCYTES ABSOLUTE AUTO 0.7 [facility] Monocytes/100 WBC (Bld) 7.8 % 1.7 - 12.0 % [facility] NEUTROPHILS ABSOLUTE AUTO 6.8 High [facility] Neutrophils/100 WBC (Bld) 71.4 % 43.0 - 75.0 % [facility] Platelet mean volume (Bld) [Entitic vol] 10.1 fL 9.5 - 13.5 fL [facility] TB EO # 0 [facility] TB PLT 146 Low [facility] RBC 3.77 Low [facility] WBC 9.5 [facility] HMHP CBC WITH PLATELET NO DI FFERENTIALon 06-01-2024 Erythrocyte distribution width (RBC) [Ratio] 12.7 % 11.0 - 15.0 % [facility] Hematocrit (Bld) [Volume fraction] 34.8 % Low 36.0 - 48.0 % [facility] Hemoglobin (Bld) [Mass/Vol] 12.7 g/dL 12.0 - 16.0 g/dL [facility] Interpretation and review of laboratory results Abnormal [facility] MCH (RBC) [Entitic mass] 31.3 pg 26.7 - 34.0 pg [facility] MCHC (RBC) [Mass/Vol] 36.5 g/dL High 29.9 - 35.2 g/dL [facility] MCV (RBC) [Entitic vol] 85.7 fL 81.0 - 99.0 fL [facility] Platelet mean volume (Bld) [Entitic vol] 10.7 fL 9.5 - 13.5 fL [facility] PLT 153 [facility] RBC 4.06 Low [facility] WBC 6.6 [facility] Urinalysis macro (dipstick) panel (U)on 05-09-2024 Bilirubin, UA Negative Negative - 4(70) +++ mg/dL [facility] Blood, UA Negative Negative - 50 Heath/mcL [facility] Clarity, UA Clear [facility] Color, UA Yellow [facility] Glucose, UA Negative Negative - 2000(110) ++++ mg/dL [facility] Interpretation and review of laboratory results Abnormal [facility] Ketones, UA Negative Negative - 160(16) ++++ mg/dL [facility] Leukocytes, UA Negative Negative - 500+++ Ozzy/mcL [facility] Nitrite, UA Negative Negative - Positive [facility] pH, UA 7 5 - 9 [facility] Protein, UA Negative Negative - 1999(20) ++++ mg/dL [facility] Spec Grav, UA 1.02 1 - 1.03 [facility] Urobilinogen, UA 0.2 0.2 - 12 mg/dL [facility] ALL MISCELLANEOUS TESTon MISCELLANEOUS TEST COMMENT . [facility] Comment on above: Test Ordered: [id number] Strep Gp B Culture+Rflx Strep Gp B Culture+Rflx Negative CB Reference Range: Negative Centers for Disease Control and Prevention (CDC) and [place] [employer]stetricians and Gynecologists (ACOG) guidelines [...] resistance to clindamycin is noted. Performed at: [facility] [id number] [employer]: Geraldo Le PhD, Phone: [phone] GROUP B STREP [id number] Group B Streptococcus Colonization Detection Culture [facility] Urinalysis macro (dipstick) panel (U)on 04-17-2024 Bilirubin, UA Negative Negative - 4(70) +++ mg/dL [facility] Blood, UA Negative Negative - 50 Heath/mcL [facility] Clarity, UA Clear [facility] Color, UA Yellow [facility] Glucose, UA Negative Negative - 1999(110) ++++ mg/dL [facility] Interpretation and review of laboratory results Normal [facility] Ketones, UA Negative Negative - 160(16) ++++ mg/dL [facility] Leukocytes, UA Negative Negative - 500+++ Ozzy/mcL [facility] Nitrite, UA Negative Negative - Positive [facility] pH, UA 7.5 5 - 9 [facility] Protein, UA Negative Negative - 1999(20) ++++ mg/dL [facility] Spec Grav, UA 1.015 1 - 1.03 [facility] Urobilinogen, UA 0.2 0.2 - 12 mg/dL [facility] US OB FOLLOW UP TRANSABDOMIN AL APPROACHon [...] UA Negative Negative - 4(70) +++ mg/dL [facility] Blood, UA Negative Negative - 50 Heath/mcL [facility] Clarity, UA Clear [facility] Color, UA Yellow [facility] Glucose, UA Negative Negative - 2000(110) ++++ mg/dL [facility] Interpretation and review of laboratory results Abnormal [facility] Ketones, UA Negative Negative - 160(16) ++++ mg/dL [facility] Leukocytes, UA Negative Negative - 500+++ Ozzy/mcL [facility] Nitrite, UA Negative Negative - Positive [facility] pH, UA 6 5 - 9 [facility] Protein, UA Negative Negative - 2000(20) ++++ mg/dL [facility] Spec Grav, UA 1.025 1 - 1.03 [facility] Urobilinogen, UA 1.0 0.2 - 12 mg/dL [facility] ALL CBC WITH AUTO DIFFon BASOPHILS ABSOLUTE AUTO 0 [facility] Basophils/100 WBC (Bld) 0.3 % 0.2 - 2.0 % [facility] Eosinophils/100 WBC (Bld) 0.5 % Low 0.9 - 7.0 % [facility] Erythrocyte distribution width (RBC) [Ratio] 13.4 % 11.0 - 15.0 % [facility] Hematocrit (Bld) [Volume fraction] 38.6 % 36.0 - 48.0 % [facility] Hemoglobin (Bld) [Mass/Vol] 13.3 g/dL 12.0 - 16.0 g/dL [facility] IMMATURE GRANULOCYTES ABS AUTO 0.04 High [facility] Immature granulocytes/100 WBC (Bld) 0.4 % 0.0 - 0.5 % [facility] Interpretation and review of laboratory results Abnormal [facility] LYMPHOCYTES ABSOLUTE AUTO 1 Low [facility] Lymphocytes/100 WBC (Bld) 10.3 % Low 20.5 - 60.0 % [facility] MCH (RBC) [Entitic mass] 31 pg 26.7 - 34.0 pg [facility] MCHC (RBC) [Mass/Vol] 34.5 g/dL 29.9 - 35.2 g/dL [facility] MCV (RBC) [Entitic vol] 90 fL 81.0 - 99.0 fL [facility] MONOCYTES ABSOLUTE AUTO 0.5 [facility] Monocytes/100 WBC (Bld) 5 % 1.7 - 12.0 % [facility] NEUTROPHILS ABSOLUTE AUTO 8.4 High [facility] Neutrophils/100 WBC (Bld) 83.5 % High 43.0 - 75.0 % [facility] Platelet mean volume (Bld) [Entitic vol] 9.8 fL 9.5 - 13.5 fL [facility] TBH EO # 0.1 [facility] TB PLT 228 [facility] RBC 4.29 [facility] WBC 10.1 [facility] Urinalysis macro (dipstick) panel (U)on 02-14-2024 Bilirubin, UA Negative Negative - 4(70) +++ mg/dL [facility] Blood, UA Negative Negative - 50 Heath/mcL [facility] Clarity, UA Clear [facility] Color, UA Yellow [facility] Glucose, UA Negative Negative - 1999(110) ++++ mg/dL [facility] Interpretation and review of laboratory results Normal [facility] Ketones, UA Negative Negative - 160(16) ++++ mg/dL [facility] Leukocytes, UA Negative Negative - 500+++ Ozzy/mcL [facility] Nitrite, UA Negative Negative - Positive [facility] pH, UA 6 5 - 9 [facility] Protein, UA Negative Negative - 1999(20) ++++ mg/dL [facility] Spec Grav, UA 1.02 1 - 1.03 [facility] Urobilinogen, UA 0.2 0.2 - 12 mg/dL [facility] Urinalysis macro (dipstick) panel (U)on 01-17-2024 Bilirubin, UA Negative Negative - 4(70) +++ mg/dL [facility] Blood, UA Negative Negative - 50 Heath/mcL [facility] Clarity, UA Clear [facility] Color, UA Yellow [facility] Glucose, UA Negative Negative - 1999(110) ++++ mg/dL [facility] Interpretation and review of laboratory results Normal [facility] Ketones, UA Negative Negative - 160(16) ++++ mg/dL [facility] Leukocytes, UA Negative Negative - 500+++ Ozzy/mcL [facility] Nitrite, UA Negative Negative - Positive [facility] pH, UA 7.0 5 - 9 [facility] Protein, UA Negative Negative - 1999(20) ++++ mg/dL [facility] Spec Grav, UA 1.020 1 - 1.03 [facility] Urobilinogen, UA 0.2 0.2 - 12 mg/dL [facility] URETHRITIS/DISCHARGE PLUS VA GINITIS (HTRX)on 12-20-2023 ATOPOBIUM VAGINAE 25.657 Abnormal [facility] ATOPOBIUM VAGINAE Detected Abnormal [facility] BVAB 2,3 (BACTERIAL VAGINOSIS ASSOCIATED BACTERIA 2, 3); MOBILUNCUS SPP 24.613 Abnormal [facility] BVAB 2,3 (BACTERIAL VAGINOSIS ASSOCIATED BACTERIA 2, 3); MOBILUNCUS SPP Detected Abnormal [facility] HILDA ALBICANS, PARAPSILOSIS, TROPICALIS 0.000 [facility] HILDA ALBICANS, PARAPSILOSIS, TROPICALIS Not detected [facility] HILDA GLABRATA 0.000 [facility] HILDA GLABRATA Not detected [facility] HILDA KRUSEI 0.000 [facility] HILDA KRUSEI Not detected [facility] CHLAMYDIA TRACHOMATIS 0.000 [facility] CHLAMYDIA TRACHOMATIS Not detected [facility] GARDNERELLA VAGINALIS 26.686 Abnormal [facility] GARDNERELLA VAGINALIS Detected Abnormal [facility] Interpretation and review of laboratory results Abnormal [facility] MEGASPHAERA (TYPES 1, 2) 0.000 [facility] MEGASPHAERA (TYPES 1, 2) Not detected [facility] MYCOPLASMA GENITALIUM 0.000 [facility] MYCOPLASMA GENITALIUM Not detected [facility] NEISSERIA GONORRHOEAE 0.000 [facility] NEISSERIA GONORRHOEAE Not detected [facility] TET B, TET M 20.920 Abnormal [facility] TET B, TET M Detected Abnormal [facility] TRICHOMONAS VAGINALIS 0.000 [facility] TRICHOMONAS VAGINALIS Not detected [facility] Urinalysis macro (dipstick) panel (U)on 12-19-2023 Bilirubin, UA Negative Negative - 4(70) +++ mg/dL [facility] Blood, UA Negative Negative - 50 Heath/mcL [facility] Clarity, UA Clear [facility] Color, UA Yellow [facility] Glucose, UA Negative Negative - 1999(110) ++++ mg/dL [facility] Interpretation and review of laboratory results Abnormal [facility] Ketones, UA Negative Negative - 160(16) ++++ mg/dL [facility] Leukocytes, UA Trace Negative - 500+++ Ozzy/mcL [facility] Nitrite, UA Negative Negative - Positive [facility] pH, UA 7.0 5 - 9 [facility] Protein, UA Negative Negative - 1999(20) ++++ mg/dL [facility] Spec Grav, UA 1.020 1 - 1.03 [facility] Urobilinogen, UA 0.2 0.2 - 12 mg/dL [facility] CNPNon 10-14-2022 CNPN Telephone (CATHMN) SABINE ROUSE ([id number]) 1990 F Date Time Provider Department 10/14/22 SEGUNDO ALBA During your visit today, we recorded the following information about you: Brenda Gomezlisa GUARDADO 10/14/2022 4:21 PM Signed Per Desk F14 from [facility] Call Contact information: [place] [place] Diagnoses: Syncope, unspecified syncope type Shortness of breath Please schedule first available with Dr. Segundo Alba. Thank you. [facility] Cali spoke w the patient Patient has Out [place] Medicaid. Referrals will have to be created and sent to [facility] Allergies As of Date: 10/14/2022 (Not on File) Date Reviewed: Never Reviewed Reason for Visit: Appointment [[id number]] Problem List As Of Date: 10/14/2022 (None) Encounter Status:Closed by BRENDA MARTINEZ on 10/14/22 [facility] 10-07-2022 CNPN Telephone (CARDMN) SABINE ROUSE ([id number]) 1990 F Date Time Provider Department 10/07/22 SEGUNDO ALBA During your visit today, we recorded the following information about you: Carmencita Mittal 10/07/2022 11:55 AM Signed Referral and outside medical records scanned into [employer]. Referral routed to scheduling for first available with Dr. Segundo Alba. Allergies As of Date: 10/07/2022 (Not on File) Date Reviewed: Never Reviewed Reason for Visit: Received Referral and Outside Medical Records [Other] Problem List As Of Date: 10/07/2022 (None) Encounter Status:Closed by CARMENCITA MITTAL on 10/07/22 Normal [facility] CBC AUTO DIFFon 08-20-2022 BASO # 0.0 103/ul Normal 0.0-0.1 [facility] Comment on above: Performed By: #### C BC #### [facility] [address] [place] [address] Dr. Alla Peterson Basophils/100 WBC (Bld) 0.2 % Normal 0.2-2.0 [facility] Comment on above: Performed By: #### C BC #### [facility] [address] [place] [address] Dr. Alla Peterson EO # 0.0 103/ul Normal 0.0-0.7 [facility] Comment on above: Performed By: #### C BC #### [facility] [address] [place] [address] Dr. Alla Peterson Eosinophils/100 WBC (Bld) 0.2 % Critically low 0.9-7.0 [facility] Comment on above: Performed By: #### C BC #### [facility] [address] [place] [address] Dr. Alla Peterson Erythrocyte distribution width (RBC) [Ratio] 13.2 % Normal 11.0-15.0 [facility] Comment on above: Performed By: #### C BC #### [facility] [address] [place] [address] Dr. Alla Peterson Hematocrit (Bld) [Volume fraction] 36.1 % Normal 36.0-48.0 [facility] Comment on above: Performed By: #### C BC #### [facility] [address] [place] [address] Dr. Alla Peterson Hemoglobin (Bld) [Mass/Vol] 12.4 g/dL Normal 12.0-16.0 [facility] Comment on above: Performed By: #### C BC #### [facility] [address] [place] [address] Dr. Alla Peterson IG # 0.05 10e3/ul Critically high 0.00-0.03 [facility] Comment on above: Performed By: #### C BC #### [facility] [address] [place] [address] Dr. Alla Peterson IG % 0.4 % Normal 0.0-0.5 [facility] Comment on above: Performed By: #### C BC #### [facility] [address] [place] [address] Dr. Alla Peterson LYMPH # 1.4 103/ul Normal 1.2-3.8 [facility] Comment on above: Performed By: #### C BC #### [facility] [address] [place] [address] Dr. Alla Peterson Lymphocytes/100 WBC (Bld) 10.9 % Critically low 20.5-60.0 [facility] Comment on above: Performed By: #### C BC #### [facility] [address] [place] [address] Dr. Alla Peterson MANUAL DIFF REQ NO Normal [facility] Comment on above: Performed By: #### C BC #### [facility] [address] [place] [address] Dr. Alla Peterson MCH (RBC) [Entitic mass] 30.0 pg Normal 26.7-34.0 [facility] Comment on above: Performed By: #### C BC #### [facility] [address] [place] [address] Dr. Alla Peterson MCHC (RBC) [Mass/Vol] 34.3 g/dL Normal 29.9-35.2 [facility] Comment on above: Performed By: #### C BC #### [facility] [address] [place] [address] Dr. Alla Peterson MCV (RBC) [Entitic vol] 87.4 fL Normal 81.0-99.0 [facility] Comment on above: Performed By: #### C BC #### [facility] [address] [place] [address] Dr. Alla Peterson MONO # 0.8 103/ul Normal 0.3-0.8 [facility] Comment on above: Performed By: #### C BC #### [facility] [address] [address] [address] Alla Peterson Monocytes/100 WBC (Bld) 6.0 % Normal 1.7-12.0 [facility] Comment on above: Performed By: #### C BC #### [facility] [address] [address] [address] Alla Peterson NEUT # 10.8 103/ul Critically high 1.4-6.5 [facility] Comment on above: Performed By: #### C BC #### [facility] [address] [place] [address] Dr. Alla Peterson Neutrophils/100 WBC (Bld) 82.3 % Critically high 43.0-75.0 [facility] Comment on above: Performed By: #### C BC #### [facility] [address] [place] [address] Dr. Alla Peterson Platelet mean volume (Bld) [Entitic vol] 10.2 fL Normal 9.5-13.5 [facility] Comment on above: Performed By: #### C BC #### [facility] [address] [place] [address] Dr. Alla Peterson PLT 177 103/ul Normal 150-450 [facility] Comment on above: Performed By: #### C BC #### [facility] [address] [place] [address] Dr. Alla Peterson RBC 4.13 106/ul Critically low 4.20-5.40 [facility] Comment on above: Performed By: #### C BC #### [facility] [address] [place] [address] Dr. Alla Peterson WBC 13.1 103/ul Critically high 4.0-11.0 [facility] Comment on above: Performed By: #### C BC #### [facility] [address] [place] [address] Dr. lAla Peterson CBC AUTO DIFFon 08-19-2022 BASO # 0.0 103/ul Normal 0.0-0.1 [facility] Comment on above: Performed By: #### R UBIGG #### [facility] [address] [place] [address] Dr. Alla Peterson Basophils/100 WBC (Bld) 0.2 % Normal 0.2-2.0 [facility] Comment on above: Performed By: #### R UBIGG #### [facility] [address] [place] [address] Dr. Alla Peterson EO # 0.0 103/ul Normal 0.0-0.7 [facility] Comment on above: Performed By: #### R UBIGG #### [facility] [address] [place] [address] Dr. Alla Peterson Eosinophils/100 WBC (Bld) 0.4 % Critically low 0.9-7.0 [facility] Comment on above: Performed By: #### R UBIGG #### [facility] [address] [place] [address] Dr. Alla Peterson Erythrocyte distribution width (RBC) [Ratio] 12.9 % Normal 11.0-15.0 [facility] Comment on above: Performed By: #### R UBIGG #### [facility] [address] [place] [address] Dr. Alla Peterson Hematocrit (Bld) [Volume fraction] 38.1 % Normal 36.0-48.0 [facility] Comment on above: Performed By: #### R UBIGG #### [facility] [address] [place] [address] Dr. Alla Peterson Hemoglobin (Bld) [Mass/Vol] 13.3 g/dL Normal 12.0-16.0 [facility] Comment on above: Performed By: #### R UBIGG #### [facility] [address] [place] [address] Dr. Alla Peterson IG # 0.02 10e3/ul Normal 0.00-0.03 [facility] Comment on above: Performed By: #### R UBIGG #### [facility] [address] [place] [address] Dr. Alla Peterson IG % 0.2 % Normal 0.0-0.5 [facility] Comment on above: Performed By: #### R UBIGG #### [facility] [address] [place] [address] Dr. Alla Peterson LYMPH # 1.5 103/ul Normal 1.2-3.8 [facility] Comment on above: Performed By: #### R UBIGG #### [facility] [address] [place] [address] Dr. Alla Peterson Lymphocytes/100 WBC (Bld) 17.6 % Critically low 20.5-60.0 [facility] Comment on above: Performed By: #### R UBIGG #### [facility] [address] [place] [address] Dr. Alla Peterson MANUAL DIFF REQ NO Normal [facility] Comment on above: Performed By: #### R UBIGG #### [facility] [address] [place] [address] Dr. Alla Peterson MCH (RBC) [Entitic mass] 30.0 pg Normal 26.7-34.0 [facility] Comment on above: Performed By: #### R UBIGG #### [facility] [address] [place] [address] Dr. Alla Peterson MCHC (RBC) [Mass/Vol] 34.9 g/dL Normal 29.9-35.2 [facility] Comment on above: Performed By: #### R UBIGG #### [facility] [address] [place] [address] Dr. Alla Peterson MCV (RBC) [Entitic vol] 85.8 fL Normal 81.0-99.0 [facility] Comment on above: Performed By: #### R UBIGG #### [facility] [address] [place] [address] Dr. Alla Peterson MONO # 0.4 103/ul Normal 0.3-0.8 [facility] Comment on above: Performed By: #### R UBIGG #### [facility] [address] [place] [address] Dr. Alla Peterson Monocytes/100 WBC (Bld) 5.1 % Normal 1.7-12.0 [facility] Comment on above: Performed By: #### R UBIGG #### [facility] [address] [place] [address] Dr. Alla Peterson NEUT # 6.5 103/ul Normal 1.4-6.5 [facility] Comment on above: Performed By: #### R UBIGG #### [facility] [address] [place] [address] Dr. Alla Peterson Neutrophils/100 WBC (Bld) 76.5 % Critically high 43.0-75.0 [facility] Comment on above: Performed By: #### R UBIGG #### [facility] [address] [place] [address] Dr. Alla Peterson Platelet mean volume (Bld) [Entitic vol] 10.2 fL Normal 9.5-13.5 [facility] Comment on above: Performed By: #### R UBIGG #### [facility] [address] [place] [address] Dr. Alla Peterson PLT 196 103/ul Normal 150-450 [facility] Comment on above: Performed By: #### R UBIGG #### [facility] [address] [place] [address] Dr. Alla Peterson RBC 4.44 106/ul Normal 4.20-5.40 [facility] Comment on above: Performed By: #### R UBIGG #### [facility] [address] [place] [address] Dr. Alla Peterson WBC 8.5 103/ul Normal 4.0-11.0 [facility] Comment on above: Performed By: #### R UBIGG #### [facility] [address] [place] [address] Dr. Alla Peterson DRUG SCREEN RAPID (URINE)on 08-19-2022 AMP Negative Normal NEGATIVE [facility] Comment on above: Performed By: #### R UBIGG #### [facility] [address] [place] [address] Dr. Alla Peterson BAR Negative Normal NEGATIVE [facility] Comment on above: Performed By: #### R UBIGG #### [facility] [address] [place] [address] Dr. Alla Peterson BUP Negative Normal NEGATIVE [facility] Comment on above: Performed By: #### R UBIGG #### [facility] [address] [place] [address] Dr. Alla Peterson BZO Negative Normal NEGATIVE [facility] Comment on above: Performed By: #### R UBIGG #### [facility] [facility] [address] [place] [address] Dr. Alla Peterson TK Negative Normal NEGATIVE [facility] Comment on above: Performed By: #### R UBIGG #### [facility] [address] [place] [address] Dr. Alla Peterson CUT-OFFS SEE BELOW Normal [facility] Comment on above: Result Comment: AMP [...] ng/mL Performed By: #### R UBIGG #### [facility] [address] [place] [address] Dr. Alla Peterson DRUG CUT HEADER DRUG CLASS TEST SYSTEM CUT-OFF CONCENTRATIONS ARE FOLLOWS: Normal [facility] Comment on above: Performed By: #### R UBIGG #### [facility] [address] [place] [address] Dr. Alla Peterson mAMP Negative Normal NEGATIVE [facility] Comment on above: Performed By: #### R UBIGG #### [facility] [address] [place] [address] Dr. Alla Peterson MTD Negative Normal NEGATIVE [facility] Comment on above: Performed By: #### R UBIGG #### [facility] [address] [address] [address] Alla Peterson OPI Negative Normal NEGATIVE [facility] Comment on above: Performed By: #### R UBIGG #### [facility] [address] [place] [address] Dr. Alla Peterson OXY Negative Normal NEGATIVE [facility] Comment on above: Performed By: #### R UBIGG #### [facility] [address] [address] [address] Alla Peterson PCP Negative Normal NEGATIVE [facility] Comment on above: Performed By: #### R UBIGG #### [facility] [address] [place] [address] Dr. Alla Peterson PPX Negative Normal NEGATIVE [facility] Comment on above: Performed By: #### R UBIGG #### [facility] [address] [address] [address] Alla Peterson TCA Negative Normal NEGATIVE [facility] Comment on above: Performed By: #### R UBIGG #### [facility] [address] [address] [address] Alla Peterson THC Negative Normal NEGATIVE [facility] Comment on above: Performed By: #### R UBIGG #### [facility] [address] [place] [address] Dr. Alla Peterson TYPE AND SCREENon 08-19-2022 TYPE AND SCREEN Negative Normal [facility] Comment on above: Performed By: #### T NS #### [facility] [address] [place] [address] Dr. Alla Peterson US PREG BIOPHY W [...] by: MICKEY GUZMAN Date: 2022-08-17 15:35 Normal [facility] US PREG BIOPHY W NON STRESSo [...] (previously 27.0 cm). Findings provided to the [facility] nurse by the entry level mechanical engineer at time of examination. Electronically authenticated by: MICKEY GUZMAN Date: 2022-08-16 15:45 Normal [facility] US PREG BIOPHY W NON STRESSo [...] BLAS OLIVEIRA Date: 2022-08-12 16:51 Normal [facility] GROUP B STREP CULTUREon 04-0 S. agalactiae Ag Ql (Unsp spec) Culture Observations: NEGATIVE FOR GROUP B STREPTOCOCCUS. Normal [facility] Comment on above: Performed By: #### P REGQNT #### [facility] [address] [place] [address] Dr. Alla Peterson UA (CLEAN/CATCH) CLOUD ENGAGEMENT PARTNER/MICRO I F IND.on 04-30-2022 Bilirubin Ql (U) Negative Normal NEGATIVE [facility] Comment on above: Performed By: #### R UBIGG #### [facility] [address] [place] [address] Dr. Alla Peterson Clarity (U) CLEAR Normal CLEAR [facility] Comment on above: Performed By: #### R UBIGG #### [facility] [address] [address] [address] Alla Peterson Color (U) LT. YELLOW Normal YELLOW [facility] Comment on above: Performed By: #### R UBIGG #### [facility] [address] [place] [address] Dr. Alla Peterson Glucose Ql (U) Negative Normal NEGATIVE [facility] Comment on above: Performed By: #### R UBIGG #### [facility] [address] [place] [address] Dr. Alla Peterson Hemoglobin Ql (U) Negative Normal NEGATIVE [facility] Comment on above: Performed By: #### R UBIGG #### [facility] [address] [place] [address] Dr. Alla Peterson Ketones Ql (U) Negative Normal NEGATIVE [facility] Comment on above: Performed By: #### R UBIGG #### [facility] [address] [place] [address] Dr. Alla Peterson LEUKOCYTES Negative Normal NEGATIVE [facility] Comment on above: Performed By: #### R UBIGG #### [facility] [address] [place] [address] Dr. Alla Peterson Nitrite Ql (U) Negative Normal NEGATIVE [facility] Comment on above: Performed By: #### R UBIGG #### [facility] [address] [place] [address] Dr. Alla Peterson pH (U) 7.0 [pH] Normal 5-9 [facility] Comment on above: Performed By: #### R UBIGG #### [facility] [address] [place] [address] Dr. Alla Peterson SPEC GRAVITY 1.005 Normal 1.005-<=1.025 [facility] Comment on above: Performed By: #### R UBIGG #### [facility] [address] [place] [address] Dr. Alla Peterson UA PROTEIN Negative Normal NEGATIVE/ TRACE [facility] Comment on above: Performed By: #### R UBIGG #### [facility] [address] [place] [address] Dr. Alla Peterson UR MICRO IND NOT INDICATED Normal [facility] Comment on above: Performed By: #### R UBIGG #### [facility] [address] [place] [address] Dr. Alla Peterson Urobilinogen Qn (U) 0.2 {José Miguel'U}/dL Normal 0.2 - 1. 0 [facility] Comment on above: Performed By: #### R UBIGG #### [facility] [address] [place] [address] Dr. Alla Peterson CBC AUTO DIFFon 04-29-2022 BASO # 0.0 103/ul Normal 0.0-0.1 [facility] Comment on above: Performed By: #### P REGQNT #### [facility] [address] [place] [address] Dr. Alla Peterson Basophils/100 WBC (Bld) 0.1 % Critically low 0.2-2.0 [facility] Comment on above: Performed By: #### P REGQNT #### [facility] [address] [place] [address] Dr. Alla Peterson EO # 0.0 103/ul Normal 0.0-0.7 [facility] Comment on above: Performed By: #### P REGQNT #### [facility] [address] [place] [address] Dr. Alla Peterson Eosinophils/100 WBC (Bld) 0.4 % Critically low 0.9-7.0 [facility] Comment on above: Performed By: #### P REGQNT #### [facility] [address] [place] [address] Dr. Alla Peterson Erythrocyte distribution width (RBC) [Ratio] 13.2 % Normal 11.0-15.0 [facility] Comment on above: Performed By: #### P REGQNT #### [facility] [address] [place] [address] Dr. Alla Peterson Hematocrit (Bld) [Volume fraction] 38.8 % Normal 36.0-48.0 [facility] Comment on above: Performed By: #### P REGQNT #### [facility] [address] [place] [address] Dr. Alla Peterson Hemoglobin (Bld) [Mass/Vol] 13.2 g/dL Normal 12.0-16.0 [facility] Comment on above: Performed By: #### P REGQNT #### [facility] [address] [place] [address] Dr. Alla Peterson IG # 0.05 10e3/ul Critically high 0.00-0.03 [facility] Comment on above: Performed By: #### P REGQNT #### [facility] [address] [place] [address] Dr. Alla Peterson IG % 0.6 % Critically high 0.0-0.5 [facility] Comment on above: Performed By: #### P REGQNT #### [facility] [address] [place] [address] Dr. Alla Peterson LYMPH # 1.2 103/ul Normal 1.2-3.8 [facility] Comment on above: Performed By: #### P REGQNT #### [facility] [address] [place] [address] Dr. Alla Peterson Lymphocytes/100 WBC (Bld) 14.7 % Critically low 20.5-60.0 [facility] Comment on above: Performed By: #### P REGQNT #### [facility] [address] [place] [address] Dr. Alla Peterson MANUAL DIFF REQ NO Normal [facility] Comment on above: Performed By: #### P REGQNT #### [facility] [address] [address] [address] Alla Peterson MCH (RBC) [Entitic mass] 29.6 pg Normal 26.7-34.0 [facility] Comment on above: Performed By: #### P REGQNT #### [facility] [address] [place] [address] Dr. Alla Peterson MCHC (RBC) [Mass/Vol] 34.0 g/dL Normal 29.9-35.2 [facility] Comment on above: Performed By: #### P REGQNT #### [facility] [address] [place] [address] Dr. Alla Peterson MCV (RBC) [Entitic vol] 87.0 fL Normal 81.0-99.0 [facility] Comment on above: Performed By: #### P REGQNT #### [facility] [address] [place] [address] Dr. Alla Peterson MONO # 0.4 103/ul Normal 0.3-0.8 [facility] Comment on above: Performed By: #### P REGQNT #### [facility] [address] [place] [address] Dr. Alla Peterson Monocytes/100 WBC (Bld) 4.3 % Normal 1.7-12.0 [facility] Comment on above: Performed By: #### P REGQNT #### [facility] [address] [place] [address] Dr. Alla Peterson NEUT # 6.7 103/ul Critically high 1.4-6.5 [facility] Comment on above: Performed By: #### P REGQNT #### [facility] [address] [place] [address] Dr. Alla Peterson Neutrophils/100 WBC (Bld) 79.9 % Critically high 43.0-75.0 [facility] Comment on above: Performed By: #### P REGQNT #### [facility] [address] [place] [address] Dr. Alla Peterson Platelet mean volume (Bld) [Entitic vol] 9.3 fL Critically low 9.5-13.5 [facility] Comment on above: Performed By: #### P REGQNT #### [facility] [address] [place], [place] [address] Dr. Alla Peterson PLT 251 103/ul Normal 150-450 [facility] Comment on above: Performed By: #### P REGQNT #### [facility] [address] [place], [place] [address] Dr. Alla Peterson RBC 4.46 106/ul Normal 4.20-5.40 [facility] Comment on above: Performed By: #### P REGQNT #### [facility] [address] [place], [place] [address] Dr. Alla Peterson WBC 8.3 103/ul Normal 4.0-11.0 [facility] Comment on above: Performed By: #### P REGQNT #### [facility] [address] [place] [address] Dr. Alla Peterson GLUCOSE - 1HRon 04-29-2022 Glucose [Mass/Vol] 86 mg/dL Normal 74-106 [facility] Comment on above: Performed By: #### R UBIGG #### [facility] [address] [place] [address] [id number] [address] Alla Peterson US PREG PLACENTAon US [...] BLAS OLIVEIRA Date: 2022-04-27 16:04 Normal [facility] US PREG ANATOMY SINGLEon US PREG [...] by: BLAS OLIVEIRA Date: 2022-03-25 18:45 Normal [facility] PAP ACOG PANEL 2: 21 to 29on 02-24-2022 . . Normal [facility] Comment on above: Performed By: #### R UBIGG #### [facility] [address] [address] [address] Alla Peterson Age Gdln ACOG Testing 21-29 Normal [facility] Comment on above: Performed By: #### R UBIGG #### [facility] [address] [address] [address] Alla Peterson DIAGNOSIS: Comment Normal [facility] Comment on above: Result Comment: NEGA TIVE FOR INTRAEPITHELIAL LESION OR MALIGNANCY. Performed By: #### R UBIGG #### [facility] [address] [address] [address] Alla Peterson Methodology: Comment Normal [facility] Comment on above: Result Comment: This liquid based ThinPrep(R) pap test was screened with the use of an image guided system. Performed By: #### R UBIGG #### [facility] [address] [place] [address] Dr. Alla Peterson Note: Comment Normal [facility] Comment on above: Result Comment: The Pap smear is a screening test designed to aid in the detection of premalignant and malignant conditions of the uterine cervix. It is not a diagnostic procedure and should not be used as the sole means of detecting cervical cancer. Both false-positive and false-negative reports do occur. . Performed By: #### R UBIGG #### [facility] [address] [place] [address] Dr. Alla Peterson Performed by: Comment Normal [facility] Comment on above: Result Comment: Edgar Carrillo Help Desk Supervisor (ASCP) Performed By: #### R UBIGG #### [facility] [address] [place] [address] Dr. Alla Peterson Reflex Criteria: Comment Normal [facility] Comment on above: Result Comment: The HPV DNA reflex criteria were not met with this specimen result therefore, no HPV testing was performed. . Performed By: #### R UBIGG #### [facility] [address] [place] [address] Dr. Alla Peterson Specimen adequacy: Comment Normal [facility] Comment on above: Result Comment: Sati sfactory for evaluation. No endocervical component is identified. Performed By: #### R UBIGG #### [facility] [address] [place] [address] Dr. Alla Peterson CHLAMYDIA/GONOCOCCUS GONZÁLEZ (SW AB/URINE/PAPon 02-18-2022 Chlamydia trachomatis, GONZÁLEZ Negative Normal Negative [facility] Comment on above: Performed By: #### C T/NGNA #### [facility] [address] [place] [address] Dr. Alla Peterson Neisseria gonorrhoeae, GONZÁLEZ Negative Normal Negative [facility] Comment on above: Performed By: #### C T/NGNA #### [facility] [address] [place] [address] Dr. Alla Peterson VAGINITIS/VAGINOSIS DNA PROB Marko 02-18-2022 Hilda species Negative Normal Negative [facility] Comment on above: Performed By: #### R UBIGG #### [facility] [address] [place] [address] Dr. Alla Peterson Gardnerella vaginalis Negative Normal Negative [facility] Comment on above: Performed By: #### R UBIGG #### [facility] [address] [place] [address] Dr. Alla Peterson Trichomonas vaginalis Negative Normal Negative [facility] Comment on above: Performed By: #### R UBIGG #### [facility] [address] [place] [address] Dr. Alla Peterson HEP B SURFACE ANTIGEN SCREEN on 02-06-2022 HBsAg Screen Negative Normal Negative [facility] Comment on above: Performed By: #### H BSANS #### [facility] [address] [place] [address] Dr. Alla Peterson HEPATITIS C VIRUS AB W/ REFL EX QUANTon 02-06-2022 HCV AB 0.1 s/co ratio Normal 0.0-0.9 [facility] Comment on above: Performed By: #### H CVPCRR #### [facility] [address] [place] [address] Dr. Alla Peterson Interpretation: Comment Normal [facility] Comment on above: Result Comment: Nega tive Not infected with HCV, unless recent infection is suspected or other evidence exists to indicate HCV infection. Performed By: #### H CVPCRR #### [facility] [address] [place] [address] Dr. Alla Peterson HIV 1 AND 2 WITH REFLEXon HIV Screen 4th Generation wRfx Non-Reactive Normal Non Reactive [facility] Comment on above: Result Comment: HIV Negative HIV-1/HIV-2 antibodies and HIV-1 p24 antigen were NOT detected. There is no laboratory evidence of HIV infection. Performed By: #### H IV12 #### [facility] [address] [place] [address] Dr. Alla Peterson RPR QUANTon 02-06-2022 Rapid Plasma Reagin, Quant Non-Reactive Normal NonRea<1:1 [facility] Comment on above: Result Comment: Plea Note: This test does not meet current guidelines for screening and diagnosis of syphilis. This test is intended for following treatment response in patients being treated for syphilis infection. To screen for syphilis infection, a reflex cascade that includes both RPR and a treponema-specific assay should be utilized, such as Treponema pallidum (Syphilis) Screening [place] (616110) or Rapid Plasma Reagin (RPR) Test With Reflex to Quantitative RPR and Confirmatory Treponema pallidum Antibodies (295484). Performed By: #### R UBIGG #### [facility] [address] [place] [address] Dr. Alla Peterson RUBELLA AB IGGon 02-06-2022 Rubella Antibodies, IgG 3.77 index Normal Immune >0.99 [facility] Comment on above: Result Comment: Non- immune <0.90 Equivocal 0.90 - 0.99 Immune >0.99 Performed By: #### R UBIGG #### [facility] [address] [place] [address] Dr. Alla Peterson CBC AUTO DIFFon 02-05-2022 BASO # 0.0 103/ul Normal 0.0-0.1 [facility] Comment on above: Performed By: #### P REGQNT #### [facility] [address] [place] [address] Dr. Alla Peterson Basophils/100 WBC (Bld) 0.3 % Normal 0.2-2.0 [facility] Comment on above: Performed By: #### P REGQNT #### [facility] [address] [place] [address] Dr. Alla Peterson EO # 0.0 103/ul Normal 0.0-0.7 [facility] Comment on above: Performed By: #### P REGQNT #### [facility] [address] [place] [address] Dr. Alla Peterson Eosinophils/100 WBC (Bld) 0.2 % Critically low 0.9-7.0 [facility] Comment on above: Performed By: #### P REGQNT #### [facility] [address] [address] [address] Alla Peterson Erythrocyte distribution width (RBC) [Ratio] 12.3 % Normal 11.0-15.0 [facility] Comment on above: Performed By: #### P REGQNT #### [facility] [address] [place] [address] Dr. Alla Peterson Hematocrit (Bld) [Volume fraction] 40.1 % Normal 36.0-48.0 [facility] Comment on above: Performed By: #### P REGQNT #### [facility] [address] [place] [address] Dr. Alla Peterson Hemoglobin (Bld) [Mass/Vol] 13.9 g/dL Normal 12.0-16.0 [facility] Comment on above: Performed By: #### P REGQNT #### [facility] [address] [place] [address] Dr. Alla Peterson IG # 0.04 10e3/ul Critically high 0.00-0.03 [facility] Comment on above: Performed By: #### P REGQNT #### [facility] [address] [address] [address] Alla Peterson IG % 0.4 % Normal 0.0-0.5 [facility] Comment on above: Performed By: #### P REGQNT #### [facility] [address] [place] [address] Dr. Alla Peterson LYMPH # 1.3 103/ul Normal 1.2-3.8 [facility] Comment on above: Performed By: #### P REGQNT #### [facility] [address] [place] [address] Dr. Alla Peterson Lymphocytes/100 WBC (Bld) 13.4 % Critically low 20.5-60.0 [facility] Comment on above: Performed By: #### P REGQNT #### [facility] [address] [place] [address] Dr. Alla Peterson MANUAL DIFF REQ NO Normal [facility] Comment on above: Performed By: #### P REGQNT #### [facility] [address] [address] [address] Alla Peterson MCH (RBC) [Entitic mass] 29.2 pg Normal 26.7-34.0 [facility] Comment on above: Performed By: #### P REGQNT #### [facility] [address] [address] [address] Alla Peterson MCHC (RBC) [Mass/Vol] 34.7 g/dL Normal 29.9-35.2 [facility] Comment on above: Performed By: #### P REGQNT #### [facility] [address] [address] [address] Alla Peterson MCV (RBC) [Entitic vol] 84.2 fL Normal 81.0-99.0 [facility] Comment on above: Performed By: #### P REGQNT #### [facility] [address] [place] [address] Dr. Alla Peterson MONO # 0.5 103/ul Normal 0.3-0.8 [facility] Comment on above: Performed By: #### P REGQNT #### [facility] [address] [address] [address] Alla Peterson Monocytes/100 WBC (Bld) 5.1 % Normal 1.7-12.0 [facility] Comment on above: Performed By: #### P REGQNT #### [facility] [address] [address] [address] Alla Peterson NEUT # 8.1 103/ul Critically high 1.4-6.5 [facility] Comment on above: Performed By: #### P REGQNT #### [facility] [address] [address] [address] Alla Peterson Neutrophils/100 WBC (Bld) 80.6 % Critically high 43.0-75.0 [facility] Comment on above: Performed By: #### P REGQNT #### [facility] [address] [address] [address] Alla Peterson Platelet mean volume (Bld) [Entitic vol] 9.3 fL Critically low 9.5-13.5 [facility] Comment on above: Performed By: #### P REGQNT #### [facility] [address] [address] [address] Alla Peterson PLT 240 103/ul Normal 150-450 [facility] Comment on above: Performed By: #### P REGQNT #### [facility] [address] [address] [address] Alla Peterson RBC 4.76 106/ul Normal 4.20-5.40 [facility] Comment on above: Performed By: #### P REGQNT #### [facility] [address] [address] [address] Alla Peterson WBC 10.0 103/ul Normal 4.0-11.0 [facility] Comment on above: Performed By: #### P REGQNT #### [facility] [address] [place] [address] Dr. Alla Peterson CULTURE URINEon 02-05-2022 CULTURE URINE Culture Observations : LIGHT GROWTH OF MIXED GENITAL FRANCISCO. NO POTENTIAL PATHOGENS SEEN. Normal [facility] Comment on above: Performed By: #### U RCX #### [facility] [address] [place] [address] Dr. Alla Peterson GLYCOHEMOGLOBIN A1Con 2021 ADA RECOMMENDATION SEE BELOW Normal [facility] Comment on above: Result Comment: ADA RECOMMENDED LIMIT 4.0 - 6.0 ADA THERAPEUTIC TARGET < 7.0 ACTION SUGGESTED > 7.0 Performed By: #### A 1C #### [facility] [address] [place] [address] Dr. Alla Peterson Glucose [Mass/Vol] 97 mg/dL Normal [facility] Comment on above: Performed By: #### A 1C #### [facility] [address] [place] [address] Dr. Alla Peterson HbA1c (Bld) [Mass fraction] 5.0 % Normal 4.5-6.2 [facility] Comment on above: Performed By: #### A 1C #### [facility] [address] [place] [address] Dr. Alla Peterson TYPE AND SCREENon 02-05-2022 TYPE AND SCREEN Negative Normal [facility] Comment on above: Performed By: #### P REGQNT #### [facility] [address] [place], [place] [id number] Dr. Alla Peterson US PREG TVon 01-07-2022 [...] MICKEY GUZMAN Date: 2022-01-07 16:17 Normal [facility] PREG QUANT HCGon 09-03-2021 HCG QUANT 1 mIU/mL Normal [facility] Comment on above: Performed By: #### P REGQNT #### [facility] [address] [place] [address] Dr. Alla Peterson HCG RANGE SEE BELOW Normal [facility] Comment on above: Result Comment: 5-50 0-1 WEEK 40-300 1-2 WEEKS 100-1,000 2-3 WEEKS 500-6,000 3-4 WEEKS 5,000-200,000 1-2 MONTHS 10,000-100,000 2-3 MONTHS 3,000-50,000 2ND TRIMESTER 1,000-50,000 3RD TRIMESTER Performed By: #### P REGQNT #### [facility] [address] [id number] [address] Alla Peterson PREG QUANT HCGon 08-27-2021 HCG QUANT 9 mIU/mL Normal [facility] Comment on above: Performed By: #### R UBIGG #### [facility] [address] [place], [place] [id number] Dr. Alla Peterson HCG RANGE SEE BELOW Normal [facility] Comment on above: Result Comment: 5-50 0-1 WEEK 40-300 1-2 WEEKS 100-1,000 2-3 WEEKS 500-6,000 3-4 WEEKS 5,000-200,000 1-2 MONTHS 10,000-100,000 2-3 MONTHS 3,000-50,000 2ND TRIMESTER 1,000-50,000 3RD TRIMESTER Performed By: #### R UBIGG #### [facility] [address] [place] [address] Dr. Alla Peterson Physical Therapy Noteon 01-09 Physical Therapy Note [id number] [facility] Coding Summaryon 09-04-2020 Coding Summary HTMLBase 64 XwaihboaJUb3nTf+PGhlY WQ+FG8DGJNuU92xlDAncJ 9QE7iFWT8HAFAHXUMGPK4 TKN9ogAF3ZRwbE9UdqhHj OaxwlVYjAI81ZCa4YCA3t FqfNOzyhZ9njKEmK8p2Lo SiCO06lO33HTbuGUDfIbH 3LjZpbjsgbWFy A5lfHoSseWRsNsz+PHRhY mxlIHdpZHRoPScxMDAlJy OlmEtvUI5yHa1pMQUlVGW vbGxhcHNlOiBj k8jbYTDqJWdvXV7eyLpqI 1FkjGJ8RPAuy8d2Ci09aY I+QUCuXGT5dAzlPKvgr34 7UfFvl2aaXCG6 vOZcRCsvYVU1N24pe1L4A SBzDGHeDEM4xJM1pP2rlG tjlhacE3SgcXEpVvM1KVF 7cNDwxF9wnNjs hecaxV6lMqz+Y87SEM7NQ BPEFF9IUqa6A1AwXsvoqF I+OJ44ATFpCT95uOYibFZ gg5tmhJo5ZjLl NPMhSPS9zRofPJxup0WhX EIuO51khNOvr1O0CECnqI nekMZbRyBvyAF0rL6fORn wctfeo9bphivh Hhfzi8hbsm05bF04D04aU RtmLXToJOP4DUWeBRSocT wyxw0bgW8bEq8+HHqvg5q af6pwlNm7DrAh INVlzaPmiCxxXWY8q6YzD l69O7OakHgvi9PwUir4wa 51uSFpp3V8kUA5LJhfNWJ exT2nPBjpNjA8 AOVeHvPymH56jWNzSBxvQ i0vfJkbgVcxLD2tTRDqmy vuAWCnyX2cSLNxlUVdcUr nDH3uQULpzhgr q324KeZsSRA5OILfuQTmO 0QexQ2zQpExBCIkSHGmU9 NnwGKjXUzrB214KMftAuO 6LAYirqQuJ2Me EFBnzTpgOoM4i0E7Ec8Ed 1KbnqltCBB4XShgVGW0Eb L0OwKyMeC4A8ZyTts2UXT idZcxEJ5wT7Up TKKvjylvggesnMB0OZUmX UOhwW69tSSsMHhlLm6ea6 X5q825FWNyVFQqgV77Zu9 udDogMTBwdCBU aE7rolhnn5oqkdexAqLuP DBuPKn1WYl9FIIhzGlqSl RtNTA4AnC0BBB0qPMfhX5 doIunqukthZ6y Oyc+N52hzX1rEPT2UXY0u lpxFRXvseLhOU37CK89F9 RyPjwvdGFibGU+PGRpdiB tbEmwSP7xRaKm g9usj0YfGFokN1JzMPEiL BlhVmn2EFDxJPI0nBJ1dY 7nYIItNZlyo9S2cQR8H2F nhlUlpl5pv6xs QHKlYFudX48onSWjs6J0Z LGdiKS9BOMjxQxhAtHycB 93Oyc+UYExvVcvy6GeZzq ep7ryj5razUl5 DoUpQGFoocYjaHumJPI0v 5BnYs82Q18sIXusDJFoGM SuUCYuZMObvKwssw1hpU1 wIi8+PGNvbCB3 wIW9pB8uXWVnHnH9MZdjX 425PoSqiZVxEzchu4vtq3 mqcRj6VaQyCDLkmzQecJk eALV0j3IlTo72 Q86aDMjjQKNyCDKhVZSzV FNncQcnvj2ldQ2yRi1+PC 9iv4tysi08vK32kLW+PHR cENM7nFjeAQbr NPLbuR8nJTodUdM3UKDzR yRkjQ97hCNfCIytCs3crD wokNuhNL7tOQEgcgufa62 1LaBuh0tfJBNt zZWrONsaRJB2X28wo9Y1J WAsVPRyEWT9sTQ7cJ4poS lnbjogbGVmdDsgdmVydGl oHYsmFZkhB334 IHRvcDsnPlBhdGllbnQgT wNdNAh1G9HnIfy2RMSvbO igNU1crNSfGAvuEc7vfEw wgSaiSE9eZYYg tezep732BlNnq4evGUZyp DCxVVmfBXW6S50js1C1SD UpROBaDGV1wDH2bS6fhHm nbjogbGVmdDsg hgOqjHlkSWebLLfdD426Y HRvcDsnPkJpcnRoIERhdG X7LE13IU50bDUsm3N2eLR 4W3KzIJEknsot xapphVE4RBPtVGKruL53U b4scUadEc3tNWCyXXY6RH RxbKAnJ1UauU8nVrHfAZQ nUOYaD9LxgDFq SKdsM541QDtrFeM3WYApf eXnU1QnUMEcbWfiWtT3m3 O8Nx4GA7Z4KE10SV86dMF ir8V8jUO9R0Rk OBNqogjvmpkrvBE2EXRhA HShdY44Jx0xiTmfRr0iER RlSZY2FWOpbUVhV4SarD0 yOiAjMDAwMDAw K8WkwMIuKXkhF640RVbeC aB4YGOaotGgG5DtYEIpfM gsKzP5l6K4Fq1STKp3IX1 0MJ43cKQgd3D6 eGN8V0RqDFBnlqunthwbe KK9PNInRVMhqW35Df0ofX rrSh4qFZEpRNH1ZFBddCA dR6KvcI1wNeKs GXMhHYLkF7WjzYImXPjfO 422ZZmnSrS9NSZzykKuC4 OoNVUowHrfMeB3x3W9Li9 GCAEaVZ51WZI8 cXA7KJ27QP36L9HkAladi GFibGU+PHRhYmxlIHdpZH RoPScxMDAlJyBzdHlsZT0 lDl0uEORsNYPq dWibpTLzPsVto1kiEYRxR XuuKF9rxVcaA0ZniHG8KT Fik4f4Ve88M37cD7YwrKW +SVJctFJ9yTZ0 iI0hTaImStH8WQhnA320G yKjhYExQizzk8onk3wogA v1WcH1SBEwwjQfjRdxNFG 2q3VoPt71J16r IHdpZHRoPSIxNSUiIHZhb Jbuyj7ioV7qWg1+PGNvbC B3qMC1oV3iGlVlMyD8XMn qQ646UwNalNWg Bjkee1vjk2gmiXq0JdKvU HBglfWtbXbhWCG6f5GtSm 52Y4XioVvlo7HhNtb6sw9 3cOHbs8H8yQJ7 W0ItRSEjrgmrtOKrxAqzL C9vKKGcjtmoXDKrpO4dEI DzF8u8UyQrBhG9GAofV4I jsnJ4LLHgfQYv XSxuFZK1Q20pn8Y9MPInB IXpPCY6uRL1fD5ljUucld ogbGVmdDsgdmVydGljYWw pVYzbS732FGNs cFtcFEJdwO4hBKDnuQMxl GiyXL3eWHEabyzaEuqPBX 0YQ52bCA2BCoyNLyTDKXr 1J9VjUhv5BEOq mOjvSS1veKRlNBohLs6mw EgayHqwXB4nYZNypcjhGG GvcW6hMZQskKJefCrjPW8 cTBScxpnen327 SeTiLAA2PQUlmLPlJ0Mve O1qFqBvDTXmCUPrA4FtiS XpTRfaF646LCfoNaS6PON nhnEsP9ToSBNy uBnwOyL6g1A6Mv3kHM4tE P2qOBrnCM01YA71tZLsw3 G1bVT8K0ZdARLpihufiqs pmNL9TVEmBMKv oP87eEThNGjxBs3xq8F4x 777ZKPtBLNosA67Kw0sdH wiOBGunSLVsE4oqclax3a vcjogIzAwMDAw WIv4XGj3RDXmlIamUlAnT QM6XoI9XSS9lCTycP1utM okibaslY5oPbg+MjggWWV dtdE9V5HlSxj5 XDSdaQdbHX9vpURtXCmiD e5caOkwqUmwVR3aMUEdkk bzVOEkcK4cRBQcgRAacLe pPV5bRCObsmao p839ErLeLYE6TLItpIKgG 6MjoD3bKoYyMPUcUGIiG6 IiuLLcXJvoO914TPtmDtW 3QCNdiqQjA8Jt XHYqyVidFfE2a3P2Ao2RD I1ZUVF8S6PdQkb1ITPuhH atAZ8ziWKvCXysQm0lyJo paQntPI8wELAq mfyiLELmeG3bJLAneYOcv MsgNM3nYFDubgazs389Yw EuHUA0DEActBKcQ9FggR6 yOiAjMDAwMDAw F3JktNCyRGasD548FCcpN dY3ADEutpUwH6MuNGZifA ohRyT9i4M5Va0JLPW9rdI fltcfJ6X0dLO4 aWVudDwvdGQ+LV81ql61A 0OmIiuyKwf2WQRuSLD7mV K5mW7hQNVdIWhrx4D6yXR 0M8UswiBnlo0v t5ugRPZzSLuqB70doEUsm 3G1PNTwgPG1TBZjlStwIm IvqT46Hus+TFGqsHemw2L cJrhch3fgw3pm oJm2CaLlRSYddaGbqWgnQ ZT4r1UmAj92V24nUYzcFY RoPSIzMCUiIHZhbGlnbj0 kpR6wPb2+PGNv yZP3xKU5sP0fUxWbHyV1T VzzZ136JaAzeHQhSsnfu3 fbb8wfxEh9BpVcLNPedpS blIthTOO3t3Ve Rp21N5IhnRjwy6YmGkm2z h36sVKpn8Z2kGA6S4SkDQ OawjgxjRHeiUhlJD9mXZL benjaBCQibJ0h ZTGqG0r0KiWhImM0ZKkkW 7AtbyW8FOJohJBgXJKymL FEkC0bzrakt5vyiraqUpM iBLOdOKe8HVe3 JOXlaYxzDhXnBPB5GtV1J OW0eUAhwC1eaPjlbjjyrF 9wOyc+ZUi6q0pzxCTqPV8 feFM3FM94AV09 vRHfq6V8xNK5N9HbFRTtk hhmnviojNT5KKSxWDVomV 14Gn0pfVrmDv7iJQUbLGT 4UVLqsJZtZ9Na qR9nGtUvHGGtDEZnP4Jxx EWwQVlfL950KNjeRdP6UY BzniIkR1FgULPjxGvwPeQ 3f0R1Rt7JCY79 HX08NC29pGWqw2P5cOX0N 0AgSGWjrtkxibjztVS2QK MxDHNkqV30Ph1hfNagWt4 tWWPuFKG6NHYy kJFjJ1HzhM4iYtSiYDDmO PSlF1ElqJKrKFwzY634AZ qjGpF8ILUvxcAfG1QwFOM fqOxkVpD2u4Z2 Qf7GKw72HA10MJ57qZUvv 8N2iAS2L8BoFSFxghdwog qiwJD7DFQgTKEdpD69Er9 gcRkxIl3qGBQr GDA6PTTbiRMzZ8DgbW2dL cHvZTBeCBQrG6YdzAOdJN piO616WZzdFcQ5ECWbycQ gD7UpQXCmmWve LyQ8k8R1Tt7WHVhmpvd4S 3RkPjwvdHI+EB21GIHaOD 47yGPjaFQxk8pntEn6ApD wHJAiZUO8iNzc PSd (more content not included)... [facility] Consent Formson 09-02-2020 Consent Forms [id number]-2020 Provider Orders [id number] [facility] Vital Sign[facility] Date Time Vital Sign Value Performing Clinician Dayana lity 07-16-2024 11:51-0400 Body mass index (BMI) [Ratio] 31.54 kg/m2 [employer] Work Phone: [facility] 07-16-2024 11:51-0400 Body weight 79.49 kg [employer] Work Phone: [facility] 07-16-2024 11:51-0400 Diastolic blood pressure 80 mm[Hg] [employer] Work Phone: [facility] 07-16-2024 11:51-0400 Systolic blood pressure 132 mm[Hg] [employer] Work Phone: [facility] 05-31-2024 11:07-0500 Body mass index (BMI) [Ratio] 35.35 kg/m2 Agata Maricruz DO Work Phone: [facility] 05-31-2024 11:07-0500 Body weight 89.09 kg Agata Maricruz DO Work Phone: [facility] 05-31-2024 11:07-0500 Diastolic blood pressure 76 mm[Hg] Agata Maricruz DO Work Phone: [facility] 05-31-2024 11:07-0500 Systolic blood pressure 122 mm[Hg] Agata Maricruz DO Work Phone: [facility] 05-24-2024 14:03-0500 Body mass index (BMI) [Ratio] 35.48 kg/m2 Agata Maricruz DO Work Phone: [facility] 05-24-2024 14:03-0500 Body weight 89.41 kg Agata Maricruz DO Work Phone: [facility] 05-24-2024 14:03-0500 Diastolic blood pressure 72 mm[Hg] Agata Maricruz DO Work Phone: [facility] 05-24-2024 14:03-0500 Systolic blood pressure 116 mm[Hg] Agata Maricruz DO Work Phone: [facility] 05-17-2024 11:23-0500 Body mass index (BMI) [Ratio] 35.24 kg/m2 Agata Maricruz DO Work Phone: [facility] 05-17-2024 11:23-0500 Body weight 88.81 kg Agata Maricruz DO Work Phone: [facility] 05-17-2024 11:23-0500 Diastolic blood pressure 76 mm[Hg] Agata Maricruz DO Work Phone: [facility] 05-17-2024 11:23-0500 Systolic blood pressure 118 mm[Hg] Agata Maricruz DO Work Phone: [facility] 05-09-2024 13:53-0500 Body mass index (BMI) [Ratio] 35.42 kg/m2 Tia Ken PA Work Phone: [facility] 05-09-2024 13:53-0500 Body weight 89.27 kg Tia Orlando PA Work Phone: [facility] 05-09-2024 13:53-0500 Diastolic blood pressure 68 mm[Hg] Tia Ken PA Work Phone: [facility] 05-09-2024 13:53-0500 Systolic blood pressure 120 mm[Hg] Tia Orlando PA Work Phone: [facility] 05-02-2024 12:00-0500 Body mass index (BMI) [Ratio] 34.92 kg/m2 Agata Maricruz DO Work Phone: [facility] 05-02-2024 12:00-0500 Body weight 88 kg Agata Maricruz DO Work Phone: [facility] 05-02-2024 12:00-0500 Diastolic blood pressure 70 mm[Hg] Agata Maricruz DO Work Phone: [facility] 05-02-2024 12:00-0500 Systolic blood pressure 116 mm[Hg] Agata Maricruz DO Work Phone: [facility] 04-17-2024 09:50-0500 Body mass index (BMI) [Ratio] 34.92 kg/m2 Tia Orlando PA Work Phone: [facility] 04-17-2024 09:50-0500 Body weight 88 kg Tia Orlando PA Work Phone: [facility] 04-17-2024 09:50-0500 Diastolic blood pressure 74 mm[Hg] Tia Ken PA Work Phone: [facility] 04-17-2024 09:50-0500 Systolic blood pressure 118 mm[Hg] Tia Ken PA Work Phone: [facility] 03-29-2024 10:32-0500 Body mass index (BMI) [Ratio] 34.4 kg/m2 Agata Maricruz DO Work Phone: [facility] 03-29-2024 10:32-0500 Body weight 86.68 kg Agata Maricruz DO Work Phone: [facility] 03-29-2024 10:32-0500 Diastolic blood pressure 72 mm[Hg] Agata Maricruz DO Work Phone: [facility] 03-29-2024 10:32-0500 Systolic blood pressure 112 mm[Hg] Agata Maricruz DO Work Phone: [facility] 03-14-2024 14:03-0500 Body mass index (BMI) [Ratio] 34.38 kg/m2 Tia SÁNCHEZ Work Phone: [facility] 03-14-2024 14:03-0500 Body weight 86.64 kg Tia SÁNCHEZ Work Phone: [facility] 03-14-2024 14:03-0500 Diastolic blood pressure 68 mm[Hg] Tia SÁNCHEZ Work Phone: [facility] 03-14-2024 14:03-0500 Systolic blood pressure 110 mm[Hg] Tia SÁNCHEZ Work Phone: [facility] 02-14-2024 14:02-0500 Body mass index (BMI) [Ratio] 34.02 kg/m2 Agata Maricruz DO Work Phone: [facility] 02-14-2024 14:02-0500 Body weight 85.73 kg Agata Maricruz DO Work Phone: [facility] 02-14-2024 14:02-0500 Diastolic blood pressure 70 mm[Hg] Agata Maricruz DO Work Phone: [facility] 02-14-2024 14:02-0500 Systolic blood pressure 112 mm[Hg] Agata Maricruz DO Work Phone: [facility] 01-17-2024 14:24-0400 Body mass index (BMI) [Ratio] 32.94 kg/m2 Tia SÁNCHEZ Work Phone: [facility] 01-17-2024 14:24-0400 Body weight 83.01 kg Tia SÁNCHEZ Work Phone: [facility] 01-17-2024 14:24-0400 Diastolic blood pressure 78 mm[Hg] Tia Ken PA Work Phone: [facility] 01-17-2024 14:24-0400 Systolic blood pressure 118 mm[Hg] Tia Rogers PA Work Phone: [facility] 12-19-2023 11:53-0400 Body mass index (BMI) [Ratio] 32.36 kg/m2 Tia Ken PA Work Phone: [facility] 12-19-2023 11:53-0400 Body weight 81.56 kg Tia Ken PA Work Phone: [facility] 12-19-2023 11:53-0400 Diastolic blood pressure 60 mm[Hg] Tia Rogers PA Work Phone: [facility] 12-19-2023 11:53-0400 Systolic blood pressure 100 mm[Hg] Tia Rogers PA Work Phone: [facility] Healthcare Encounters Encounter Date Encounter Type Care Provider Facility Start: 09-04-2024 End: 09-04-2024 Bamboo flowsheet Agata Maricruz DO Work Phone: [facility] Start: 09-04-2024 End: 09-04-2024 Bamboo flowsheet Agata Maricruz DO Work Phone: [facility] Start: 07-16-2024 End: 07-16-2024 ambulatory AGATA MARICRUZ Not Available Start: 07-16-2024 End: 07-16-2024 care visit Agata Maricruz DO Work Phone: [facility] Comment on above: 6 weeks f ollow-up Start: 06-02-2024 End: 06-02-2024 Clinisync Result Encounter Agata Maricruz DO Work Phone: [facility] External Department Unsolicited Start: 06-02-2024 End: 06-02-2024 Clinisync Result Encounter Agata Maricruz DO Work Phone: [facility] External Department Unsolicited Start: 06-01-2024 End: 06-01-2024 Clinisync Result Encounter Agata Maricruz DO Work Phone: [facility] External Department Unsolicited Start: 06-01-2024 End: 06-01-2024 Clinisync Result Encounter Agata Maricruz DO Work Phone: [facility] External Department Unsolicited Start: 05-31-2024 End: 05-31-2024 Bamboo flowsheet Agata Maricruz DO Work Phone: [facility] Start: 05-31-2024 End: 05-31-2024 Bamboo flowsheet Agata Maricruz DO Work Phone: [facility] Start: 05-31-2024 End: 05-31-2024 ambulatory AGATA MARICRUZ Not Available Start: 05-31-2024 End: 05-31-2024 flow sheet Agata Maricruz DO Work Phone: [facility] Comment on above: Third trimester preg carmen; 39 weeks gestation of Start: 05-24-2024 End: 05-24-2024 flow sheet Agata Maricruz DO Work Phone: [facility] Comment on above: Third trimester preg carmen; 38 weeks gestation of ; Other chronic sinusitis Start: 05-24-2024 End: 05-24-2024 ambulatory AGATA MARICRUZ Not Available Start: 05-17-2024 End: 05-17-2024 Bamboo flowsheet Agata Maricruz DO Work Phone: [facility] Start: 05-17-2024 End: 05-17-2024 Bamboo flowsheet Agata Maricruz DO Work Phone: [facility] Start: 05-17-2024 End: 05-17-2024 ambulatory AGATA MARICRUZ Not Available Start: 05-17-2024 End: 05-17-2024 flow sheet Agata Maricruz DO Work Phone: [facility] Comment on above: Third trimester preg carmen; 37 weeks gestation of Start: 05-09-2024 End: 05-09-2024 Bamboo flowsheet Tia Rogers PA Work Phone: [facility] Start: 05-09-2024 [...] Work Phone: [facility] External Department Unsolicited Start: 05-02-2024 End: 05-02-2024 ambulatory AGATA MARICRUZ Not Available Start: 05-02-2024 End: 05-02-2024 flow sheet Agata Maricruz DO Work Phone: [facility] Comment on above: Third trimester preg carmen; 35 weeks gestation of Start: 04-17-2024 End: 04-17-2024 Bamboo flowsheet Tia SÁNCHEZ Work Phone: [facility] Start: 04-17-2024 End: 04-17-2024 Bamboo flowsheet Tia SÁNCHEZ Work Phone: [facility] Start: 04-17-2024 End: 04-17-2024 ambulatory TIA ROGERS Not Available Start: 04-17-2024 End: 04-17-2024 flow sheet Tia SÁNCHEZ Work Phone: [facility] Comment on above: Third trimester preg carmen; 33 weeks gestation of Start: 04-12-2024 End: 04-12-2024 ambulatory AGATA MARICRUZ Not Available Start: 03-29-2024 End: 03-29-2024 Bamboo flowsheet Agata Maricruz DO Work Phone: [facility] Start: 03-29-2024 End: 03-29-2024 Bamboo flowsheet Agata Maricruz DO Work Phone: [facility] Start: 03-29-2024 End: 03-29-2024 ambulatory AGATA MARICRUZ Not Available Start: 03-29-2024 End: 03-29-2024 flow sheet Agata Maricruz DO Work Phone: [facility] Comment on above: Third trimester preg carmen; 30 weeks gestation of ; Size of fetus inconsistent with dates in third trimester Start: 03-14-2024 End: 03-14-2024 Bamboo flowsheet Tia SÁNCHEZ Work Phone: [facility] Start: 03-14-2024 End: 03-14-2024 Bamboo flowsheet Tia SÁNCHEZ Work Phone: [facility] Start: 03-14-2024 End: 03-14-2024 ambulatory TIA ROGERS Not Available Start: 03-14-2024 End: 03-14-2024 flow sheet Tia SÁNCHEZ Work Phone: [facility] Comment on above: Muscle cramps (Prima ry Dx); Third trimester ; 28 weeks gestation of Start: 02-17-2024 End: 02-17-2024 Clinisync Result Encounter Agata Maricruz DO Work Phone: [facility] External Department Unsolicited Start: 02-17-2024 End: 02-17-2024 [...] 01-17-2024 Bamboo flowsheet Tia SÁNCHEZ Work Phone: [facility] Start: 12-19-2023 End: 12-19-2023 Bamboo flowsheet Tia SÁNCHEZ Work Phone: [facility] Start: 12-19-2023 End: 12-20-2023 Bamboo flowsheet Tia Rogers PA Work Phone: [facility] Start: 12-19-2023 End: 12-20-2023 External Result Encounter Tia SÁNCHEZ Work Phone: [facility] External Department Unsolicited Start: 12-19-2023 End: 12-19-2023 [...] Start: 12-16-2022 End: 12-17-2022 ambulatory PHYSICIAN NO [facility] Work Phone: Start: 12-16-2022 End: 12-16-2022 Discharged Recurring PHYSICIAN NO [facility] [address] Start: 10-19-2022 Orders Only Segundo sepulveda DO Work Phone: Cardiology Comment on above: Syncope, unspecified syncope type (Primary Dx); Dizziness; SOB (shortness of breath) Start: 10-14-2022 Telephone encounter Segundo Alba DO Work Phone: Cardiology Comment on above: Appointment Start: 10-07-2022 Telephone encounter Sgeundo Alba DO Work Phone: Cardiology Comment on above: Received Referral an d Outside Medical Records Start: 08-23-2022 End: 08-23-[address] AGATA ALCANTARA . Facility:[facility] Start: 08-19-2022 End: 08-20-2022 Evaluation and management of inpatient DR AGATA ALCANTARA . Facility:[facility] Start: 08-17-2022 End: 08-17-[address] AGATA ALCANTARA . Facility:[facility] Start: 08-16-2022 End: 08-16-[address] JANTE BERMAN . Facility:[facility] Start: 08-12-2022 End: 08-12-[address] BLAS OLIVEIRA Facility:[facility] Start: 07-14-2022 End: 07-14-[address] AGATA ALCANTARA . Facility:[facility] Start: 07-08-2022 End: 07-09-[address] AGATA ALCANTARA . Facility:[facility] Start: 04-30-2022 End: 04-30-2022 ambulatory JOHN CORONAOD Facility:[facility] Start: 04-29-2022 End: 04-30-[address] [...] Start: 07-18-2017 End: 07-19-2017 Ambulatory DEFAULT PHYSICIAN Facility:[facility] Procedures Date Procedure Procedure Detail Performing Clinician Start: 06-02-2024 ALL CBC WITH AUTO DIFF Agata Maricruz DO Work Phone: Start: 06-01-2024 [facility] CBC WITH PLATEL ET NO DIFFERENTIAL Agata Maricruz DO Work Phone: Start: 05-09-2024 Urnls dip stick/tabl et rgnt [...] stick/tabl et rgnt non-auto w/o micrscp Agata Alcantara DO Work Phone: Start: 01-17-2024 Urnls dip [...] Treatment Date Care Activity Detail Author Start: 09-04-2024 End: 09-04-2024 Patient encounter procedure [facility] Comment on above: Arrived Start: 05-31-2024 End: 05-31-2025 Nonstress test nonstress test Procedures Routine 39 weeks gestation of Expected: 05/31/2024 (Approximate), Expires: 05/31/2025 [facility] Work Phone: Comment on above: Expected: 05/31/2024 (Approximate), Expires: 05/31/2025 Start: 05-31-2024 End: 05-31-2025 US biophysical profile wo non stress testing US biophysical profile wo non stress testing Imaging Routine 39 weeks gestation of Expected: 05/31/2024 (Approximate), Expires: 05/31/2025 [facility] Comment on above: Expected: 05/31/2024 (Approximate), Expires: 05/31/2025 Start: 05-31-2024 End: 05-31-2024 Patient encounter procedure 05/31/2024 10:30 AM EST Routine [facility] [address] [place] [address] Agata Alcantara, DO [address] [facility] [place] [address] [facility] Start: 05-24-2024 End: 05-24-2024 Patient encounter procedure 05/24/2024 11:00 AM EST Routine [facility] [address] [facility] [place] [address] Agata Alcantara, [address] [place] [address] [facility] Start: 05-17-2024 End: 05-17-2024 Patient encounter procedure 05/17/2024 11:00 AM EST Routine [facility] [address] [facility] [place] [id number] Agata Alcantara, DO [address] [facility] [place] [address] [facility] Start: 05-09-2024 End: 05-09-2024 Patient encounter procedure 05/09/2024 1:40 PM EST Routine [facility] [address] [facility] [place] [id number] Tia Rogers [place] [address] [facility] [place] [address] [facility] Start: 05-02-2024 End: 05-02-2025 CULTURE, GROUP B STREP WITH SUSCEPTIBLITY CULTURE, GROUP B STREP WITH SUSCEPTIBLITY Lab Routine Third trimester Expected: 05/02/2024, Expires: 05/02/2025 [facility] Work Phone: Comment on above: Expected: 05/02/2024 , Expires: 05/02/2025 Start: 04-17-2024 End: 04-17-2024 Patient encounter procedure 04/17/2024 9:20 AM EST Routine [facility] [address] [place] [phone] Tia Rogers, PA [address] [facility] [place] [address] [facility] Start: 03-29-2024 End: 03-29-2025 US for US OB SCAN FOR GROWTH Imaging Routine Size of fetus inconsistent with dates in third trimester Expected: 03/29/2024 (Approximate), Expires: 03/29/2025 [facility] Work Phone: Comment on above: Expected: 03/29/2024 (Approximate), Expires: 03/29/2025 Start: 03-29-2024 End: 03-29-2024 Patient encounter procedure 03/29/2024 10:00 AM EST Routine [facility] [address] [place] [phone] Agata Alcantara DO [address] [facility] [place] [address] [facility] Start: 03-14-2024 End: 03-14-2024 Patient encounter procedure 03/14/2024 1:30 PM EST Routine [facility] [address] [place] [phone] Tia Rogers, PA [address] [facility] [place] [address] [facility] Start: 02-14-2024 End: 02-13-2025 CBC panel - Blood by Automated count CBC Lab Routine Diabetes mellitus screening Expected: 02/14/2024 (Approximate), Expires: 02/13/2025 [facility] Work Phone: Comment on above: Expected: 02/14/2024 (Approximate), Expires: 02/13/2025 Start: 02-14-2024 End: 02-13-2025 Measurement of glucose 1 hour after glucose challenge for glucose tolerance test Glucose tolerance, 1 hour Lab Routine Diabetes mellitus screening Expected: 02/14/2024 (Approximate), Expires: 02/13/2025 [facility] Comment on above: Expected: 02/14/2024 (Approximate), Expires: 02/13/2025 Start: 02-14-2024 End: 02-14-2024 Patient encounter procedure 02/14/2024 1:20 PM EST Routine [facility] [address] [place] [phone] Agata Alcantara, DO [address] [place] [address] [facility] Start: 01-17-2024 End: 01-17-2024 Patient encounter procedure [facility] Comment on above: Arrived Start: 01-17-2024 End: 01-17-2024 Professional / ancillary services management 01/17/2024 1:00 PM EDT Ancillary Procedure [facility] [address] [place] [phone] [facility] Start: 12-19-2023 End: 02-18-2024 Alpha fetoprotein, maternal Alpha fetoprotein, maternal Lab Routine 16 weeks gestation of Expected: 12/19/2023 (Approximate), Expires: 02/18/2024 [facility] Comment on above: Expected: 12/19/2023 (Approximate), Expires: 02/18/2024 Start: 12-19-2023 End: 12-18-2024 US for US OB ANATOMY SINGLE W US OB CERVICAL LENGTH Imaging Routine Screening, , for anatomic survey Expected: 12/19/2023 (Approximate), Expires: 12/18/2024 [facility] Comment on above: Expected: 12/19/2023 [...] Lab Routine Exposure to STD Ordered: 12/19/2023 [facility] Comment on above: Ordered: 12/19/2023 Neisseria gonorrhoea e DNA [Presence] in Unspecified specimen by GONZÁLEZ with probe detection Neisseria gonorrhea DNA probe, direct Lab Routine Exposure to STD Ordered: 12/19/2023 [facility] Comment on above: Ordered: 12/19/2023 SURESWAB(R) ADVANCED VAGINITIS PLUS, TMA SURESWAB(R) ADVANCED VAGINITIS PLUS, TMA Pathology and Cytology Routine Vaginal discharge Ordered: 12/19/2023 [facility] [employer] Work Phone: Comment on above: Ordered: 12/19/2023 Payers Date Payer Category Payer Self-pay 2022 Private Health Insurance [employer] [id number] 2022 Unknown 2022 Medicaid MEDICAID MCP GEN [place] MEDICAID MCP GENERIC [id number] 2022-Present [phone] [address] [place] [address] Medicaid [id number] 1992 Unknown [id number] 2.16.840.1.647362.3.579 .2.593 1992 Unknown [id number] 2.16.840.1.207030.3.579 .2.593 1992 Unknown [id number] 2.16.840.1.257220.3.579 .2.593 1992 Unknown [id number] 2.16.840.1.220501.3.579 .2.593 1992 Unknown [id number] 2.16.840.1.012324.3.579 .2.593 1992 Unknown [id number] 2.16.840.1.220631.3.579 .2.593 1992 Unknown [id number] 2.16.840.1.772379.3.579 .2.593 1992 Unknown [id number] 2.16.840.1.363797.3.579 .2.593 1992 Unknown [id number] 2.16.840.1.394247.3.579 .2.593 1992 Unknown [id number] 2.16.840.1.514534.3.579 .2.593 1992 Unknown [id number] 2.16.840.1.166353.3.579 .2.593 1992 Unknown [id number] 2.16.840.1.847745.3.579 .2.593 1992 Unknown [id number] 2.16.840.1.539875.3.579 .2.593 1992 Unknown [id number] 2.16.840.1.453113.3.579 .2.593 1992 Unknown [id number] 2.16.840.1.766785.3.579 .2.593 1992 Unknown [id number] 2.16.840.1.719718.3.579 .2.593 1992 Unknown [id number] 2.16.840.1.454301.3.579 .2.1258 1992 Unknown [id number] 2.840.1.284761.3.579 .2.1258 1992 Unknown [id number] 2.840.1.607582.3.579 .2.1258 1992 Unknown [id number] 2.840.1.747832.3.579 .2.1258 1992 Unknown [id number] 2.840.1.857671.3.579 .2.1258 1992 Unknown [id number] 2.840.1.625586.3.579 .2.1258 1992 Unknown [id number] 2.0.1.996836.3.579 .2.1258 1992 Unknown [id number] 20.1.052779.3.579 .2.1258 1992 Unknown [id number] .1.477129.3.579 .2.1258 1992 Unknown [id number] 05.27.830.1.080406.3.579 .2.1258 1992 Unknown [id number] .1.534017.3.579 .2.1258 1992 Unknown [id number] 840.1.025077.3.579 .2.1258 1992 Unknown [id number] .1.687815.3.579 .2.1258 1992 Unknown [id number] 840.1.658619.3.579 .2.1258 1992 Unknown [id number] 840.1.162642.3.579 .2.1258 1959 Unknown [id number] Unknown [id number] 2840.1.304016.3.579 .2.531 Social History Date Type Detail Facility Tobacco smoking stat [facility] Tobacco smoking consumption unknown [facility] Start: 1992 Sex Assigned At Not on file [facility] Start: 03-02-2023 End: 01-17-2024 Gender identity Not on file [facility] Start: 1990 Sex Assigned At Female F [facility] Start: 03-02-2023 End: 01-17-2024 Tobacco smoking status [...] tobacco non-user [facility] Start: 01-17-2024 End: 08-24-2024 Alcoholic beverage intake Ex-drinker (finding) [facility] Clinical Notes 09-02-2020 to 07-16-2024 Geraldine Fountain NP - 07/16/2024 11:30 AM Bakari Keating LPN - 05/31/2024 10:30 AM All Keating LPN - 05/24/2024 1:50 PM All Keating LPN - 05/17/2024 11:00 AM EST Note Date & Type Note Facility 07-16-2024 History of Presen t illness Narrative Reason for Appointment: Patient ID: Sabine Pardo is a 34 y.o. female who presents for 6 wk Patient presents today for Post Follow Up appointment. MEDICATIONS Current Outpatient Medications Medication Instructions [...] nursing note reviewed. Exam conducted with a nurses superintendent present. Vitals: Estimated body mass index is 31.54 kg/m as calculated from the following: Height as of 09/30/22: 5' 2.5 . Weight as of this encounter: 175 lb 4 oz. BP: 132/80 Patient's last menstrual period was 07/29/2023. ASSESSMENT & PLAN ICD-10-CM 1. 6 weeks follow-up Z39.2 Post Follow Up: Patient is doing well and without complaints. Patient presents today for 6 week visit. Patient is s/p Vaginal delivery. Patient states depression but denies suicidal and homicidal ideations. All options were discussed with the patient regarding control and patient desires none at this time. Follow Up: Patient is to return for annual unless needed otherwise. Documented by Geraldine Fountain NP on behalf of: Agata Alcantara DO documented in this encounter [facility] 05-31-2024 History of Presen t illness Narrative Reason [...] nursing note reviewed. Exam conducted with a nurses superintendent present. Vitals: Estimated body mass index is 35.35 kg/m as calculated from the following: Height as of 09/30/22: 5' 2.5 . Weight as of this encounter: 196 lb 6.4 oz. BP: 122/76 Patient's last menstrual period was 07/29/2023. ASSESSMENT & PLAN ICD-10-CM 1. Third trimester Z34.93 2. 39 weeks gestation of Z3A.39 Patient presents today for a routine obstetrics appointment. Patient is currently 39w6d with a Estimated Date of Delivery: 06/01/24. Patient to have IOL on 06/06/24 if patient does not deliver prior to then. Sent NST/BPP order to [facility] Scheduling and [facility] to have setup tomorrow 06/01/24. Patient to schedule for 6 week post appointment. Provider called [facility] and confirmed patient was on the books for IOL on 06/06/24. Documented by Katelyn Keating LPN on behalf of: Agata Alcantara DO documented in this encounter [facility] 05-24-2024 History of Presen t illness Narrative [...] nursing note reviewed. Exam conducted with a nurses superintendent present. Vitals: Estimated body mass index is [...] Agata Alcantara DO documented in this encounter [facility] 05-17-2024 History of Presen t illness Narrative [...] nursing note reviewed. Exam conducted with a nurses superintendent present. Vitals: Estimated body mass index is [...] Agata Alcantara DO documented in this encounter [facility] 05-09-2024 History of Presen t illness Narrative [...] of: PRINCESS Reddy documented in this encounter [facility] 05-02-2024 History of Presen t illness Narrative [...] nursing note reviewed. Exam conducted with a nurses superintendent present. Vitals: Estimated body mass index is [...] Agata Alcantara DO documented in this encounter [facility] 04-17-2024 History of Presen t illness Narrative [...] of: PRINCESS Reddy documented in this encounter [facility] 03-29-2024 History of Presen t illness Narrative [...] nursing note reviewed. Exam conducted with a nurses superintendent present. Vitals: Estimated body mass index is [...] Agata Alcantara DO documented in this encounter [facility] 03-14-2024 History of Presen t illness Narrative [...] of: PRINCESS Reddy documented in this encounter [facility] 02-14-2024 History of Presen t illness Narrative [...] nursing note reviewed. Exam conducted with a nurses superintendent present. Vitals: Estimated body mass index is [...] Agata Alcantara DO documented in this encounter [facility] 01-17-2024 History of Presen t illness Narrative [...] of: PRINCESS Reddy documented in this encounter [facility] 12-19-2023 History of Presen t illness Narrative [...] nursing note reviewed. Exam conducted with a nurses superintendent present. Vitals: Estimated body mass index is [...] of: PRINCESS Reddy documented in this encounter [facility] 10-14-2022 Miscellaneous Notes Formattin g of this [...] sent to Brenda documented in this encounter [facility] 10-07-2022 Miscellaneous Notes Formattin g of this note might be different from the original. Referral and outside medical records scanned into shared [address]. Referral routed to scheduling for first available with Dr. Segundo Alba. documented in this encounter [facility] 09-02-2020 Note [id number] Diagnosis Syncope, unspecified syncope type- Primary Dizziness Dizziness and giddiness SOB (shortness of breath) Shortness of breath [facility] noteNo assessment information [facility] Work Phone: Evaluation note* Diagnosis Second trimester state, incidental 20 weeks gestation of documented in this encounter [facility]* Diagnosis Second trimester state, incidental 23 weeks gestation of Diabetes mellitus screening Screening for diabetes mellitus documented in this encounter [facility]* Diagnosis Muscle cramps- Primary Third trimester state, incidental 28 weeks gestation of documented in this encounter [facility] note* Diagnosis 16 weeks gestation of Screening, , for anatomic survey Encounter for anatomic survey Exposure to STD Vaginal discharge Leukorrhea, not specified as infective documented in this encounter [facility] Healthcare[facility] note* Diagnosis Third trimester state, incidental 30 weeks gestation of Size of fetus inconsistent with dates in third trimester documented in this encounter [facility] Healthcare[facility] note* Diagnosis Third trimester state, incidental 33 weeks gestation of documented in this encounter [facility]* Diagnosis Third trimester state, incidental 35 weeks gestation of documented in this encounter [facility]* Diagnosis 36 weeks gestation of Third trimester state, incidental documented in this encounter [facility]* Diagnosis Third trimester state, incidental 37 weeks gestation of documented in this encounter [facility]* Diagnosis Third trimester state, incidental 38 weeks gestation of Other chronic sinusitis documented in this encounter [facility]* Diagnosis Third trimester state, incidental 39 weeks gestation of documented in this encounter [facility]* Diagnosis 6 weeks follow-up [facility] Outpatient Procedure (Routine) - Pending Review Specialty Diagnoses / Procedures Referred By Robert sanchez Referred To [facility] Diagnoses Syncope, unspecified syncope type Dizziness SOB (shortness of breath) Procedures ECG COMPLETE ECG ROUTINE ECG W/LEAST 12 LDS W/I&R Segundo Alba, [address] [place] [address] [facility] [address] [place] [address] Referral ID Status Reason Start Date Expiration Date Visits Requested Visits Authorized [id number] Pending Review Auto-Generate d Referral Financial Clearance Required - [facility] Payor 10/19/2022 10/19/2023 1 1 [facility] Summary Purpose Family History No Family History [...] section and content) DATE CREATED AUTHOR 09/29/2017 [facility] DATE CREATED AUTHOR AUTHOR'S ORGANIZ ATION 01/28/2021 [facility] DATE CREATED AUTHOR AUTHOR'S ORGANIZ ATION 08/25/2022 [facility] DATE CREATED AUTHOR AUTHOR'S ORGANIZ ATION 10/15/2022 [facility] DATE CREATED AUTHOR AUTHOR'S ORGANIZ ATION 01/16/2023 [facility] DATE CREATED AUTHOR AUTHOR'S ORGANIZ ATION 07/17/2024 [facility] EPIC Source Comments (unrecognize d section and content) In the event this informatio n is protected by the Federal Confidentiality of Alcohol and Drug Abuse Patient Records regulations: The Federal rules restrict any use of the information to criminally investigate or prosecute any alcohol or drug abuse patient.[facility] the event this information is protected by the Federal Confidentiality of Alcohol and Drug Abuse Patient Records regulations: The Federal rules restrict any use of the information to criminally investigate or prosecute any alcohol or drug abuse patient.[facility] the event this information is protected by the Federal Confidentiality of Alcohol and Drug Abuse Patient Records regulations: The Federal rules restrict any use of the information to criminally investigate or prosecute any alcohol or drug abuse patient.[facility] Reason for Visit (unrecogniz ed section and content) Reason Comments Received Referral and Outside Medical Re cords Reason Comments Appointment Reason Comments Routine Visit Reason Comments 6 wk Care Teams (unrecognized sec tion and content) [employer] Relationship Specialty Start Date End Date Ileana Evans Burton [address] [place] [address] PCP - General 07/21/00 [employer] Relationship Specialty Start Date End Date Ileana Evans Burton [address] [place] [id number] PCP - General 07/21/00 [employer] Relationship Specialty Start Date End Date Ileana Evansdoyle [address] [place] [address] PCP - General 07/21/00 Team [...] ON THE PRIMARY CLINICAL RECORDS. [facility] [employer] [facility]. provides no warranty or guarantee of the accuracy or completeness of information in this document.
[2024-09-07 14:09] LABS: Age Gdln ACOG Testing Note (.); HPV Aptima Negative (Negative); IGP, Aptima HPV, rfx 16/18,45 Note (.)
== END 2024-09-04 19:13 | disposition home or self-care (01) ==
LOC: LAB 19:12
PROVIDERS: Visit Provider Obstetrics & Gynecology
DX: Z01.419 Encounter for gynecological examination (general) (routine) without abnormal findings (principal)
CPT/HCPCS: 87624; 88175